=== PATIENT | male | born 1975 | race American Indian/Alaskan Native ===

== ENCOUNTER → 2019-08-30 06:05 | Outpatient (CLI) | payer MEDICARE, OTHER, SELFPAY ==
[2019-08-30 07:01] LABS: Absolute Lymphocyte Count 1.31 X10^3/uL (0.83-4.51); Absolute Neutrophil Count 6.2 X10^3/uL (2.0-7.7); Basophil# 0.03 X10^3/uL; Basophil% 0.3 % (0-1); Eosinophils% 1.1 % (0-5); Hematocrit 39.3 % (40-54); Hemoglobin 12.9 g/dL (13.0-16.5); Lymphocyte # 1.31 X10^3/ul (4.0); Lymphocyte % 14.7 % (19-41); Mean Corp Hgb Conc 32.8 g/dL (32-36); Mean Corpuscular Hgb 30.5 pg (27.0-32.0); Mean Corpuscular Volume 92.9 fL (80-94); Mean Platelet Vol. 10.5 fl (6.2-12.0); Monocyte% 13.4 % (0-10); NRBC Flagged by Analyzer 0 % (0-5); Neutrophil # 6.21 X10^3/uL (2.7-7.7); Neutrophil % 69.6 % (47-70); Platelet Count 191 K/mm3 (150-450); RBC Distribution Width SD 47.7 fl (35.1-43.9); Red Blood Count 4.23 M/mm3 (4.6-6.2); White Blood Count 8.9 K/mm3 (4.4-11.0)
[2019-08-30 07:27] LABS: ALB/GLOB Ratio 1.1 RATIO (0.9-2.4); AST(SGOT) 18 U/L (15-37); Alanine Aminotransfer ALT/SGPT 28 U/L (16-61); Albumin, Serum 3.6 g/dL (3.2-5.0); Alkaline Phosphatase 91 U/L (45-117); Anion Gap 6 (5-15); BUN 34 mg/dL (7-18); BUN/Creat Ratio 26.8 RATIO (10-20); CPK Total, Creatine Kinase 169 U/L (39-308); Calcium,Total 8.8 mg/dL (8.5-10.1); Chloride 111 mmol/L (98-107); Creatinine, Serum 1.27 mg/dL (0.70-1.30); EST Glomerular Filtration Rate 66 mL/min (>60); Est Glom Filt Rate - Afr Amer 80 mL/min (>60); Globulin 3.3 g/dL (2.2-4.2); Glucose 74 mg/dL (74-106); LDH 167 U/L (87-241); Magnesium 1.8 mg/dL (1.6-2.6); Phosphorus 3.8 mg/dL (2.5-4.9); Potassium 3.7 mmol/L (3.5-5.1); Protein, Total 6.9 g/dL (6.4-8.2); Sodium Level 141 mmol/L (136-145); Uric Acid 7.6 mg/dL (3.5-7.2)
[2019-08-31 18:36] LABS: Tacrolimus (FK506) 6.5 ng/mL (2.0-20.0)
== END ==
DX: N18.9 Chronic kidney disease, unspecified (principal); D63.1 Anemia in chronic kidney disease; T86.10 Unspecified complication of kidney transplant; E83.40 Disorders of magnesium metabolism, unspecified; Z79.899 Other long term (current) drug therapy; E83.39 Other disorders of phosphorus metabolism
CPT/HCPCS: 36415; 80053; 80197; 82550; 83615; 83735; 84100; 84550; 85025

== ENCOUNTER 2019-10-20 17:50 | Observation (INO) | payer MEDICARE, OTHER, SELFPAY ==
[2019-10-20] VITALS (7 sets, daily range): BP systolic 132–146; BP diastolic 87–97; PULSE 63–75; RESP 16–22; TEMP 36.4–36.7; O2SAT 98–99; BMI 31.2; BMI 28.7
--- NOTE | 2019-10-20 18:05 | EKG12_ITS ---
Test Reason : Blood Pressure : / mmHG Vent. Rate : 075 BPM Atrial Rate : 075 BPM P-R Int : 118 ms QRS Dur : 088 ms QT Int : 358 ms P-R-T Axes : 027 052 074 degrees QTc Int : 399 ms Normal sinus rhythm Normal ECG Confirmed by ROYCE ARANDA, BRAXTON ([id number]), school photograph editor LIA KERR ([id number]) on 10/25/2019 10:56:13 AM Referred By: STEPHANE Confirmed By:BRITTANY CRANE MD
[2019-10-20] MEDS: Aspirin 81 MG TAB.CHEW 263 MG PO (18:22)
[2019-10-20 18:30] LABS: Absolute Lymphocyte Count 0.87 X10^3/uL (0.83-4.51); Absolute Neutrophil Count 6.2 X10^3/uL (2.0-7.7); Basophil# 0.03 X10^3/uL; Basophil% 0.4 % (0-1); Eosinophil# 0.03 X10^3/uL; Eosinophils% 0.4 % (0-5); Hematocrit 41.2 % (40-54); Hemoglobin 13.4 g/dL (13.0-16.5); Lymphocyte # 0.87 X10^3/ul (4.0); Lymphocyte % 11.1 % (19-41); Mean Corp Hgb Conc 32.5 g/dL (32-36); Mean Corpuscular Hgb 30.1 pg (27.0-32.0); Mean Corpuscular Volume 92.6 fL (80-94); Mean Platelet Vol. 10.9 fl (6.2-12.0); Monocyte# 0.72 X10^3/uL; Monocyte% 9.1 % (0-10); NRBC Flagged by Analyzer 0 % (0-5); Neutrophil # 6.16 X10^3/uL (2.7-7.7); Neutrophil % 78.2 % (47-70); Platelet Count 181 K/mm3 (150-450); RBC Distribution Width CV 13.7 % (11.6-14.6); RBC Distribution Width SD 47.1 fl (35.1-43.9); Red Blood Count 4.45 M/mm3 (4.6-6.2); White Blood Count 7.9 K/mm3 (4.4-11.0)
[2019-10-20 18:42] LABS: Prothrombin Time (Protime)PT. 12.9 SECONDS (11.7-14.9)
[2019-10-20 18:43] LABS: Partial Thromboplast Time 30.5 Seconds (24.1-36.2)
--- NOTE | 2019-10-20 18:44 | RAD_ITS ---
STUDY: X-RAY CHEST REASON FOR EXAM: Male, 44 years old. chest pain. hx of previous heart attack TECHNIQUE: Single frontal view of the chest. COMPARISON: None. FINDINGS: Bibasilar calcified granulomas. Metallic wire projects over the superior mediastinum. The lungs are clear and expanded. There is no demonstrated pleural abnormality. Normal size heart. Normal mediastinum and estelita. Normal visualized pulmonary arteries. Normal visualized aortic arch and descending thoracic aorta. Normal visualized thoracic spine. Normal visualized ribs, clavicles, and shoulders. There is no demonstrated abnormality of the visualized soft tissue structures of the upper abdomen. RAD/Chest 1 View (Portable) IMPRESSION: No acute disease Electronically Signed: Rao Fang MD at 18:56 EDT , Service support ,
[2019-10-20 18:50] LABS: Anion Gap 5 (5-15); BUN 35 mg/dL (7-18); BUN/Creat Ratio 21.9 RATIO (10-20); Calcium,Total 10.1 mg/dL (8.5-10.1); Chloride 113 mmol/L (98-107); EST Glomerular Filtration Rate 51 mL/min (>60); Est Glom Filt Rate - Afr Amer 61 mL/min (>60); Estimated Creatinine Clearance 42.53 ml/min; Glucose 160 mg/dL (74-106); Potassium 4.7 mmol/L (3.5-5.1); Sodium Level 141 mmol/L (136-145)
--- NOTE | 2019-10-20 19:19 | ED.DCSUM_ITS ---
History of Present Illness Chief Complaint: Chest Pain Informant: Patient Onset: Yesterday Narrative: Presents for evaluation of chest pain midsternal sharp in nature. Reports initial symptoms yesterday afternoon at rest lasting 2 hours and resolved. Reports woke up in the middle night and sweats with mild pain. Since 9 AM, 9 hours prior to arrival symptoms have been persistent. No radicular symptoms. No nausea or dyspnea. 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 History of renal transplant 3 years ago followed by transplant in [place], he has been in the area now for 2 months with a PCP. He is on immunosuppressants of tacrolimus, CellCept, prednisone. Denies history of diabetes, hypercholesterolemia, or hypertension. Tobacco history 1 to 2 cigarettes/day. States no family history of MIs at a young age. He states stress test a year ago. Took a baby aspirin today. Prior similar symptoms: Yes Past Medical History - Allergies and Home Meds Allergies/Adverse Reactions: Allergies hydromorphone [From Dilaudid] Allergy (Mild, Verified 09/30/19 15:22) nausea Latex, Natural Rubber Allergy (Mild, Verified 09/30/19 15:22) rash Past Medical History: - - Silent [place], renal transplant, Smoking Status: Current some day smoker - Family History Maternal Family History: Reports: Renal Disease Paternal Family History: Reports: - - Patient does not know. Review of Systems General: Denies: Chills, Fever, Sweats Eyes: Denies: Visual changes - bilaterally, Diplopia ENT: Denies: Rhinorrhea, Sore throat Cardiovascular: Reports: Chest pain. Denies: Palpitations Respiratory: Denies: Dyspnea, Cough, Dyspnea on exertion Gastrointestinal: Denies: Abdominal pain, Nausea, Vomiting, Diarrhea, Melena, Hematochezia Genitourinary: Denies: Dysuria, Hematuria, Frequency Musculoskeletal: Denies: Back pain, Extremity Pain Skin: Denies: Rash, Wounds Neurological: Denies: Headache, Weakness, Numbness Physical Exam Vital Signs/Narrative: Vital Signs Temp Pulse Resp BP Pulse Ox 10/20/19 19:08 65 16 146/95 H 99 10/20/19 18:08 98 10/20/19 17:51 97.6 F L 75 16 132/87 H 99 Inital Vital Signs reviewed: Yes General: Well nourished, Well developed, No Acute Distress Head: Normocephalic, Atraumatic Eyes: Perrl, EOMI ENT: Moist mucous membranes, No rhinorrhea Neck: Supple, Nontender Cardiovascular: Regular rate, Regular rhythm, No murmurs Respiratory: No distress, CTA bilaterally, Chest nontender Abdomen: Soft, Nontender, Nondistended, Normal bowel sounds Back: Nontender, Normal Inspection Extremities: Nontender, No edema Skin: Normal color, No rash Neurological: Alert, Oriented x3, Cranial nerves II-XII grossly intact, Normal Strength, Normal Sensation Psychological: Normal affect, Normal Mood Diagnostic/Tx/Re-eval Clinical Impression(s) from Imaging Studies Chest X-Ray 10/20/19 18:44 IMPRESSION: No acute disease Electronically Signed: Rao Fang MD at 18:56 EDT , Service support , Abnormal Lab Results 10/20/19 10/20/19 10/20/19 18:18 18:18 18:18 WBC 7.9 RBC 4.45 L Hgb 13.4 Hct 41.2 MCV 92.6 MCH 30.1 MCHC 32.5 RDW Std Deviation 47.1 H RDW Coeff of Tari 13.7 Plt Count 181 MPV 10.9 Immature Gran % (Auto) 0.800 Neut % (Auto) 78.2 H Lymph % (Auto) 11.1 L [place] % (Auto) 9.1 Eos % (Auto) 0.4 Baso % (Auto) 0.4 Absolute Neuts (auto) 6.2 Absolute Lymphs (auto) 0.87 Nucleated RBC % 0 PT 12.9 INR 1.0 APTT 30.5 Sodium 141 Potassium 4.7 Chloride 113 H Carbon Dioxide 23.0 Anion Gap 5 BUN 35 H Creatinine 1.60 H Estim Creat Clear Calc 42.53 Est GFR (MDRD) Af Amer 61 Est GFR (MDRD) Non-Af 51 L BUN/Creatinine Ratio 21.9 H Glucose 160 H Calcium 10.1 Troponin I 0.018 - EKG Initial EKG Interpretation: Sinus Rhythm - Sinus rate of 75, no ST or T wave changes. - Medical Decision Making Patient presents with chest pain symptoms constant for last 9 hours. EKG with no acute changes. Chest x-ray negative. Labs include troponin negative with exception of creatinine 1.6. He was given additional aspirin, given morphine for additional pain control. Low clinical suspicion for any PE with no tachycardia or hypoxia or any exertional dyspnea. Discussed with patient's creatinine, reports his baseline is usually 1.1, there was labs from last month was 1.27. With his transplant history and slight GINNY with chest pains I do feel he benefit from observations to trend his troponin and evaluation of his acute kidney injury. I spoke with hospitalist, Dr. Cortes for admission. ED Disposition - Plan for ED Patient: Disposition: Acute Care Hospital [facility] Diagnosis: GINNY (acute kidney injury), Chest pain, Transplanted kidney
--- NOTE | 2019-10-20 19:32 | HP.PCM_ITS ---
Problem List (1) Chest pain Status: Acute (2) GINNY (acute kidney injury) Status: Acute History of Present Illness Date of Admission: 10/20/19 Chief Complaint: chest pain The patient is a 44 year old M with a significant history of congenital solitary kidney status post kidney transplant x2 and on immunosuppression who presents at the emergency department with episodic chest pain that started a day before presentation. On a day before presentation his chest pain lasted about 2 hours and then went away. On the day of presentation he chest pain started about 1:30 AM and persisted until evening when he came to the emergency department. His chest pain is sharp, pressure-like and aching. On the day of his presentation his chest pain was 8 out of 10. His chest pain worsens with lying back and standing. He denies any ameliorating factors. At emergency department he received morphine that brought his chest pain to 4 out of 10. A chest pain is nonradiating. On the evening before presentation may have some nausea that he attributes to his dinner. Also associated with symptoms is diaphoresis. At the emergency department EKG was unremarkable. Troponin was unremarkable. His creatinine was elevated. He reported his baseline creatinine around 1.1. He reported that in the past he had a silent [place] x2 times. He reported that pads were going to be applied to his chest because his blood pressure was elevated. Eventually the pads were not applied. He reported that he had a cardiac cath and electrolytes were taken from his heart/coronaries. Past Medical History Past Medical History (Chronic Problems): Chronic Problems (Last Reviewed 10/20/19 @ 21:[address] Perfecto Cortes MD) Transplanted kidney (Chronic) Medical History: Medical History (Last Reviewed 10/20/19 @ 23:[address] Perfecto Cortes MD) Myocardial infarction with cardiac rehabilitation I21.9, Z51.89 COPD (chronic obstructive pulmonary disease) J44.9 Allergies hydromorphone [From Dilaudid] Allergy (Mild, Verified 09/30/19 15:22) nausea Latex, Natural Rubber Allergy (Mild, Verified 09/30/19 15:22) rash Home Medications: Ambulatory Orders Medication Instructions Recorded ergocalciferol (vitamin D2) 1,250 50,000 unit PO FR 09/30/19 mcg (50,000 unit) capsule magnesium oxide 400 mg PO BID 09/30/19 mycophenolate mofetil 250 mg 500 mg PO BID 09/30/19 capsule prednisone 5 mg tablet 5 mg PO DAILY 09/30/19 tacrolimus 1 mg capsule 3 mg PO BID cap 09/30/19 Calcium Carbonate 500 mg PO BID 10/20/19 Omeprazole Magnesium [Prilosec Otc] 20 mg PO BID 10/20/19 Surgical History: Surgical History (Last Reviewed 10/20/19 @ 21:[address] Perfecto Cortes MD) kidney transplant Smoking Status: Current some day smoker - *Family History Maternal History Items: Renal Disease Paternal History Items: - - Patient does not know. Review of Systems Constitutional: Denies: Chills, Fever, Weight Change HEENT: Denies: Head Aches, Sinus Congestion, Sinus Drainage Cardiovascular: Reports: Chest Pain. Denies: Palpitations Respiratory: Denies: Cough, Shortness of breath at rest, Sputum production Gastrointestinal: Reports: Nausea. Denies: Abdominal Pain, Vomiting Genitourinary: Denies: Dysuria Musculoskeletal: Denies: Joint Pain, Joint Tenderness Skin: Denies: Rash, Wounds Neurological: Denies: Numbness, Tingling, Focal weakness Psychiatric: Denies: Anxiety, Depression, Homicidal Ideations, Suicidal Ideations Hematologic/ Lymphatic: Denies: Easy Bruising, Easy Bleeding VTE Information - Inpt Only VTE Present on Admission: No VTE Mechan Device Prophylaxis: None VTE Pharm Prophylaxis ordered?: Yes Patient Problems: Active and Suspected Problems (Last Reviewed 10/20/19 @ 23:[address] Perfecto Cortes MD) Chest pain (Acute) GINNY (acute kidney injury) (Acute) - Physical Exam Vitals/I&O's: Vital Signs Temp Pulse Resp BP Pulse Ox 97.6 F L 65 16 146/95 H 99 10/20/19 17:51 10/20/19 19:08 10/20/19 19:08 10/20/19 19:08 10/20/19 19:08 Oxygen Delivery Method Room Air Weight: 72.6 kg Body Mass Index (BMI) 31.2 General: Alert, Oriented x3, Cooperative HEENT: Atraumatic, PERRLA, EOMI, Normocephalic Neck: Supple, No JVD, Negative Carotid Bruits Lungs: Clear to auscultation, Normal air movement, No rhonchi, No wheeze Cardiovascular: Regular rate, No murmurs Abdomen: Bowel Sounds Present, Soft, Non Tender Extremities: No edema, Capillary Refill Less than 3 Seconds Skin: No rashes, No breakdown, - - Dialysis access device in left forearm. Musculoskeletal: No Tenderness to Palpation of Joints or Extremities Neurological: Cranial nerves II-XII grossly intact Psych/Mental Status: Normal Affect, Appropriate Laboratory Results 10/20/19 18:18: WBC 7.9, RBC 4.45 L, Hgb 13.4, Hct 41.2, MCV 92.6, MCH 30.1, MCHC 32.5, RDW Std Deviation 47.1 H, RDW Coeff of Tari 13.7, Plt Count 181, MPV 10.9, Immature Gran % (Auto) 0.800, Neut % (Auto) 78.2 H, Lymph % (Auto) 11.1 L, [facility] % (Auto) 9.1, Eos % (Auto) 0.4, Baso % (Auto) 0.4, Absolute Neuts (auto) 6.2, Absolute Lymphs (auto) 0.87, Nucleated RBC % 0 10/20/19 18:18: PT 12.9, INR 1.0, APTT 30.5 10/20/19 18:18: Sodium 141, Potassium 4.7, Chloride 113 H, Carbon Dioxide 23.0, Anion Gap 5, BUN 35 H, Creatinine 1.60 H, Estim Creat Clear Calc 42.53, Est GFR (MDRD) Af Amer 61, Est GFR (MDRD) Non-Af 51 L, BUN/Creatinine Ratio 21.9 H, Glucose 160 H, Calcium 10.1, Troponin I 0.018 Assessment/Plan All Active Problems (Last Reviewed 10/20/19 @ 23:[address] Perfecto Cortes MD) Chest pain (Acute) GINNY (acute kidney injury) (Acute) The patient is a 44 year old M with a significant history of congenital solitary kidney status post kidney transplant x2 and on immunosuppression who presents emergency department with episodic chest pain and also was found to be in probable GINNY . Chest pain Place on a monitored bed at PCU CXR independently reviewed confirms no acute cardiopulmonary process. EKG independently reviewed confirms sinus rhythm. ASA 81 mg p.o. daily SL NTG 0.4 mg prn as needed for chest pain We will check lipid panel. Serial cardiac enzymes Stat EKG as needed for chest pain GINNY On presentation his creatinine was 1.60. Review of records shows that on 08/30/2019 his creatinine was 1.27. However patient reports baseline creatinine of 1.1. His BUN is 35. IV hydration. Avoid nephrotoxins. Trend BMP. Kidney transplant Continue home immunosuppression medication. GERD Omeprazole continued. Tobacco Abuse Counselled DVT prophylaxis Subcutaneous heparin OBSV E&M: [id number] Initial observation care L3
[2019-10-20] MEDS: Morphine 4 MG/ML Syringe IV (19:44)
[2019-10-20] MEDS: Ondansetron 4 MG/2 ML Vial IV (19:50)
--- NOTE | 2019-10-20 21:12 | EKG12_ITS ---
Test Reason : CP ADMIT Blood Pressure : / mmHG Vent. Rate : 069 BPM Atrial Rate : 069 BPM P-R Int : 120 ms QRS Dur : 096 ms QT Int : 392 ms P-R-T Axes : 031 062 068 degrees QTc Int : 420 ms Normal sinus rhythm Normal ECG When compared with ECG of 20-OCT-2019 17:58, MANUAL COMPARISON REQUIRED, DATA IS UNCONFIRMED Confirmed by LOPEZ WALKER ([id number]), non linear editor LIA KERR ([id number]) on 10/29/2019 10:36:44 AM Referred By: DR OSMAN Confirmed By:LOPEZ WALKER
[2019-10-20] MEDS: 0.9% Normal Saline 1,000 ML 100 ML IV (21:51)
[2019-10-20] MEDS: Mycophenolate Mofetil 250 MG Capsule 500 MG PO (22:16)
[2019-10-20] MEDS: Calcium (Elemental) 500 MG Tablet PO (22:16)
[2019-10-20] MEDS: Acetaminophen 325 MG Tablet 650 MG PO (22:17)
[2019-10-20] MEDS: Magnesium Oxide 400 MG Tablet PO (22:17)
[2019-10-21 03:02] VITALS: PULSE 63
[2019-10-21 03:10] VITALS: BP 145/82; PULSE 55; RESP 16; TEMP 36.4; O2SAT 98
[2019-10-21 06:49] LABS: Basophil# 0.02 X10^3/uL; Basophil% 0.3 % (0-1); Eosinophil# 0.08 X10^3/uL; Eosinophils% 1.3 % (0-5); Hematocrit 39.2 % (40-54); Hemoglobin 12.9 g/dL (13.0-16.5); Lymphocyte % 20.3 % (19-41); Mean Corp Hgb Conc 32.9 g/dL (32-36); Mean Corpuscular Volume 91.2 fL (80-94); Monocyte# 0.99 X10^3/uL; Monocyte% 15.5 % (0-10); NRBC Flagged by Analyzer 0 % (0-5); Neutrophil # 3.95 X10^3/uL (2.7-7.7); Neutrophil % 61.8 % (47-70); Platelet Count 165 K/mm3 (150-450); RBC Distribution Width SD 47.1 fl (35.1-43.9); White Blood Count 6.4 K/mm3 (4.4-11.0)
[2019-10-21 06:53] VITALS: PULSE 54
[2019-10-21 07:19] LABS: Anion Gap 6 (5-15); BUN 35 mg/dL (7-18); BUN/Creat Ratio 28.5 RATIO (10-20); Calcium,Total 9.5 mg/dL (8.5-10.1); Chloride 112 mmol/L (98-107); Cholesterol 171 mg/dL (200); Creatinine, Serum 1.23 mg/dL (0.70-1.30); EST Glomerular Filtration Rate 69 mL/min (>60); Est Glom Filt Rate - Afr Amer 83 mL/min (>60); Estimated Creatinine Clearance 57.87 ml/min; Glucose 87 mg/dL (74-106); High Density Lipoprotein 55 mg/dL; Potassium 4.6 mmol/L (3.5-5.1); Sodium Level 140 mmol/L (136-145); Triglycerides 76 mg/dL; Very Low Density Lipoprotein 15 mg/dL (5-40)
[2019-10-21] MEDS: 0.9% Normal Saline 1,000 ML 100 ML IV (07:59)
[2019-10-21 08:07] VITALS: BP 149/91; PULSE 61; RESP 16; TEMP 36.4; O2SAT 96
[2019-10-21] MEDS: Acetaminophen 325 MG Tablet 650 MG PO (08:11)
[2019-10-21] MEDS: Aspirin 81 MG TAB.CHEW PO (08:12)
[2019-10-21] MEDS: Calcium (Elemental) 500 MG Tablet PO (08:12)
[2019-10-21] MEDS: Mycophenolate Mofetil 250 MG Capsule 500 MG PO (08:12)
[2019-10-21] MEDS: Magnesium Oxide 400 MG Tablet PO (08:12)
[2019-10-21] MEDS: predniSONE 5 MG Tablet PO (08:13)
[2019-10-21] MEDS: Tacrolimus Anhydrous 1 MG Capsule 3 MG PO (08:13)
[2019-10-21 10:27] VITALS: O2SAT 95
[2019-10-21 11:03] VITALS: PULSE 63
--- NOTE | 2019-10-21 11:07 | DCINST_ITS ---
- Discharge Diagnoses Current Active Problems: Current Active and Chronic Problems (Last Reviewed 10/20/19 @ 21:[address] Perfecto Cortes MD) Chest pain (Acute) GINNY (acute kidney injury) (Acute) Transplanted kidney (Chronic) You will use the following diet at home:: No restrictions Discharge Activity: Return to Normal Activity Call your doctor if you observe: Shortness of breath, Dizziness, Fainting spells, Chest pain Allergies/Adverse Reactions: Allergies hydromorphone [From Dilaudid] Allergy (Mild, Verified 09/30/19 15:22) nausea Latex, Natural Rubber Allergy (Mild, Verified 09/30/19 15:22) rash Medications to take at Discharge ergocalciferol (vitamin D2) 1,250 mcg (50,000 unit) capsule 50,000 unit PO FR 09/30/19 magnesium oxide 400 mg PO BID 09/30/19 mycophenolate mofetil 250 mg capsule 500 mg PO BID 09/30/19 prednisone 5 mg tablet 5 mg PO DAILY 09/30/19 tacrolimus 1 mg capsule 3 mg PO BID cap 09/30/19 Calcium Carbonate 500 mg PO BID 10/20/19 Omeprazole Magnesium [Prilosec Otc] 20 mg PO BID 10/20/19 Primary Care Physician: Wolfgang Reed MD [Primary Care Provider] - Please follow up with your Primary Care Physician in: 1 Week Test Results: Test results from this visit will be discussed in further detail at your follow- up appointment, if applicable. Proposed Discharge Date: 10/21/19
--- NOTE | 2019-10-21 11:08 | PCM.DC.SUM ---
<Randa Jama - Last Filed: 10/21/19 11:14> Discharge Date and Diagnosis Date of Admission: 10/20/19 Date of Discharge: 10/21/19 - Primary Discharge Diagnosis Active and Suspected Problems (Last Reviewed 10/20/19 @ 23:[address] Perfecto Cortes MD) 1. Musculoskeletal chest pain, ACS ruled out 2. Acute kidney injury 3. History of kidney transplant 4. GERD 5. Tobacco dependence - Secondary Discharge Diagnosis Chronic Problems (Last Reviewed 10/20/19 @ 21:[address] Perfecto Cortes MD) Transplanted kidney (Chronic) Hospital Course and Treatment Imaging Results: Diagnostic Data Chest X-Ray 10/20/19 18:44 IMPRESSION: No acute disease Electronically Signed: Rao Fang MD at 18:56 EDT , Service support , Operations: None Procedures: None Summary of Care Provided: The patient is a 44 year old M admitted 10/20/2019 due to chest pain. 1. Musculoskeletal chest pain, ACS ruled out-troponin negative. EKG without ST-T changes. Patient reports he has had a heart cath and stress test at a facility in [place] within the last few years which was reported to be normal. Chest pain is reproducible. Follow-up with primary care physician in 1 week. 2. Acute kidney injury-resolved with IV fluids. 3. History of kidney transplant-continue home immunosuppression regimen. 4. GERD- continue PPI. 5. Tobacco dependence- encouraged cessation. Patient seen and examined prior to discharge. Physical assessment as noted below. Patient is stable for discharge with follow up recommendations as noted above. This patient was seen by DEVORAH Mendoza under the supervision of Dr. Hernadez. - Physical Exam Vitals/I&O's: Vital Signs Temp Pulse Resp BP Pulse Ox 97.5 F L 61 16 149/91 H 95 10/21/19 08:07 10/21/19 08:07 10/21/19 08:07 10/21/19 08:07 10/21/19 10:27 Oxygen Delivery Method Room Air Weight: 151 lb 14.376 oz Body Mass Index (BMI) 28.7 Intake and Output for Last 24 Hours 04/10/20/19 10/21/19 23:59 23:59 23:59 Intake Total 1460 / 1460 Balance 1460 / 1460 General: Alert, Oriented x3, Cooperative HEENT: Atraumatic, PERRLA, EOMI, Normocephalic Neck: Supple, No JVD, Negative Carotid Bruits Lungs: Clear to auscultation, Normal air movement Cardiovascular: Regular rate, Regular Rhythm, Normal S1, Normal S2, No murmurs Abdomen: Bowel Sounds Present, Soft, Non Tender, Non-Distended Extremities: No clubbing, No cyanosis, No edema, Capillary Refill Less than 3 Seconds Skin: No rashes, No breakdown Musculoskeletal: No Tenderness to Palpation of Joints or Extremities Neurological: Cranial nerves II-XII grossly intact, Neuro grossly intact Psych/Mental Status: Normal Affect, Appropriate Laboratory Results 10/20/19 18:18: WBC 7.9, RBC 4.45 L, Hgb 13.4, Hct 41.2, MCV 92.6, MCH 30.1, MCHC 32.5, RDW Std Deviation 47.1 H, RDW Coeff of Tari 13.7, Plt Count 181, MPV 10.9, Immature Gran % (Auto) 0.800, Neut % (Auto) 78.2 H, Lymph % (Auto) 11.1 L, Posey % (Auto) 9.1, Eos % (Auto) 0.4, Baso % (Auto) 0.4, Absolute Neuts (auto) 6.2, Absolute Lymphs (auto) 0.87, Nucleated RBC % 0 10/20/19 18:18: PT 12.9, INR 1.0, APTT 30.5 10/20/19 18:18: Sodium 141, Potassium 4.7, Chloride 113 H, Carbon Dioxide 23.0, Anion Gap 5, BUN 35 H, Creatinine 1.60 H, Estim Creat Clear Calc 42.53, Est GFR (MDRD) Af Amer 61, Est GFR (MDRD) Non-Af 51 L, BUN/Creatinine Ratio 21.9 H, Glucose 160 H, Calcium 10.1, Troponin I 0.018 10/20/19 22:12: Troponin I < 0.015 10/21/19 00:22: Troponin I < 0.015 10/21/19 06:00: WBC 6.4, RBC 4.30 L, Hgb 12.9 L, Hct 39.2 L, MCV 91.2, MCH 30.0, MCHC 32.9, RDW Std Deviation 47.1 H, RDW Coeff of Tari 14.0, Plt Count 165, MPV 11.0, Immature Gran % (Auto) 0.800, Neut % (Auto) 61.8, Lymph % (Auto) 20.3, Posey % (Auto) 15.5 H, Eos % (Auto) 1.3, Baso % (Auto) 0.3, Absolute Neuts (auto) 4.0, Absolute Lymphs (auto) 1.30, Nucleated RBC % 0 10/21/19 06:00: Sodium 140, Potassium 4.6, Chloride 112 H, Carbon Dioxide 22.0, Anion Gap 6, BUN 35 H, Creatinine 1.23, Estim Creat Clear Calc 57.87, Est GFR (MDRD) Af Amer 83, Est GFR (MDRD) Non-Af 69, BUN/Creatinine Ratio 28.5 H, Glucose 87, Calcium 9.5, Triglycerides 76, Cholesterol 171, LDL Cholesterol 101, VLDL Cholesterol 15, HDL Cholesterol 55 Current Medications Acetaminophen (Tylenol) 650 mg PO Q6H PRN PRN PRN Reason: Pain Score 1-10/Temp > 100.7 F Last Admin: 10/21/19 08:11 Dose: 650 mg Documented by: Aspirin (Aspirin, Baby) 81 mg PO DAILY@0800 [facility] Last Admin: 10/21/19 08:12 Dose: 81 mg Documented by: Calcium Carbonate (Os-Rolf 500) 500 mg PO BID [facility] Last Admin: 10/21/19 08:12 Dose: 500 mg Documented by: Dextrose (D50w Syringe) 0 gm IV X1 PRN; Protocol PRN Reason: Hypoglycemia Ergocalciferol (Vitamin D) 50,000 unit PO FR [facility] Glucagon () 1 mg IM .X1 PRN PRN Reason: Hypoglycemia Heparin Sodium (Porcine) (Heparin Na) 5,000 unit SC Q8 [facility] Last Admin: 10/21/19 06:42 Dose: Not Given Documented by: Sodium Chloride () 1,000 mls @ 100 mls/hr IV .Q10H [facility] Last Admin: 10/21/19 07:59 Dose: 100 mls/hr Documented by: Sodium Chloride () 250 mls @ 15 mls/hr IV .[id number] PRN PRN Reason: Saline Flush Sodium Chloride () 250 mls @ 15 mls/hr IV .[id number] PRN PRN Reason: Additional IVPB Infusion Magnesium Oxide (Mag-Ox 400) 400 mg PO BID [facility] Last Admin: 10/21/19 08:12 Dose: 400 mg Documented by: Melatonin (Melatonin) 3 mg PO QHS PRN PRN PRN Reason: INSOMNIA Mycophenolate Mofetil (Cellcept) 500 mg PO BID [facility] Last Admin: 10/21/19 08:12 Dose: 500 mg Documented by: Nitroglycerin (Nitrostat) 0.4 mg SUBLINGUAL Q5M PRN PRN Reason: CARDIAC/CHEST PAIN Ondansetron HCl (Zofran) 4 mg IV Q8H PRN PRN PRN Reason: NAUSEA/VOMITING Pantoprazole Sodium (Protonix) 20 mg PO BID [facility] Last Admin: 10/21/19 08:14 Dose: Not Given Documented by: Prednisone () 5 mg PO DAILY [facility] Last Admin: 10/21/19 08:13 Dose: 5 mg Documented by: Sodium Chloride () 10 - 40 ml IV UD PRN PRN Reason: SALINE FLUSH Tacrolimus (Prograf) 3 mg PO BID [facility] Last Admin: 10/21/19 08:13 Dose: 3 mg Documented by: Discharge Diet: No Restrictions Discharge Activity: Return to Normal Activity Call your doctor if you observe: Shortness of breath, Dizziness, Fainting spells, Chest pain Home Medications: Medications to take at Discharge ergocalciferol (vitamin D2) 1,250 mcg (50,000 unit) capsule 50,000 unit PO FR 09/30/19 magnesium oxide 400 mg PO BID 09/30/19 mycophenolate mofetil 250 mg capsule 500 mg PO BID 09/30/19 prednisone 5 mg tablet 5 mg PO DAILY 09/30/19 tacrolimus 1 mg capsule 3 mg PO BID cap 09/30/19 Calcium Carbonate 500 mg PO BID 10/20/19 Omeprazole Magnesium [Prilosec Otc] 20 mg PO BID 10/20/19 Primary Care Physician: Wolfgang Reed MD [Primary Care Provider] - Please follow up with your Primary Care Physician in: 1 Week Disposition: Home Minutes spent on discharge:: 35 Patient Condition:: Stable Medical Necessity - Tobacco Use Smoking Status: Light Smoker (<10/day) Meaningful Use Info Meaningful Use Diagnoses (Choose all that apply): None applicable <Gage Hernadez - Last Filed: 10/21/19 14:02> Discharge Date and Diagnosis - Secondary Discharge Diagnosis Chronic Problems (Last Reviewed 10/20/19 @ 21:[address] Perfecto Cortes MD) Transplanted kidney (Chronic) Hospital Course and Treatment Operations: None Procedures: None Summary of Care Provided: Patient seen and examined independently. Data reviewed. I agree with the above note by the nurse practitioner. The patient is a 44 year old M presents with chest pain. Chest pain was midsternal not associated other symptoms. On exam, chest pain was reproducible. Troponin series were performed x3 and were all negative. Feeling of this chest pain was musculoskeletal and no additional work-up was necessary. Patient states that he has had a heart cath in the past that was abnormal but that was roughly 7 years ago. The likelihood of this being cardiac is very low no additional work-up is necessary during this hospitalization. [] - Physical Exam Vitals/I&O's: Vital Signs Temp Pulse Resp BP Pulse Ox 36.4 C L 63 16 149/91 H 95 10/21/19 08:07 10/21/19 11:03 10/21/19 08:07 10/21/19 08:07 10/21/19 10:27 Oxygen Delivery Method Room Air Weight: 68.9 kg Body Mass Index (BMI) 28.7 Intake and Output for Last 24 Hours 10/19/19 10/20/19 10/21/19 23:59 23:59 23:59 Intake Total 1820 / 1820 Balance 1820 / 1820 General: Alert, Cooperative HEENT: Atraumatic, Normocephalic Neck: No Nodes, Trachea Midline Lungs: Clear to auscultation, Normal air movement Cardiovascular: Regular rate, Regular Rhythm, Normal S1, Normal S2, No murmurs Musculoskeletal: - - Reproducible anterior chest wall tenderness midsternally as well as on the left side of his chest Laboratory Results 10/20/19 18:18: WBC 7.9, RBC 4.45 L, Hgb 13.4, Hct 41.2, MCV 92.6, MCH 30.1, MCHC 32.5, RDW Std Deviation 47.1 H, RDW Coeff of Tari 13.7, Plt Count 181, MPV 10.9, Immature Gran % (Auto) 0.800, Neut % (Auto) 78.2 H, Lymph % (Auto) 11.1 L, Posey % (Auto) 9.1, Eos % (Auto) 0.4, Baso % (Auto) 0.4, Absolute Neuts (auto) 6.2, Absolute Lymphs (auto) 0.87, Nucleated RBC % 0 10/20/19 18:18: PT 12.9, INR 1.0, APTT 30.5 10/20/19 18:18: Sodium 141, Potassium 4.7, Chloride 113 H, Carbon Dioxide 23.0, Anion Gap 5, BUN 35 H, Creatinine 1.60 H, Estim Creat Clear Calc 42.53, Est GFR (MDRD) Af Amer 61, Est GFR (MDRD) Non-Af 51 L, BUN/Creatinine Ratio 21.9 H, Glucose 160 H, Calcium 10.1, Troponin I 0.018 10/20/19 22:12: Troponin I < 0.015 10/21/19 00:22: Troponin I < 0.015 10/21/19 06:00: WBC 6.4, RBC 4.30 L, Hgb 12.9 L, Hct 39.2 L, MCV 91.2, MCH 30.0, MCHC 32.9, RDW Std Deviation 47.1 H, RDW Coeff of Tari 14.0, Plt Count 165, MPV 11.0, Immature Gran % (Auto) 0.800, Neut % (Auto) 61.8, Lymph % (Auto) 20.3, Posey % (Auto) 15.5 H, Eos % (Auto) 1.3, Baso % (Auto) 0.3, Absolute Neuts (auto) 4.0, Absolute Lymphs (auto) 1.30, Nucleated RBC % 0 10/21/19 06:00: Sodium 140, Potassium 4.6, Chloride 112 H, Carbon Dioxide 22.0, Anion Gap 6, BUN 35 H, Creatinine 1.23, Estim Creat Clear Calc 57.87, Est GFR (MDRD) Af Amer 83, Est GFR (MDRD) Non-Af 69, BUN/Creatinine Ratio 28.5 H, Glucose 87, Calcium 9.5, Triglycerides 76, Cholesterol 171, LDL Cholesterol 101, VLDL Cholesterol 15, HDL Cholesterol 55 Discharge Diet: No Restrictions Discharge Activity: Return to Normal Activity Call your doctor if you observe: Shortness of breath, Dizziness, Fainting spells, Chest pain Disposition: Home Minutes spent on discharge:: 35 Patient Condition:: Stable Medical Necessity - Tobacco Use Smoking Status: Light Smoker (<10/day) OBSV E&M: 90289 Observation care discharge
== END 2019-10-21 11:08 | disposition home or self-care (01) ==
LOC: ED 19:07 → PCU 21:22
PROVIDERS: Admitting Provider Hospitalist; Emergency Provider Emergency Medicine; PCP Internal Medicine
DX: R07.89 Other chest pain (principal); N17.9 Acute kidney failure, unspecified; K21.9 Gastro-esophageal reflux disease without esophagitis; I25.2 Old myocardial infarction; F17.210 Nicotine dependence, cigarettes, uncomplicated; J44.9 Chronic obstructive pulmonary disease, unspecified; Z94.0 Kidney transplant status; Z79.899 Other long term (current) drug therapy; Z79.52 Long term (current) use of systemic steroids
CPT/HCPCS: 36415; 71045; 80048; 80061; 84484; 85025; 85610; 85730; 93005; 96361; 96374; 96375; 99218; 99285; 99406; J7030; A4216; G0378; J2405

== ENCOUNTER 2019-12-24 06:22 | Outpatient (RCR) | payer MEDICARE, OTHER, SELFPAY ==
[2019-10-20 21:10] VITALS: BMI 28.7
[2019-12-24 07:40] LABS: Absolute Lymphocyte Count 1.29 X10^3/uL (0.83-4.51); Absolute Neutrophil Count 5.4 X10^3/uL (2.0-7.7); Basophil# 0.03 X10^3/uL; Basophil% 0.4 % (0-1); Eosinophil# 0.08 X10^3/uL; Hematocrit 40.2 % (40-54); Hemoglobin 12.9 g/dL (13.0-16.5); Lymphocyte # 1.29 X10^3/ul (4.0); Lymphocyte % 16.2 % (19-41); Mean Corp Hgb Conc 32.1 g/dL (32-36); Mean Corpuscular Hgb 30.6 pg (27.0-32.0); Mean Corpuscular Volume 95.5 fL (80-94); Monocyte# 1.03 X10^3/uL; NRBC Flagged by Analyzer 0 % (0-5); Neutrophil # 5.43 X10^3/uL (2.7-7.7); Neutrophil % 68.3 % (47-70); Platelet Count 194 K/mm3 (150-450); RBC Distribution Width CV 14.4 % (11.6-14.6); RBC Distribution Width SD 49.9 fl (35.1-43.9); Red Blood Count 4.21 M/mm3 (4.6-6.2)
[2019-12-24 08:08] LABS: AST(SGOT) 13 U/L (15-37); Alanine Aminotransfer ALT/SGPT 19 U/L (16-61); Albumin, Serum 3.3 g/dL (3.2-5.0); Alkaline Phosphatase 83 U/L (45-117); Anion Gap 5 (5-15); BUN 35 mg/dL (7-18); BUN/Creat Ratio 19.3 RATIO (10-20); CPK Total, Creatine Kinase 69 U/L (39-308); Calcium,Total 9.3 mg/dL (8.5-10.1); Chloride 115 mmol/L (98-107); Creatinine, Serum 1.81 mg/dL (0.70-1.30); EST Glomerular Filtration Rate 44 mL/min (>60); Est Glom Filt Rate - Afr Amer 53 mL/min (>60); Globulin 3.4 g/dL (2.2-4.2); Glucose 94 mg/dL (74-106); LDH 160 U/L (87-241); Magnesium 1.6 mg/dL (1.6-2.6); Phosphorus 3.4 mg/dL (2.5-4.9); Potassium 4.2 mmol/L (3.5-5.1); Protein, Total 6.7 g/dL (6.4-8.2); Sodium Level 144 mmol/L (136-145); Uric Acid 9.3 mg/dL (3.5-7.2)
[2019-12-26 21:17] LABS: Tacrolimus (FK506) 9.3 ng/mL (2.0-20.0)
== END 2019-12-24 18:00 | disposition home or self-care (01) ==
LOC: LAB 06:22
PROVIDERS: PCP Internal Medicine
DX: T86.10 Unspecified complication of kidney transplant (principal); N18.9 Chronic kidney disease, unspecified; D63.1 Anemia in chronic kidney disease; E83.39 Other disorders of phosphorus metabolism; E83.40 Disorders of magnesium metabolism, unspecified; Z79.899 Other long term (current) drug therapy
CPT/HCPCS: 36415; 80053; 80197; 82550; 83615; 83735; 84100; 84550; 85025

== ENCOUNTER 2020-01-03 14:48 | Emergency (ER) | payer MEDICARE, OTHER, SELFPAY ==
[2019-12-30 13:09] VITALS: BMI 28.7
[2020-01-03 14:50] VITALS: BP 153/92; PULSE 91; RESP 18; TEMP 36.6; O2SAT 98; BMI 31.5
[2020-01-03 15:33] VITALS: BP 138/88; PULSE 81; RESP 16; O2SAT 98
--- NOTE | 2020-01-03 15:46 | RAD_ITS ---
STUDY: X-RAY - LEFT RADIUS AND ULNA REASON FOR EXAM: Male, 44 years old. Pain to left arm fistula after hitting it a few days ago TECHNIQUE: AP and lateral view(s) of the forearm. COMPARISON: None. FINDINGS: Calcification of the AV fistula. No bony abnormality is seen. Normal visualized radius. Normal visualized ulna. RAD/Forearm 2 Views IMPRESSION: Calcification of the AV fistula. Electronically Signed: Pawan Ordaz, at 16:00 EDT , Service support ,
--- NOTE | 2020-01-03 16:06 | ED.DCSUM_ITS ---
- ER Visit Summary Date of Service: 01/03/20 Chief Complaint: Left forearm pain History of Present Illness: The patient is a [address] Reed. He reports that 2 days ago he bumped his left forearm on the railing the steps. He has a fistula here that he got 10 to 15 years ago, but has not been used for 15 years. States that since hitting it he has a sharp pain is 10 of 10 with movement or laying on it. 7 on 10 at rest. He denies any paresthesias or weakness distally. Patient reports that he is not on dialysis. He has had a kidney transplant and still follows with the [facility] team. Physical Examination: Vitals: Stable. Afebrile. General: Well-nourished and well-developed. Head: Normocephalic atraumatic. Neck: Supple, no lymphadenopathy. No JVD. Nontender. Cardiovascular: Regular rate and rhythm. No murmurs. Respiratory: No respiratory distress. Clear to auscultation bilaterally. Abdominal: Soft, nontender, nondistended, normal bowel sounds. No guarding, rebound, or peritoneal signs. Back: Nontender. Extremities: Left forearm shows a fistula that is mildly tender to palpation. The distal portion of this has a small amount of soft tissue swelling and contusion. There is a palpable thrill. He has less than 2-second capillary refill., no edema. Skin: Normal color, no rash. Neurologic: Alert and oriented ?3. Cranial nerves II through XII are intact. Normal strength and sensation. Psych: Normal affect. Test Results: Clinical Impression(s) from Imaging Studies Forearm X-Ray 01/03/20 15:46 IMPRESSION: Calcification of the AV fistula. Electronically Signed: Pawan Ordaz, at 16:00 EDT , Service support , Emergency Department Course and Treatment: An OAR[facility] report was obtained which was negative. He was given a dose of [place] and is resting comfortably. Treatment Plan: Patient was discharged prescription for [place]. Instructed to follow-up his primary care physician 1 week if not improving. Return to the emergency department for any worsening symptoms. Disposition: To home in improved and stable condition. Impression: 1. Left forearm contusion. 2. Nonfunctional fistula left forearm. This note was generated with [employer] dictation software. It may contain incorrect words, spelling, and punctuation that were not noted in review of the chart prior to signing ED Disposition - Plan for ED Patient: Disposition: Home or Assisted Living Instructions: ED EXTREMITY CONTUSION Upper Prescriptions: Hydrocodone Bitart/Apap 5-325 [[place] 5MG-325MG] 1 tab PO Q4H PRN PRN 2 Days #10 tab PRN Reason: Pain Prescription Printed Referrals: Wolfgang Reed MD [Primary Care Provider] - 1 Week if not improving
[2020-01-03 16:18] VITALS: BP 142/87; PULSE 78; RESP 14; O2SAT 98
[2020-01-03] MEDS: HYDROcodone Bitartrate/Apap 5/325 Tablet PO (16:19)
== END 2020-01-03 16:21 | disposition home or self-care (01) ==
LOC: ED 15:55
PROVIDERS: Emergency Provider Emergency Medicine; PCP Internal Medicine
DX: S50.12XA Contusion of left forearm, initial encounter (principal); Z95.828 Presence of other vascular implants and grafts; X58.XXXA Exposure to other specified factors, initial encounter; Y93.9 Activity, unspecified; Y92.9 Unspecified place or not applicable; I25.2 Old myocardial infarction; J44.9 Chronic obstructive pulmonary disease, unspecified; Z94.0 Kidney transplant status; Z79.899 Other long term (current) drug therapy
CPT/HCPCS: 73090; 99282

== ENCOUNTER 2020-01-12 20:00 | Emergency (ER) | payer MEDICARE, OTHER, SELFPAY ==
[2020-01-12 20:00] VITALS: BP 141/88; PULSE 76; RESP 16; TEMP 36.4; O2SAT 98; BMI 33.0
--- NOTE | 2020-01-12 20:31 | EKG12_ITS ---
Test Reason : COUGH Blood Pressure : / mmHG Vent. Rate : 069 BPM Atrial Rate : 069 BPM P-R Int : 120 ms QRS Dur : 092 ms QT Int : 374 ms P-R-T Axes : 020 055 089 degrees QTc Int : 400 ms Normal sinus rhythm Normal ECG Confirmed by ALONDRA ARANDA, HYACINTH ([id number]), publishing editor JANY LOPEZ ([id number]) on 01/17/2020 10:54:50 AM Referred By: SINGH Confirmed By:HYACINTH CANTU MD
--- NOTE | 2020-01-12 20:34 | ED.VIS.GEN ---
"History of Present Illness Chief Complaint: Cough Informant: Patient Onset: Yesterday Context: Gradual Onset Current Severity: Mild Maximum Severity: Moderate Narrative: Patient presents with cough and upper back pain. He points to the lower ribs and describing his area of pain. He does feel short of breath with wheezes. He is coughing but bringing up clear sputum. He denies fever or chills. He does have a history of COPD. He lives in [place] but was here visiting family when the Covid pandemic hit so he has been staying here. He was able to borrow a family members albuterol inhaler to use. He reports his last creatinine to be 1.8. He has had 2 prior kidney transplants. - Past Medical History (1) GERD (gastroesophageal reflux disease) Status: Chronic (2) COPD (chronic obstructive pulmonary disease) Status: Chronic (3) Myocardial infarction Status: Chronic (4) Transplanted kidney Status: Chronic Past Medical History - Allergies and Home Meds Allergies/Adverse Reactions: Allergies hydromorphone [From Dilaudid] Allergy (Mild, Verified 01/12/20 20:02) nausea Latex, Natural Rubber Allergy (Mild, Verified 01/12/20 20:02) rash Primary Care Physician: Wolfgang Reed MD [Primary Care Provider] - Prior records reviewed: Yes Lives: With Family Smoking Status: Former smoker - Family History Maternal Family History: Reports: Renal Disease Paternal Family History: Reports: - - Patient does not know. Review of Systems General: Denies: Chills, Fever Eyes: Denies: Visual changes - bilaterally ENT: Denies: Bilateral ear pain Cardiovascular: Denies: Chest pain Respiratory: Reports: Dyspnea, Cough, Sputum Gastrointestinal: Reports: - - Abdominal bloating. Denies: Abdominal pain, Vomiting, Diarrhea Musculoskeletal: Reports: Back pain. Denies: Swelling, Extremity Pain Skin: Denies: Rash Neurological: Denies: Headache Hematologic: Denies: Easy bruising, Easy bleeding Allergy: Denies: Uticaria Physical Exam Vital Signs/Narrative: Vital Signs Temp Pulse Resp BP Pulse Ox 01/12/20 20:00 97.6 F L 76 16 141/88 H 98 Inital Vital Signs reviewed: Yes General: Well nourished, Well developed Head: Normocephalic ENT: Moist mucous membranes Neck: Supple Cardiovascular: Regular rate, Regular rhythm Respiratory: No distress, Wheezing Abdomen: Soft, Nontender, Hypoactive bowel sounds Back: - - Reproducible tenderness of the lower ribs bilaterally. No overlying skin changes. Extremities: Nontender, No edema Skin: Normal color Neurological: Alert, Oriented x3 Psychological: Normal affect Diagnostic/Tx/Re-eval Impressions Chest X-Ray 01/12/20 21:30 IMPRESSION: No consolidation. Prominence of the pulmonary vasculature. Electronically Signed: Danielito Savage MD at 21:50 EDT , Service support , 01/12/20 21:30 Chest 1 View (Portable) [RAD] Stat Laboratory Results 01/12/20 01/12/20 01/12/20 20:52 20:52 20:52 WBC 8.2 RBC 4.05 L Hgb 12.2 L Hct 38.3 L MCV 94.6 H MCH 30.1 MCHC 31.9 L RDW Std Deviation 48.9 H RDW Coeff of Tari 14.0 Plt Count 174 MPV 11.0 Immature Gran % (Auto) 0.600 Neut % (Auto) 75.6 H Lymph % (Auto) 11.8 L [place] % (Auto) 11.2 H Eos % (Auto) 0.4 Baso % (Auto) 0.4 Absolute Neuts (auto) 6.2 Absolute Lymphs (auto) 0.96 Nucleated RBC % 0 D-Dimer Quant (PE/DVT) 0.39 Sodium 141 Potassium 4.8 Chloride 115 H Carbon Dioxide 21.0 Anion Gap 5 BUN 37 H Creatinine 1.99 H Estim Creat Clear Calc 34.20 Est GFR (MDRD) Af Amer 48 L Est GFR (MDRD) Non-Af 39 L BUN/Creatinine Ratio 18.6 Glucose 140 H Calcium 8.5 Troponin I < 0.015 B-Natriuretic Peptide Urine Color Urine Clarity Urine pH Ur Specific [place] Urine Protein Urine Glucose (UA) Urine Ketones Urine Occult Blood Urine Nitrite Urine Bilirubin Urine Urobilinogen Ur Leukocyte Esterase Urine RBC Urine WBC Ur Squamous Epith Cells Urine Bacteria Urine Mucus 01/12/20 01/12/20 20:52 21:15 WBC RBC Hgb Hct MCV MCH MCHC RDW Std Deviation RDW Coeff of Tari Plt Count MPV Immature Gran % (Auto) Neut % (Auto) Lymph % (Auto) [place] % (Auto) Eos % (Auto) Baso % (Auto) Absolute Neuts (auto) Absolute Lymphs (auto) Nucleated RBC % D-Dimer Quant (PE/DVT) Sodium Potassium Chloride Carbon Dioxide Anion Gap BUN Creatinine Estim Creat Clear Calc Est GFR (MDRD) Af Amer Est GFR (MDRD) Non-Af BUN/Creatinine Ratio Glucose Calcium Troponin I B-Natriuretic Peptide 145.7 H Urine Color Yellow Urine Clarity Clear Urine pH 7.0 Ur Specific [place] 1.010 Urine Protein 15 H Urine Glucose (UA) Normal Urine Ketones Negative Urine Occult Blood 10 H Urine Nitrite Negative Urine Bilirubin Negative Urine Urobilinogen Normal Ur Leukocyte Esterase 100 H Urine RBC 0 SEEN Urine WBC 10-25 SEEN Ur Squamous Epith Cells 0 SEEN Urine Bacteria 1+ Urine Mucus 0 SEEN - EKG Initial EKG Interpretation: Sinus Rhythm - Sinus at 69 with no acute ischemia. - Medical Decision Making Patient was given morphine and Zofran for pain along with a dose of Solu-Medrol and a DuoNeb treatment. On repeat evaluation he does have improved air movement. He states he still feels congested. Renal function has worsened with a creatinine tonight up to 1.99. He does have evidence of UTI which he states he is prone to. He is already on Bactrim. Urine culture has been sent. Patient wanted me to speak with the renal senior energy market coordinator at [facility] as he was concerned he may require admission for IV antibiotics. I spoke with Dr. Delaney. He agrees with oral antibiotics at home as long as the patient clinically looks well. Patient must contact his senior energy market coordinator tomorrow morning. ED Disposition - Plan for ED Patient: Disposition: Home or Assisted Living Diagnosis: Bronchitis, UTI (urinary tract infection), Renal insufficiency Instructions: ED COPD Flare, ED CYSTITIS Male Adult Prescriptions: Amox/Clavulanate Tablet [Augmentin Tablet] 875 mg PO Q12H #20 tab Transmission Status: Pending to [facility] Prednisone [Deltasone] 40 mg PO DAILY #10 tab Transmission Status: Pending to [facility] Hydrocodone Bitart/Apap 5-325 [[place] 5MG-325MG] 1 tablet PO Q6H PRN PRN 3 Days #10 tablet PRN Reason: Pain Transmission Status: Sent to [facility] Azithromycin [Zithromax] 250 mg PO DAILY #4 tab Transmission Status: Pending to [facility] #[facility] Referrals: Wolfgang Reed MD [Primary Care Provider] -"
[2020-01-12] MEDS: Ipratropium/Albuterol Sulfate 3 ML AMPUL.NEB INHALATION (20:54)
[2020-01-12 20:58] VITALS: PULSE 82; RESP 20
[2020-01-12 21:06] VITALS: PULSE 74; RESP 15; O2SAT 97; O2SAT 98
[2020-01-12 21:09] LABS: Absolute Lymphocyte Count 0.96 X10^3/uL (0.83-4.51); Absolute Neutrophil Count 6.2 X10^3/uL (2.0-7.7); Basophil# 0.03 X10^3/uL; Basophil% 0.4 % (0-1); Eosinophil# 0.03 X10^3/uL; Eosinophils% 0.4 % (0-5); Hematocrit 38.3 % (40-54); Hemoglobin 12.2 g/dL (13.0-16.5); Lymphocyte # 0.96 X10^3/ul (4.0); Lymphocyte % 11.8 % (19-41); Mean Corp Hgb Conc 31.9 g/dL (32-36); Mean Corpuscular Hgb 30.1 pg (27.0-32.0); Mean Corpuscular Volume 94.6 fL (80-94); Monocyte# 0.91 X10^3/uL; Monocyte% 11.2 % (0-10); NRBC Flagged by Analyzer 0 % (0-5); Neutrophil # 6.17 X10^3/uL (2.7-7.7); Neutrophil % 75.6 % (47-70); Platelet Count 174 K/mm3 (150-450); RBC Distribution Width SD 48.9 fl (35.1-43.9); Red Blood Count 4.05 M/mm3 (4.6-6.2); White Blood Count 8.2 K/mm3 (4.4-11.0)
[2020-01-12] MEDS: MethylPREDNISolone 125 MG/2 ML Vial 80 MG IV (21:10)
[2020-01-12] MEDS: Morphine 4 MG/ML Syringe IV (21:10)
[2020-01-12] MEDS: Ondansetron 4 MG/2 ML Vial IV (21:10)
[2020-01-12 21:27] LABS: Mucous, Urine 0 SEEN /hpf (<or=2+); Red Blood Cells-Urine 0 SEEN /hpf (0-5); Squamous Epithelial Cells - UA 0 SEEN /hpf (0-5)
--- NOTE | 2020-01-12 21:30 | RAD_ITS ---
STUDY: X-RAY CHEST REASON FOR EXAM: Male, 44 years old. COMPLAINS OF WORSENING COUGH, BACK PAIN. HX OF COPD. TECHNIQUE: Single AP portable view of the chest. COMPARISON: October 20, 2019 FINDINGS: The lungs are clear and expanded. There is no demonstrated pleural abnormality. Normal size heart. Normal mediastinum and estelita. The pulmonary vasculature is prominent. Normal visualized aortic arch and descending thoracic aorta. Unremarkable visualized osseous structures. There is no demonstrated abnormality of the visualized soft tissue structures of the upper abdomen. RAD/Chest 1 View (Portable) IMPRESSION: No consolidation. Prominence of the pulmonary vasculature. Electronically Signed: Danielito Savage MD at 21:50 EDT , Service support ,
[2020-01-12 21:31] LABS: D-Dimer Quantitative (DVT/PE) 0.39 FEU/ug/m (0.27-0.49)
[2020-01-12 21:39] LABS: Color, Urine Yellow (Yellow); Glucose, Dipstick Normal (Normal); Ketone-Dipstick Negative (Negative); Leukocyte Esterase-Dipstick 100 /ul (Negative); Nitrite-Dipstick Negative (Negative); Occult Blood-Urine 10 /ul (Negative); Protein-Dipstick 15 mg/dl (Negative); Urine Bilirubin Dipstick Negative (Negative); Urine Clarity Clear (Clear); Urine Urobilinogen Normal (Normal)
[2020-01-12 21:46] LABS: Anion Gap 5 (5-15); BUN 37 mg/dL (7-18); BUN/Creat Ratio 18.6 RATIO (10-20); Calcium,Total 8.5 mg/dL (8.5-10.1); Chloride 115 mmol/L (98-107); Creatinine, Serum 1.99 mg/dL (0.70-1.30); EST Glomerular Filtration Rate 39 mL/min (>60); Est Glom Filt Rate - Afr Amer 48 mL/min (>60); Glucose 140 mg/dL (74-106); Potassium 4.8 mmol/L (3.5-5.1); Sodium Level 141 mmol/L (136-145)
[2020-01-12 21:52] LABS: White Blood Cells 10-25 SEEN /hpf (0-5)
[2020-01-12 21:53] LABS: Bacteria 1+ /hpf (None Seen)
[2020-01-12 21:56] LABS: BNP,B-Type NATRIURETIC PEPTIDE 145.7 pg/mL (0-100)
[2020-01-12] MEDS: Amox/Clavulanate 875 MG Tablet PO (22:38)
[2020-01-12] MEDS: Azithromycin 250 MG Tablet 500 MG PO (22:38)
[2020-01-12] MEDS: HYDROcodone Bitartrate/Apap 5/325 Tablet PO (22:40)
[2020-01-12 22:53] VITALS: BP 143/93; PULSE 67; RESP 16; O2SAT 97
== END 2020-01-12 22:54 | disposition home or self-care (01) ==
PROVIDERS: Emergency Provider Emergency Medicine; PCP Internal Medicine
DX: J40 Bronchitis, not specified as acute or chronic (principal); N39.0 Urinary tract infection, site not specified; N28.9 Disorder of kidney and ureter, unspecified; K21.9 Gastro-esophageal reflux disease without esophagitis; J44.9 Chronic obstructive pulmonary disease, unspecified; I25.2 Old myocardial infarction; Z94.0 Kidney transplant status; Z79.899 Other long term (current) drug therapy; Z87.891 Personal history of nicotine dependence; R06.02 Shortness of breath
CPT/HCPCS: 71045; 80048; 81001; 83880; 84484; 85025; 85379; 87077; 87086; 87088; 87186; 93005; 94640; 96374; 96375; 99285; A4216; J2405

== ENCOUNTER 2020-01-21 07:03 | Outpatient (RCR) | payer MEDICARE, OTHER, SELFPAY ==
[2019-10-20 21:10] VITALS: BMI 28.7
[2020-01-21 07:15] LABS: Mucous, Urine 0 SEEN /hpf (<or=2+)
[2020-01-21 07:51] LABS: Absolute Lymphocyte Count 1.49 X10^3/uL (0.83-4.51); Absolute Neutrophil Count 6.3 X10^3/uL (2.0-7.7); Basophil# 0.04 X10^3/uL; Basophil% 0.4 % (0-1); Eosinophil# 0.11 X10^3/uL; Eosinophils% 1.2 % (0-5); Hematocrit 41.9 % (40-54); Hemoglobin 13.7 g/dL (13.0-16.5); Lymphocyte # 1.49 X10^3/ul (4.0); Lymphocyte % 16.1 % (19-41); Mean Corp Hgb Conc 32.7 g/dL (32-36); Mean Corpuscular Hgb 30.4 pg (27.0-32.0); Mean Corpuscular Volume 92.9 fL (80-94); Mean Platelet Vol. 10.7 fl (6.2-12.0); Monocyte# 0.96 X10^3/uL; Monocyte% 10.4 % (0-10); NRBC Flagged by Analyzer 0 % (0-5); Neutrophil % 68.2 % (47-70); Platelet Count 203 K/mm3 (150-450); RBC Distribution Width CV 14.5 % (11.6-14.6); RBC Distribution Width SD 48.8 fl (35.1-43.9); Red Blood Count 4.51 M/mm3 (4.6-6.2); White Blood Count 9.2 K/mm3 (4.4-11.0)
[2020-01-21 08:00] LABS: Color, Urine Straw (Yellow); Glucose, Dipstick Normal (Normal); Ketone-Dipstick Negative (Negative); Leukocyte Esterase-Dipstick 100 /ul (Negative); Nitrite-Dipstick Negative (Negative); Occult Blood-Urine 25 /ul (Negative); Protein-Dipstick 15 mg/dl (Negative); Urine Bilirubin Dipstick Negative (Negative); Urine Clarity Clear (Clear); Urine Urobilinogen Normal (Normal)
[2020-01-21 08:14] LABS: ALB/GLOB Ratio 1.1 RATIO (0.9-2.4); AST(SGOT) 10 U/L (15-37); Alanine Aminotransfer ALT/SGPT 23 U/L (16-61); Albumin, Serum 3.5 g/dL (3.2-5.0); Alkaline Phosphatase 86 U/L (45-117); Anion Gap 3 (5-15); BUN 52 mg/dL (7-18); BUN/Creat Ratio 33.3 RATIO (10-20); CPK Total, Creatine Kinase 43 U/L (39-308); Calcium,Total 9.5 mg/dL (8.5-10.1); Chloride 109 mmol/L (98-107); Creatinine, Serum 1.56 mg/dL (0.70-1.30); EST Glomerular Filtration Rate 52 mL/min (>60); Est Glom Filt Rate - Afr Amer 63 mL/min (>60); Globulin 3.3 g/dL (2.2-4.2); Glucose 95 mg/dL (74-106); LDH 163 U/L (87-241); Magnesium 1.7 mg/dL (1.6-2.6); Phosphorus 3.4 mg/dL (2.5-4.9); Potassium 4.1 mmol/L (3.5-5.1); Protein, Total 6.8 g/dL (6.4-8.2); Sodium Level 140 mmol/L (136-145); Uric Acid 9.1 mg/dL (3.5-7.2)
[2020-01-21 08:21] LABS: Protein, Urine (Random) 17.9 mg/dL (<11.9); Protein:Creat Ratio 154 mg/g CRE (0-200)
[2020-01-21 08:28] LABS: Red Blood Cells-Urine 0-5 SEEN /hpf (0-5); Squamous Epithelial Cells - UA 0-5 SEEN /hpf (0-5); White Blood Cells 25-50 SEEN /hpf (0-5)
[2020-01-21 08:29] LABS: Bacteria 1+ /hpf (None Seen); Yeast-Urine 1+ /hpf (None Seen)
[2020-01-25 12:57] LABS: Tacrolimus (FK506) 6.7 ng/mL (2.0-20.0)
== END 2020-01-21 18:00 | disposition home or self-care (01) ==
LOC: LAB 07:03
PROVIDERS: PCP Internal Medicine
DX: T86.10 Unspecified complication of kidney transplant (principal); N18.9 Chronic kidney disease, unspecified; D63.1 Anemia in chronic kidney disease; E83.39 Other disorders of phosphorus metabolism; E83.40 Disorders of magnesium metabolism, unspecified; Z79.899 Other long term (current) drug therapy
CPT/HCPCS: 36415; 80053; 80197; 81001; 82550; 82570; 83615; 83735; 84100; 84156; 84550; 85025

== ENCOUNTER 2020-02-08 16:09 | Emergency (ER) | payer MEDICARE, OTHER, SELFPAY ==
[2020-02-08 16:11] VITALS: BP 150/92; PULSE 78; RESP 16; TEMP 36.7; O2SAT 97; BMI 27.8
--- NOTE | 2020-02-08 16:39 | EKG12_ITS ---
Test Reason : CP, WHEEZE Blood Pressure : / mmHG Vent. Rate : 073 BPM Atrial Rate : 073 BPM P-R Int : 120 ms QRS Dur : 090 ms QT Int : 392 ms P-R-T Axes : 022 033 092 degrees QTc Int : 431 ms Normal sinus rhythm Normal ECG Confirmed by LOPEZ WALKER ([id number]), applications processor JANY LOPEZ ([id number]) on 02/11/2020 10:27:06 AM Referred By: GAIL Confirmed By:LOPEZ WALKER
--- NOTE | 2020-02-08 16:40 | ED.DCSUM_ITS ---
History of Present Illness Chief Complaint: Back Informant: Patient Narrative: Patient is a 44-year-old male with a past medical history of kidney transplant, CAD who presents to the emergency department for left-sided upper back pain, shortness of breath, cough and diarrhea. Initial symptoms started yesterday. States he has had 4 episodes of nonbloody diarrhea. He has been feeling slightly nauseous but no vomiting. Denies any chest pain or abdominal pain. He does have a history of COPD and is a former smoker. He has been using his albuterol inhaler without much relief. No significant sputum production. Lying on his back does make his symptoms worse. Coughing also makes the back pain worse well is pushing on the rib area. Currently rates as a 7 out of 10. He tried taking his family members muscle relaxers which did not give him any relief. He denies ever having this happen before in the past. No leg swelling or calf pain. No overlying rashes. No known sick contacts. He denies any urinary symptoms. Past Medical History - Allergies and Home Meds Allergies/Adverse Reactions: Allergies hydromorphone [From Dilaudid] Allergy (Mild, Verified 02/08/20 16:10) nausea Latex, Natural Rubber Allergy (Mild, Verified 02/08/20 16:10) rash Primary Care Physician: Wolfgang Reed MD [Primary Care Provider] - 1 Day Prior records reviewed: Yes Past Medical History: - - Kidney transplant on immunosuppressive, CAD, COPD Smoking Status: Former smoker - Family History Maternal Family History: Reports: Renal Disease Paternal Family History: Reports: - - Patient does not know. Review of Systems All systems negative except as indicated General: Denies: Chills, Fever, Sweats Eyes: Denies: Visual changes - bilaterally, Diplopia ENT: Denies: Rhinorrhea, Sore throat Cardiovascular: Denies: Chest pain, Palpitations Respiratory: Reports: Dyspnea, Cough. Denies: Sputum, Dyspnea on exertion Gastrointestinal: Reports: Nausea, Diarrhea. Denies: Abdominal pain, Vomiting, Melena, Hematochezia Genitourinary: Denies: Dysuria, Hematuria, Frequency Musculoskeletal: Reports: Back pain - Upper. Denies: Extremity Pain Skin: Denies: Rash, Wounds Neurological: Denies: Headache, Weakness, Numbness Physical Exam Vital Signs/Narrative: Vital Signs Temp Pulse Resp BP Pulse Ox 02/08/20 16:11 98.1 F 78 16 150/92 H 97 Inital Vital Signs reviewed: Yes General: Well nourished, Well developed, No Acute Distress Head: Normocephalic, Atraumatic Eyes: Perrl, EOMI ENT: Moist mucous membranes, No rhinorrhea Neck: Supple, Nontender Cardiovascular: Regular rate, Regular rhythm, No murmurs Respiratory: No distress, CTA bilaterally, Chest nontender Abdomen: Soft, Nontender, Nondistended, Normal bowel sounds Back: Normal Inspection, - - Patient does have point tenderness along the ribs on the left lower side. No crepitus appreciated. Symptoms are reproducible. Extremities: Nontender, No edema Skin: Normal color, No rash Neurological: Alert, Oriented x3, Cranial nerves II-XII grossly intact, Normal Strength, Normal Sensation Psychological: Normal affect, Normal Mood Diagnostic/Tx/Re-eval - EKG Initial EKG Interpretation: - - Rate of 73 bpm and normal sinus rhythm. Normal intervals. Normal axis. No ST elevations or depressions appreciated. Has some T wave inversions in lead V2. No prior EKG for comparison. - Medical Decision Making Patient presents to the emergency department for left-sided upper back pain. He has a cough and has had having diarrhea. Will check basic lab work with a history of kidney transplant on immunosuppressive's as well as chest x-ray, EKG. Will treat symptomatically. Patient still having some mild pain after treatment. It is reproducible on physical exam in the back. Lab work obtained. His creatinine is 1.75. He does seem to fluctuate right around this number. I did let the patient know his lab work findings. He states that this is not normal for him despite having fluctuating numbers even higher than this before in the past. He got very frustrated at this. He does want me to contact his splint team with [facility]. His chest x-ray did not reveal any acute intrathoracic abnormality. Initial troponin is negative. EKG did not show any signs of ischemia or arrhythmia. The rest the lab work is unremarkable for significant acute abnormality. Patient is otherwise nontoxic appearing. I have very low concern for PE as it is reproducible and has not been hypoxic or tachycardic. No lower leg swelling/edema. I do not feel that doing a CTA with contrast would be the best idea given his slightly elevated creatinine and history of kidney t ransplant. I did call and discussed the case with the resident at [facility] with the transplant team. He states that he would return the call after speaking to his attending. I never received a call back. We did page multiple times again. Getting frustrated stating that he has to take his medications. He wants to be discharged at this time. He states he will call his transplant team in the morning. I did request a urinalysis. Patient initially urinated into a urinal and this was dumped. Refusing to give a second sample. Will prescribe lidocaine patches for his back pain. This is reproducible over the ribs. This is not near his kidney. I did discuss strict return precautions including any worsening of the back pain, developing a fever/chills or pain near the flank. If he has any difficulty urinating he is also to return. Otherwise needs to follow-up with his transplant team. At this time will discharge home in stable condition. He understands and is agreeable this plan. ED Disposition - Plan for ED Patient: Disposition: Home or Assisted Living Diagnosis: Back pain Instructions: ED Back Pain Acute or Chronic Prescriptions: Lidocaine [Lidoderm Patch] 1 patch TOPICAL DAILY 3 Days #3 patch Transmission Status: Received by [facility] #[id number] Referrals: Wolfgang Reed MD [Primary Care Provider] - 1 Day
--- NOTE | 2020-02-08 16:50 | RAD_ITS ---
STUDY: X-RAY CHEST REASON FOR EXAM: Male, 44 years old. Left upper back pain, wheezing, pain while breathing TECHNIQUE: Single AP portable view of the chest. COMPARISON: 01/12/2020 FINDINGS: EKG leads overlie the chest There are interstitial changes of the lungs. There is no demonstrated pleural abnormality. Normal size heart. Normal mediastinum and estelita. Normal visualized pulmonary arteries. Normal visualized aortic arch and descending thoracic aorta. There are diffuse degenerative changes of the visualized thoracic spine. Normal visualized ribs, clavicles, and shoulders. There is no demonstrated abnormality of the visualized soft tissue structures of the upper abdomen. RAD/Chest 1 View (Portable) IMPRESSION: Chronic interstitial changes, no superimposed acute pulmonary process Electronically Signed: Oleksandr Benton MD at 17:04 EDT , Service support ,
[2020-02-08 16:52] VITALS: O2SAT 98
[2020-02-08] MEDS: Acetaminophen 325 MG Tablet 650 MG PO (16:59)
[2020-02-08 17:29] LABS: Absolute Lymphocyte Count 0.75 X10^3/uL (0.83-4.51); Absolute Neutrophil Count 5.7 X10^3/uL (2.0-7.7); Basophil# 0.02 X10^3/uL; Basophil% 0.3 % (0-1); Hematocrit 41.4 % (40-54); Hemoglobin 13.6 g/dL (13.0-16.5); Lymphocyte # 0.75 X10^3/ul (4.0); Lymphocyte % 10.5 % (19-41); Mean Corp Hgb Conc 32.9 g/dL (32-36); Mean Corpuscular Hgb 29.9 pg (27.0-32.0); Mean Platelet Vol. 10.8 fl (6.2-12.0); Monocyte# 0.61 X10^3/uL; Monocyte% 8.5 % (0-10); NRBC Flagged by Analyzer 0 % (0-5); Neutrophil # 5.72 X10^3/uL (2.7-7.7); Neutrophil % 79.9 % (47-70); Platelet Count 197 K/mm3 (150-450); RBC Distribution Width SD 46.7 fl (35.1-43.9); Red Blood Count 4.55 M/mm3 (4.6-6.2); White Blood Count 7.2 K/mm3 (4.4-11.0)
[2020-02-08 17:48] LABS: ALB/GLOB Ratio 1.2 RATIO (0.9-2.4); AST(SGOT) 10 U/L (15-37); Alanine Aminotransfer ALT/SGPT 20 U/L (16-61); Alkaline Phosphatase 88 U/L (45-117); Anion Gap 4 (5-15); BUN 29 mg/dL (7-18); BUN/Creat Ratio 16.6 RATIO (10-20); Calcium,Total 9.1 mg/dL (8.5-10.1); Chloride 110 mmol/L (98-107); Creatinine, Serum 1.75 mg/dL (0.70-1.30); EST Glomerular Filtration Rate 46 mL/min (>60); Est Glom Filt Rate - Afr Amer 55 mL/min (>60); Estimated Creatinine Clearance 46.04 ml/min; Globulin 3.4 g/dL (2.2-4.2); Glucose 149 mg/dL (74-106); Potassium 4.6 mmol/L (3.5-5.1); Protein, Total 7.4 g/dL (6.4-8.2); Sodium Level 138 mmol/L (136-145)
[2020-02-08] MEDS: HYDROcodone Bitartrate/Apap 5/325 Tablet PO (18:24)
[2020-02-08 19:00] VITALS: BP 146/94; PULSE 66; RESP 15; O2SAT 96
--- NOTE | 2020-02-09 | ED.RN ---
PT ANGRY, YELLING, DEMANDING TO LEAVE. PT REFUSES TO GIVE URINE SAMPLE. DISCHARGE PAPERWORK GIVEN, IV REMOVED, PT DENIES QUESTIONS, LEFT DEPARTMENT WITH MOTHER.
== END 2020-02-08 23:00 | disposition home or self-care (01) ==
PROVIDERS: Emergency Provider Emergency Medicine; PCP Internal Medicine
DX: M54.9 Dorsalgia, unspecified (principal); R06.00 Dyspnea, unspecified; R05 Cough; R19.7 Diarrhea, unspecified; R11.0 Nausea; Z94.0 Kidney transplant status; J44.9 Chronic obstructive pulmonary disease, unspecified; I25.10 Atherosclerotic heart disease of native coronary artery without angina pectoris; Z79.82 Long term (current) use of aspirin; Z79.899 Other long term (current) drug therapy; Z87.891 Personal history of nicotine dependence
CPT/HCPCS: 71045; 80053; 84484; 85025; 87040; 87635; 93005; 94799; 99285; A4216; U0003

== ENCOUNTER 2020-02-12 08:58 | Emergency (ER) | payer MEDICARE, OTHER, SELFPAY ==
[2020-02-12 08:59] VITALS: BP 155/94; PULSE 84; RESP 14; TEMP 36.7; O2SAT 96; BMI 28.3
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
[2020-02-12] MEDS: HYDROcodone Bitartrate/Apap 5/325 Tablet PO (09:41)
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
[2020-02-12 11:21] VITALS: BP 145/76; PULSE 77; RESP 12; O2SAT 99
== END 2020-02-12 11:22 | disposition home or self-care (01) ==
PROVIDERS: Emergency Provider Emergency Medicine; PCP Internal Medicine
DX: S43.102A Unspecified dislocation of left acromioclavicular joint, initial encounter (principal); S06.0X0A Concussion without loss of consciousness, initial encounter; W05.1XXA Fall from non-moving nonmotorized scooter, initial encounter; Y93.9 Activity, unspecified; Y92.9 Unspecified place or not applicable; I25.2 Old myocardial infarction; J44.9 Chronic obstructive pulmonary disease, unspecified; K21.9 Gastro-esophageal reflux disease without esophagitis; Z94.0 Kidney transplant status; Z95.828 Presence of other vascular implants and grafts; Z79.82 Long term (current) use of aspirin; Z79.899 Other long term (current) drug therapy; F17.200 Nicotine dependence, unspecified, uncomplicated
CPT/HCPCS: 73050; 99283

== ENCOUNTER → 2020-04-18 15:31 | Outpatient (CLI) | payer MEDICARE, OTHER, SELFPAY ==
[2020-04-18 15:00] VITALS: BMI 29.2
--- NOTE | 2020-04-18 15:31 | VDUE_ITS ---
Reason For Study: swelling Left Proximal Left jugular vein is spontaneous, widely patent, phasic, with no intraluminal echogenicity noted. Left subclavian vein is spontaneous, widely patent, phasic, with no intraluminal echogenicity noted. Left Arm Left axillary vein is spontaneous, patent, phasic, competent, compressible and demonstrates augmentation. Left brachial vein is compressible. Cephalic V is partially compressible. Pt has a history of failed fistula graft. Decreased flow in the radial artery noted with a velocity of 18.5 cm/s. Failed graft appears to be a radial-cephalic fisula graft. Left basilic vein is compressible. Left Lower Arm Left radial vein is compressible. Left ulnar vein is compressible. Prelim called to Bhanu FAIRCHILD. Interpretation Summary No evidence for acute deep venous thrombosis left upper extremity By history and findings consistent with failed left forearm radiocephalic arteriovenous fistula. Markedly diminished flow within the left radial artery Ordering Physician: Bhanu Bella Performed By: Calos Spears RVT ?
== END ==
LOC: CVS 15:31
PROVIDERS: PCP Internal Medicine; Referring Provider Nurse Practitioner Family; Visit Provider Nurse Practitioner Family
DX: M79.89 Other specified soft tissue disorders (principal)
CPT/HCPCS: 93971

== ENCOUNTER → 2020-05-09 17:40 | Outpatient (CLI) | payer MEDICARE, OTHER, SELFPAY ==
[2020-04-18 15:00] VITALS: BMI 29.2
== END ==
PROVIDERS: PCP Internal Medicine; Referring Provider Nurse Practitioner Family; Visit Provider Nurse Practitioner Family
DX: R05 Cough (principal); Z20.828 Contact with and (suspected) exposure to other viral communicable diseases
CPT/HCPCS: 87635; C9803; U0003

== ENCOUNTER 2020-05-17 11:00 | Emergency (ER) | payer MEDICARE, OTHER, SELFPAY ==
[2020-05-17 11:01] VITALS: BP 150/101; PULSE 93; RESP 16; TEMP 36.1; O2SAT 100; BMI 27.4
--- NOTE | 2020-05-17 11:21 | ED.DCSUM_ITS ---
History of Present Illness Chief Complaint: Upper Extremity Injury Informant: Patient Narrative: Patient is a 44-year-old male who presents to the emergency department for left arm pain. Started around 2 AM this morning. He has had this pain many times before in the past. He does have a fistula that is no longer being used. He said the fistula for 15 years but has not used over the past 2 to 3 years after a kidney transplant. He has seen his vascular surgeon for this who states that it was not the fistula causing his pain. He was referred to a nerve doctor which she does not have an appointment until 2020. He has been taking Tylenol at home which has not been giving him significant relief. He denies any trauma to the arm. No color change. He feels like his service coordinator elderly facility strength is starting to decrease slightly. No headache or neck pain. He has been having some intermittent chest pain over the past couple of days. He has not thought much of it. He currently rates the pain as mild over the left side of his chest. It is intermittent he does not know aggravating or relieving factors. He states he has had silent heart attacks but has never had any bypass or stents. No shortness of breath. No cough or fever/chills. No abdominal pain or nausea/vomiting. Past Medical History - Allergies and Home Meds Allergies/Adverse Reactions: Allergies hydromorphone [From Dilaudid] Allergy (Mild, Verified 05/17/20 11:00) nausea Latex, Natural Rubber Allergy (Mild, Verified 05/17/20 11:00) rash Primary Care Physician: Wolfgang Reed MD [Primary Care Provider] - Prior records reviewed: Yes Surgical History: - - Fistula left forearm and kidney recipient Smoking Status: Former smoker - Family History Maternal Family History: Reports: Renal Disease Paternal Family History: Reports: - - Patient does not know. Review of Systems All systems negative except as indicated General: Denies: Chills, Fever, Sweats Eyes: Denies: Visual changes - bilaterally, Diplopia ENT: Denies: Rhinorrhea, Sore throat Cardiovascular: Reports: Chest pain. Denies: Palpitations Respiratory: Denies: Dyspnea, Cough, Dyspnea on exertion Gastrointestinal: Denies: Abdominal pain, Nausea, Vomiting, Diarrhea Genitourinary: Denies: Dysuria, Hematuria, Frequency Musculoskeletal: Reports: Extremity Pain. Denies: Neck pain, Back pain, Swelling Skin: Denies: Rash, Wounds Neurological: Denies: Headache, Weakness, Numbness Physical Exam Vital Signs/Narrative: Vital Signs Temp Pulse Resp BP Pulse Ox 05/17/20 11:01 97 F L 93 16 150/101 H 100 Inital Vital Signs reviewed: Yes General: Well nourished, Well developed, No Acute Distress Head: Normocephalic, Atraumatic Eyes: Perrl, EOMI ENT: Moist mucous membranes, No rhinorrhea Neck: Supple, Nontender Cardiovascular: Regular rate, Regular rhythm, No murmurs Respiratory: No distress, CTA bilaterally, Chest nontender Abdomen: Soft, Nontender, Nondistended, Normal bowel sounds Back: Nontender, Normal Inspection Extremities: Nontender, No edema, - - Fistula present but no palpable thrill. Brisk capillary refill. Sensation intact. Mildly decreased service coordinator elderly facility strength on the left. Skin: Normal color, No rash Neurological: Alert, Oriented x3, Cranial nerves II-XII grossly intact, Normal Strength, Normal Sensation Psychological: Normal affect, Normal Mood Diagnostic/Tx/Re-eval - EKG Initial EKG Interpretation: - - Rate of 79 bpm and normal sinus rhythm. Normal intervals. Normal axis. No ST elevations or depressions. No T wave abnormalities. - Medical Decision Making Patient presents to the emergency department for left arm pain. This is nontraumatic. In review of systems he is positive for chest pain. We will do a cardiac work-up. Will give [place] for the pain management. His arm is neurovascular intact. Mildly decreased service coordinator elderly facility strength of that hand. He otherwise has already seen his vascular surgeon for this. It does appear well perfused. Patient's work-up showed his creatinine to be mildly elevated but has been at this level before in the past. His troponin is within normal limits. I do not feel this is cardiac allergy causing his intermittent chest pain. He has been stable throughout ED stay. Patient is getting very agitated states that we need to figure this out today. He has already seen his vascular surgeon as referred to the dispute resolution specialist. Did recommend he call to try to get an appointment sooner. We will write him a short prescription for [place] for symptomatic management in the meantime. Patient now stating that he feels like his fistula removed in his arm. Again he is well perfused. Is a is moving the hand very well except whenever he attempts to grasp my hand he does feel mildly decreased drink of the service coordinator elderly facility. He has no neck pain associated with this. The symptoms are all very distal. Do feel comfortable with the patient being discharged at this time. We will have him follow-up with his PCP otherwise. Warning signs and symptoms for which to return to the ED are reviewed. He understands and is agreeable this plan. All questions answered. ED Disposition - Plan for ED Patient: Disposition: Home or Assisted Living Diagnosis: Arm pain, Chest pain Instructions: ED Acute Pain [facility] Prescriptions: Hydrocodone/Acetaminophen [[place] 5-325 Tablet] 1 ea PO Q8H PRN PRN 3 Days #10 tab PRN Reason: Pain Score 6-10 Transmission Status: Received by [facility] #[id number] Referrals: Wolfgang Reed MD [Primary Care Provider] - 2 Days
--- NOTE | 2020-05-17 11:40 | RAD_ITS ---
STUDY: X-RAY CHEST REASON FOR EXAM: Male, 44 years old. Left arm pain, old fistula present, Hx COPD, [place] x2, smoker TECHNIQUE: Single AP portable view of the chest. COMPARISON: Comparison is made with prior study dated 02/08/2020. FINDINGS: Scattered calcified granulomas. Minimal stable increased markings at the lung bases suggestive mild scarring. Hyperinflation. Normal size heart. Normal mediastinum and estelita. Normal visualized pulmonary arteries. Normal visualized aortic arch and descending thoracic aorta. Normal visualized thoracic spine. Normal visualized ribs, clavicles, and shoulders. There is no demonstrated abnormality of the visualized soft tissue structures of the upper abdomen. RAD/Chest 1 View (Portable) IMPRESSION: Mild chronic linear scarring at the lung bases with scattered calcified granulomas. No acute abnormality is seen. Electronically Signed: Pawan Ordaz, at 11:54 EST , Service support ,
[2020-05-17 12:01] LABS: Absolute Lymphocyte Count 0.59 X10^3/uL (0.83-4.51); Basophil# 0.03 X10^3/uL; Basophil% 0.4 % (0-1); Eosinophil# 0.03 X10^3/uL; Eosinophils% 0.4 % (0-5); Hematocrit 43.5 % (40-54); Hemoglobin 13.6 g/dL (13.0-16.5); Lymphocyte # 0.59 X10^3/ul (4.0); Lymphocyte % 7.8 % (19-41); Mean Corp Hgb Conc 31.3 g/dL (32-36); Mean Corpuscular Hgb 29.2 pg (27.0-32.0); Mean Corpuscular Volume 93.5 fL (80-94); Mean Platelet Vol. 10.7 fl (6.2-12.0); Monocyte# 0.85 X10^3/uL; Monocyte% 11.2 % (0-10); NRBC Flagged by Analyzer 0 % (0-5); Neutrophil # 6.04 X10^3/uL (2.7-7.7); Neutrophil % 79.5 % (47-70); POSITIVE DIFFERENTIAL YES; Platelet Count 184 K/mm3 (150-450); RBC Distribution Width CV 13.2 % (11.6-14.6); RBC Distribution Width SD 45.6 fl (35.1-43.9); Red Blood Count 4.65 M/mm3 (4.6-6.2); White Blood Count 7.6 K/mm3 (4.4-11.0)
[2020-05-17 12:04] VITALS: O2SAT 96
[2020-05-17 12:05] LABS: Differential Indicated SCAN CRITERIA MET
--- NOTE | 2020-05-17 12:05 | ED.RN ---
pt resting in bed watching tv and on his phone. no s/sx of distress noted, but pt rates his pain as a ten.
[2020-05-17] MEDS: HYDROcodone Bitartrate/Apap 5/325 Tablet PO (12:06)
[2020-05-17 12:20] LABS: Anion Gap 5 (5-15); BUN 35 mg/dL (7-18); BUN/Creat Ratio 17.8 RATIO (10-20); Calcium,Total 9.3 mg/dL (8.5-10.1); Chloride 114 mmol/L (98-107); Creatinine, Serum 1.97 mg/dL (0.70-1.30); EST Glomerular Filtration Rate 40 mL/min (>60); Est Glom Filt Rate - Afr Amer 48 mL/min (>60); Estimated Creatinine Clearance 37.72 ml/min; Glucose 110 mg/dL (74-106); Potassium 4.7 mmol/L (3.5-5.1); Sodium Level 141 mmol/L (136-145)
[2020-05-17 12:38] LABS: Differential Comment SCANNED
[2020-05-17 14:00] VITALS: BP 135/87; PULSE 81; RESP 18; O2SAT 97
--- NOTE | 2020-05-17 14:58 | ED.RN ---
THIS NURSE REVIEWED D/C INSTRUCTIONS WITH PT. PT VERBALIZED UNDERSTANDING OF INSTRUCTIONS. IV D/C. IV CATHETER INTACT. PT TOLERATED WELL. PT DENIES FURTHER NEEDS OR QUESTIONS
== END 2020-05-17 14:05 | disposition home or self-care (01) ==
PROVIDERS: Emergency Provider Emergency Medicine; PCP Internal Medicine
DX: R07.89 Other chest pain (principal); M79.602 Pain in left arm; Z87.891 Personal history of nicotine dependence
CPT/HCPCS: 71045; 80048; 84484; 85025; 93005; 99285; A4216

== ENCOUNTER 2020-06-08 07:07 | Outpatient (RCR) | payer MEDICARE, OTHER, SELFPAY ==
[2020-06-08 07:28] LABS: Absolute Lymphocyte Count 1.18 X10^3/uL (0.83-4.51); Absolute Neutrophil Count 5.8 X10^3/uL (2.0-7.7); Basophil# 0.03 X10^3/uL; Basophil% 0.4 % (0-1); Eosinophil# 0.06 X10^3/uL; Eosinophils% 0.7 % (0-5); Hematocrit 41.6 % (40-54); Hemoglobin 13.8 g/dL (13.0-16.5); Lymphocyte # 1.18 X10^3/ul (4.0); Lymphocyte % 14.3 % (19-41); Mean Corp Hgb Conc 33.2 g/dL (32-36); Mean Corpuscular Hgb 30.3 pg (27.0-32.0); Mean Corpuscular Volume 91.4 fL (80-94); Mean Platelet Vol. 10.6 fl (6.2-12.0); Monocyte# 1.09 X10^3/uL; Monocyte% 13.2 % (0-10); NRBC Flagged by Analyzer 0 % (0-5); Neutrophil # 5.81 X10^3/uL (2.7-7.7); Neutrophil % 70.7 % (47-70); Platelet Count 199 K/mm3 (150-450); RBC Distribution Width CV 13.3 % (11.6-14.6); RBC Distribution Width SD 44.9 fl (35.1-43.9); Red Blood Count 4.55 M/mm3 (4.6-6.2); White Blood Count 8.2 K/mm3 (4.4-11.0)
[2020-06-08 07:58] LABS: ALB/GLOB Ratio 1.1 RATIO (0.9-2.4); AST(SGOT) 11 U/L (15-37); Alanine Aminotransfer ALT/SGPT 23 U/L (16-61); Albumin, Serum 3.7 g/dL (3.2-5.0); Alkaline Phosphatase 107 U/L (45-117); Anion Gap 4 (5-15); BUN 37 mg/dL (7-18); BUN/Creat Ratio 18.2 RATIO (10-20); CPK Total, Creatine Kinase 56 U/L (39-308); Calcium,Total 8.9 mg/dL (8.5-10.1); Chloride 108 mmol/L (98-107); Creatinine, Serum 2.03 mg/dL (0.70-1.30); EST Glomerular Filtration Rate 38 mL/min (>60); Est Glom Filt Rate - Afr Amer 46 mL/min (>60); Globulin 3.5 g/dL (2.2-4.2); Glucose 84 mg/dL (74-106); LDH 149 U/L (87-241); Magnesium 1.6 mg/dL (1.6-2.6); Phosphorus 4.8 mg/dL (2.5-4.9); Potassium 4.4 mmol/L (3.5-5.1); Protein, Total 7.2 g/dL (6.4-8.2); Sodium Level 140 mmol/L (136-145); Uric Acid 7.9 mg/dL (3.5-7.2)
== END 2020-06-08 18:00 | disposition home or self-care (01) ==
LOC: LAB 07:07
PROVIDERS: PCP Internal Medicine
DX: N18.9 Chronic kidney disease, unspecified (principal); D63.1 Anemia in chronic kidney disease; E83.39 Other disorders of phosphorus metabolism; T86.10 Unspecified complication of kidney transplant; E83.40 Disorders of magnesium metabolism, unspecified; Z79.899 Other long term (current) drug therapy
CPT/HCPCS: 36415; 80053; 80197; 82550; 83615; 83735; 84100; 84550; 85025

== ENCOUNTER 2020-07-10 07:17 | Outpatient (RCR) | payer MEDICARE, MEDICAID, SELFPAY ==
[2020-07-06 14:36] VITALS: BMI 28.7
[2020-07-10 07:42] LABS: Mucous, Urine 0 SEEN /hpf (<or=2+)
[2020-07-10 08:21] LABS: Color, Urine Yellow (Yellow); Glucose, Dipstick Normal (Normal); Ketone-Dipstick Negative (Negative); Leukocyte Esterase-Dipstick 500 /ul (Negative); Nitrite-Dipstick Negative (Negative); Occult Blood-Urine 25 /ul (Negative); Protein-Dipstick 30 mg/dl (Negative); Specific Gravity, Urine 1.015 (1.002-1.030); Urine Bilirubin Dipstick Negative (Negative); Urine Clarity Sl. Cloudy (Clear); Urine Urobilinogen Normal (Normal)
[2020-07-10 08:22] LABS: Absolute Neutrophil Count 6.6 X10^3/uL (2.0-7.7); Basophil# 0.04 X10^3/uL; Basophil% 0.4 % (0-1); Eosinophil# 0.09 X10^3/uL; Hematocrit 41.5 % (40-54); Hemoglobin 13.8 g/dL (13.0-16.5); Lymphocyte % 13.9 % (19-41); Mean Corp Hgb Conc 33.3 g/dL (32-36); Mean Corpuscular Hgb 29.8 pg (27.0-32.0); Mean Corpuscular Volume 89.6 fL (80-94); Mean Platelet Vol. 10.6 fl (6.2-12.0); Monocyte# 1.18 X10^3/uL; Monocyte% 12.6 % (0-10); NRBC Flagged by Analyzer 0 % (0-5); Neutrophil # 6.63 X10^3/uL (2.7-7.7); Platelet Count 236 K/mm3 (150-450); RBC Distribution Width CV 14.3 % (11.6-14.6); RBC Distribution Width SD 46.6 fl (35.1-43.9); Red Blood Count 4.63 M/mm3 (4.6-6.2); White Blood Count 9.3 K/mm3 (4.4-11.0)
[2020-07-10 08:38] LABS: Protein, Urine (Random) 29.3 mg/dL (<11.9); Protein:Creat Ratio 205 mg/g CRE (0-200)
[2020-07-10 08:40] LABS: Bacteria 2+ /hpf (None Seen); Red Blood Cells-Urine 0-5 SEEN /hpf (0-5); Squamous Epithelial Cells - UA 5-10 SEEN /hpf (0-5); White Blood Cells 50-100 SEEN /hpf (0-5)
[2020-07-10 08:57] LABS: AST(SGOT) 15 U/L (15-37); Alanine Aminotransfer ALT/SGPT 26 U/L (16-61); Albumin, Serum 3.6 g/dL (3.2-5.0); Alkaline Phosphatase 125 U/L (45-117); Anion Gap 7 (5-15); BUN 22 mg/dL (7-18); BUN/Creat Ratio 14.3 RATIO (10-20); CPK Total, Creatine Kinase 77 U/L (39-308); Calcium,Total 8.9 mg/dL (8.5-10.1); Chloride 104 mmol/L (98-107); Creatinine, Serum 1.54 mg/dL (0.70-1.30); EST Glomerular Filtration Rate 53 mL/min (>60); Est Glom Filt Rate - Afr Amer 64 mL/min (>60); Globulin 3.5 g/dL (2.2-4.2); Glucose 93 mg/dL (74-106); LDH 202 U/L (87-241); Magnesium 1.6 mg/dL (1.6-2.6); Phosphorus 2.8 mg/dL (2.5-4.9); Potassium 4.1 mmol/L (3.5-5.1); Protein, Total 7.1 g/dL (6.4-8.2); Sodium Level 138 mmol/L (136-145); Uric Acid 8.3 mg/dL (3.5-7.2)
[2020-07-10 08:58] LABS: Cholesterol 219 mg/dL (200); High Density Lipoprotein 69 mg/dL; Triglycerides 108 mg/dL; Very Low Density Lipoprotein 22 mg/dL (5-40)
[2020-07-12 13:37] LABS: Tacrolimus (FK506) 4.5 ng/mL (2.0-20.0)
== END 2020-07-10 18:00 | disposition home or self-care (01) ==
LOC: LAB 07:17
PROVIDERS: PCP Internal Medicine
DX: N18.9 Chronic kidney disease, unspecified (principal); D63.1 Anemia in chronic kidney disease; E83.39 Other disorders of phosphorus metabolism; T86.10 Unspecified complication of kidney transplant; E83.40 Disorders of magnesium metabolism, unspecified; Z79.899 Other long term (current) drug therapy
CPT/HCPCS: 36415; 80053; 80061; 80197; 81001; 82550; 82570; 83615; 83735; 84100; 84156; 84550; 85025; 87077; 87086; 87088; 87186

== ENCOUNTER → 2020-07-11 10:05 | Outpatient (CLI) | payer MEDICARE, MEDICAID, SELFPAY ==
[2020-07-06 14:36] VITALS: BMI 28.7
--- NOTE | 2020-07-11 10:06 | US_ITS ---
STUDY: RENAL ULTRASOUND - COMPLETE REASON FOR EXAM: Male, 44 years old. S/P RENAL TRANSPLANT X 3 YEARS AGO. PT BORN WITH ONLY LEFT KIDNEY, ORIGINALLY HAD A RT PELVIC RENAL TRANSPLANT THAT WAS REMOVED AT THE SAME TIME OF LEFT NEPHRECTOMY AND LEFT PELVIC RENAL TRANSPLANT. TECHNIQUE: Ultrasound evaluation of the kidneys was performed with real-time and static ford-scale imaging. COMPARISON: None. FINDINGS: RIGHT KIDNEY: No kidney was identified. LEFT KIDNEY: The patient is status post left nephrectomy. A left pelvic renal transplant is seen. The left kidney measures 11.3 cm x 6.5 cm x 5.4 cm. The renal cortex measures 1.3 cm. There is evidence of vascular flow to the kidney. DISTAL LEFT URETER: There is non-visualization of the distal left ureter. There is no demonstrated left ureterovesical junction calculus. There is no demonstrated left ureteral jet. US/Kidney and Bladder IMPRESSION: Status post left pelvic renal transplant. It is unremarkable. Blood flow is seen within the kidney. Electronically Signed: Pawan Ordaz, at 12:03 EST , Service support ,
== END ==
PROVIDERS: PCP Internal Medicine
DX: Z94.0 Kidney transplant status (principal)
CPT/HCPCS: 76770

== ENCOUNTER 2020-07-11 15:29 | Emergency (ER) | payer MEDICARE, MEDICAID, SELFPAY ==
[2020-07-11 12:44] VITALS: BMI 28.7
[2020-07-11 15:30] VITALS: BP 140/92; PULSE 85; RESP 17; TEMP 36.4; O2SAT 99; BMI 31.6
--- NOTE | 2020-07-11 16:24 | US_ITS ---
STUDY: SCROTUM ULTRASOUND REASON FOR EXAM: Male, 44 years old. RT PAIN AND SWELLING X 1 WEEK TECHNIQUE: Ultrasound evaluation of the scrotum was performed with color Doppler and static henriquez-scale imaging. COMPARISON: None. FINDINGS: RIGHT TESTICLE INTRATESTICULAR: There is a normal size of the right testicle. The right testicle measures 2.5 x 1.8 x 1.5 cm. There is a homogenous echotexture. There is normal arterial and normal venous vascularity. There is no demonstrated right testicular mass or cyst. EXTRATESTICULAR: The epididymis is normal in size. The epididymis head measures 1.0 cm. There is normal vascularity of the epididymis. There is a well-defined cystic structure within the epididymis, without internal echoes, consistent with an 8 mm epididymal cyst. There is no demonstrated hydrocele. There is no demonstrated varicocele. There is no demonstrated extratesticular mass or cyst. LEFT TESTICLE INTRATESTICULAR: There is a normal size of the left testicle. The left testicle measures 2.9 x 1.3 x 1.2 cm. There is a homogenous echotexture. There is normal arterial and normal venous vascularity. There is no demonstrated left testicular mass or cyst. EXTRATESTICULAR: The epididymis is normal in size. The epididymis head measures 0.9 cm. There is normal vascularity of the epididymis. There is no demonstrated epididymal cystic structure. There is no demonstrated hydrocele. There are prominent extratesticular veins consistent with small varicocele. There is no demonstrated extratesticular mass or cyst. US/Testicular with Arterial Flow IMPRESSION: Normal bilateral testicles. Small left varicocele. Electronically Signed: Kunal Espinosa MD at 17:38 EST , Service support ,
--- NOTE | 2020-07-11 16:25 | ED.DCSUM_ITS ---
History of Present Illness Chief Complaint: Male Pain/Injury Narrative: This patient is a 44-year-old male who presents with right testicular pain. He states his girlfriend thought there may be some mild swelling. This is been been going on for about 1 month. He reports a prior history of similar symptoms with a [place] catheterization but not since that time. No urethral discharge no dysuria frequency or urgency. He did have a bladder and renal ultrasound today but not of the scrotum or testicles and this was because of a high tacrolimus level he is a kidney transplant patient. He denies any recent illness such as fevers chest pain difficulty breathing. No abdominal pain. Past Medical History - Allergies and Home Meds Allergies/Adverse Reactions: Allergies hydromorphone [From Dilaudid] Allergy (Mild, Verified 07/11/20 15:30) nausea Latex, Natural Rubber Allergy (Mild, Verified 07/11/20 15:30) rash Primary Care Physician: Wolfgang Reed MD [Primary Care Provider] - Past Medical History: - - Kidney transplant Surgical History: - Smoking Status: Former smoker - Family History Maternal Family History: Reports: Renal Disease Paternal Family History: Reports: - - Patient does not know. Review of Systems All systems negative except as indicated General: Denies: Fever Eyes: Denies: Visual changes - bilaterally Cardiovascular: Denies: Chest pain Respiratory: Denies: Dyspnea Gastrointestinal: Denies: Abdominal pain Genitourinary: Reports: - - Right testicular pain and swelling. Denies: Dysuria, Hematuria, Frequency Skin: Denies: Rash Neurological: Denies: Headache Hematologic: Denies: Easy bruising Allergy: Denies: Uticaria Physical Exam Vital Signs/Narrative: Vital Signs Temp Pulse Resp BP Pulse Ox 07/11/20 15:30 97.6 F L 85 17 140/92 H 99 Inital Vital Signs reviewed: Yes General: Well nourished Head: Normocephalic Eyes: EOMI ENT: Moist mucous membranes Neck: Supple Cardiovascular: Regular rate, Regular rhythm Respiratory: No distress, CTA bilaterally Abdomen: Soft, Nontender : - - Patient does have right testicular tenderness I do not appreciate any scrotal erythema or swelling testicles have a normal lie Skin: Normal color Neurological: Alert Psychological: Normal affect Diagnostic/Tx/Re-eval Impressions Testicular Ultrasound 07/11/20 16:24 IMPRESSION: Normal bilateral testicles. Small left varicocele. Electronically Signed: Kunal Espinosa MD at 17:38 EST , Service support , 07/11/20 16:24 US Testicular [Testicular with Arterial Flow] [US] Stat Laboratory Results 07/11/20 16:20 Urine Color Yellow Urine Clarity Clear Urine pH 6.0 Ur Specific [place] 1.010 Urine Protein Negative Urine Glucose (UA) Normal Urine Ketones Negative Urine Occult Blood 10 H Urine Nitrite Negative Urine Bilirubin Negative Urine Urobilinogen Normal Ur Leukocyte Esterase 500 H Urine RBC 0-5 SEEN Urine WBC 25-50 SEEN Ur Squamous Epith Cells 0-5 SEEN Urine Bacteria 1+ Urine Mucus 0 SEEN - Medical Decision Making Scrotal ultrasound is normal except for a small left varicocele. Normal testicles. UA suggest cystitis. Patient was given a dose of Bactrim here, prescription for the same. He was advised to follow-up as an outpatient. He does understand return for new or worsening symptoms. ED Disposition - Plan for ED Patient: Disposition: Home or Assisted Living Diagnosis: Testicular pain, right, UTI (urinary tract infection) Instructions: ED Testicular Pain, Unclear Cause, ED Bladder Infection, Male (Adult) Prescriptions: Smz/Tmp Ds [Bactrim Ds] 1 tab PO BID #14 tab Prescription Printed Referrals: Wolfgang Reed MD [Primary Care Provider] -
[2020-07-11 16:35] LABS: Mucous, Urine 0 SEEN /hpf (<or=2+)
[2020-07-11 16:39] LABS: Color, Urine Yellow (Yellow); Glucose, Dipstick Normal (Normal); Ketone-Dipstick Negative (Negative); Leukocyte Esterase-Dipstick 500 /ul (Negative); Nitrite-Dipstick Negative (Negative); Occult Blood-Urine 10 /ul (Negative); Protein-Dipstick Negative (Negative); Urine Bilirubin Dipstick Negative (Negative); Urine Clarity Clear (Clear); Urine Urobilinogen Normal (Normal)
[2020-07-11] MEDS: HYDROcodone Bitartrate/Apap 5/325 Tablet PO (16:39)
[2020-07-11 16:49] LABS: Bacteria 1+ /hpf (None Seen); Red Blood Cells-Urine 0-5 SEEN /hpf (0-5); Squamous Epithelial Cells - UA 0-5 SEEN /hpf (0-5); White Blood Cells 25-50 SEEN /hpf (0-5)
[2020-07-11] MEDS: Smz/Tmp Ds Tablet 1 TABLET PO (18:06)
== END 2020-07-11 18:11 | disposition home or self-care (01) ==
PROVIDERS: Emergency Provider Emergency Medicine; PCP Internal Medicine
DX: N50.811 Right testicular pain (principal); I86.1 Scrotal varices; N39.0 Urinary tract infection, site not specified; Z94.0 Kidney transplant status; Z87.891 Personal history of nicotine dependence
CPT/HCPCS: 76770; 76870; 81001; 93976; 99283

== ENCOUNTER 2020-07-19 14:19 | Emergency (ER) | payer MEDICARE, MEDICAID, SELFPAY ==
[2020-07-12 10:37] VITALS: BMI 30.7
[2020-07-19 14:20] VITALS: BP 149/97; PULSE 99; RESP 18; TEMP 36.3; O2SAT 98; BMI 31.6
--- NOTE | 2020-07-19 14:39 | RAD_ITS ---
STUDY: X-RAY CHEST REASON FOR EXAM: Male, 44 years old. SEPSIS, patient with right lower abdominal pain and sweats for about 2-3 weeks. Patient with history of kidney transplant TECHNIQUE: Single AP portable view of the chest. COMPARISON: Comparison is made with prior examination dated 05/17/2020. FINDINGS: Surgical clips are seen in the inferior aspect of the left cervical region. Scattered calcified granulomas. Questionable 1.9 cm nodule in the left lung base as well as a 1.4 cm nodule at the right lung base. Correlation with CT scan is recommended. There is no demonstrated pleural abnormality. Normal size heart. Normal mediastinum and estelita. Normal visualized pulmonary arteries. There is atherosclerotic calcification of the aortic arch with tortuosity. There are diffuse degenerative changes of the visualized thoracic spine. Normal visualized ribs, clavicles, and shoulders. There is no demonstrated abnormality of the visualized soft tissue structures of the upper abdomen. RAD/Chest 1 View (Portable) IMPRESSION: No acute infiltrate is seen. Questionable nodules at the lung bases. Electronically Signed: Pawan Ordaz MD at 15:28 EST , Service support ,
--- NOTE | 2020-07-19 14:41 | CT_ITS ---
STUDY: CT ABDOMEN AND PELVIS WITHOUT CONTRAST REASON FOR EXAM: Male, 44 years old. RLQ PAIN, SWEATS X 2-3 WKS, GERD, COPD, CT, KIDNEY TRANSPLANT X 2 RADIATION DOSAGE (If Supplied By Facility): CTDIvol = ( 13.43 ) mGy, DLP = ( 521.21 ) mGycm TECHNIQUE: Transaxial images were obtained from the dome of the diaphragm to the symphysis pubis without oral contrast, and without intravenous contrast. Sagittal and coronal images were reconstructed. Individualized dose optimization techniques were used for this CT. COMPARISON: None. FINDINGS: There are scattered small pulmonary calcifications consistent with old granulomatous disease. The visualized portions of the heart are within normal limits. Normal liver. There are surgical clips in the gallbladder fossa consistent with a prior cholecystectomy. Normal spleen. Normal pancreas. Normal bilateral adrenal glands. The [place] kidneys are absent with surgical clips on the right. There is transplant kidney in the right lower quadrant with severe atrophy. There is transplant kidney in the left lower quadrant. There is no hydronephrosis. Normal visualized stomach. Normal small intestine. Normal colon. There is non-visualization of the appendix. There is diffuse atherosclerotic calcification of the abdominal aorta, without a demonstrated aneurysm. Normal inferior vena cava. Normal retroperitoneum. Normal urinary bladder. There are prostatic calcifications. There is no free fluid in the abdomen or pelvis. There is postoperative change of the abdominal wall. There are abnormal densities of the osseous structures consistent with renal osteodystrophy. There is arthritic change of the spine. CT/Abdomen/Pelvis without Cont IMPRESSION: No mass or obstruction. Renal transplant in the left lower quadrant. Prior renal transplant with severe atrophy in the right lower quadrant. Absent [place] kidneys. Electronically Signed: Jeancarlos Marsh MD at 16:28 EST , Service support ,
--- NOTE | 2020-07-19 14:43 | ED.VIS.GEN ---
History of Present Illness Chief Complaint: Abd Pain Informant: Patient Narrative: 44-year-old male with history of left renal pelvis transplant 3 years ago. Patient states that he has had pain in the right lower abdomen for weeks. He has had sweats. He has had recent renal ultrasound and blood work. Urinalysis recently showed UTI culture grew out Streptococcus agalactiae. He was originally on Bactrim and then switched by his transplant team to amoxicillin. He states he continues to have a symptoms. He notes some mild diarrhea. He also notes a mild headache. He does endorse some slight dysuria. He denies any fevers at home. - Past Medical History (1) COPD (chronic obstructive pulmonary disease) Status: Chronic (2) GERD (gastroesophageal reflux disease) Status: Chronic (3) Myocardial infarction Status: Chronic (4) Transplanted kidney Status: Chronic Past Medical History - Allergies and Home Meds Allergies/Adverse Reactions: Allergies hydromorphone [From Dilaudid] Allergy (Mild, Verified 07/19/20 14:23) nausea Latex, Natural Rubber Allergy (Mild, Verified 07/19/20 14:23) rash Primary Care Physician: Wolfgang Reed MD [Primary Care Provider] - Surgical History: - - Fistula left forearm and kidney recipient Smoking Status: Former smoker Drugs: None - Family History Maternal Family History: Reports: Renal Disease Paternal Family History: Reports: - - Patient does not know. Review of Systems General: Reports: Chills, Sweats. Denies: Fever Eyes: Denies: Visual changes - bilaterally, Diplopia ENT: Denies: Rhinorrhea, Sore throat Cardiovascular: Denies: Chest pain, Palpitations Respiratory: Reports: Dyspnea - No change from baseline, Cough - No change from baseline. Denies: Dyspnea on exertion Gastrointestinal: Reports: Abdominal pain. Denies: Nausea, Vomiting, Diarrhea, Melena, Hematochezia Genitourinary: Reports: Dysuria. Denies: Hematuria, Frequency Musculoskeletal: Denies: Back pain, Extremity Pain Skin: Denies: Rash, Wounds Neurological: Reports: Headache. Denies: Weakness, Numbness Physical Exam Vital Signs/Narrative: Vital Signs Temp Pulse Resp BP Pulse Ox 07/19/20 14:20 97.3 F L 99 18 149/97 H 98 Inital Vital Signs reviewed: Yes General: Well nourished, Well developed, No Acute Distress Head: Normocephalic, Atraumatic Eyes: Perrl, EOMI ENT: Moist mucous membranes, No rhinorrhea Neck: Supple, Nontender Cardiovascular: Regular rate, Regular rhythm, No murmurs Respiratory: No distress, CTA bilaterally, Chest nontender Abdomen: Soft, Nondistended, Normal bowel sounds, Tender. Negative for: Guarding, Rebound tenderness Back: Nontender, Normal Inspection Extremities: Nontender, No edema Skin: Normal color, No rash Neurological: Alert, Oriented x3, Cranial nerves II-XII grossly intact, Normal Strength, Normal Sensation Psychological: Normal affect, Normal Mood Diagnostic/Tx/Re-eval Clinical Impression(s) from Imaging Studies Chest X-Ray 07/19/20 14:39 IMPRESSION: No acute infiltrate is seen. Questionable nodules at the lung bases. Electronically Signed: Pawan rOdaz MD at 15:28 EST , Service support , Abdomen/Pelvis CT 07/19/20 14:41 IMPRESSION: No mass or obstruction. Renal transplant in the left lower quadrant. Prior renal transplant with severe atrophy in the right lower quadrant. Absent [place] kidneys. Electronically Signed: Jeancarlos Marsh MD at 16:28 EST , Service support , Laboratory Last Values WBC 9.1 K/mm3 (4.4-11.0) 07/19/20 15:25 RBC 5.06 M/mm3 (4.6-6.2) 07/19/20 15:25 Hgb 14.6 g/dL (13.0-16.5) 07/19/20 15:25 Hct 45.2 % (40-54) 07/19/20 15:25 MCV 89.3 fL (80-94) 07/19/20 15:25 MCH 28.9 pg (27.0-32.0) 07/19/20 15:25 MCHC 32.3 g/dL (32-36) 07/19/20 15:25 RDW Std Deviation 45.5 fl (35.1-43.9) H 07/19/20 15:25 RDW Coeff of Tari 13.9 % (11.6-14.6) 07/19/20 15:25 Plt Count 223 K/mm3 (150-450) 07/19/20 15:25 MPV 10.6 fl (6.2-12.0) 07/19/20 15:25 Immature Gran % (Auto) 0.800 % (0.0-0.9) 07/19/20 15:25 Neut % (Auto) 84.9 % (47-70) H 07/19/20 15:25 Lymph % (Auto) 6.2 % (19-41) L 07/19/20 15:25 [place] % (Auto) 7.7 % (0-10) 07/19/20 15:25 Eos % (Auto) 0.1 % (0-5) 07/19/20 15:25 Baso % (Auto) 0.3 % (0-1) 07/19/20 15:25 Absolute Neuts (auto) 7.7 X10^3/uL (2.0-7.7) 07/19/20 15:25 Absolute Lymphs (auto) 0.56 X10^3/uL (0.83-4.51) L 07/19/20 15:25 Nucleated RBC % 0 % (0-5) 07/19/20 15:25 Differential Comment SCANNED 07/19/20 15:25 PT 12.7 SECONDS (11.7-14.9) 07/19/20 15:25 INR 1.0 07/19/20 15:25 APTT 28.8 Seconds (24.1-36.2) 07/19/20 15:25 Sodium 136 mmol/L (136-145) 07/19/20 15:25 Potassium 4.3 mmol/L (3.5-5.1) 07/19/20 15:25 Chloride 106 mmol/L (98-107) 07/19/20 15:25 Carbon Dioxide 25.0 mmol/L (21.0-32.0) 07/19/20 15:25 Anion Gap 5 (5-15) 07/19/20 15:25 BUN 26 mg/dL (7-18) H 07/19/20 15:25 Creatinine 1.86 mg/dL (0.70-1.30) H 07/19/20 15:25 Estim Creat Clear Calc 38.27 ml/min 07/19/20 15:25 Est GFR (MDRD) Af Amer 51 mL/min (>60) L 07/19/20 15:25 Est GFR (MDRD) Non-Af 42 mL/min (>60) L 07/19/20 15:25 BUN/Creatinine Ratio 14.0 RATIO (10-20) 07/19/20 15:25 Glucose 116 mg/dL (74-106) H 07/19/20 15:25 Lactic Acid 1.5 mmol/L (0.4-1.9) 07/19/20 15:25 Calcium 9.5 mg/dL (8.5-10.1) 07/19/20 15:25 Total Bilirubin 0.40 mg/dL (0.20-1.00) 07/19/20 15:25 AST 12 U/L (15-37) L 07/19/20 15:25 ALT 28 U/L (16-61) 07/19/20 15:25 Alkaline Phosphatase 131 U/L (45-117) H 07/19/20 15:25 Total Protein 8.1 g/dL (6.4-8.2) 07/19/20 15:25 Albumin 4.1 g/dL (3.2-5.0) 07/19/20 15:25 Globulin 4.0 g/dL (2.2-4.2) 07/19/20 15:25 Albumin/Globulin Ratio 1.0 RATIO (0.9-2.4) 07/19/20 15:25 Urine Color Yellow (Yellow) 07/19/20 15:10 Urine Clarity Clear (Clear) 07/19/20 15:10 Urine pH 6.0 (5.0 - 8.0) 07/19/20 15:10 Ur Specific [place] 1.015 (1.002-1.030) 07/19/20 15:10 Urine Protein 15 mg/dl (Negative) H 07/19/20 15:10 Urine Glucose (UA) Normal mg/dl (Normal) 07/19/20 15:10 Urine Ketones Negative mg/dl (Negative) 07/19/20 15:10 Urine Occult Blood 25 /ul (Negative) H 07/19/20 15:10 Urine Nitrite Negative (Negative) 07/19/20 15:10 Urine Bilirubin Negative mg/dL (Negative) 07/19/20 15:10 Urine Urobilinogen Normal mg/dl (Normal) 07/19/20 15:10 Ur Leukocyte Esterase 25 /ul (Negative) H 07/19/20 15:10 Urine RBC 0 SEEN /hpf (0-5) 07/19/20 15:10 Urine WBC 0-5 SEEN /hpf (0-5) 07/19/20 15:10 Ur Squamous Epith Cells 0-5 SEEN /hpf (0-5) 07/19/20 15:10 Urine Bacteria 0 SEEN /hpf (None Seen) 07/19/20 15:10 Urine Mucus 0 SEEN /hpf (<or=2+) 07/19/20 15:10 - Medical Decision Making Patient's Covid negative. Patient's blood work and urine are rather unremarkable. CT is unremarkable for pathology to explain his pain. I spoke with Dr. Delaney at [facility]. He knows the patient. He is comfortable with the patient being discharged home. We did obtain blood cultures. They will follow up with him and have the clinical research coordinator call him tomorrow. ED Disposition - Plan for ED Patient: Disposition: Home or Assisted Living Diagnosis: Abdominal pain, Renal transplant recipient Instructions: ED Abdominal Pain Excl Appendx Male Referrals: Wolfgang Reed MD [Primary Care Provider] - As Needed Additional Instructions: Your clinical research coordinator will reach out to you tomorrow.
[2020-07-19 15:34] VITALS: BP 154/107; PULSE 83; RESP 14; O2SAT 96
[2020-07-19] MEDS: Morphine 2 MG/ML Syringe IV (15:44)
[2020-07-19] MEDS: Ondansetron 4 MG/2 ML Vial IV (15:45)
[2020-07-19 15:48] LABS: Bacteria 0 SEEN /hpf (None Seen); Mucous, Urine 0 SEEN /hpf (<or=2+); Red Blood Cells-Urine 0 SEEN /hpf (0-5)
[2020-07-19 15:54] LABS: Absolute Lymphocyte Count 0.56 X10^3/uL (0.83-4.51); Absolute Neutrophil Count 7.7 X10^3/uL (2.0-7.7); Basophil# 0.03 X10^3/uL; Basophil% 0.3 % (0-1); Eosinophil# 0.01 X10^3/uL; Eosinophils% 0.1 % (0-5); Hematocrit 45.2 % (40-54); Hemoglobin 14.6 g/dL (13.0-16.5); Lymphocyte # 0.56 X10^3/ul (4.0); Lymphocyte % 6.2 % (19-41); Mean Corp Hgb Conc 32.3 g/dL (32-36); Mean Corpuscular Hgb 28.9 pg (27.0-32.0); Mean Corpuscular Volume 89.3 fL (80-94); Mean Platelet Vol. 10.6 fl (6.2-12.0); Monocyte% 7.7 % (0-10); NRBC Flagged by Analyzer 0 % (0-5); Neutrophil # 7.68 X10^3/uL (2.7-7.7); Neutrophil % 84.9 % (47-70); POSITIVE DIFFERENTIAL YES; Platelet Count 223 K/mm3 (150-450); RBC Distribution Width CV 13.9 % (11.6-14.6); RBC Distribution Width SD 45.5 fl (35.1-43.9); Red Blood Count 5.06 M/mm3 (4.6-6.2); White Blood Count 9.1 K/mm3 (4.4-11.0)
[2020-07-19 16:06] LABS: AST(SGOT) 12 U/L (15-37); Alanine Aminotransfer ALT/SGPT 28 U/L (16-61); Albumin, Serum 4.1 g/dL (3.2-5.0); Alkaline Phosphatase 131 U/L (45-117); Anion Gap 5 (5-15); BUN 26 mg/dL (7-18); Calcium,Total 9.5 mg/dL (8.5-10.1); Chloride 106 mmol/L (98-107); Creatinine, Serum 1.86 mg/dL (0.70-1.30); EST Glomerular Filtration Rate 42 mL/min (>60); Est Glom Filt Rate - Afr Amer 51 mL/min (>60); Estimated Creatinine Clearance 38.27 ml/min; Glucose 116 mg/dL (74-106); Potassium 4.3 mmol/L (3.5-5.1); Protein, Total 8.1 g/dL (6.4-8.2); Sodium Level 136 mmol/L (136-145)
[2020-07-19 16:10] LABS: Prothrombin Time (Protime)PT. 12.7 SECONDS (11.7-14.9)
[2020-07-19 16:11] LABS: Partial Thromboplast Time 28.8 Seconds (24.1-36.2)
[2020-07-19 16:12] LABS: Differential Indicated SCAN CRITERIA MET
[2020-07-19 16:29] LABS: Differential Comment SCANNED
[2020-07-19 16:30] LABS: Color, Urine Yellow (Yellow); Glucose, Dipstick Normal (Normal); Ketone-Dipstick Negative (Negative); Leukocyte Esterase-Dipstick 25 /ul (Negative); Nitrite-Dipstick Negative (Negative); Occult Blood-Urine 25 /ul (Negative); Protein-Dipstick 15 mg/dl (Negative); Specific Gravity, Urine 1.015 (1.002-1.030); Urine Bilirubin Dipstick Negative (Negative); Urine Clarity Clear (Clear); Urine Urobilinogen Normal (Normal)
[2020-07-19 16:34] LABS: Lactic Acid 1.5 mmol/L (0.4-1.9)
[2020-07-19 16:38] LABS: Squamous Epithelial Cells - UA 0-5 SEEN /hpf (0-5); White Blood Cells 0-5 SEEN /hpf (0-5)
[2020-07-19 16:44] VITALS: TEMP 36.6
[2020-07-19 18:01] VITALS: BP 168/96; PULSE 73; RESP 17; O2SAT 96
[2020-07-19 18:39] VITALS: BP 149/82; PULSE 67; RESP 15; O2SAT 99
[2020-07-22 18:05] LABS: Tacrolimus (FK506) 7.6 ng/mL (2.0-20.0)
== END 2020-07-19 18:44 | disposition home or self-care (01) ==
PROVIDERS: Emergency Provider Emergency Medicine; PCP Internal Medicine
DX: R10.9 Unspecified abdominal pain (principal); Z94.0 Kidney transplant status; N39.0 Urinary tract infection, site not specified; J44.9 Chronic obstructive pulmonary disease, unspecified; K21.9 Gastro-esophageal reflux disease without esophagitis; I25.2 Old myocardial infarction; Z79.82 Long term (current) use of aspirin; Z79.899 Other long term (current) drug therapy; Z87.891 Personal history of nicotine dependence
CPT/HCPCS: 71045; 74176; 80053; 80197; 81001; 83605; 85025; 85610; 85730; 87040; 87086; 87426; 96374; 96375; 99284; A4216; J2405

== ENCOUNTER 2020-07-20 06:43 | Emergency (ER) | payer MEDICARE, MEDICAID, SELFPAY ==
[2020-07-19 14:20] VITALS: BMI 31.6
[2020-07-20 06:43] VITALS: BP 152/111; PULSE 104; RESP 17; TEMP 36.8; O2SAT 99; BMI 30.9
--- NOTE | 2020-07-20 07:32 | ED.VIS.GEN ---
History of Present Illness Chief Complaint: General Illness Informant: Patient Narrative: 44-year-old male presenting with left-sided neck pain. Patient was seen and evaluated last evening with blood work because he feels hot and sweaty. His lab work was unremarkable last evening. He had a Covid test last night which was also negative. Patient followed up for stress test this morning and was sent to the ER because he does not look good. Patient's only complaint today is left-sided neck pain. He denies any trauma. No paresthesias. - Past Medical History (1) COPD (chronic obstructive pulmonary disease) Status: Chronic (2) GERD (gastroesophageal reflux disease) Status: Chronic (3) Transplanted kidney Status: Chronic Past Medical History - Allergies and Home Meds Allergies/Adverse Reactions: Allergies hydromorphone [From Dilaudid] Allergy (Mild, Verified 07/20/20 06:47) nausea Latex, Natural Rubber Allergy (Mild, Verified 07/20/20 06:47) rash Primary Care Physician: Wolfgang Reed MD [Primary Care Provider] - Past Medical History: - - Reviewed in problem list Surgical History: - - Fistula left forearm and kidney recipient Smoking Status: Never smoker - Family History Maternal Family History: Reports: Renal Disease Paternal Family History: Reports: - - Patient does not know. Review of Systems General: Reports: Sweats. Denies: Chills, Fever Eyes: Denies: Visual changes - bilaterally, Diplopia ENT: Denies: Rhinorrhea, Sore throat Cardiovascular: Denies: Chest pain, Palpitations Respiratory: Denies: Dyspnea, Cough, Dyspnea on exertion Gastrointestinal: Denies: Abdominal pain, Nausea, Vomiting, Diarrhea, Melena, Hematochezia Genitourinary: Denies: Dysuria, Hematuria, Frequency Musculoskeletal: Reports: Neck pain. Denies: Myalgias, Arthralgias Skin: Denies: Rash, Wounds Neurological: Denies: Headache, Weakness, Numbness Psych: Denies: Depression, Anxiety Physical Exam Vital Signs/Narrative: Vital Signs Temp Pulse Resp BP Pulse Ox 07/20/20 06:43 98.2 F 104 H 17 152/111 H 99 General: Well nourished, No Acute Distress Head: Normocephalic, Atraumatic Eyes: Perrl, EOMI ENT: Moist mucous membranes, No rhinorrhea Neck: Supple, No lymphadenopathy Cardiovascular: Regular rate, Regular rhythm Extremities: Nontender, No edema Skin: Normal color, No rash. Negative for: Cyanosis, Diaphoresis Neurological: Alert, Oriented x3 Psychological: Normal affect, Normal Mood Diagnostic/Tx/Re-eval Clinical Impression(s) from Imaging Studies Soft Tissue Neck X-Ray 07/20/20 08:08 IMPRESSION: Degenerative changes of the cervical spine with loss of the normal cervical lordosis. No acute abnormality is seen. Electronically Signed: Pawan Ordaz MD at 8:28 EST , Service support , - Medical Decision Making Patient presenting for reevaluation after followed up for a stress test and was told he did not look good. Patient says other than a little soreness in his left side of his neck he does not have any symptoms. He does state that at times he does get hot and sweaty which is why he is supposed to get a stress test which was canceled because he came to the emergency room. Patient is denying any chest pain, shortness of breath. Patient was evaluated yesterday with blood work and imaging. Patient's Covid swab was negative. Today patient had x-ray of the soft tissues of the neck which is negative for acute process as interpreted by myself. Radiology does agree. Patient will follow up outpatient for his stress test as he has to reschedule this now. Patient given return precautions. Impression: 1. Cervical strain ED Disposition - Plan for ED Patient: Disposition: Home or Assisted Living Instructions: ED Neck Pain Referrals: Wolfgang Reed MD [Primary Care Provider] -
--- NOTE | 2020-07-20 08:08 | RAD_ITS ---
STUDY: X-RAY - SOFT TISSUE NECK REASON FOR EXAM: Male, 44 years old. LEFT SIDE PAIN AND SWELLING -- HX OF PARATHYROID SURGERY TECHNIQUE: 2 view(s) of the neck were obtained. COMPARISON: None. FINDINGS: Normal visualized nasopharynx, oropharynx, hypopharynx. Normal epiglottis. Normal visualized subglottic tracheal air column. Normal prevertebral soft tissue structures. There are degenerative changes of the cervical spine with cervical spondylosis. Surgical clips are seen in the lower cervical region. RAD/Neck for Soft Tissue IMPRESSION: Degenerative changes of the cervical spine with loss of the normal cervical lordosis. No acute abnormality is seen. Electronically Signed: Pawan Ordaz MD at 8:28 EST , Service support ,
[2020-07-20 09:09] VITALS: BP 129/74; PULSE 62; RESP 15; O2SAT 96
== END 2020-07-20 09:09 | disposition home or self-care (01) ==
PROVIDERS: Emergency Provider Student in an Organized Health Care Education/Training Program; PCP Internal Medicine
DX: S16.1XXA Strain of muscle, fascia and tendon at neck level, initial encounter (principal); X58.XXXA Exposure to other specified factors, initial encounter; Y93.9 Activity, unspecified; Y92.9 Unspecified place or not applicable; J44.9 Chronic obstructive pulmonary disease, unspecified; K21.9 Gastro-esophageal reflux disease without esophagitis; Z94.0 Kidney transplant status; Z79.82 Long term (current) use of aspirin; Z79.899 Other long term (current) drug therapy
CPT/HCPCS: 70360; 99283

== ENCOUNTER 2020-08-21 22:49 | Observation (INO) | payer MEDICARE, MEDICAID, SELFPAY ==
[2020-08-21 22:51] VITALS: BP 167/102; PULSE 86; RESP 16; TEMP 36.7; O2SAT 99; BMI 27.9
--- NOTE | 2020-08-21 23:02 | EKG12_ITS ---
Test Reason : CP ADMISSION Blood Pressure : / mmHG Vent. Rate : 078 BPM Atrial Rate : 078 BPM P-R Int : 114 ms QRS Dur : 102 ms QT Int : 380 ms P-R-T Axes : 024 026 131 degrees QTc Int : 433 ms Normal sinus rhythm Nonspecific ST and T wave abnormality Abnormal ECG Confirmed by URSZULA ARANDA, STEFF ([id number]), proposal editor JANY LOPEZ ([id number]) on 08/23/2020 9:30:45 AM Referred By: MICHAEL Confirmed By:STEFF SEAMAN MD
--- NOTE | 2020-08-21 23:02 | RAD_ITS ---
STUDY: X-RAY CHEST REASON FOR EXAM: Male, 44 years old. PT REPORTS FLUTTERING IN CHEST X A COUPLE DAYS. DIAPHORETIC. HX OF KIDNEY TRANSPLANT. TECHNIQUE: Single AP portable view of the chest. COMPARISON: 07/19/2020 FINDINGS: The lungs are clear and expanded. Stable appearance of widespread tiny calcified granulomas throughout the chest. No infiltrates. No effusions. There is no demonstrated pleural abnormality. Normal size heart. Normal mediastinum and estelita. Normal visualized pulmonary arteries. Normal visualized aortic arch and descending thoracic aorta. Normal visualized thoracic spine. Normal visualized ribs, clavicles, and shoulders. There is no demonstrated abnormality of the visualized soft tissue structures of the upper abdomen. RAD/Chest 1 View (Portable) IMPRESSION: No change or acute chest disease. Electronically Signed: Kunal Espinosa MD at 23:27 EST , Service support ,
[2020-08-21] MEDS: Aspirin 81 MG TAB.CHEW 324 MG PO (23:10)
[2020-08-21 23:23] LABS: Absolute Lymphocyte Count 1.65 X10^3/uL (0.83-4.51); Basophil# 0.04 X10^3/uL; Basophil% 0.4 % (0-1); Eosinophil# 0.08 X10^3/uL; Eosinophils% 0.8 % (0-5); Hematocrit 44.4 % (40-54); Hemoglobin 14.6 g/dL (13.0-16.5); Lymphocyte # 1.65 X10^3/ul (4.0); Lymphocyte % 16.5 % (19-41); Mean Corp Hgb Conc 32.9 g/dL (32-36); Mean Corpuscular Hgb 29.6 pg (27.0-32.0); Mean Corpuscular Volume 90.1 fL (80-94); Mean Platelet Vol. 10.8 fl (6.2-12.0); Monocyte# 1.21 X10^3/uL; Monocyte% 12.1 % (0-10); NRBC Flagged by Analyzer 0 % (0-5); Neutrophil # 6.97 X10^3/uL (2.7-7.7); Neutrophil % 69.5 % (47-70); Platelet Count 219 K/mm3 (150-450); RBC Distribution Width CV 13.9 % (11.6-14.6); RBC Distribution Width SD 46.4 fl (35.1-43.9); Red Blood Count 4.93 M/mm3 (4.6-6.2)
[2020-08-21 23:26] LABS: Anion Gap 6 (5-15); BUN 29 mg/dL (7-18); BUN/Creat Ratio 18.2 RATIO (10-20); Calcium,Total 9.3 mg/dL (8.5-10.1); Chloride 108 mmol/L (98-107); Creatinine, Serum 1.59 mg/dL (0.70-1.30); EST Glomerular Filtration Rate 51 mL/min (>60); Est Glom Filt Rate - Afr Amer 61 mL/min (>60); Estimated Creatinine Clearance 50.68 ml/min; Glucose 111 mg/dL (74-106); Potassium 3.9 mmol/L (3.5-5.1); Sodium Level 139 mmol/L (136-145)
--- NOTE | 2020-08-21 23:52 | ED.VISSUMM ---
- ER Visit Summary Date of Service: 08/21/20 Chief Complaint: Sweats History of Present Illness: The patient is a 44 M who presents for sweats. This is intermittent over the last several days. He was having some chest pain today. He says he has a history of silent MIs. No history of stents or bypass. He is not on blood thinners. He was scheduled for stress test in June. He went for outpatient testing, but they told him he looked bad and sent him to the ED. He was seen in the ED and referred again for outpatient testing. He never had an outpatient stress test. He has a history of kidney transplant. His second transplant was about 2 to 3 years ago in [place]. Physical Examination: Hypertensive 167/102. Otherwise vitals normal. 99% on room air. No acute distress. No diaphoresis. Heart regular. Lungs clear. Abdomen soft. Skin normal. Extremities nontender with no edema. Test Results: EKG shows sinus rhythm at a rate of [address] segment depression. He had this in April of last year. CBC normal. Chloride 108, glucose 111, BUN 29, creatinine 1.59. Troponin normal. Chest x-ray unremarkable, reviewed by the radiologist and myself. Emergency Department Course and Treatment: Patient treated with aspirin and placed on the monitor. His history of MIs in his unexplained sweats are concerning. He also has EKG changes. He has not been able to follow-up with his outpatient stress testing. I contacted the hospitalist for in hospital evaluation. Treatment Plan: As above Disposition: Observation PCU Impression: Chest pain This note was generated with [employer] dictation software. It may contain incorrect words, spelling, and punctuation that were not noted in review of the chart prior to signing ED Disposition - Plan for ED Patient: Referrals: Wolfgang Reed MD [Primary Care Provider] -
[2020-08-22] VITALS (9 sets, daily range): BP systolic 131–168; BP diastolic 86–107; PULSE 61–94; RESP 16–20; TEMP 36.4–36.7; O2SAT 95–100; BMI 27.0; BMI 27.1
--- NOTE | 2020-08-22 00:36 | HP.PCM_ITS ---
Problem List (1) GERD (gastroesophageal reflux disease) Status: Chronic (2) COPD (chronic obstructive pulmonary disease) Status: Chronic (3) Chest pain Status: Acute (4) Transplanted kidney Status: Chronic History of Present Illness Date of Admission: 08/22/20 Chief Complaint: chest pain The patient is a 44 year old male patient with a significant past medical history of kidney disease status post renal transplant x2, the last being 3 years ago presents to the emergency room with chest pain. This evening the patient had chest pain substernal that radiated to his neck which has subsequently resolved after treatment in the emergency room. The patient has had recurrent chest pain episodes over the past month for which she was to get an outpatient stress test. Upon arrival at his last scheduled stress test he looked ill and was sent to the emergency room prior to testing and therefore a stress test was not done. The patient reports a history of having silent myocardial infarctions but has had no cardiac stenting or coronary artery bypass grafting. He will be admitted for further cardiac work-up and stress test. Past Medical History Past Medical History (Chronic Problems): Chronic Problems (Last Reviewed 07/12/20 @ 10:33 by Lluvia Hines) GERD (gastroesophageal reflux disease) (Chronic) COPD (chronic obstructive pulmonary disease) (Chronic) Myocardial infarction (Chronic) Transplanted kidney (Chronic) Medical History: Medical History (Last Reviewed 07/12/20 @ 10:33 by Lluvia Hines) Sprain of acromioclavicular joint (Acute) S43.50XA Myocardial infarction with cardiac rehabilitation I21.9, Z51.89 COPD (chronic obstructive pulmonary disease) J44.9 Allergies hydromorphone [From Dilaudid] Allergy (Mild, Verified 08/21/20 22:50) nausea Latex, Natural Rubber Allergy (Mild, Verified 08/21/20 22:50) rash Home Medications: Ambulatory Orders Medication Instructions Recorded ergocalciferol (vitamin D2) 1,250 50,000 unit PO FR 09/30/19 mcg (50,000 unit) capsule magnesium oxide 400 mg PO BID 09/30/19 mycophenolate mofetil 250 mg 500 mg PO BID 09/30/19 capsule prednisone 5 mg tablet 5 mg PO DAILY 09/30/19 tacrolimus 1 mg capsule 3 mg PO BID cap 09/30/19 Omeprazole Magnesium [Prilosec Otc] 20 mg PO DAILY 10/20/19 Aspirin [Aspirin EC] 81 mg PO DAILY 02/08/20 benzonatate 100 mg capsule 100 mg PO TID PRN #30 cap 05/09/20 cyclobenzaprine 10 mg tablet 5 mg PO TID PRN #30 tab 07/06/20 Cinacalcet HCl [Sensipar] 30 mg PO BREAKFAST 07/19/20 Surgical History: Surgical History (Last Reviewed 07/12/20 @ 10:33 by Lluiva Hines) kidney transplant x2 Surgical History: - - Fistula left forearm and kidney recipient Smoking Status: Former smoker Tobacco Use: Cigarettes - *Family History Maternal History Items: Renal Disease Paternal History Items: - - Patient does not know. Review of Systems Constitutional: Denies: Chills, Fever, Weight Change HEENT: Denies: Head Aches, Sinus Congestion, Sinus Drainage Cardiovascular: Reports: Chest Pain. Denies: Palpitations Respiratory: Denies: Cough, Shortness of breath at rest, Sputum production Gastrointestinal: Denies: Abdominal Pain, Nausea, Vomiting Genitourinary: Denies: Dysuria Musculoskeletal: Denies: Joint Pain, Joint Tenderness Skin: Denies: Rash, Wounds Neurological: Denies: Numbness, Tingling, Focal weakness Psychiatric: Denies: Anxiety, Depression, Homicidal Ideations, Suicidal Ideations Hematologic/ Lymphatic: Denies: Easy Bruising, Easy Bleeding VTE Information - Inpt Only VTE Present on Admission: No VTE Mechan Device Prophylaxis: SCD's VTE Pharm Prophylaxis ordered?: No Reason prophylaxis not ordered:: Medical Contraindication - Physical Exam Vitals/I&O's: Vital Signs Temp Pulse Resp BP Pulse Ox 98.1 F 86 16 167/102 H 99 08/21/20 22:51 08/21/20 22:51 08/21/20 22:51 08/21/20 22:51 08/21/20 22:51 Oxygen Delivery Method Room Air Weight: 162 lb 11.218 oz Body Mass Index (BMI) 27.9 General: Alert, Oriented x3, Cooperative HEENT: Atraumatic, Normocephalic Neck: Supple Lungs: Clear to auscultation, Normal air movement, No rhonchi, No wheeze, No rales Cardiovascular: Regular rate, Regular Rhythm, Normal S1, Normal S2, No murmurs Abdomen: Bowel Sounds Present, Soft, Non Tender Extremities: No edema Skin: No rashes Musculoskeletal: No Tenderness to Palpation of Joints or Extremities Neurological: Neuro grossly intact Psych/Mental Status: Normal Affect, Appropriate Laboratory Results 08/21/20 22:58: WBC 10.0, RBC 4.93, Hgb 14.6, Hct 44.4, MCV 90.1, MCH 29.6, MCHC 32.9, RDW Std Deviation 46.4 H, RDW Coeff of Tari 13.9, Plt Count 219, MPV 10.8, Immature Gran % (Auto) 0.700, Neut % (Auto) 69.5, Lymph % (Auto) 16.5 L, [place] % (Auto) 12.1 H, Eos % (Auto) 0.8, Baso % (Auto) 0.4, Absolute Neuts (auto) 7.0, Absolute Lymphs (auto) 1.65, Nucleated RBC % 0 08/21/20 22:58: Sodium 139, Potassium 3.9, Chloride 108 H, Carbon Dioxide 25.0, Anion Gap 6, BUN 29 H, Creatinine 1.59 H, Estim Creat Clear Calc 50.68, Est GFR (MDRD) Af Amer 61, Est GFR (MDRD) Non-Af 51 L, BUN/Creatinine Ratio 18.2, Glucose 111 H, Calcium 9.3, Troponin I < 0.015 Assessment/Plan All Active Problems (Last Reviewed 07/12/20 @ 10:33 by Lluvia Hines) Sprain of acromioclavicular joint (Acute) Chest pain (Acute) GINNY (acute kidney injury) (Acute) Chronic Problems (Last Reviewed 07/12/20 @ 10:33 by Lluvia Hines) GERD (gastroesophageal reflux disease) (Chronic) COPD (chronic obstructive pulmonary disease) (Chronic) Myocardial infarction (Chronic) Transplanted kidney (Chronic) Plan 1. Chest pain rule out myocardial infarction?admit patient to progressive care unit for observation, stress test in the morning after cardiac enzymes are negative. Oxygen per routine protocol, aspirin will be held due to kidney transplant, nitroglycerin will be ordered as needed for his chest pain as well as morphine as needed. 2. GERD?continue proton pump inhibitor 3. DVT prophylaxis?SCDs OBSV E&M: 68416 Initial observation care L2
--- NOTE | 2020-08-22 01:23 | EKG12_ITS ---
Test Reason : CP Blood Pressure : / mmHG Vent. Rate : 089 BPM Atrial Rate : 089 BPM P-R Int : 118 ms QRS Dur : 094 ms QT Int : 346 ms P-R-T Axes : 038 039 114 degrees QTc Int : 420 ms Normal sinus rhythm ST & T wave abnormality, consider lateral ischemia Abnormal ECG Confirmed by ALONDRA ARANDA, HYACINTH ([id number]), health editor JANY LOPEZ ([id number]) on 08/23/2020 12:46:56 PM Referred By: DC Confirmed By:HYACINTH CANTU MD
[2020-08-22] MEDS: 0.9% Normal Saline 1,000 ML 75 ML IV (01:46)
[2020-08-22] MEDS: 0.9% Saline Lock 10 ML Syringe IV ×4 (01:46→08:48)
[2020-08-22] MEDS: Ondansetron 4 MG/2 ML Vial IV (03:00)
[2020-08-22] MEDS: Morphine 2 MG/ML Syringe IV (03:01)
[2020-08-22 05:45] LABS: Absolute Lymphocyte Count 1.16 X10^3/uL (0.83-4.51); Absolute Neutrophil Count 4.7 X10^3/uL (2.0-7.7); Basophil# 0.03 X10^3/uL; Basophil% 0.4 % (0-1); Eosinophil# 0.08 X10^3/uL; Eosinophils% 1.2 % (0-5); Hematocrit 40.4 % (40-54); Lymphocyte # 1.16 X10^3/ul (4.0); Mean Corp Hgb Conc 32.2 g/dL (32-36); Mean Corpuscular Hgb 29.1 pg (27.0-32.0); Mean Corpuscular Volume 90.6 fL (80-94); Mean Platelet Vol. 10.7 fl (6.2-12.0); Monocyte# 0.84 X10^3/uL; Monocyte% 12.3 % (0-10); NRBC Flagged by Analyzer 0 % (0-5); Neutrophil # 4.65 X10^3/uL (2.7-7.7); Neutrophil % 68.4 % (47-70); Platelet Count 173 K/mm3 (150-450); RBC Distribution Width CV 13.7 % (11.6-14.6); RBC Distribution Width SD 46.5 fl (35.1-43.9); Red Blood Count 4.46 M/mm3 (4.6-6.2); White Blood Count 6.8 K/mm3 (4.4-11.0)
--- NOTE | 2020-08-22 05:55 | STEWCON_ITS ---
Reason For Study: CHEST PAIN Stress Results Protocol: Abdias Protocol WITH DEFINITY Maximum Predicted HR: 178 bpm Target HR: 151 bpm % Maximum Predicted HR: 86 % DurationHeart Rate Stage (mm:ss) (bpm) BP Comment BASELINE 78 132/982 CC DEFINITY STAGE 1 3:00 115 152/88 STAGE 2 3:00 126 154/88LEFT NECK DISCOMFORT, SOB STAGE 3 3:00 153 174/822 CC DEFINITY RECOVERY 90 130/88STATES FEELS BETTER Stress Duration: 9:00 mm:ss Maximum Stress HR: 153 bpm METS: 10 Baseline Echocardiogram Findings Stress Echo Wall motion Data Resting WM Intermediate WM Stress WM Resting Wall Motion Wall Motion Stress All segments Normal. All segments Hyperkinetic. Ejection Fraction 55 %. Ejection Fraction 70 %. Stress Results Heart rate response: Appropriate Blood pressure response: Resting hypertension: Appropriate response Arrhythmias: None Functional capacity: Good Stopped secondary to: Dyspnea and left neck discomfort. EKG Data Baseline ECG: Sinus rhythm; nonspecific ST/T wave abnormality. Peak exercise ECG: Significant somatic/motion artifact with no obvious ECG changes. Symptoms with Stress The patient noted dyspnea and left neck discomfort during exercise with spontaneous resolution in recovery. Interpretation Summary Contrast injection performed Negative (adequate) stress echocardiogram Comment: The aortic valve leaflets are not well visualized, however, based upon the 2D echocardiographic images obtained there appears to be an area of focal thickening, calcification, and partial restriction. Based upon the spectral Doppler information obtained with respect to the aortic valve there appears to be a V-max of 1.82 m/s, a mean peak gradient of 7.19 mmHg, and an aortic valve area (V-max) of 1.8 cm??-compatible with mild aortic valve stenosis. Ordering Physician: Robin^Justus^^^ Performed By: Jennifer Contreras, CAMILLE
[2020-08-22 06:06] LABS: Anion Gap 7 (5-15); BUN 27 mg/dL (7-18); BUN/Creat Ratio 20.6 RATIO (10-20); Calcium,Total 8.7 mg/dL (8.5-10.1); Chloride 109 mmol/L (98-107); Cholesterol 176 mg/dL (200); Creatinine, Serum 1.31 mg/dL (0.70-1.30); EST Glomerular Filtration Rate 64 mL/min (>60); Est Glom Filt Rate - Afr Amer 77 mL/min (>60); Estimated Creatinine Clearance 61.51 ml/min; Glucose 96 mg/dL (74-106); High Density Lipoprotein 54 mg/dL; Sodium Level 141 mmol/L (136-145); Triglycerides 76 mg/dL; Very Low Density Lipoprotein 15 mg/dL (5-40)
[2020-08-22] MEDS: Cinacalcet HCl 30 MG Tablet PO (08:55)
[2020-08-22] MEDS: Pantoprazole Sodium 20 MG Tablet PO (08:55)
[2020-08-22] MEDS: Tacrolimus Anhydrous 1 MG Capsule 3 MG PO (08:57)
[2020-08-22] MEDS: predniSONE 5 MG Tablet PO (08:58)
[2020-08-22] MEDS: Mycophenolate Mofetil 250 MG Capsule 500 MG PO (08:58)
--- NOTE | 2020-08-22 09:24 | DCINST_ITS ---
- Discharge Diagnoses Current Active Problems: Current Active and Chronic Problems (Last Reviewed 07/12/20 @ 10:33 by Lluvia Hines) GERD (gastroesophageal reflux disease) (Chronic) COPD (chronic obstructive pulmonary disease) (Chronic) Chest pain (Acute) Transplanted kidney (Chronic) You will use the following diet at home:: No restrictions Your food should be the consistency of: Regular Your liquids should be the consistency of: Regular/Thin Discharge Activity: Return to Normal Activity Allergies/Adverse Reactions: Allergies hydromorphone [From Dilaudid] Allergy (Mild, Verified 08/21/20 22:50) nausea Latex, Natural Rubber Allergy (Mild, Verified 08/21/20 22:50) rash Medications to take at Discharge ergocalciferol (vitamin D2) 1,250 mcg (50,000 unit) capsule 50,000 unit PO FR 09/30/19 magnesium oxide 400 mg PO BID 09/30/19 mycophenolate mofetil 250 mg capsule 500 mg PO BID 09/30/19 prednisone 5 mg tablet 5 mg PO DAILY 09/30/19 tacrolimus 1 mg capsule 3 mg PO BID cap 09/30/19 Omeprazole Magnesium [Prilosec Otc] 20 mg PO DAILY 10/20/19 Aspirin [Aspirin EC] 81 mg PO DAILY 02/08/20 benzonatate 100 mg capsule 100 mg PO TID PRN #30 cap 05/09/20 cyclobenzaprine 10 mg tablet 5 mg PO TID PRN #30 tab 07/06/20 Cinacalcet HCl [Sensipar] 30 mg PO BREAKFAST 07/19/20 Primary Care Physician: Wolfgang Reed MD [Primary Care Provider] - Please follow up with your Primary Care Physician in: this week Test Results: Test results from this visit will be discussed in further detail at your follow- up appointment, if applicable.
--- NOTE | 2020-08-22 10:40 | PHA.DC.MR ---
Pharmacy Service has performed discharge medication reconciliation for this patient. The patient's discharge medication list was reviewed for discrepancies and discrepancies were resolved. Home Medications ergocalciferol (vitamin D2) 1,250 mcg (50,000 unit) capsule 50,000 unit PO FR 09/30/19 magnesium oxide 400 mg PO BID 09/30/19 mycophenolate mofetil 250 mg capsule 500 mg PO BID 09/30/19 prednisone 5 mg tablet 5 mg PO DAILY 09/30/19 tacrolimus 1 mg capsule 3 mg PO BID cap 09/30/19 Omeprazole Magnesium [Prilosec Otc] 20 mg PO DAILY 10/20/19 Aspirin [Aspirin EC] 81 mg PO DAILY 02/08/20 benzonatate 100 mg capsule 100 mg PO TID PRN #30 cap 05/09/20 cyclobenzaprine 10 mg tablet 5 mg PO TID PRN #30 tab 07/06/20 Cinacalcet HCl [Sensipar] 30 mg PO BREAKFAST 07/19/20
[2020-08-22 10:55] LABS: Mucous, Urine 0 SEEN /hpf (<or=2+); Squamous Epithelial Cells - UA 0 SEEN /hpf (0-5)
[2020-08-22 10:57] LABS: Glucose, Dipstick Normal (Normal); Ketone-Dipstick Negative (Negative); Leukocyte Esterase-Dipstick 500 /ul (Negative); Nitrite-Dipstick Negative (Negative); Occult Blood-Urine 25 /ul (Negative); Protein-Dipstick Negative (Negative); Specific Gravity, Urine 1.015 (1.002-1.030); Urine Bilirubin Dipstick Negative (Negative); Urine Urobilinogen Normal (Normal)
[2020-08-22 11:08] LABS: Color, Urine Yellow (Yellow); Urine Clarity Clear (Clear)
[2020-08-22 11:12] LABS: White Blood Cells 10-25 SEEN /hpf (0-5)
[2020-08-22 11:13] LABS: Red Blood Cells-Urine 0-5 SEEN /hpf (0-5)
[2020-08-22 11:15] LABS: Yeast-Urine 1+ /hpf (None Seen)
[2020-08-22 11:16] LABS: Bacteria 1+ /hpf (None Seen)
--- NOTE | 2020-08-22 13:12 | NURSING ---
reviewed and agree with documentation by ANIBAL Dunlap
--- NOTE | 2020-08-24 07:55 | PCM.DC.SUM ---
Discharge Date and Diagnosis - Problem List Patient Problems: Active and Suspected Problems (Last Reviewed 07/12/20 @ 10:33 by Lluvia Hines) Chest pain (Acute) Date of Admission: 08/22/20 Date of Discharge: 08/22/20 - Primary Discharge Diagnosis Acute Problems: Active Problems (Last Reviewed 07/12/20 @ 10:33 by Lluvia Hines) #1 musculoskeletal chest pain #2 acute cystitis - Secondary Discharge Diagnosis Chronic Problems: Chronic Problems (Last Reviewed 07/12/20 @ 10:33 by Lluvia Hines) GERD (gastroesophageal reflux disease) (Chronic) COPD (chronic obstructive pulmonary disease) (Chronic) Myocardial infarction (Chronic) Transplanted kidney (Chronic) Hospital Course and Treatment Operations: None Procedures: - - Stress echocardiogram Summary of Care Provided: The patient is a 44 year old M who was seen in the emergency room at [facility] with a chief complaint of chest pain. Work-up in the emergency room including a chest x-ray, cardiac enzymes, EKG, and pertinent lab was unremarkable. Patient had an elevated creatinine but this was believed to be his baseline creatinine. Patient was placed in observation status on PCU, cardiac enzymes were cycled and these remain normal, patient underwent a stress echocardiogram which was negative for reversible ischemia, patient requested urinalysis to be collected although he was not having any urinary symptoms-urinalysis indicated that he had cystitis. On 08/22/2020, patient was seen and examined: On examination he appeared in good health and spirits. Vital signs as documented. Skin warm and dry and without overt rashes. Neck without JVD, neck was supple, trachea midline, thyroid was normal. Lungs clear bilaterally, normal air movement was noted. Heart exam notable for regular rhythm, normal sounds and absence of murmurs, rubs or gallops. Abdomen unremarkable and without evidence of organomegaly, masses, or abdominal aortic enlargement. Bowel sounds are present, abdomen is not distended. Extremities nonedematous, no cyanosis was noted, no clubbing was noted. Neuro: Cranial nerves II through XII are grossly intact, no focal motor deficits were noted, sensation to light touch and pinprick intact, motor exam 5/5 throughout. Psych: Patient is alert and oriented x3, he does not appear anxious or depressed, he does not appear agitated. On 08/22/2020, patient was discharged home in stable condition Patient Problems: Active and Suspected Problems (Last Reviewed 07/12/20 @ 10:33 by Lluvia Hines) Chest pain (Acute) - Physical Exam Vitals/I&O's: Vital Signs Temp Pulse Resp BP Pulse Ox 97.6 F L 87 16 144/93 H 97 08/22/20 08:45 08/22/20 12:15 08/22/20 12:15 08/22/20 12:15 08/22/20 12:15 Oxygen Delivery Method Room Air Weight: 71.9 kg Body Mass Index (BMI) 27.0 Intake and Output for Last 24 Hours 08/22/20 08/23/20 08/24/20 23:59 23:59 23:59 Intake Total 1486.25 / 1486.25 Output Total 150 / 150 Balance 1336.25 / 1336.25 Discharge Activity: Return to Normal Activity Home Medications: Medications to take at Discharge ergocalciferol (vitamin D2) 1,250 mcg (50,000 unit) capsule 50,000 unit PO FR 09/30/19 magnesium oxide 400 mg PO BID 09/30/19 mycophenolate mofetil 250 mg capsule 500 mg PO BID 09/30/19 prednisone 5 mg tablet 5 mg PO DAILY 09/30/19 tacrolimus 1 mg capsule 3 mg PO BID cap 09/30/19 Omeprazole Magnesium [Prilosec Otc] 20 mg PO DAILY 10/20/19 Aspirin [Aspirin EC] 81 mg PO DAILY 02/08/20 benzonatate 100 mg capsule 100 mg PO TID PRN #30 cap 05/09/20 cyclobenzaprine 10 mg tablet 5 mg PO TID PRN #30 tab 07/06/20 Cinacalcet HCl [Sensipar] 30 mg PO BREAKFAST 07/19/20 Cephalexin [Keflex] 500 mg PO Q12 #20 cap 08/22/20 Following Prescriptions Were Given to Patient: Cephalexin [Keflex] 500 mg PO Q12 #20 cap Transmission Status: Received by [employer] [facility] #30 Primary Care Physician: Wolfgang Reed MD [Primary Care Provider] - Please follow up with your Primary Care Physician in: this week Disposition: Home Minutes spent on discharge:: 30 Patient Condition:: Stable Medical Necessity - Tobacco Use Smoking Status: Former smoker Tobacco Use: Cigarettes Meaningful Use Info Meaningful Use Diagnoses (Choose all that apply): None applicable OBSV E&M: 52395 Observ/hosp same date L3
== END 2020-08-22 09:23 | disposition home or self-care (01) ==
LOC: ED 23:24 → PCU 08-22 01:28
PROVIDERS: Admitting Provider Family Medicine; Emergency Provider Emergency Medicine; PCP Internal Medicine; Visit Provider Internal Medicine
DX: R07.89 Other chest pain (principal); N30.00 Acute cystitis without hematuria; I25.2 Old myocardial infarction; K21.9 Gastro-esophageal reflux disease without esophagitis; J44.9 Chronic obstructive pulmonary disease, unspecified; Z94.0 Kidney transplant status; Z79.899 Other long term (current) drug therapy; Z79.82 Long term (current) use of aspirin; Z79.52 Long term (current) use of systemic steroids; Z87.891 Personal history of nicotine dependence
CPT/HCPCS: 71045; 80048; 80061; 81001; 84484; 85025; 93005; 93017; 93350; 96361; 96374; 96375; 99218; 99285; J7030; Q9957; A4216; C8928; G0378; J2405

== ENCOUNTER 2020-10-19 17:04 | Emergency (ER) | payer MEDICARE, MEDICAID, SELFPAY ==
[2020-08-22 01:07] VITALS: BMI 27.0
[2020-10-19 17:05] VITALS: BP 155/97; PULSE 90; RESP 16; TEMP 37; O2SAT 98; BMI 31.6
--- NOTE | 2020-10-19 17:19 | RAD_ITS ---
INDICATION: chest pain EXAMINATION/TECHNIQUE: X-RAY - XR Chest 1 View COMPARISON: 08/21/2020. FINDINGS: The lungs are clear. The cardiomediastinal silhouette is unremarkable. No pleural effusion or pneumothorax. No acute osseous abnormalities. RAD/Chest 1 View (Portable) IMPRESSION: No acute radiographic abnormalities. Electronically Signed: Dhruv Hamlin MD at 17:36 EDT Tel , Service support ,
--- NOTE | 2020-10-19 17:19 | EKG12_ITS ---
Test Reason : CP Blood Pressure : / mmHG Vent. Rate : 090 BPM Atrial Rate : 090 BPM P-R Int : 110 ms QRS Dur : 088 ms QT Int : 352 ms P-R-T Axes : 021 042 093 degrees QTc Int : 430 ms Sinus rhythm with short [place] Otherwise normal ECG Confirmed by ROYCE ARANDA, BRAXTON ([id number]), video tape editor JANY LOPEZ ([id number]) on 10/23/2020 9:34:08 AM Referred By: NAKUL Confirmed By:BRITTANY CRANE MD
[2020-10-19 17:37] LABS: Absolute Lymphocyte Count 0.67 X10^3/uL (0.83-4.51); Absolute Neutrophil Count 7.4 X10^3/uL (2.0-7.7); Basophil# 0.03 X10^3/uL; Basophil% 0.3 % (0-1); Eosinophil# 0.01 X10^3/uL; Eosinophils% 0.1 % (0-5); Hematocrit 47.2 % (40-54); Hemoglobin 15.4 g/dL (13.0-16.5); Lymphocyte # 0.67 X10^3/ul (0.83-4.51); Lymphocyte % 7.6 % (19-41); Mean Corp Hgb Conc 32.6 g/dL (32-36); Mean Corpuscular Hgb 29.8 pg (27.0-32.0); Mean Corpuscular Volume 91.5 fL (80-94); Mean Platelet Vol. 10.7 fl (6.2-12.0); Monocyte# 0.64 X10^3/uL; Monocyte% 7.2 % (0-10); NRBC Flagged by Analyzer 0 % (0-5); Neutrophil % 83.9 % (47-70); Platelet Count 217 K/mm3 (150-450); RBC Distribution Width CV 13.8 % (11.6-14.6); RBC Distribution Width SD 46.8 fl (35.1-43.9); Red Blood Count 5.16 M/mm3 (4.6-6.2); White Blood Count 8.8 K/mm3 (4.4-11.0)
--- NOTE | 2020-10-19 17:39 | ED.VIS.CHEST ---
History of Present Illness Chief Complaint: Chest Pain Informant: Patient Onset: Today Timing: Continuous Quality: Sharp Narrative: Patient is a 45-year-old male with history of renal transplant, silent heart attack and COPD presenting with chest pain. Patient states around 3 or 4 AM he developed pain in the center of his chest. It does not radiate. He states is been constant but waxes and wanes in intensity. He describes it as sharp. He denies any associated shortness of breath or difficulty breathing. He notes earlier yesterday he was having some left arm discomfort which he described as a soreness. He did not think much of it until he developed the chest pain and middle of the night. Patient has any swelling of his legs but notes he did have some mild swelling of his legs and his abdomen a couple days ago which is resolved. He denies any history of DVT or PE. Patient has similar episode of chest pain in July of this year where he was admitted and had a cardiac evaluation including stress test. Cardiac work-up was negative and patient was discharged home. Patient denies any other complaints at this time. Past Medical History - Allergies and Home Meds Allergies/Adverse Reactions: Allergies hydromorphone [From Dilaudid] Allergy (Mild, Verified 10/19/20 17:09) nausea Latex, Natural Rubber Allergy (Mild, Verified 10/19/20 17:09) rash Primary Care Physician: Wolfgang Reed MD [Primary Care Provider] - Ralph Bellamy MD [STAFF PHYSICIAN] - Past Medical History: - - Coronary artery disease, COPD, renal transplant Surgical History: - - Fistula left forearm and kidney recipient Lives: With Family Smoking Status: Never smoker - Family History Maternal Family History: Reports: Renal Disease Paternal Family History: Reports: - - Patient does not know. Review of Systems General: Denies: Chills, Fever, Sweats Eyes: Denies: Visual changes - bilaterally, Diplopia ENT: Denies: Rhinorrhea, Sore throat Cardiovascular: Reports: Chest pain. Denies: Palpitations Respiratory: Reports: Cough - Chronic?unchanged. Denies: Dyspnea, Dyspnea on exertion Gastrointestinal: Denies: Abdominal pain, Nausea, Vomiting, Diarrhea, Melena, Hematochezia Genitourinary: Denies: Dysuria, Hematuria, Frequency Musculoskeletal: Denies: Back pain, Extremity Pain Skin: Denies: Rash, Wounds Neurological: Denies: Headache, Weakness, Numbness Physical Exam Vital Signs/Narrative: Vital Signs Temp Pulse Resp BP Pulse Ox 10/19/20 17:05 98.6 F 90 16 155/97 H 98 Inital Vital Signs reviewed: Yes General: Well nourished, Well developed, No Acute Distress Head: Normocephalic, Atraumatic Eyes: Perrl, EOMI ENT: Moist mucous membranes, No rhinorrhea Neck: Supple, Nontender Cardiovascular: Regular rate, Regular rhythm, No murmurs Respiratory: No distress, Chest nontender, Rhonchi, - - Coarse breath sounds throughout Abdomen: Soft, Nontender, Nondistended, Normal bowel sounds. Negative for: Guarding, Rebound tenderness Back: Nontender, Normal Inspection Extremities: Nontender, No edema Skin: Normal color, No rash Neurological: Alert, Oriented x3, Cranial nerves II-XII grossly intact, Normal Strength, Normal Sensation Psychological: Normal affect, Normal Mood Diagnostic/Tx/Re-eval Chest X-Ray - ED: 1 View, Read by ED Physician, Read by Radiologist, No Acute Disease Clinical Impression(s) from Imaging Studies Chest X-Ray 10/19/20 17:19 IMPRESSION: No acute radiographic abnormalities. Electronically Signed: Dhruv Hamlin MD at 17:36 EDT Tel , Service support , Laboratory Data 10/19/20 10/19/20 10/19/20 17:15 17:15 21:30 WBC 8.8 RBC 5.16 Hgb 15.4 Hct 47.2 MCV 91.5 MCH 29.8 MCHC 32.6 RDW Std Deviation 46.8 H RDW Coeff of Tari 13.8 Plt Count 217 MPV 10.7 Immature Gran % (Auto) 0.900 Neut % (Auto) 83.9 H Lymph % (Auto) 7.6 L [place] % (Auto) 7.2 Eos % (Auto) 0.1 Baso % (Auto) 0.3 Absolute Neuts (auto) 7.4 Absolute Lymphs (auto) 0.67 L Nucleated RBC % 0 Sodium 138 Potassium 4.2 Chloride 106 Carbon Dioxide 27.0 Anion Gap 5 BUN 22 H Creatinine 1.49 H Estim Creat Clear Calc 49.37 Est GFR (MDRD) Af Amer 66 Est GFR (MDRD) Non-Af 55 L BUN/Creatinine Ratio 14.8 Glucose 137 H Calcium 9.1 Troponin I < 0.015 < 0.015 Urine Color Urine Clarity Urine pH Ur Specific [place] Urine Protein Urine Glucose (UA) Urine Ketones Urine Occult Blood Urine Nitrite Urine Bilirubin Urine Urobilinogen Ur Leukocyte Esterase Urine RBC Urine WBC Ur Squamous Epith Cells Urine Bacteria Urine Mucus 10/19/20 21:30 WBC RBC Hgb Hct MCV MCH MCHC RDW Std Deviation RDW Coeff of Tari Plt Count MPV Immature Gran % (Auto) Neut % (Auto) Lymph % (Auto) [place] % (Auto) Eos % (Auto) Baso % (Auto) Absolute Neuts (auto) Absolute Lymphs (auto) Nucleated RBC % Sodium Potassium Chloride Carbon Dioxide Anion Gap BUN Creatinine Estim Creat Clear Calc Est GFR (MDRD) Af Amer Est GFR (MDRD) Non-Af BUN/Creatinine Ratio Glucose Calcium Troponin I Urine Color Yellow Urine Clarity Clear Urine pH 6.0 Ur Specific [place] 1.015 Urine Protein Negative Urine Glucose (UA) Normal Urine Ketones Negative Urine Occult Blood 25 H Urine Nitrite Negative Urine Bilirubin Negative Urine Urobilinogen Normal Ur Leukocyte Esterase 100 H Urine RBC 0 SEEN Urine WBC 10-25 SEEN Ur Squamous Epith Cells 0-5 SEEN Urine Bacteria 0 SEEN Urine Mucus 0 SEEN - Rhythm Strip Rhythm Strip: Sinus Rhythm Rate: 90 Ectopy: None - EKG Initial EKG Interpretation: Sinus Rhythm, - - This rhythm at a rate of 90 Short MD interval at a rate of [address] segments Treatment: Aspirin - Medical Decision Making Patient is evaluated for chest pain. Patient has similar episode of chest pain 2 months ago where he was admitted to the hospital and had negative stress test. EKG does not show any acute ischemic process. Heart score is 3. Delta troponin performed which is negative. Patient is low risk for PE per PE RC and I do not think dimer/CT is indicated. Patient is on immunosuppressants but does not have any IV source of infection. Chest x-rays not show any acute process. Urinalysis is checked as patient is asymptomatic but states he gets frequent UTIs. Patient has no bacteria but does have some white blood cells. Will send out for culture but we will not treat at this time. Patient directed to follow-up with his primary care doctor as well as inside sales advisor. Patient is counseled on signs and symptoms requiring return to the emergency room. Patient verbalizes agreement and understand this plan. Patient is improvement of his chest pain with Tylenol. Patient discharged home in stable and improved condition. ED Disposition - Plan for ED Patient: Disposition: Home or Assisted Living Diagnosis: Chest pain Instructions: ED Chest Pain, Uncertain Cause Referrals: Wolfgang Reed MD [Primary Care Provider] - Ralph Bellamy MD [STAFF PHYSICIAN] -
[2020-10-19] MEDS: Acetaminophen 500 MG Tablet 1000 MG PO (17:51)
[2020-10-19 18:04] VITALS: BP 132/87; PULSE 80; RESP 22; O2SAT 97
[2020-10-19 18:20] LABS: Anion Gap 5 (5-15); BUN 22 mg/dL (7-18); BUN/Creat Ratio 14.8 RATIO (10-20); Calcium,Total 9.1 mg/dL (8.5-10.1); Chloride 106 mmol/L (98-107); Creatinine, Serum 1.49 mg/dL (0.70-1.30); EST Glomerular Filtration Rate 55 mL/min (>60); Est Glom Filt Rate - Afr Amer 66 mL/min (>60); Estimated Creatinine Clearance 49.37 ml/min; Glucose 137 mg/dL (74-106); Potassium 4.2 mmol/L (3.5-5.1); Sodium Level 138 mmol/L (136-145)
[2020-10-19 19:00] VITALS: BP 140/89; PULSE 80; RESP 19; O2SAT 97
[2020-10-19 20:00] VITALS: BP 147/96; PULSE 68; RESP 15; O2SAT 98
[2020-10-19 21:00] VITALS: BP 139/91; PULSE 69; RESP 14; O2SAT 98
[2020-10-19 21:40] LABS: Bacteria 0 SEEN /hpf (None Seen); Mucous, Urine 0 SEEN /hpf (<or=2+); Red Blood Cells-Urine 0 SEEN /hpf (0-5)
[2020-10-19 21:45] LABS: Color, Urine Yellow (Yellow); Glucose, Dipstick Normal (Normal); Ketone-Dipstick Negative (Negative); Leukocyte Esterase-Dipstick 100 /ul (Negative); Nitrite-Dipstick Negative (Negative); Occult Blood-Urine 25 /ul (Negative); Protein-Dipstick Negative (Negative); Specific Gravity, Urine 1.015 (1.002-1.030); Urine Bilirubin Dipstick Negative (Negative); Urine Clarity Clear (Clear); Urine Urobilinogen Normal (Normal)
[2020-10-19 21:50] LABS: White Blood Cells 10-25 SEEN /hpf (0-5)
[2020-10-19 21:51] LABS: Squamous Epithelial Cells - UA 0-5 SEEN /hpf (0-5)
[2020-10-19 23:10] VITALS: BP 129/84; PULSE 79; RESP 18; O2SAT 99
== END 2020-10-19 23:11 | disposition home or self-care (01) ==
PROVIDERS: Emergency Provider Emergency Medicine; PCP Internal Medicine
DX: R07.89 Other chest pain (principal); I25.10 Atherosclerotic heart disease of native coronary artery without angina pectoris; J44.9 Chronic obstructive pulmonary disease, unspecified; I25.2 Old myocardial infarction; Z94.0 Kidney transplant status; Z87.440 Personal history of urinary (tract) infections; Z79.82 Long term (current) use of aspirin; Z79.899 Other long term (current) drug therapy
CPT/HCPCS: 71045; 80048; 81001; 84484; 85025; 87077; 87086; 87088; 87186; 93005; 99285; A4216

== ENCOUNTER 2020-11-02 12:08 | Emergency (ER) | payer MEDICARE, MEDICAID, SELFPAY ==
[2020-11-02 10:28] VITALS: BMI 31.6
[2020-11-02 12:09] VITALS: BP 147/95; PULSE 82; RESP 16; TEMP 36.4; O2SAT 98; BMI 27.6
--- NOTE | 2020-11-02 12:34 | EDS_ITS ---
HPI HPI - GI History of Present Illness Chief Complaint: Abd Pain Narrative Narrative: 45-year-old male with history of right inguinal hernia presenting with right lower quadrant/right suprapubic pain. He states that he had been seen previously for this and that he was told there was nothing to do for it. He states that over the last 2 days has been worse. Patient is status post renal transplant distantly and has 1 kidney that is functional. He states that he just had blood work done and his kidney function was normal. Patient also states that he has had appendectomy, cholecystectomy, other surgeries for his renal transplant. He has a history of bowel obstruction. He states he is making normal urine and stool. He is not had a fever or chills. [facility] Medical History COPD (chronic obstructive pulmonary disease) Myocardial infarction with cardiac rehabilitation Palpitations Home Medications ergocalciferol (vitamin D2) 1,250 mcg (50,000 unit) capsule 50,000 unit PO FR 09/30/19 [History Last Taken 01/03/20] magnesium oxide 400 mg PO BID 09/30/19 [History Last Taken 01/03/20] mycophenolate mofetil 250 mg capsule 500 mg PO BID 09/30/19 [History Last Taken 01/03/20] prednisone 5 mg tablet 5 mg PO DAILY 09/30/19 [History Last Taken 01/03/20] tacrolimus 1 mg capsule, immediate-release 3 mg PO DAILY cap 09/30/19 [History Last Taken 01/03/20] omeprazole magnesium 20 mg PO DAILY 10/20/19 [History Last Taken 01/03/20] aspirin 81 mg PO DAILY 02/08/20 [History Last Taken Unknown] cinacalcet 30 mg PO BREAKFAST 07/19/20 [History Last Taken Unknown] tacrolimus 2 mg PO QHS 10/19/20 [History Last Taken Unknown] metoprolol succinate 25 mg tablet,extended release 24 hr 25 mg PO DAILY #30 tab 10/24/20 [Rx Last Taken Unknown] albuterol mcg INHALATION 11/02/20 [History Last Taken Unknown] nortriptyline 25 mg PO DAILY 11/02/20 [History Last Taken Unknown] Allergy/AdvReac Type Severity Reaction Status Date / Time hydromorphone [From Dilaudid] Allergy Mild nausea Verified 11/02/20 12:10 Latex, Natural Rubber Allergy Mild rash Verified 11/02/20 12:10 Surgical History (Updated 11/02/20 @ 12:[address] Larry Mayes DO) History of appendectomy History of cholecystectomy kidney transplant Social History household members: other details: girlfriend and mother Smoking Status: Never smoker Tobacco: How many years used: 20 alcohol intake: never substance use type: does not use do you feel safe at home: Yes ROS ROS ED Constitutional Constitutional ED: Denies chills, fever(s) or sweats Eyes Eyes: Denies blurry vision or change in vision ENT ENT ED: Denies ear pain, rhinorrhea or sore throat Cardiovascular Cardiovascular: Denies chest pain, palpitations or racing heartbeat Respiratory/Chest Respiratory/Chest: Denies cough, dyspnea or sputum Gastrointestinal Gastrointestinal: Reports abdominal pain and nausea; Denies constipation, diarrhea or vomiting Genitourinary Genitourinary ED: Denies dysuria, hematuria or urinary frequency Musculoskeletal Musculoskeletal: Denies arthralgias, myalgias or neck pain Integumentary Denies abscess, Abrasions or rash Neurologic Neurologic: Denies headache(s), paresthesias or weakness Psychiatric Psychiatric: Denies anxiety, depression, suicidal ideation or suicidal thoughts Endocrine Endocrinology: Denies polydipsia or polyuria EXAM Physical Exam Const Vital Signs: 11/02/20 12:09 11/02/20 13:10 11/02/20 14:53 Temperature 97.6 F L 97.6 F L Temperature Source Temporal Temporal Pulse Rate 82 82 Respiratory Rate 16 16 18 Blood Pressure 147/95 H 147/95 H Blood Pressure Mean 112 112 Pulse Ox 98 98 Oxygen Delivery Method Room Air Room Air Positive obese General Appearance ED: NAD; Negative for pallor Nutritional Appearance: obese HEENT Reports normocephalic, head/scalp atraumatic and moist mucous membranes Eyes PERRL and EOMs intact bilaterally Neck no lymphadenopathy and supple Chest Wall inspection of chest normal and palpation of chest normal Resp normal respiratory effort and clear to auscultation bilaterally Auscultation: Negative for rales, rhonchi or wheezes Cardio regular rate and regular rhythm GI normal to inspection, nondistended, normoactive bowel sounds GI Narrative: Tenderness to palpation in the right lower quadrant and right suprapubic area. No obvious mass palpated. Exam limited to patient's obesity. There are multiple surgical scars that are well-healed overlying the abdomen. Inspection: abdominal distention Palpation: soft Narrative: Deferred Back/Spine no CVA tenderness General Back: Negative for CVA tenderness Cervical Spine: Negative for cervical spine tenderness Extremity normal to inspection General Extremety ED: Yes edema and tenderness General Extremity: edema Neuro oriented x3 and CN's II-XII intact bilaterally Sensorium / Orientation: alert Motor Exam: strength 5/5 throughout Psych mental status grossly normal Attitude: No agitated Skin no rashes or lesions noted and no wounds General Skin Exam: Negative for jaundice or pallor MDM MDM MDM Narrative Medical decision making narrative: Patient presenting with right lower abdominal pain. He states he has had this chronically and has been worse for about a day. Patient states that his primary care physician told him he had a hernia and sent him to the ED. On examination I do not appreciate a hernia. Exam is somewhat limited due to patient's body habitus. Patient was given IV fluids, morphine, Zofran and I obtained blood. Lab work-up was unremarkable. Renal functions at baseline. Repeat abdominal exam patient still having some pain at this point he was given fentanyl because he is allergic to Dilaudid. CT of the abdomen pelvis just shows inflammation of the bladder. His urinalysis is negative for infection. After telling the patient that his bladder was inflamed he has me to call his transplant team which I did. They recommended that he follow-up with urology and I gave him Dr. Tan. At this point patient has no pain and feels comfortable. Patient is given return precautions. Impression: 1. Abdominal pain 2. Inflammation of the bladder wall Lab Data Labs: Laboratory Results - last 24 hr 11/02/20 11/02/20 11/02/20 13:00 13:00 14:06 WBC 7.2 RBC 4.79 Hgb 14.3 Hct 43.7 MCV 91.2 MCH 29.9 MCHC 32.7 RDW Std Deviation 48.0 H RDW Coeff of Tari 14.3 Plt Count 212 MPV 10.5 Immature Gran % (Auto) 1.200 H Neut % (Auto) 81.5 H Lymph % (Auto) 7.2 L [place] % (Auto) 8.8 Eos % (Auto) 0.6 Baso % (Auto) 0.7 Absolute Neuts (auto) 5.9 Absolute Lymphs (auto) 0.52 L Nucleated RBC % 0 Differential Comment SCANNED Sodium 139 Potassium 4.6 Chloride 106 Carbon Dioxide 28.0 Anion Gap 5 BUN 26 H Creatinine 1.41 H Estim Creat Clear Calc 49.97 Est GFR (MDRD) Af Amer 71 Est GFR (MDRD) Non-Af 58 L BUN/Creatinine Ratio 18.4 Glucose 120 H Calcium 9.6 Total Bilirubin 0.40 AST 15 ALT 26 Alkaline Phosphatase 125 H Total Protein 7.5 Albumin 3.9 Globulin 3.6 Albumin/Globulin Ratio 1.1 Urine Color Straw Urine Clarity Clear Urine pH 6.5 Ur Specific [place] 1.010 Urine Protein Negative Urine Glucose (UA) Normal Urine Ketones Negative Urine Occult Blood Negative Urine Nitrite Negative Urine Bilirubin Negative Urine Urobilinogen Normal Ur Leukocyte Esterase 25 H Urine RBC 0 SEEN Urine WBC 0-5 SEEN Ur Squamous Epith Cells 0-5 SEEN Urine Bacteria 0 SEEN Urine Mucus 0 SEEN Radiography Diagnostic Testing: Radiology Impression Abdomen/Pelvis CT 11/02/20 14:35 IMPRESSION: Status post left renal transplant. The kidneys in the pelvis. Status post cholecystectomy. Bladder wall thickening. Electronically Signed: Pawan Ordaz MD at 15:02 EDT , Service support , Discharge Plan Triage Chief Complaint: Abd Pain ED Provider: Larry Mayes Dx/Rx/DC Orders Instructions: ED Unknown Causes of Abdominal ... Prescriptions: No Action mycophenolate mofetil 250 mg capsule 500 mg PO BID RF: 0 tacrolimus 1 mg capsule 3 mg PO DAILY RF: 0 magnesium oxide 400 mg magnesium tablet 400 mg PO BID RF: 0 prednisone 5 mg tablet 5 mg PO DAILY RF: 0 ergocalciferol (vitamin D2) [Vitamin D2] 1,250 mcg (50,000 unit) capsule 50,000 unit PO FR RF: 0 metoprolol succinate 25 mg tablet extended release 24 hr 25 mg PO DAILY Qty: 30 RF: 1 omeprazole magnesium 20 MG tablet,delayed release (DR/EC) 20 mg PO DAILY RF: 0 aspirin 81 MG tablet,delayed release (DR/EC) 81 mg PO DAILY RF: 0 cinacalcet 30 MG tablet 30 mg PO BREAKFAST RF: 0 tacrolimus 1 MG capsule 2 mg PO QHS RF: 0 nortriptyline 25 mg Capsule 25 mg PO DAILY RF: 0 albuterol 90 mcg/actuation Aerosol INHALATION RF: 0 Primary Care Provider: Wolfgang Reed Referrals: Larry Mayes DO [Emergency Provider] - Wolfgang Reed MD [Primary Care Provider] - Diego Tan MD [STAFF PHYSICIAN] - As soon as possible Disposition Disposition: Home, self care
[2020-11-02] MEDS: Ondansetron 4 MG/2 ML Vial IV (13:03)
[2020-11-02] MEDS: 0.9% Normal Saline 1,000 ML 1000 ML IV (13:03)
[2020-11-02] MEDS: Morphine 4 MG/ML Syringe IV (13:03)
[2020-11-02 13:08] LABS: Absolute Lymphocyte Count 0.52 X10^3/uL (0.83-4.51); Absolute Neutrophil Count 5.9 X10^3/uL (2.0-7.7); Basophil# 0.05 X10^3/uL; Basophil% 0.7 % (0-1); Eosinophil# 0.04 X10^3/uL; Eosinophils% 0.6 % (0-5); Hematocrit 43.7 % (40-54); Hemoglobin 14.3 g/dL (13.0-16.5); Lymphocyte # 0.52 X10^3/ul (0.83-4.51); Lymphocyte % 7.2 % (19-41); Mean Corp Hgb Conc 32.7 g/dL (32-36); Mean Corpuscular Hgb 29.9 pg (27.0-32.0); Mean Corpuscular Volume 91.2 fL (80-94); Mean Platelet Vol. 10.5 fl (6.2-12.0); Monocyte# 0.64 X10^3/uL; Monocyte% 8.8 % (0-10); NRBC Flagged by Analyzer 0 % (0-5); Neutrophil % 81.5 % (47-70); POSITIVE DIFFERENTIAL YES; Platelet Count 212 K/mm3 (150-450); RBC Distribution Width CV 14.3 % (11.6-14.6); Red Blood Count 4.79 M/mm3 (4.6-6.2); White Blood Count 7.2 K/mm3 (4.4-11.0)
[2020-11-02 13:10] VITALS: BP 147/95; PULSE 82; RESP 16; TEMP 36.4; O2SAT 98
[2020-11-02 13:11] LABS: Differential Indicated SCAN CRITERIA MET
[2020-11-02 13:23] LABS: ALB/GLOB Ratio 1.1 RATIO (0.9-2.4); AST(SGOT) 15 U/L (15-37); Alanine Aminotransfer ALT/SGPT 26 U/L (16-61); Albumin, Serum 3.9 g/dL (3.2-5.0); Alkaline Phosphatase 125 U/L (45-117); Anion Gap 5 (5-15); BUN 26 mg/dL (7-18); BUN/Creat Ratio 18.4 RATIO (10-20); Calcium,Total 9.6 mg/dL (8.5-10.1); Chloride 106 mmol/L (98-107); Creatinine, Serum 1.41 mg/dL (0.70-1.30); EST Glomerular Filtration Rate 58 mL/min (>60); Est Glom Filt Rate - Afr Amer 71 mL/min (>60); Estimated Creatinine Clearance 49.97 ml/min; Globulin 3.6 g/dL (2.2-4.2); Glucose 120 mg/dL (74-106); Potassium 4.6 mmol/L (3.5-5.1); Protein, Total 7.5 g/dL (6.4-8.2); Sodium Level 139 mmol/L (136-145)
[2020-11-02 13:26] LABS: Differential Comment SCANNED
[2020-11-02 14:12] LABS: Bacteria 0 SEEN /hpf (None Seen); Mucous, Urine 0 SEEN /hpf (<or=2+); Red Blood Cells-Urine 0 SEEN /hpf (0-5)
[2020-11-02 14:17] LABS: Color, Urine Straw (Yellow); Glucose, Dipstick Normal (Normal); Ketone-Dipstick Negative (Negative); Leukocyte Esterase-Dipstick 25 /ul (Negative); Nitrite-Dipstick Negative (Negative); Occult Blood-Urine Negative /ul (Negative); Protein-Dipstick Negative (Negative); Urine Bilirubin Dipstick Negative (Negative); Urine Clarity Clear (Clear); Urine Urobilinogen Normal (Normal); Urine pH 6.5 (5.0 - 8.0)
[2020-11-02 14:24] LABS: Squamous Epithelial Cells - UA 0-5 SEEN /hpf (0-5); White Blood Cells 0-5 SEEN /hpf (0-5)
--- NOTE | 2020-11-02 14:35 | CT_ITS ---
STUDY: CT ABDOMEN AND PELVIS WITH CONTRAST REASON FOR EXAM: Male, 45 years old. Abdominal pain since last night -- IV PO Contrast RADIATION DOSAGE (If Supplied By Facility): CTDIvol = ( 14.14 ) mGy, DLP = ( 853.34 ) mGycm TECHNIQUE: Transaxial images were obtained from the dome of the diaphragm to the symphysis pubis with oral contrast. Oral and amp; IV Gastrografin and amp; 100mL Isovue-370 was administered. Sagittal and coronal images were reconstructed. Individualized dose optimization techniques were used for this CT. COMPARISON: Comparison is made with prior study dated 07/19/2020. FINDINGS: Small calcified granulomas in both lower lobes. The visualized portions of the heart are within normal limits. Normal liver. There are surgical clips in the gallbladder fossa consistent with a prior cholecystectomy. Normal spleen. Normal pancreas. Normal bilateral adrenal glands. Marked atrophy of the [place] right kidney. The [place] left kidney is not visualized. A transplanted left kidney is seen in the left pelvis. Normal visualized stomach. Normal small intestine. Normal colon. The patient is status post appendectomy. There is diffuse atherosclerotic calcification of the abdominal aorta and its major visceral branches. 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 Normal inferior vena cava. Normal retroperitoneum. Diffuse thickening of the urinary bladder wall. The urinary bladder is distorted. Increased markings are seen in the surrounding peritoneal fat. This is unchanged. There are prostatic calcifications. Stable postoperative changes of the anterior abdominal wall. There is evidence of a 2 cm rounded fatty density in the left lower anterior abdominal wall. This is unchanged. Disc space narrowing and disc degeneration at the L2-L3 level with retrolisthesis of L2 on L3. CT/Abdomen/Pelvis WITH Contrast IMPRESSION: Status post left renal transplant. The kidneys in the pelvis. Status post cholecystectomy. Bladder wall thickening. Electronically Signed: Pawan Ordaz MD at 15:02 EDT , Service support ,
[2020-11-02] MEDS: fentaNYL 100 MCG/2 ML Ampul 25 MCG IV (14:46)
[2020-11-02 14:53] VITALS: RESP 18
[2020-11-02 16:38] VITALS: RESP 16
== END 2020-11-02 16:42 | disposition home or self-care (01) ==
PROVIDERS: Emergency Provider Student in an Organized Health Care Education/Training Program; PCP Internal Medicine
DX: N30.90 Cystitis, unspecified without hematuria (principal); R10.31 Right lower quadrant pain; E66.9 Obesity, unspecified; Z68.27 Body mass index [BMI] 27.0-27.9, adult; I25.2 Old myocardial infarction; J44.9 Chronic obstructive pulmonary disease, unspecified; Z87.19 Personal history of other diseases of the digestive system; Z94.0 Kidney transplant status; Z90.49 Acquired absence of other specified parts of digestive tract; Z79.82 Long term (current) use of aspirin; Z79.899 Other long term (current) drug therapy
CPT/HCPCS: 74177; 80053; 81001; 85025; 96361; 96374; 96375; 99284; J7030; Q9967; A4216; J2405

== ENCOUNTER 2020-11-03 15:55 | Emergency (ER) | payer MEDICARE, MEDICAID, SELFPAY ==
[2020-11-02 12:09] VITALS: BMI 27.6
[2020-11-03 15:56] VITALS: BP 143/99; PULSE 83; RESP 18; TEMP 36.1; O2SAT 98; BMI 31.1
--- NOTE | 2020-11-03 16:30 | ED.VIS.GI ---
HPI HPI - GI History of Present Illness Chief Complaint: Abd Pain Narrative Narrative: 45-year-old male presenting with right lower abdominal pain. He was seen and evaluated yesterday by myself and had normal lab work and a CAT scan of the abdomen and pelvis with p.o. and IV contrast which showed bladder wall thickening. I did speak with his renal transplant team who recommended he follows up with urology. He was given urology follow-up. Today he was seen by his PCP and there was concern for incarcerated hernia once again. Patient states he did tell his PCP that he had lab work and imaging performed yesterday which did not show this. Patient reports several episodes of nausea and vomiting today. He is not having constipation. He denies urinary complaints. Patient has not had fever or chills. He is status post renal transplant. Prior similar symptoms: Yes PFSH PFSH Medical History COPD (chronic obstructive pulmonary disease) Myocardial infarction with cardiac rehabilitation Palpitations Home Medications ergocalciferol (vitamin D2) 1,250 mcg (50,000 unit) capsule 50,000 unit PO FR 09/30/19 [History Last Taken 01/03/20] magnesium oxide 400 mg PO BID 09/30/19 [History Last Taken 01/03/20] mycophenolate mofetil 250 mg capsule 500 mg PO BID 09/30/19 [History Last Taken 01/03/20] prednisone 5 mg tablet 5 mg PO DAILY 09/30/19 [History Last Taken 01/03/20] tacrolimus 1 mg capsule, immediate-release 3 mg PO DAILY cap 09/30/19 [History Last Taken 01/03/20] aspirin 81 mg PO DAILY 02/08/20 [History Last Taken Unknown] cinacalcet 30 mg PO BREAKFAST 07/19/20 [History Last Taken Unknown] tacrolimus 2 mg PO QHS 10/19/20 [History Last Taken Unknown] albuterol 90 - 180 mcg INHALATION Q6H PRN PRN 11/02/20 [History Last Taken Unknown] omeprazole [Prilosec] 20 mg PO BID 11/03/20 [History Last Taken Unknown] ondansetron 4 mg disintegrating tablet 4 mg PO Q8H PRN #30 tab 11/03/20 [Rx Last Taken Unknown] Allergy/AdvReac Type Severity Reaction Status Date / Time hydromorphone [From Dilaudid] Allergy Mild nausea Verified 11/03/20 16:00 Latex, Natural Rubber Allergy Mild rash Verified 11/03/20 16:00 Surgical History History of appendectomy History of cholecystectomy kidney transplant Social History household members: other details: girlfriend and mother Smoking Status: Never smoker Tobacco: How many years used: 20 alcohol intake: never substance use type: does not use do you feel safe at home: Yes ROS ROS ED Constitutional Constitutional ED: Denies chills, fever(s) or sweats Eyes Eyes: Denies blurry vision or change in vision ENT ENT ED: Denies ear pain, rhinorrhea or sore throat Cardiovascular Cardiovascular: Denies chest pain, palpitations or racing heartbeat Respiratory/Chest Respiratory/Chest: Denies cough, dyspnea or sputum Gastrointestinal Gastrointestinal: Reports abdominal pain, nausea and vomiting; Denies constipation Genitourinary Genitourinary ED: Denies dysuria, hematuria or urinary frequency Musculoskeletal Musculoskeletal: Denies arthralgias, myalgias or neck pain Integumentary Denies abscess, Abrasions or rash Neurologic Neurologic: Denies headache(s), paresthesias or weakness Psychiatric Psychiatric: Denies anxiety, depression, suicidal ideation or suicidal thoughts Endocrine Endocrinology: Denies polydipsia or polyuria EXAM Physical Exam Const Vital Signs: 11/03/20 15:56 11/03/20 18:00 Temperature 96.9 F L Temperature Source Temporal Pulse Rate 83 81 Respiratory Rate 18 14 Blood Pressure 143/99 H 140/89 H Blood Pressure Mean 113 106 Pulse Ox 98 99 Oxygen Delivery Method Room Air Room Air General Appearance ED: Negative for pallor HEENT Reports normocephalic, head/scalp atraumatic and moist mucous membranes normocephalic and atraumatic Eyes PERRL and EOMs intact bilaterally Neck no lymphadenopathy and supple Chest Wall inspection of chest normal and palpation of chest normal Resp normal respiratory effort and clear to auscultation bilaterally Auscultation: Negative for rales, rhonchi or wheezes Cardio regular rate and regular rhythm GI normal to inspection, nondistended, normoactive bowel sounds GI Narrative: No palpable hernia or defect. Inspection: abdominal distention Auscultation: hypoactive bowel sounds Palpation: tender RLQ; Negative for guarding, hernia or rebound tenderness present Narrative: Deferred Back/Spine no CVA tenderness General Back: Negative for CVA tenderness Cervical Spine: Negative for cervical spine tenderness Extremity normal to inspection General Extremety ED: Yes edema and tenderness General Extremity: edema Neuro oriented x3 and CN's II-XII intact bilaterally Sensorium / Orientation: alert Motor Exam: strength 5/5 throughout Psych mental status grossly normal Attitude: No agitated Skin no rashes or lesions noted and no wounds General Skin Exam: Negative for jaundice or pallor MDM MDM MDM Narrative Medical decision making narrative: Patient seen and evaluated for abdominal pain. He was sent in the second time by his primary care provider and States He is supposed to be admitted to the hospital per his PCP. Patient given 2 doses of fentanyl due to his allergy to Dilaudid And since morphine did not yesterday.Patient had repeat lab work done which is all within normal limits. Lactic acid is negative as well.Vital signs are stable and he is afebrile. On reevaluation patient is pain-free and requesting a sandwich and something to drink which he did eat he was able to finish. Patient counseled of findings on CT. I told him essentially his work-up was normal. And I do not have a reason necessarily to admit him to the hospital. Patient became very upset and could audibly be heard cussing on the phone. Be heard yelling on the phone with his mother. Again I informed him that I feel no palpable hernia and has had 2 - CTs. Based on his history it is possible he could have a reducible hernia from what he is saying however I do not appreciate this on exam. Given negative findings I spoke with his PCP who at this point agrees and will see the patient in follow-up. I will give patient a surgical follow-up and he received a urology follow-up yesterday for his bladder inflammation. Impression: 1. Abdominal pain unknown cause Lab Data Attestation: I reviewed the patient's lab results. Labs: Laboratory Results - last 24 hr 11/03/20 11/03/20 11/03/20 16:48 16:56 16:56 WBC 9.3 RBC 5.01 Hgb 14.8 Hct 45.5 MCV 90.8 MCH 29.5 MCHC 32.5 RDW Std Deviation 47.5 H RDW Coeff of Tari 14.2 Plt Count 214 MPV 10.4 Immature Gran % (Auto) 1.200 H Neut % (Auto) 78.9 H Lymph % (Auto) 11.2 L [place] % (Auto) 8.3 Eos % (Auto) 0.1 Baso % (Auto) 0.3 Absolute Neuts (auto) 7.3 Absolute Lymphs (auto) 1.04 Nucleated RBC % 0 Sodium 137 Potassium 4.2 Chloride 103 Carbon Dioxide 28.0 Anion Gap 6 BUN 23 H Creatinine 1.39 H Estim Creat Clear Calc 52.92 Est GFR (MDRD) Af Amer 72 Est GFR (MDRD) Non-Af 59 L BUN/Creatinine Ratio 16.5 Glucose 116 H Lactic Acid Calcium 9.8 Total Bilirubin 0.40 AST 15 ALT 25 Alkaline Phosphatase 134 H Total Protein 8.0 Albumin 4.1 Globulin 3.9 Albumin/Globulin Ratio 1.1 Lipase 123 Urine Color Yellow Urine Clarity Clear Urine pH 6.0 Ur Specific [place] 1.010 Urine Protein Negative Urine Glucose (UA) Normal Urine Ketones Negative Urine Occult Blood 25 H Urine Nitrite Negative Urine Bilirubin Negative Urine Urobilinogen Normal Ur Leukocyte Esterase 100 H Urine RBC 0-5 SEEN Urine WBC 5-10 SEEN Ur Squamous Epith Cells 0 SEEN Urine Bacteria RARE Urine Mucus 0 SEEN 11/03/20 16:56 WBC RBC Hgb Hct MCV MCH MCHC RDW Std Deviation RDW Coeff of Tari Plt Count MPV Immature Gran % (Auto) Neut % (Auto) Lymph % (Auto) [place] % (Auto) Eos % (Auto) Baso % (Auto) Absolute Neuts (auto) Absolute Lymphs (auto) Nucleated RBC % Sodium Potassium Chloride Carbon Dioxide Anion Gap BUN Creatinine Estim Creat Clear Calc Est GFR (MDRD) Af Amer Est GFR (MDRD) Non-Af BUN/Creatinine Ratio Glucose Lactic Acid 1.5 Calcium Total Bilirubin AST ALT Alkaline Phosphatase Total Protein Albumin Globulin Albumin/Globulin Ratio Lipase Urine Color Urine Clarity Urine pH Ur Specific [place] Urine Protein Urine Glucose (UA) Urine Ketones Urine Occult Blood Urine Nitrite Urine Bilirubin Urine Urobilinogen Ur Leukocyte Esterase Urine RBC Urine WBC Ur Squamous Epith Cells Urine Bacteria Urine Mucus Radiography Diagnostic Testing: Radiology Impression Abdomen/Pelvis CT 11/03/20 16:39 IMPRESSION: No acute abdominal or pelvic pathology. Electronically Signed: José Antonio Appiah MD at 18:53 EDT Tel , Service support , Discharge Plan Triage Chief Complaint: Abd Pain ED Provider: Larry Mayes Dx/Rx/DC Orders Instructions: ED Unknown Causes of Abdominal ... Prescriptions: No Action mycophenolate mofetil 250 mg capsule 500 mg PO BID RF: 0 tacrolimus 1 mg capsule 3 mg PO DAILY RF: 0 magnesium oxide 400 mg magnesium tablet 400 mg PO BID RF: 0 prednisone 5 mg tablet 5 mg PO DAILY RF: 0 ergocalciferol (vitamin D2) [Vitamin D2] 1,250 mcg (50,000 unit) capsule 50,000 unit PO FR RF: 0 ondansetron 4 mg tablet,disintegrating 4 mg PO Q8H PRN (Reason: nausea and vomiting) Qty: 30 RF: 0 aspirin 81 MG tablet,delayed release (DR/EC) 81 mg PO DAILY RF: 0 cinacalcet 30 MG tablet 30 mg PO BREAKFAST RF: 0 tacrolimus 1 MG capsule 2 mg PO QHS RF: 0 albuterol 90 mcg/actuation Aerosol 90 - 180 mcg INHALATION Q6H PRN PRN (Reason: Shortness Of Breath Or Wheezing) RF: 0 omeprazole [Prilosec] 20 mg Capsule,Delayed Release(Dr/Ec) 20 mg PO BID RF: 0 Primary Care Provider: Wolfgang Reed Referrals: Wolfgang Reed MD [Primary Care Provider] - Shelbi Irizarry MD [STAFF PHYSICIAN] - Disposition Disposition: Home, self care
--- NOTE | 2020-11-03 16:39 | CT_ITS ---
STUDY: CT ABDOMEN AND PELVIS WITH CONTRAST REASON FOR EXAM: Male, 45 years old. Pain RADIATION DOSAGE (If Supplied By Facility): DLP = ( 825.44 ) mGycm TECHNIQUE: Transaxial images were obtained from the dome of the diaphragm to the symphysis pubis without oral contrast. Sagittal and coronal images were reconstructed. Individualized dose optimization techniques were used for this CT. COMPARISON: CT abdomen pelvis 11/02/2020 FINDINGS: The visualized lung bases are clear. The visualized portions of the heart and pericardium are within normal limits. The gallbladder has been removed. The liver is within normal limits. There are no suspicious hepatic lesions. The spleen is normal in size. The pancreas is within normal limits. The adrenal glands are within normal limits. There is a severely atrophic kidney in the right pelvis. The left kidney is not visualized. A left pelvic transplant kidney is present. There is no evidence of acute pathology in the transplant kidney. Normal visualized stomach. There is no bowel obstruction or inflammation. There is no evidence of appendicitis. The aorta is normal in caliber. There is no abdominal or pelvic free air, free fluid, fluid collection or lymphadenopathy. There are no destructive osseous lesions. CT/Abdomen/Pelvis WITH Contrast IMPRESSION: No acute abdominal or pelvic pathology. Electronically Signed: José Antonio Appiah MD at 18:53 EDT Tel , Service support ,
[2020-11-03] MEDS: Ondansetron 4 MG/2 ML Vial IV (17:03)
[2020-11-03] MEDS: fentaNYL 100 MCG/2 ML Ampul 50 MCG IV ×2 (17:03→17:49)
[2020-11-03 17:04] LABS: Mucous, Urine 0 SEEN /hpf (<or=2+); Squamous Epithelial Cells - UA 0 SEEN /hpf (0-5)
[2020-11-03 17:11] LABS: Color, Urine Yellow (Yellow); Glucose, Dipstick Normal (Normal); Ketone-Dipstick Negative (Negative); Leukocyte Esterase-Dipstick 100 /ul (Negative); Nitrite-Dipstick Negative (Negative); Occult Blood-Urine 25 /ul (Negative); Protein-Dipstick Negative (Negative); Urine Bilirubin Dipstick Negative (Negative); Urine Clarity Clear (Clear); Urine Urobilinogen Normal (Normal)
[2020-11-03 17:12] LABS: Absolute Lymphocyte Count 1.04 X10^3/uL (0.83-4.51); Absolute Neutrophil Count 7.3 X10^3/uL (2.0-7.7); Basophil# 0.03 X10^3/uL; Basophil% 0.3 % (0-1); Eosinophil# 0.01 X10^3/uL; Eosinophils% 0.1 % (0-5); Hematocrit 45.5 % (40-54); Hemoglobin 14.8 g/dL (13.0-16.5); Lymphocyte # 1.04 X10^3/ul (0.83-4.51); Lymphocyte % 11.2 % (19-41); Mean Corp Hgb Conc 32.5 g/dL (32-36); Mean Corpuscular Hgb 29.5 pg (27.0-32.0); Mean Corpuscular Volume 90.8 fL (80-94); Mean Platelet Vol. 10.4 fl (6.2-12.0); Monocyte# 0.77 X10^3/uL; Monocyte% 8.3 % (0-10); NRBC Flagged by Analyzer 0 % (0-5); Neutrophil % 78.9 % (47-70); Platelet Count 214 K/mm3 (150-450); RBC Distribution Width CV 14.2 % (11.6-14.6); RBC Distribution Width SD 47.5 fl (35.1-43.9); Red Blood Count 5.01 M/mm3 (4.6-6.2); White Blood Count 9.3 K/mm3 (4.4-11.0)
[2020-11-03 17:21] LABS: Bacteria RARE /hpf (None Seen); Red Blood Cells-Urine 0-5 SEEN /hpf (0-5); White Blood Cells 5-10 SEEN /hpf (0-5)
[2020-11-03 17:26] LABS: ALB/GLOB Ratio 1.1 RATIO (0.9-2.4); AST(SGOT) 15 U/L (15-37); Alanine Aminotransfer ALT/SGPT 25 U/L (16-61); Albumin, Serum 4.1 g/dL (3.2-5.0); Alkaline Phosphatase 134 U/L (45-117); Anion Gap 6 (5-15); BUN 23 mg/dL (7-18); BUN/Creat Ratio 16.5 RATIO (10-20); Calcium,Total 9.8 mg/dL (8.5-10.1); Chloride 103 mmol/L (98-107); Creatinine, Serum 1.39 mg/dL (0.70-1.30); EST Glomerular Filtration Rate 59 mL/min (>60); Est Glom Filt Rate - Afr Amer 72 mL/min (>60); Estimated Creatinine Clearance 52.92 ml/min; Globulin 3.9 g/dL (2.2-4.2); Glucose 116 mg/dL (74-106); Lipase 123 U/L (73-393); Potassium 4.2 mmol/L (3.5-5.1); Sodium Level 137 mmol/L (136-145)
[2020-11-03 17:35] LABS: Lactic Acid 1.5 mmol/L (0.4-1.9)
[2020-11-03 18:00] VITALS: BP 140/89; PULSE 81; RESP 14; O2SAT 99
[2020-11-03] MEDS: Tacrolimus 0.5 MG Capsule 2 MG PO (20:55)
[2020-11-03 21:01] VITALS: PULSE 94; RESP 15; O2SAT 98
== END 2020-11-03 21:02 | disposition home or self-care (01) ==
PROVIDERS: Emergency Provider Student in an Organized Health Care Education/Training Program; PCP Internal Medicine
DX: R10.31 Right lower quadrant pain (principal); R11.2 Nausea with vomiting, unspecified; I25.2 Old myocardial infarction; J44.9 Chronic obstructive pulmonary disease, unspecified; Z94.0 Kidney transplant status; Z79.82 Long term (current) use of aspirin; Z79.899 Other long term (current) drug therapy
CPT/HCPCS: 74177; 80053; 81001; 83605; 83690; 85025; 96361; 96374; 96375; 99284; J7040; Q9967; A4216; J2405

== ENCOUNTER 2020-11-23 16:31 | Emergency (ER) | payer MEDICARE, MEDICAID, SELFPAY ==
[2020-11-21 10:20] VITALS: BMI 31.1
[2020-11-23 16:32] VITALS: BP 125/94; PULSE 88; RESP 15; TEMP 36.4; O2SAT 97; BMI 29.8
--- NOTE | 2020-11-23 16:40 | RAD_ITS ---
STUDY: X-RAY - RIGHT SHOULDER REASON FOR EXAM: Male, 45 years old. INJURY TECHNIQUE: 4 view(s) of the shoulder. COMPARISON: None. FINDINGS: Normal glenohumeral articulation. Normal acromioclavicular joint. Normal acromion. Normal humeral head and visualized proximal humerus. The soft tissue structures are unremarkable. There is no demonstrated fracture. Normal visualized pulmonary apex. RAD/Shoulder min 2 Views IMPRESSION: Normal x-ray examination of the shoulder. Electronically Signed: Kunal Espinosa MD at 16:54 EDT , Service support ,
--- NOTE | 2020-11-23 17:29 | EDS_ITS ---
HPI History of Present Illness Chief Complaint: Upper Extremity Injury Informant: patient Onset/Context/Timing Onset: Days Context: Gradual Onset Timing: Waxes and wanes Current Severity: Moderate Maximum Severity: Moderate Narrative Narrative: Patient presents with right shoulder pain. He states he was in the yard a couple days ago when he had a near syncopal episode and fell to the ground. He landed on his right shoulder. He believes he may have tore his rotator cuff as he has increased pain in time he tries to raise his arm. [facility] Medical History COPD (chronic obstructive pulmonary disease) Myocardial infarction with cardiac rehabilitation Palpitations Right shoulder pain Syncope Home Medications ergocalciferol (vitamin D2) 1,250 mcg (50,000 unit) capsule 50,000 unit PO FR 09/30/19 [History Last Taken 01/03/20] magnesium oxide 400 mg PO BID 09/30/19 [History Last Taken 01/03/20] mycophenolate mofetil 250 mg capsule 500 mg PO BID 09/30/19 [History Last Taken 01/03/20] prednisone 5 mg tablet 5 mg PO DAILY 09/30/19 [History Last Taken 01/03/20] tacrolimus 1 mg capsule, immediate-release 3 mg PO DAILY cap 09/30/19 [History Last Taken 01/03/20] aspirin 81 mg PO DAILY 02/08/20 [History Last Taken Unknown] cinacalcet 30 mg PO BREAKFAST 07/19/20 [History Last Taken Unknown] tacrolimus 2 mg PO QHS 10/19/20 [History Last Taken Unknown] omeprazole [Prilosec] 20 mg PO BID 11/03/20 [History Last Taken Unknown] ondansetron 4 mg disintegrating tablet 4 mg PO Q8H PRN #30 tab 11/03/20 [Rx Last Taken Unknown] dicyclomine 20 mg tablet 20 mg PO TID PRN #30 tab 11/06/20 [Rx Last Taken Unknown] albuterol sulfate 90 mcg/actuation aerosol inhaler 1 - 2 inh INHALATION Q6H PRN #8.5 g 11/16/20 [Rx Last Taken Unknown] azithromycin 250 mg tablet See Rx Instructions PO .COMPLEX #6 tab 11/16/20 [Rx Last Taken Unknown] benzonatate 100 mg capsule 100 mg PO BID PRN #14 cap 11/16/20 [Rx Last Taken Unknown] prednisone 20 mg tablet 40 mg PO DAILY #5 tab 11/16/20 [Rx Last Taken Unknown] budesonide-formoterol HFA 160 mcg-4.5 mcg/actuation aerosol inhaler 2 puff INHALATION BID #10.2 g 11/21/20 [Rx Last Taken Unknown] hydrocodone-acetaminophen 1 tab PO Q6H PRN 3 Days #10 tab 11/23/20 [Rx Last Taken Unknown] naproxen [Naprosyn] 500 mg PO BID PRN #20 tab 11/23/20 [Rx Last Taken Unknown] Allergy/AdvReac Type Severity Reaction Status Date / Time hydromorphone [From Dilaudid] Allergy Mild nausea Verified 11/21/20 10:18 Latex, Natural Rubber Allergy Mild rash Verified 11/21/20 10:18 Surgical History History of appendectomy History of cholecystectomy kidney transplant Social History household members: other details: girlfriend and mother Smoking Status: Never smoker Tobacco: How many years used: 20 alcohol intake: never substance use type: does not use do you feel safe at home: Yes ROS ROS ED Constitutional Constitutional ED: Denies chills or fever(s) Eyes Eyes: Denies change in vision ENT ENT ED: Denies sore throat Cardiovascular Cardiovascular: Denies chest pain Respiratory/Chest Respiratory/Chest: Denies cough or dyspnea Gastrointestinal Gastrointestinal: Denies abdominal pain, diarrhea, nausea or vomiting Genitourinary Genitourinary ED: Denies dysuria Musculoskeletal Musculoskeletal: Reports other Details: Right shoulder pain ; Denies back pain Integumentary Denies rash Neurologic Neurologic: Denies headache(s) or weakness Psychiatric Psychiatric: Denies anxiety or depression Endocrine Endocrinology: Denies polydipsia or polyuria Allergic/Immunologic Allergic/Immunologic ED: Denies urticaria EXAM Physical Exam Const Vital Signs: 11/23/20 16:32 Temperature 97.6 F L Temperature Source Temporal Pulse Rate 88 Respiratory Rate 15 Blood Pressure 125/94 H Blood Pressure Mean 104 Pulse Ox 97 Oxygen Delivery Method Room Air Positive well nourished and well developed General Appearance ED: well developed HEENT Reports normocephalic and head/scalp atraumatic Eyes PERRL and EOMs intact bilaterally Neck supple Chest Wall inspection of chest normal and palpation of chest normal Resp normal respiratory effort and clear to auscultation bilaterally Cardio regular rate and regular rhythm GI normal to inspection, nondistended, normoactive bowel sounds Palpation: soft Extremity normal to inspection Right Upper Extremity: shoulder joint Shoulder Joint Exam - Right: palpation (Diffuse tenderness around the shoulder joint. No evidence of dislocation.), ROM (Decreased range of motion secondary to pain. Patient stops his abduction motion at approximately 70 degrees.) and neurovascular exam (Normal) Neuro oriented x3 and no sensory deficits noted Sensorium / Orientation: alert Psych mental status grossly normal Skin no rashes or lesions noted MDM MDM MDM Narrative Medical decision making narrative: Right shoulder x-rays were obtained per nursing protocol. Per my interpretation no acute abnormalities noted. Radiologist interpretation is reviewed. Radiography Diagnostic Testing: Radiology Impression Shoulder X-Ray 11/23/20 16:40 IMPRESSION: Normal x-ray examination of the shoulder. Electronically Signed: Kunal Espinosa MD at 16:54 EDT , Service support , Treatment and Re-Evaluation Comments:: Patient be treated with naproxen and [place]. He is referred to Dr. Steve barbour, on-call for orthopedics as he may require MRI and further studies. Discharge Plan Triage Chief Complaint: Upper Extremity Injury ED Provider: Marsha Booth Dx/Rx/DC Orders Clinical Impression: Sprain of right shoulder Instructions: ED Shoulder Sprain Prescriptions: New naproxen [Naprosyn] 500 mg tablet 500 mg PO BID PRN (Reason: pain) Qty: 20 RF: 0 hydrocodone-acetaminophen 5-325 mg tablet 1 tab PO Q6H PRN (Reason: pain) 3 Days Qty: 10 RF: 0 No Action mycophenolate mofetil 250 mg capsule 500 mg PO BID RF: 0 tacrolimus 1 mg capsule 3 mg PO DAILY RF: 0 magnesium oxide 400 mg magnesium tablet 400 mg PO BID RF: 0 prednisone 5 mg tablet 5 mg PO DAILY RF: 0 ergocalciferol (vitamin D2) [Vitamin D2] 1,250 mcg (50,000 unit) capsule 50,000 unit PO FR RF: 0 budesonide-formoterol [Symbicort] 160-4.5 mcg/actuation HFA aerosol inhaler 2 puff inhalation BID Qty: 10.2 RF: 1 ondansetron 4 mg tablet,disintegrating 4 mg PO Q8H PRN (Reason: nausea and vomiting) Qty: 30 RF: 0 albuterol sulfate 90 mcg/actuation HFA aerosol inhaler 1 - 2 inh inhalation Q6H PRN (Reason: shortness of breath or wheezing) Qty: 8.5 RF: 2 benzonatate [Tessalon Perles] 100 mg capsule 100 mg PO BID PRN (Reason: cough) Qty: 14 RF: 1 azithromycin [Zithromax Z-Kti] 250 mg tablet See Rx Instructions PO .COMPLEX Qty: 6 RF: 0 prednisone 20 mg tablet 40 mg PO DAILY Qty: 5 RF: 0 aspirin 81 MG tablet,delayed release (DR/EC) 81 mg PO DAILY RF: 0 cinacalcet 30 MG tablet 30 mg PO BREAKFAST RF: 0 tacrolimus 1 MG capsule 2 mg PO QHS RF: 0 omeprazole [Prilosec] 20 mg Capsule,Delayed Release(Dr/Ec) 20 mg PO BID RF: 0 dicyclomine 20 mg tablet 20 mg PO TID PRN (Reason: abdominal discomfort) Qty: 30 RF: 1 Primary Care Provider: Wolfgang Reed Referrals: Wolfgang Reed MD [Primary Care Provider] - Sachin Cazares MD [STAFF PHYSICIAN] - 1 Week if not improving Disposition Disposition: Home, self care
[2020-11-23] MEDS: HYDROcodone Bitartrate/Apap 5/325 Tablet PO (17:53)
[2020-11-23] MEDS: Naproxen 500 MG Tablet PO (17:53)
== END 2020-11-23 17:57 | disposition home or self-care (01) ==
LOC: ED 17:43
PROVIDERS: Emergency Provider Emergency Medicine; PCP Internal Medicine
DX: S43.401A Unspecified sprain of right shoulder joint, initial encounter (principal); R55 Syncope and collapse; W19.XXXA Unspecified fall, initial encounter; Y93.9 Activity, unspecified; Y92.9 Unspecified place or not applicable; J44.9 Chronic obstructive pulmonary disease, unspecified; I25.2 Old myocardial infarction; Z79.82 Long term (current) use of aspirin; Z79.899 Other long term (current) drug therapy
CPT/HCPCS: 73030; 99284

== ENCOUNTER → 2020-12-21 13:13 | Outpatient (CLI) | payer MEDICARE, MEDICAID, SELFPAY ==
[2020-11-23 16:32] VITALS: BMI 29.8
--- NOTE | 2020-12-21 13:45 | MRI_ITS ---
STUDY: MRI RIGHT SHOULDER REASON FOR EXAM: Male, 45 years old. RIGHT shoulder pain -- contusion; injured 3 times TECHNIQUE: Standardized fat and water weighted pulse sequences were obtained in all 3 orthogonal planes. COMPARISON: Right shoulder x-ray dated OCTOBER 20162020 FINDINGS: There is supraspinatus tendinosis with tendon attrition, but without a demonstrated supraspinatus tendon tear. A small undersurface tear is present in the far anterior aspect of supraspinatus tendon just proximal to the greater tuberosity insertion site. Normal infraspinatus tendon. Normal subscapularis tendon. Normal teres minor tendon. Normal supraspinatus muscle. Normal infraspinatus muscle. Normal subscapularis muscle. Normal teres minor muscle. Normal glenohumeral articulation. Normal humeral head and visualized proximal humerus. Normal biceps labral complex. Normal intracapsular long biceps tendon. There is labral degeneration with blunting of the ly, but there is no demonstrated discrete labral tear. Normal capsulo- ligamentous complex. Normal rotator interval. Normal acromioclavicular articulation. There is a Type II morphology (curved), with a neutral orientation. There is no subacromial-subdeltoid bursal fluid. Normal visualized coracohumeral and coracoacromial ligaments. Normal quadrilateral space. Normal axillary space. Normal deltoid muscle. Normal trapezius muscle. MRI/Upper Ext Joint Only(Routine) IMPRESSION: 1. Supraspinatus tendinosis 2. A small undersurface tear is present in the far anterior aspect of supraspinatus tendon just proximal to the greater tuberosity insertion site. 3. Blunting of the glenoid labrum Electronically Signed: Danielito Savage MD at 21:01 EDT , Service support ,
== END ==
PROVIDERS: PCP Internal Medicine; Referring Provider Physician Assistant; Visit Provider Physician Assistant
DX: S40.011A Contusion of right shoulder, initial encounter (principal); M25.511 Pain in right shoulder
CPT/HCPCS: 73221

== ENCOUNTER 2021-02-01 10:23 | Emergency (ER) | payer MEDICARE, MEDICAID, SELFPAY ==
[2021-01-04 13:56] VITALS: BMI 29.8
[2021-02-01 10:24] VITALS: BP 156/96; PULSE 84; RESP 16; TEMP 36.4; O2SAT 99; BMI 32.3
--- NOTE | 2021-02-01 10:43 | EDS_ITS ---
HPI History of Present Illness Chief Complaint: Lower Extremity Injury Informant: patient Onset/Context/Timing Onset: Days Context: Gradual Onset Timing: Continuous Quality of Pain: Aching Current Severity: Mild Associated Symptoms Associated Symptoms: Negative for Parasthesia, Weakness and Loss of Funtion Narrative Narrative: 45-year-old male history of renal transplant on long-term prednisone. States he has had atraumatic left hip pain the last several days. Primarily anterior and radiating down his thigh. He denies any fever or chills. No swelling. No trauma, injuries or falls. He has never had hip surgery. Prior similar symptoms: Yes Recent Illness/Hospitalization: No [facility] Medical History COPD (chronic obstructive pulmonary disease) Elevated blood pressure reading Myocardial infarction with cardiac rehabilitation Palpitations Right shoulder pain Syncope Home Medications ergocalciferol (vitamin D2) 1,250 mcg (50,000 unit) capsule 50,000 unit PO FR 09/30/19 [History Last Taken 01/03/20] magnesium oxide 400 mg PO BID 09/30/19 [History Last Taken 01/03/20] mycophenolate mofetil 250 mg capsule 500 mg PO BID 09/30/19 [History Last Taken 01/03/20] prednisone 5 mg tablet 5 mg PO DAILY 09/30/19 [History Last Taken 01/03/20] tacrolimus 1 mg capsule, immediate-release 3 mg PO DAILY cap 09/30/19 [History Last Taken 01/03/20] aspirin 81 mg PO DAILY 02/08/20 [History Last Taken Unknown] cinacalcet 30 mg PO BREAKFAST 07/19/20 [History Last Taken Unknown] tacrolimus 2 mg PO QHS 10/19/20 [History Last Taken Unknown] omeprazole [Prilosec] 20 mg PO BID 11/03/20 [History Last Taken Unknown] ondansetron 4 mg disintegrating tablet 4 mg PO Q8H PRN #30 tab 11/03/20 [Rx Last Taken Unknown] dicyclomine 20 mg tablet 20 mg PO TID PRN #30 tab 11/06/20 [Rx Last Taken Unknown] albuterol sulfate 90 mcg/actuation aerosol inhaler 1 - 2 inh INHALATION Q6H PRN #8.5 g 11/16/20 [Rx Last Taken Unknown] prednisone 20 mg tablet 40 mg PO DAILY #5 tab 11/16/20 [Rx Last Taken Unknown] budesonide-formoterol HFA 160 mcg-4.5 mcg/actuation aerosol inhaler 2 puff INHALATION BID #10.2 g 11/21/20 [Rx Last Taken Unknown] naproxen [Naprosyn] 500 mg PO BID PRN #20 tab 11/23/20 [Rx Last Taken Unknown] tramadol 50 mg tablet 50 mg PO Q8H PRN #20 tab 01/04/21 [Rx Last Taken Unknown] Allergy/AdvReac Type Severity Reaction Status Date / Time hydromorphone [From Dilaudid] Allergy Mild nausea Verified 02/01/21 10:28 Latex, Natural Rubber Allergy Mild rash Verified 02/01/21 10:28 Surgical History History of appendectomy History of cholecystectomy kidney transplant Social History household members: other details: girlfriend and mother Smoking Status: Never smoker Tobacco: How many years used: 20 alcohol intake: never substance use type: does not use do you feel safe at home: Yes ROS ROS ED ROS Narrative Patient denies recent injury, illness or fever. Review of Systems ROS Unobtainable: Denies due to encephalopathy Constitutional Constitutional ED: Denies chills or fever(s) Eyes Eyes: Denies change in vision ENT ENT ED: Denies ear pain or sore throat Cardiovascular Cardiovascular: Denies chest pain Respiratory/Chest Respiratory/Chest: Denies cough or dyspnea Gastrointestinal Gastrointestinal: Denies abdominal pain, diarrhea, nausea or vomiting Genitourinary Genitourinary ED: Denies dysuria Musculoskeletal Musculoskeletal: Denies myalgias Integumentary Denies rash Neurologic Neurologic: Denies headache(s) Psychiatric Psychiatric: Denies depression Endocrine Endocrinology: Denies polyuria Hematologic/Lymphatic Hematologic/Lymphatic: Denies easy bruising Allergic/Immunologic Allergic/Immunologic ED: Denies urticaria EXAM Physical Exam Narrative Exam Narrative: Middle-aged male no acute distress. Vital signs stable afebrile. HEENT exam unremarkable. Lungs clear to auscultation. Heart regular rhythm. Abdomen soft. Nondistended normal bowel sounds no peritoneal signs. Well-healed prior surgical incisions. Left lower quadrant kidney transplant. No obvious hernia or mass. Left hip he complains of discomfort anteriorly. It is not reproducible. There is no redness or swelling. He is able to flex and extend the left hip. There is no shortening, rotation or deformity. Left knee and ankle have normal range of motion. Normal dorsi plantar flexion of the left ankle and foot. No edema. Back nontender. No SI tenderness. Neurologic exam is awake alert with no focal motor deficits. Const Vital Signs: 02/01/21 10:24 Temperature 97.6 F L Temperature Source Oral Pulse Rate 84 Respiratory Rate 16 Blood Pressure 156/96 H Blood Pressure Mean 116 Pulse Ox 99 Oxygen Delivery Method Room Air Positive well nourished and well developed; Negative for unkempt General Appearance ED: well developed and NAD; Negative for unkempt HEENT Reports moist mucous membranes normocephalic and atraumatic; Negative for trauma or tenderness Eyes PERRL Neck full ROM and supple Thyroid: Negative for tender Chest Wall inspection of chest normal and palpation of chest normal Resp normal respiratory effort, no retractions and clear to auscultation bilaterally Auscultation: Negative for rales, rhonchi or wheezes Cardio regular rate, regular rhythm, S1 normal heart sound, S2 normal heart sound and no murmurs GI non-tender, non-distended and no masses Auscultation: normoactive bowel sounds Palpation: soft; Negative for tender, guarding or rebound tenderness present Back/Spine no CVA tenderness Extremity normal to inspection and full ROM General Extremety ED: Negative for cyanosis or edema General Extremity: Negative for cyanosis or edema Neuro oriented x3 Sensorium / Orientation: alert, oriented to person, oriented to place and oriented to time; Negative for orientation impaired Motor Exam: strength 5/5 throughout Psych mental status grossly normal Appearance: Negative for unkempt Skin Lesions: no lesions Rashes: no rashes MDM MDM MDM Narrative Medical decision making narrative: Middle-age male with atraumatic left hip pain. X-ray being obtained. Repeat exam at 1133 the patient is doing well be discharged home. He and I discussed his x-ray results. Radiography Diagnostic Testing: Radiology Impression Hip/Pelvis X-Ray 02/01/21 10:50 IMPRESSION: Normal pelvis and left hip. Electronically Signed: aCndido Granger DO at 11:10 EDT Tel , Service support , Left hip x-ray 3 views interpreted by myself and radiologist as no acute abnormality. No fracture. No dislocation. No obvious signs of avascular necrosis. Discharge Plan Triage Chief Complaint: Lower Extremity Injury ED Provider: Johny Marquez Dx/Rx/DC Orders Clinical Impression: Acute pain of left hip Instructions: ED Hip Strain Prescriptions: No Action mycophenolate mofetil 250 mg capsule 500 mg PO BID RF: 0 tacrolimus 1 mg capsule 3 mg PO DAILY RF: 0 magnesium oxide 400 mg magnesium tablet 400 mg PO BID RF: 0 prednisone 5 mg tablet 5 mg PO DAILY RF: 0 ergocalciferol (vitamin D2) [Vitamin D2] 1,250 mcg (50,000 unit) capsule 50,000 unit PO FR RF: 0 tramadol 50 mg tablet 50 mg PO Q8H PRN (Reason: pain) Qty: 20 RF: 0 budesonide-formoterol [Symbicort] 160-4.5 mcg/actuation HFA aerosol inhaler 2 puff inhalation BID Qty: 10.2 RF: 1 ondansetron 4 mg tablet,disintegrating 4 mg PO Q8H PRN (Reason: nausea and vomiting) Qty: 30 RF: 0 albuterol sulfate 90 mcg/actuation HFA aerosol inhaler 1 - 2 inh inhalation Q6H PRN (Reason: shortness of breath or wheezing) Qty: 8.5 RF: 2 prednisone 20 mg tablet 40 mg PO DAILY Qty: 5 RF: 0 aspirin 81 MG tablet,delayed release (DR/EC) 81 mg PO DAILY RF: 0 cinacalcet 30 MG tablet 30 mg PO BREAKFAST RF: 0 tacrolimus 1 MG capsule 2 mg PO QHS RF: 0 omeprazole [Prilosec] 20 mg Capsule,Delayed Release(Dr/Ec) 20 mg PO BID RF: 0 naproxen [Naprosyn] 500 mg tablet 500 mg PO BID PRN (Reason: pain) Qty: 20 RF: 0 dicyclomine 20 mg tablet 20 mg PO TID PRN (Reason: abdominal discomfort) Qty: 30 RF: 1 Primary Care Provider: Wolfgang Reed Referrals: Wolfgang Reed MD [Primary Care Provider] - 1 Week if not improving Activity Restrictions/Additional Instructions: Tylenol Motrin for pain in your left hip. Ice to your hip. If this is not improving you need follow-up and further evaluation. If in a week the hip pain is not improving follow-up with your doctor. They can have further evaluation by more advanced imaging such as an MRI which would help evaluate for possible avascular process or have you see an orthopedic physician. Your x-ray today is normal. Disposition Disposition: Home, Self Care
--- NOTE | 2021-02-01 10:50 | RAD_ITS ---
INDICATION: atraumatic pain EXAMINATION/TECHNIQUE: X-RAY - LEFT XR Hip Unilateral with Pelvis when performed; 2-3 Views 3 VIEWS COMPARISON: None. FINDINGS: AP pelvis x-ray is normal. Studies of the left hip in 2 projections shows no evidence of fracture, dislocation, or bony destruction. RAD/HIP, UNI W/ Pelvis 2-3 Views IMPRESSION: Normal pelvis and left hip. Electronically Signed: Candido Granger DO at 11:10 EDT Tel , Service support ,
[2021-02-01] MEDS: HYDROcodone Bitartrate/Apap 5/325 Tablet PO (11:43)
[2021-02-01 11:44] VITALS: BP 136/74; PULSE 59; RESP 16; O2SAT 97
[2021-02-01 12:00] LABS: Bacteria 0 SEEN /hpf (None Seen); Mucous, Urine 0 SEEN /hpf (<or=2+); Red Blood Cells-Urine 0 SEEN /hpf (0-5)
[2021-02-01 12:01] LABS: Color, Urine Yellow (Yellow); Glucose, Dipstick Normal (Normal); Ketone-Dipstick Negative (Negative); Leukocyte Esterase-Dipstick 25 /ul (Negative); Nitrite-Dipstick Negative (Negative); Occult Blood-Urine Negative /ul (Negative); Protein-Dipstick 15 mg/dl (Negative); Urine Bilirubin Dipstick Negative (Negative); Urine Clarity Clear (Clear); Urine Urobilinogen Normal (Normal); Urine pH 6.5 (5.0 - 8.0)
[2021-02-01 12:11] LABS: Squamous Epithelial Cells - UA 0-5 SEEN /hpf (0-5); White Blood Cells 0-5 SEEN /hpf (0-5)
--- NOTE | 2021-02-01 12:38 | ED.RN ---
pt is stating he is unable to stand d/t pain. dr camargo states he is good with pt going home by ambulance
== END 2021-02-01 13:29 | disposition home or self-care (01) ==
PROVIDERS: Emergency Provider Emergency Medicine; PCP Internal Medicine
DX: M25.552 Pain in left hip (principal); I25.2 Old myocardial infarction; J44.9 Chronic obstructive pulmonary disease, unspecified; Z94.0 Kidney transplant status; Z79.52 Long term (current) use of systemic steroids; Z79.82 Long term (current) use of aspirin; Z79.899 Other long term (current) drug therapy
CPT/HCPCS: 73502; 81001; 99284

== ENCOUNTER → 2021-02-06 | Outpatient (CLI) | payer MEDICARE, MEDICAID, SELFPAY ==
[2021-02-06 11:17] VITALS: BMI 32.3
[2021-02-06 11:38] LABS: Mucous, Urine 0 SEEN /hpf (<or=2+)
[2021-02-06 15:16] LABS: Color, Urine Yellow (Yellow); Glucose, Dipstick Normal (Normal); Ketone-Dipstick 5 mg/dl (Negative); Leukocyte Esterase-Dipstick 500 /ul (Negative); Nitrite-Dipstick Negative (Negative); Occult Blood-Urine 10 /ul (Negative); Protein-Dipstick 30 mg/dl (Negative); Specific Gravity, Urine 1.025 (1.002-1.030); Urine Bilirubin Dipstick Negative (Negative); Urine Clarity Sl. Cloudy (Clear); Urine Urobilinogen Normal (Normal)
[2021-02-06 15:25] LABS: Bacteria 1+ /hpf (None Seen); Red Blood Cells-Urine 0-5 SEEN /hpf (0-5); Squamous Epithelial Cells - UA 0-5 SEEN /hpf (0-5); White Blood Cells 25-50 SEEN /hpf (0-5)
== END | disposition home or self-care (01) ==
LOC: LABSPEC 11:38
PROVIDERS: PCP Internal Medicine; Referring Provider Nurse Practitioner Family; Visit Provider Nurse Practitioner Family
DX: R30.0 Dysuria (principal)
CPT/HCPCS: 81001; 87086; 87088

== ENCOUNTER 2021-02-13 13:41 | Emergency (ER) | payer MEDICARE, MEDICAID, SELFPAY ==
[2021-02-13 11:25] VITALS: BMI 32.3
[2021-02-13 13:42] VITALS: BP 135/94; PULSE 121; RESP 16; TEMP 36.3; O2SAT 97; BMI 30.2
[2021-02-13 13:44] VITALS: BP 135/94; PULSE 116; RESP 21; TEMP 36.3; O2SAT 97
--- NOTE | 2021-02-13 14:22 | US_ITS ---
STUDY: RENAL ULTRASOUND - LIMITED REASON FOR EXAM: Male, 45 years old. LLQ pain at transplanted kidney TECHNIQUE: Ultrasound evaluation of the bilateral kidneys was performed with real-time ultrasonography and static grayscale imaging. COMPARISON: None. FINDINGS: RIGHT KIDNEY: Not visualized. LEFT KIDNEY: Transplanted kidney is seen in the left pelvis. The kidney measures 11.3 cm x 3.6 cm x 6.7 cm. The renal cortex measures 1.7 cm. No evidence of hydronephrosis. US/Transplanted Kidney IMPRESSION: Unremarkable appearance of the transplant planted left kidney. Electronically Signed: Pawan Ordaz MD at 15:14 EDT , Service support ,
--- NOTE | 2021-02-13 14:23 | ED.VIS.GI ---
HPI HPI - GI History of Present Illness Chief Complaint: Complaint Abdominal Pain/Flank Pain Onset: Weeks (2) Context: Gradual Onset Timing: Continuous and Waxes and wanes Quality: Aching Location: LLQ (and hip, into left ant prox thigh) Current Severity: Severe Maximum Severity: Severe Worsened by: Movement (and trying to walk) Relieved by: Nothing Nausea/Vomiting/Emesis GI Symptom: Positive for Nausea; Negative for Vomiting Diarrhea/Melena/Hematochezia GI Symptom: Positive for Diarrhea; Negative for Melena and Hematochezia Stool Quality: Negative for Black, Maroon and BRB per rectum Associated Symptoms Associated Symptoms: Positive for Hematuria and - (decreased UOP); Negative for Dysuria, Frequency and Urgency Narrative Narrative: Patient with a history of a kidney transplant, he was only born with 1 kidney, 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 He states for the past 2 weeks he has been having pain in this area in the left hip when he walks. Before it see mostly in the hip but now it is affecting his abdomen he is not sure how long exactly. Had some nausea. He mainly is concerned about decreased urine output, he is used to urinating about 5 times a day now it is only around 2. Occasional hematuria. No dysuria. No fevers or chills. Pain wraps around into his left flank/low back. Blood pressure recently measured in 160's, which is unusually high for him. The transplant was performed about 3 years ago at [facility] in [place], that is where his coordinator is, who advised that he try to go to a [place] transplant center but the patient states EMS refused to take him there, he had discussed with [facility] earlier and they are expecting me. He is on antirejection medications which he has been compliant with. No NSAID use. [facility] Medical History Abdominal pain COPD (chronic obstructive pulmonary disease) Dysuria Elevated blood pressure reading Myocardial infarction with cardiac rehabilitation Palpitations Right shoulder pain Syncope Home Medications ergocalciferol (vitamin D2) 1,250 mcg (50,000 unit) capsule 50,000 unit PO FR 09/30/19 [History Last Taken 01/03/20] magnesium oxide 400 mg PO BID 09/30/19 [History Last Taken 01/03/20] mycophenolate mofetil 250 mg capsule 500 mg PO BID 09/30/19 [History Last Taken 01/03/20] prednisone 5 mg tablet 5 mg PO DAILY 09/30/19 [History Last Taken 01/03/20] tacrolimus 1 mg capsule, immediate-release 3 mg PO DAILY cap 09/30/19 [History Last Taken 01/03/20] aspirin 81 mg PO DAILY 02/08/20 [History Last Taken Unknown] cinacalcet 30 mg PO BREAKFAST 07/19/20 [History Last Taken Unknown] tacrolimus 2 mg PO QHS 10/19/20 [History Last Taken Unknown] omeprazole [Prilosec] 20 mg PO BID 11/03/20 [History Last Taken Unknown] ondansetron 4 mg disintegrating tablet 4 mg PO Q8H PRN #30 tab 11/03/20 [Rx Last Taken Unknown] dicyclomine 20 mg tablet 20 mg PO TID PRN #30 tab 11/06/20 [Rx Last Taken Unknown] albuterol sulfate 90 mcg/actuation aerosol inhaler 1 - 2 inh INHALATION Q6H PRN #8.5 g 11/16/20 [Rx Last Taken Unknown] budesonide-formoterol HFA 160 mcg-4.5 mcg/actuation aerosol inhaler 2 puff INHALATION BID #10.2 g 11/21/20 [Rx Last Taken Unknown] naproxen [Naprosyn] 500 mg PO BID PRN #20 tab 11/23/20 [Rx Last Taken Unknown] tramadol 50 mg tablet 50 mg PO Q8H PRN #20 tab 02/06/21 [Rx Last Taken Unknown] amoxicillin 875 mg-potassium clavulanate 125 mg tablet 1 tab PO BID #14 tab 02/08/21 [Rx Last Taken Unknown] ciprofloxacin HCl 500 mg PO BID #14 tablet 02/13/21 [Rx Last Taken Unknown] Allergy/AdvReac Type Severity Reaction Status Date / Time hydromorphone [From Dilaudid] Allergy Mild nausea Verified 02/13/21 11:24 Latex, Natural Rubber Allergy Mild rash Verified 02/13/21 11:24 Surgical History History of appendectomy History of cholecystectomy kidney transplant Social History household members: other details: girlfriend and mother Smoking Status: Never smoker Tobacco: How many years used: 20 alcohol intake: never substance use type: does not use do you feel safe at home: Yes ROS ROS ED Constitutional Constitutional ED: Denies chills or fever(s) Eyes Eyes: Denies change in vision or diplopia ENT ENT ED: Denies rhinorrhea or sore throat Cardiovascular Cardiovascular: Denies chest pain or palpitations Respiratory/Chest Respiratory/Chest: Denies cough or dyspnea Gastrointestinal Gastrointestinal: Reports abdominal pain, diarrhea and nausea; Denies vomiting Genitourinary Genitourinary ED: Reports as per HPI, decreased urination and hematuria; Denies dysuria Musculoskeletal Musculoskeletal: Reports as per HPI, back pain and other Details: Left hip/groin. Difficulty walking due to pain. ; Denies neck pain Integumentary Denies abscess or rash Neurologic Neurologic: Denies headache(s), paresthesias or weakness Psychiatric Psychiatric: Denies anxiety or suicidal thoughts EXAM Physical Exam Const Vital Signs: 02/13/21 13:42 02/13/21 13:44 Temperature 97.4 F L 97.4 F L Temperature Source Temporal Temporal Pulse Rate 121 H 116 H Respiratory Rate 16 21 H Blood Pressure 135/94 H 135/94 H Blood Pressure Mean 107 107 Pulse Ox 97 97 Oxygen Delivery Method Room Air Room Air Positive well nourished and well developed General Appearance ED: well developed and NAD HEENT Reports moist mucous membranes normocephalic and atraumatic Eyes PERRL and EOMs intact bilaterally Neck full ROM and supple Resp normal respiratory effort and clear to auscultation bilaterally Cardio regular rate, regular rhythm and no murmurs GI non-distended GI Narrative: Mildly tender left pelvic kidney area, more tenderness lateral to this in the lower left flank but above the bony pelvis which is nontender. Well-healed surgical incision over the transplanted kidney without any skin changes or erythema. Auscultation: normoactive bowel sounds Palpation: soft Back/Spine no CVA tenderness General Back: other FROM Extremity normal to inspection and full ROM Extremity Narrative: Able to range left hip fully, but reproduces pain with thigh flexion and internal/external rotation. No palpable inguinal lymphadenopathy. Patient has me inspect his left buttock, he states that there was some ecchymosis there but there is none there presently. General Extremety ED: Negative for edema, pulses abnormal or tenderness General Extremity: Negative for edema or pulses abnormal Neuro oriented x3, CN's II-XII intact bilaterally and no sensory deficits noted Sensorium / Orientation: awake and alert Motor Exam: strength 5/5 throughout Skin no rashes or lesions noted and no wounds MDM MDM MDM Narrative Medical decision making narrative: Patient is examining like he has left hip joint pain, and he is having pain in the groin when he walks which she has done without apparent difficulty here in the emergency department, going to and from the restroom, but he also describes increased blood pressure, urinary symptoms, and pain over his transplanted kidney that I think warrant studying it further. Results are as below, his creatinine is 1.61, his last reading was 1.39, but back in May he was as high as 2.03. Also obtained ultrasound of the transplanted kidney, and as below it is unremarkable showing no signs of inflammation/acute rejection. His urine does show signs of infection along with pyuria and bacteriuria, this was sent for culture. He does not have symptoms of bladder infection. I discussed with the change control coordinator on-call at [facility] in [facility]; we faxed our lab results to her and she discussed with the admissions counselor on-call. The recommendations were to culture the urine and give him Cipro 500 mg twice daily for 1 week. With regards to the patient's left hip pain, he wanted me to take another look. He is tender in the groin but really is at his ASIS and AIIS. His pain goes into the anterior thigh and he does admit to some paresthesias there. He states this happened acutely when he sat down prior to coming to the ER before. It is plausible that he has impingement there at the bursa, causing entrapment of the lateral cutaneous nerve of the thigh. I do not think he has sciatica, nor do I think he has a septic hip. Regardless I think it is safe for him to follow-up with this and that is how I described to him and he understood. Lab Data Attestation: I reviewed the patient's lab results. Labs: Laboratory Results - last 24 hr 02/13/21 02/13/21 02/13/21 13:55 13:55 14:45 WBC 10.8 RBC 5.45 Hgb 16.2 Hct 49.2 MCV 90.3 MCH 29.7 MCHC 32.9 RDW Std Deviation 45.3 H RDW Coeff of Tari 13.8 Plt Count 236 MPV 10.3 Immature Gran % (Auto) 1.200 H Neut % (Auto) 85.9 H Lymph % (Auto) 5.9 L Hanson % (Auto) 6.5 Eos % (Auto) 0.1 Baso % (Auto) 0.4 Absolute Neuts (auto) 9.2 H Absolute Lymphs (auto) 0.63 L Nucleated RBC % 0 Sodium 140 Potassium 4.0 Chloride 107 Carbon Dioxide 26.0 Anion Gap 7 BUN 25 H Creatinine 1.61 H Estim Creat Clear Calc 43.76 Est GFR (MDRD) Af Amer 60 Est GFR (MDRD) Non-Af 50 L BUN/Creatinine Ratio 15.5 Glucose 199 H Calcium 10.0 Urine Color Yellow Urine Clarity Sl. Cloudy Urine pH 5.0 Ur Specific [place] 1.025 Urine Protein 30 H Urine Glucose (UA) Normal Urine Ketones 5 H Urine Occult Blood 25 H Urine Nitrite Negative Urine Bilirubin Negative Urine Urobilinogen 1 H Ur Leukocyte Esterase 500 H Urine RBC 0-5 SEEN Urine WBC 10-25 SEEN Ur Squamous Epith Cells 0-5 SEEN Urine Bacteria 1+ Urine Mucus RARE Urine Yeast RARE Radiography Diagnostic Testing: Radiology Impression Renal Ultrasound 02/13/21 14:22 IMPRESSION: Unremarkable appearance of the transplant planted left kidney. Electronically Signed: Pawan Ordaz MD at 15:14 EDT , Service support , Discharge Plan Triage Chief Complaint: Complaint ED Provider: Jeancarlos Green Dx/Rx/DC Orders Clinical Impression: Acute pain of left hip, Pain in transplanted kidney, Urinary tract infection Instructions: ED Bladder Infection, Male (Adult) Prescriptions: New ciprofloxacin HCl [ciprofloxacin HCl] 500 MG tablet 500 mg PO BID Qty: 14 RF: 0 No Action mycophenolate mofetil 250 mg capsule 500 mg PO BID RF: 0 tacrolimus 1 mg capsule 3 mg PO DAILY RF: 0 magnesium oxide 400 mg magnesium tablet 400 mg PO BID RF: 0 prednisone 5 mg tablet 5 mg PO DAILY RF: 0 ergocalciferol (vitamin D2) [Vitamin D2] 1,250 mcg (50,000 unit) capsule 50,000 unit PO FR RF: 0 budesonide-formoterol [Symbicort] 160-4.5 mcg/actuation HFA aerosol inhaler 2 puff inhalation BID Qty: 10.2 RF: 1 ondansetron 4 mg tablet,disintegrating 4 mg PO Q8H PRN (Reason: nausea and vomiting) Qty: 30 RF: 0 albuterol sulfate 90 mcg/actuation HFA aerosol inhaler 1 - 2 inh inhalation Q6H PRN (Reason: shortness of breath or wheezing) Qty: 8.5 RF: 2 tramadol 50 mg tablet 50 mg PO Q8H PRN (Reason: pain) Qty: 20 RF: 0 aspirin 81 MG tablet,delayed release (DR/EC) 81 mg PO DAILY RF: 0 cinacalcet 30 MG tablet 30 mg PO BREAKFAST RF: 0 tacrolimus 1 MG capsule 2 mg PO QHS RF: 0 omeprazole [Prilosec] 20 mg Capsule,Delayed Release(Dr/Ec) 20 mg PO BID RF: 0 naproxen [Naprosyn] 500 mg tablet 500 mg PO BID PRN (Reason: pain) Qty: 20 RF: 0 dicyclomine 20 mg tablet 20 mg PO TID PRN (Reason: abdominal discomfort) Qty: 30 RF: 1 amoxicillin-pot clavulanate [Augmentin] 875-125 mg tablet 1 tab PO BID Qty: 14 RF: 0 Primary Care Provider: Wolfgang Reed Referrals: Wolfgang Reed MD [Primary Care Provider] - 3-5 Days Disposition Disposition: Home, Self Care
[2021-02-13 14:27] LABS: Absolute Lymphocyte Count 0.63 X10^3/uL (0.83-4.51); Absolute Neutrophil Count 9.2 X10^3/uL (2.0-7.7); Basophil# 0.04 X10^3/uL; Basophil% 0.4 % (0-1); Eosinophil# 0.01 X10^3/uL; Eosinophils% 0.1 % (0-5); Hematocrit 49.2 % (40-54); Hemoglobin 16.2 g/dL (13.0-16.5); Lymphocyte # 0.63 X10^3/ul (0.83-4.51); Lymphocyte % 5.9 % (19-41); Mean Corp Hgb Conc 32.9 g/dL (32-36); Mean Corpuscular Hgb 29.7 pg (27.0-32.0); Mean Corpuscular Volume 90.3 fL (80-94); Mean Platelet Vol. 10.3 fl (6.2-12.0); Monocyte% 6.5 % (0-10); NRBC Flagged by Analyzer 0 % (0-5); Neutrophil # 9.24 X10^3/uL (2.7-7.7); Neutrophil % 85.9 % (47-70); Platelet Count 236 K/mm3 (150-450); RBC Distribution Width CV 13.8 % (11.6-14.6); RBC Distribution Width SD 45.3 fl (35.1-43.9); Red Blood Count 5.45 M/mm3 (4.6-6.2); White Blood Count 10.8 K/mm3 (4.4-11.0)
[2021-02-13] MEDS: Ondansetron 4 MG/2 ML Vial IV (14:29)
[2021-02-13] MEDS: Morphine 4 MG/ML Syringe IV ×2 (14:29→17:05)
[2021-02-13 14:36] LABS: Anion Gap 7 (5-15); BUN 25 mg/dL (7-18); BUN/Creat Ratio 15.5 RATIO (10-20); Chloride 107 mmol/L (98-107); Creatinine, Serum 1.61 mg/dL (0.70-1.30); EST Glomerular Filtration Rate 50 mL/min (>60); Est Glom Filt Rate - Afr Amer 60 mL/min (>60); Estimated Creatinine Clearance 43.76 ml/min; Glucose 199 mg/dL (74-106); Sodium Level 140 mmol/L (136-145)
[2021-02-13 14:57] LABS: Color, Urine Yellow (Yellow); Glucose, Dipstick Normal (Normal); Ketone-Dipstick 5 mg/dl (Negative); Leukocyte Esterase-Dipstick 500 /ul (Negative); Nitrite-Dipstick Negative (Negative); Occult Blood-Urine 25 /ul (Negative); Protein-Dipstick 30 mg/dl (Negative); Specific Gravity, Urine 1.025 (1.002-1.030); Urine Bilirubin Dipstick Negative (Negative); Urine Clarity Sl. Cloudy (Clear); Urine Urobilinogen 1 mg/dl (Normal)
[2021-02-13 15:04] LABS: Red Blood Cells-Urine 0-5 SEEN /hpf (0-5); Squamous Epithelial Cells - UA 0-5 SEEN /hpf (0-5); White Blood Cells 10-25 SEEN /hpf (0-5)
[2021-02-13 15:05] LABS: Bacteria 1+ /hpf (None Seen); Mucous, Urine RARE /hpf (<or=2+); Yeast-Urine RARE /hpf (None Seen)
--- NOTE | 2021-02-13 16:21 | NURSING ---
CALLED [facility], TRANSPLANT COODINATOR [phone] PELAEZ
--- NOTE | 2021-02-13 16:46 | NURSING ---
CALLED AND LEFT A MESSAGE FOR HOANG, TRANSPLANT COODINATOR AT [facility]. FAX NUMBER MAY BE WRONG
[2021-02-13] MEDS: Ciprofloxacin 500 MG Tablet PO (18:16)
[2021-02-13 18:18] VITALS: BP 161/95; PULSE 70; RESP 16; O2SAT 96
== END 2021-02-13 18:19 | disposition home or self-care (01) ==
PROVIDERS: Emergency Provider Emergency Medicine; PCP Internal Medicine
DX: N39.0 Urinary tract infection, site not specified (principal); M25.552 Pain in left hip; Z94.0 Kidney transplant status; Q60.0 Renal agenesis, unilateral; I25.2 Old myocardial infarction; J44.9 Chronic obstructive pulmonary disease, unspecified; Z79.82 Long term (current) use of aspirin; Z79.899 Other long term (current) drug therapy
CPT/HCPCS: 76776; 80048; 81001; 85025; 87086; 87088; 96374; 96375; 96376; 99285; A4216; J2405

== ENCOUNTER → 2021-02-26 07:36 | Outpatient (CLI) | payer MEDICARE, MEDICAID, SELFPAY ==
--- NOTE | 2021-02-26 07:37 | CT_ITS ---
STUDY: CT ABDOMEN AND PELVIS WITHOUT CONTRAST REASON FOR EXAM: Male, 45 years old. Abdominal pain RADIATION DOSAGE (If Supplied By Facility): CTDIvol = ( 11.37 ) mGy, DLP = ( 480.07 ) mGycm TECHNIQUE: Transaxial images were obtained from the dome of the diaphragm to the symphysis pubis without oral contrast, and without intravenous contrast. Sagittal and coronal images were reconstructed. Individualized dose optimization techniques were used for this CT. COMPARISON: 11/03/20 FINDINGS: Evaluation of the abdominal viscera is limited in the absence of intravenous contrast. There are stable calcified granulomata in the lung bases. The visualized portions of the heart and pericardium are within normal limits. There are no calcified gallstones present. The liver demonstrates an unremarkable unenhanced appearance. The spleen is normal in size. The pancreas demonstrates an unremarkable unenhanced appearance. The adrenal glands are within normal limits. The wrangell kidneys are absent. There is a stable atrophic renal transplant in the right lower quadrant. There is a stable normal size renal transplant in the left lower quadrant. There is no hydronephrosis of the transplant kidney. Normal visualized stomach. There is no bowel obstruction or inflammation. The appendix is not visualized, but there are no findings to suggest acute appendicitis. The aorta is normal in caliber. Again noted are atherosclerotic calcifications in the aorta and its branches. There is no abdominal or pelvic free air, free fluid, fluid collection or lymphadenopathy. There are no destructive osseous lesions. CT/Abdomen/Pelvis without Cont IMPRESSION: No acute abdominal or pelvic pathology demonstrated on this noncontrast CT. Stable absence of the wrangell kidneys with a stable atrophic renal transplant in the right lower quadrant and a stable normal-sized renal transplant in the left lower quadrant. Electronically Signed: Sachin Ramirez MD at 9:08 EDT Tel , Service support ,
== END ==
PROVIDERS: PCP Internal Medicine; Referring Provider Internal Medicine; Visit Provider Internal Medicine
DX: R10.32 Left lower quadrant pain (principal)
CPT/HCPCS: 74176

== ENCOUNTER → 2021-03-13 16:53 | Outpatient (CLI) | payer MEDICARE, MEDICAID, SELFPAY ==
--- NOTE | 2021-03-13 16:56 | MRI_ITS ---
STUDY: MRI LEFT HIP REASON FOR EXAM: Left hip pain for 3 months. TECHNIQUE: Standardized fat and water weighted pulse sequences were obtained in all 3 orthogonal planes. COMPARISON: Radiographs 02/01/2021. FINDINGS: Normal hip joint without articular joint space narrowing. Normal acetabulum. There is a tear of the left anterosuperior labrum (proton-density sagittal images 10, 11). There is avascular necrosis of the left femoral head (inversion recovery coronal images 14-18) without demonstrated subchondral collapse. Normal left femoral neck and intratrochanteric region. There is avascular necrosis of the contralateral right femoral head (inversion recovery coronal images 16-18). Normal gluteus minimus, medius and iliopsoas tendons and distal insertions. There is no trochanteric, iliopsoas or iliopectineal bursitis. Normal superior and inferior pubic rami. Normal pubic symphysis. Normal ischial tuberosity. Normal origin of the hamstring tendons. Normal visualized iliac wing, sacroiliac joint, and sacral ala. There is a transplant kidney in the left lower quadrant and an atrophic transplant kidney in the right lower quadrant. 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 Tear of the left anterosuperior labrum. Electronically Signed: Marquise Pugh MD at 7:18 EDT Tel , Service support ,
--- NOTE | 2021-03-13 16:59 | MRI_ITS ---
STUDY: MRI LUMBAR SPINE WITHOUT CONTRAST REASON FOR EXAM: Male, 45 years old. LOW BACK PAIN,lt hip/groin pain TECHNIQUE: Standardized fat and water weighted pulse sequences were obtained in the sagittal and axial planes. COMPARISON: None FINDINGS: T12-L1: Normal endplates. Normal disc height, hydration and morphology. Normal bilateral facet joints. Normal central canal and bilateral lateral recesses. Normal bilateral intervertebral neural foramina. Normal lumbar lordosis. There is no substantial scoliosis. Normal conus medullaris that terminates at the L2. L1-2: Normal endplates. Normal disc height, hydration and morphology. Normal bilateral facet joints. Normal central canal and bilateral lateral recesses. Normal bilateral intervertebral neural foramina. L2-3: Mild bilateral facet hypertrophy with fluid in the facet joints consistent with instability and mild ligament flavum hypertrophy. 2 mm retrolisthesis of L2 on L3 with a mild bilobed disc protrusion but with a large inferiorly extending left paracentral disc extrusion produces moderate spinal stenosis with mild right lateral recess stenosis and severe left lateral recess stenosis with effacement of the left L3 nerve root but no neural foraminal stenosis. L3-4: Normal endplates. Normal disc height, hydration and morphology. Normal bilateral facet joints. Normal central canal and bilateral lateral recesses. Normal bilateral intervertebral neural foramina. L4-5: Normal endplates. Normal disc height, hydration and morphology. Normal bilateral facet joints. Normal central canal and bilateral lateral recesses. Normal bilateral intervertebral neural foramina. L5-S1: Normal endplates. Normal disc height, hydration and morphology. Normal bilateral facet joints. Normal central canal and bilateral lateral recesses. Normal bilateral intervertebral neural foramina. Normal visualized sacral ala. Normal visualized paraspinous soft tissue structures. MRI/Spine Lumbar (Routine) IMPRESSION: Multilevel degenerative changes, as described above. Electronically Signed: Gutierrez Lawrence MD at 10:15 EDT Tel , Service support ,
== END ==
PROVIDERS: PCP Internal Medicine; Referring Provider Orthopaedic Surgery; Visit Provider Orthopaedic Surgery
DX: M25.552 Pain in left hip (principal); M54.5 Low back pain
CPT/HCPCS: 72148; 73721

== ENCOUNTER 2021-03-26 20:19 | Emergency (ER) | payer MEDICARE, MEDICAID, SELFPAY ==
[2021-03-26 20:21] VITALS: BP 138/127; PULSE 92; RESP 18; TEMP 36.3; O2SAT 98; BMI 27.6
--- NOTE | 2021-03-26 20:25 | RAD_ITS ---
EXAM: XR CHEST, 1 VIEW CLINICAL INDICATION: chest pain TECHNIQUE: Frontal view of the chest. This report was created using [employer] report generation technology. COMPARISON: 10/17/2020 FINDINGS: LUNGS AND PLEURAL SPACES: Stable calcified granulomas in both lung mccray. No pneumothorax. No effusion. HEART: Unremarkable. Cardiac silhouette not enlarged. MEDIASTINUM: Central airways and mediastinal contour are unremarkable. BONES/JOINTS: Unremarkable. SOFT TISSUES: Unremarkable. RAD/Chest 1 View (Portable) IMPRESSION: No acute findings in the chest. Electronically Signed: Tom George MD at 21:10 EDT , Service support ,
--- NOTE | 2021-03-26 20:25 | EKG12_ITS ---
Test Reason : CP Blood Pressure : / mmHG Vent. Rate : 094 BPM Atrial Rate : 094 BPM P-R Int : 108 ms QRS Dur : 090 ms QT Int : 356 ms P-R-T Axes : 014 026 116 degrees QTc Int : 445 ms Sinus rhythm with short OH T wave abnormality, consider anterolateral ischemia Abnormal ECG Confirmed by URSZULA ARANDA, STEFF ([id number]), society editor JANY LOPEZ ([id number]) on 03/28/2021 11:29:30 AM Referred By: GYPSY Confirmed By:STEFF SEAMAN MD
[2021-03-26 20:28] VITALS: O2SAT 97
--- NOTE | 2021-03-26 20:30 | NURSING ---
patient was given 4 baby asa and 1nitro by squad, per patient. reports no change with the CP but did have some dizziness after and reports he had that before too, which is what made him call 9-11.
[2021-03-26 20:31] VITALS: BP 114/83; PULSE 93; RESP 16; O2SAT 97
--- NOTE | 2021-03-26 20:37 | EDS_ITS ---
HPI History of Present Illness Chief Complaint: Chest Pain Informant: patient Onset/Context/Timing Onset: Today and Hours Activity at onset: rest Timing: Continuous Quality: Positive for Dull and Pain Location: Substernal Current Severity: Mild Worsened By: Nothing Relieved By: Nothing Associated Symptoms: Positive for Dyspnea Narrative Narrative: 45-year-old male history of renal transplant x2. States he had a silent UT about 6 years ago where he was cared for in [place]. He cannot remember for sure if he had a cardiac catheterization at that time. He has no stents he has had no bypass surgery. States he awoke around 1 AM this morning with midsternal chest pain. Says been constant now for about 20 hours. He denies any vomiting or diarrhea had mild nausea this morning. He denies shortness of breath. Prior Similar Symptoms: No Recent Illness/Hospitalization: No CVD Risk Factors: Positive for Smoking; Negative for Hypertension, Diabetes and Hypercholesterolemia PE Risk Factors: Negative for Recent Travel/Surgery, Recent Immobilization, Prior DVT or PE, Cancer and OCP + Smoking + >/=35 TAD Risk Factors: Positive for Hypertension [facility] Medical History Abdominal pain COPD (chronic obstructive pulmonary disease) Dysuria Elevated blood pressure reading Myocardial infarction with cardiac rehabilitation Palpitations Right shoulder pain Syncope Home Medications magnesium oxide 400 mg PO BID 09/30/19 [History Last Taken 01/03/20] mycophenolate mofetil 250 mg capsule 500 mg PO BID 09/30/19 [History Last Taken 01/03/20] tacrolimus 1 mg capsule, immediate-release 3 mg PO DAILY cap 09/30/19 [History Last Taken 01/03/20] aspirin 81 mg PO DAILY 02/08/20 [History Last Taken Unknown] tacrolimus 2 mg PO QHS 10/19/20 [History Last Taken Unknown] albuterol sulfate 90 mcg/actuation aerosol inhaler 1 - 2 inh INHALATION Q6H PRN #8.5 g 11/16/20 [Rx Last Taken Unknown] budesonide-formoterol HFA 160 mcg-4.5 mcg/actuation aerosol inhaler 2 puff INHALATION BID #10.2 g 11/21/20 [Rx Last Taken Unknown] cinacalcet 30 mg tablet 30 mg PO BREAKFAST 02/26/21 [History Last Taken Unknown] omeprazole 20 mg capsule,delayed release 20 mg PO BID 02/26/21 [History Last Taken Unknown] prednisone 5 mg tablet 5 mg PO DAILY #30 tab 03/02/21 [Rx Last Taken Unknown] Allergy/AdvReac Type Severity Reaction Status Date / Time hydromorphone [From Dilaudid] Allergy Mild nausea Verified 03/26/21 20:26 Latex, Natural Rubber Allergy Mild rash Verified 03/26/21 20:26 Surgical History History of appendectomy History of cholecystectomy kidney transplant Social History household members: other details: girlfriend and mother Smoking Status: Never smoker Tobacco: How many years used: 20 alcohol intake: never substance use type: does not use do you feel safe at home: Yes ROS ROS ED ROS Narrative Denies. Review of Systems ROS Unobtainable: Denies due to encephalopathy Constitutional Constitutional ED: Denies chills or fever(s) Eyes Eyes: Denies none ENT ENT ED: Denies ear pain or rhinorrhea Cardiovascular Cardiovascular: Reports chest pain; Denies palpitations or racing heartbeat Respiratory/Chest Respiratory/Chest: Reports dyspnea; Denies cough or sputum Gastrointestinal Gastrointestinal: Reports nausea; Denies abdominal pain, diarrhea or vomiting Genitourinary Genitourinary ED: Denies dysuria Musculoskeletal Musculoskeletal: Denies myalgias Integumentary Denies rash Neurologic Neurologic: Denies headache(s) Psychiatric Psychiatric: Denies depression Endocrine Endocrinology: Denies polyuria Hematologic/Lymphatic Hematologic/Lymphatic: Denies easy bruising Allergic/Immunologic Allergic/Immunologic ED: Denies urticaria EXAM Physical Exam Narrative Exam Narrative: Middle-age male no acute distress blood pressure is elevated 130/127 rechecked 114/83. Pulse ox 90% room air no signs hypoxia. HEENT exam unremarkable. Neck nontender no JVD. Lungs coarse breath sounds bilaterally. A few expiratory wheezes. History of COPD. Heart regular rate and rhythm rate about 90. Chest wall nontender. Abdomen soft nontender. Moving all 4 extremities. Calves nontender without edema or cords. He has a fistula in his left forearm. Neurologically is awake and alert. Const Vital Signs: 03/26/21 20:21 03/26/21 20:28 03/26/21 20:31 Temperature 97.3 F L Temperature Source Temporal Pulse Rate 92 93 Respiratory Rate 18 16 Blood Pressure 138/127 H 114/83 H Blood Pressure Mean 130 93 Pulse Ox 98 97 97 Oxygen Delivery Method Room Air Room Air 03/26/21 22:18 Temperature Temperature Source Pulse Rate 77 Respiratory Rate 19 H Blood Pressure 141/88 H Blood Pressure Mean 105 Pulse Ox 96 Oxygen Delivery Method Room Air Positive well nourished; Negative for obese, cachectic, contractures or unkempt General Appearance ED: NAD; Negative for unkempt, cachectic or contractures Nutritional Appearance: Negative for cachectic or obese HEENT Reports moist mucous membranes normocephalic and atraumatic; Negative for trauma or tenderness Eyes PERRL and EOMs intact bilaterally General Eye ED: Negative for pale conjunctiva or scleral icterus Neck no lymphadenopathy, supple and no JVD General: Negative for tenderness Chest Wall inspection of chest normal and palpation of chest normal Chest: Negative for tenderness Resp normal respiratory effort and No clear to auscultation bilaterally Effort and Inspection: respiratory distress Auscultation: wheezes; Negative for rales or rhonchi Cardio regular rate, regular rhythm, S1 normal heart sound, S2 normal heart sound and no murmurs Rate: Negative for tachycardic GI normal to inspection, nondistended, normoactive bowel sounds, soft to palpation, non-tender, non-distended and no masses Auscultation: Negative for hyperactive bowel sounds Back/Spine no CVA tenderness Extremity normal to inspection Extremity Narrative: Left forearm fistula. General Extremety ED: Negative for edema or tenderness General Extremity: Negative for edema Neuro oriented x3 Sensorium / Orientation: awake, alert, oriented to person, oriented to place and oriented to time Motor Exam: strength 5/5 throughout Psych Appearance: Negative for unkempt Skin no rashes or lesions noted and no wounds Heart Score History: Slightly/Non-Suspicious ECG: Significant ST-Depression Age: </= 45 years Risk Factors: 1 or 2 Risk Factors Troponin: </= Normal Limit Score: 3 MDM MDM MDM Narrative Medical decision making narrative: 45-year-old male reported history of prior silent UT. Denies stents or prior bypass. Unsure if he ever had a heart catheterization. Patient with non-reproducible midsternal chest pain and that now has been going on for 21 hours. He also has a history of renal transplant. Undergoing cardiac work-up. Repeat exam at 10:05 PM patient is doing well. States he still has some discomfort. Squad did give him nitro prior to arrival which she said did nothing for his pain. Will be given a GI cocktail and Protonix p.o. I am obtaining a second EKG. The chest pain does not sound cardiac. I plan on discharging him home. Repeat exam patient is doing well at 10:28 PM. Symptoms are improved. Lab Data Attestation: I reviewed the patient's lab results. Lab results narrative: CBC shows a white count 9. Hemoglobin 14. Electrolytes show a gap of 6. Creatinine 1.43. Glucose 175. Troponin is 18. Patient has known renal insufficiency. Labs: Laboratory Results - last 24 hr 03/26/21 03/26/21 20:10 20:10 WBC 9.4 RBC 4.74 Hgb 14.3 Hct 43.6 MCV 92.0 MCH 30.2 MCHC 32.8 RDW Std Deviation 48.2 H RDW Coeff of Tari 14.4 Plt Count 239 MPV 10.7 Immature Gran % (Auto) 1.300 H Neut % (Auto) 78.4 H Lymph % (Auto) 11.0 L Giles % (Auto) 8.8 Eos % (Auto) 0.2 Baso % (Auto) 0.3 Absolute Neuts (auto) 7.3 Absolute Lymphs (auto) 1.03 Nucleated RBC % 0 Sodium 140 Potassium 3.8 Chloride 109 H Carbon Dioxide 25.0 Anion Gap 6 BUN 25 H Creatinine 1.43 H Estim Creat Clear Calc 55.77 Est GFR (MDRD) Af Amer 69 Est GFR (MDRD) Non-Af 57 L BUN/Creatinine Ratio 17.5 Glucose 175 H Calcium 9.3 Troponin I High Sens 18 Radiography Chest X-Ray - ED: 1 View, Read by ED Physician, Heart, Mediastinum, Bony Structures, No Acute Disease and Chronic Changes Diagnostic Testing: Radiology Impression Chest X-Ray 03/26/21 20:25 IMPRESSION: No acute findings in the chest. Electronically Signed: Tom George MD at 21:10 EDT , Service support , Single view portable chest x-ray interpreted by myself shows chronic changes consistent with COPD. Normal cardiac silhouette mediastinum. No acute process. Rhythm Strip Rhythm Strip: Sinus Rhythm Rate: 94 Ectopy: None EKG Initial EKG: Attestation: I personally reviewed and interpreted this EKG as follows: Interpretation: Sinus Rhythm Comments: Normal sinus rhythm rate of 84. He does have ST flattening in leads V2 through V6 which is seen on prior EKG from September of this year. There i s no ST elevation. Prior: Unchanged Follow-up EKG: Attestation: I personally reviewed and interpreted this EKG as follows: Interpretation: Sinus Rhythm and No Acute Injury Pattern Comments: Normal sinus rhythm rate of 89 and unchanged from prior EKG. Patient has chronic ST flattening in V2 through V6. That is not new or changed. Prior EKG tracings: available for review Prior: Unchanged Discharge Plan Triage Chief Complaint: Chest Pain ED Provider: Johny Marquez Dx/Rx/DC Orders Clinical Impression: Chest pain, Acid reflux Instructions: ED Chest Pain, Uncertain Cause, ED GERD (Adult) Prescriptions: No Action mycophenolate mofetil [CellCept] 250 mg capsule 500 mg PO BID RF: 0 tacrolimus [Prograf] 1 mg capsule 3 mg PO DAILY RF: 0 magnesium oxide 400 mg magnesium tablet 400 mg PO BID RF: 0 budesonide-formoterol [Symbicort] 160-4.5 mcg/actuation HFA aerosol inhaler 2 puff inhalation BID Qty: 10.2 RF: 1 albuterol sulfate 90 mcg/actuation HFA aerosol inhaler 1 - 2 inh inhalation Q6H PRN (Reason: shortness of breath or wheezing) Qty: 8.5 RF: 2 prednisone 5 mg tablet 5 mg PO DAILY Qty: 30 RF: 1 aspirin 81 MG tablet,delayed release (DR/EC) 81 mg PO DAILY RF: 0 cinacalcet [Sensipar] 30 mg tablet 30 mg PO BREAKFAST RF: 0 tacrolimus 1 MG capsule 2 mg PO QHS RF: 0 omeprazole 20 mg capsule,delayed release(DR/EC) 20 mg PO BID RF: 0 Primary Care Provider: Wolfgang Reed Referrals: Wolfgang Reed MD [Primary Care Provider] - 3-5 Days Activity Restrictions/Additional Instructions: Continue current medications. Follow-up with your doctor. Return if feeling nauseous. Disposition Disposition: Home, Self Care
[2021-03-26 20:39] LABS: Absolute Lymphocyte Count 1.03 X10^3/uL (0.83-4.51); Absolute Neutrophil Count 7.3 X10^3/uL (2.0-7.7); Basophil# 0.03 X10^3/uL; Basophil% 0.3 % (0-1); Eosinophil# 0.02 X10^3/uL; Eosinophils% 0.2 % (0-5); Hematocrit 43.6 % (40-54); Hemoglobin 14.3 g/dL (13.0-16.5); Lymphocyte # 1.03 X10^3/ul (0.83-4.51); Mean Corp Hgb Conc 32.8 g/dL (32-36); Mean Corpuscular Hgb 30.2 pg (27.0-32.0); Mean Platelet Vol. 10.7 fl (6.2-12.0); Monocyte# 0.82 X10^3/uL; Monocyte% 8.8 % (0-10); NRBC Flagged by Analyzer 0 % (0-5); Neutrophil # 7.33 X10^3/uL (2.7-7.7); Neutrophil % 78.4 % (47-70); Platelet Count 239 K/mm3 (150-450); RBC Distribution Width CV 14.4 % (11.6-14.6); RBC Distribution Width SD 48.2 fl (35.1-43.9); Red Blood Count 4.74 M/mm3 (4.6-6.2); White Blood Count 9.4 K/mm3 (4.4-11.0)
[2021-03-26 20:55] LABS: Anion Gap 6 (5-15); BUN 25 mg/dL (7-18); BUN/Creat Ratio 17.5 RATIO (10-20); Calcium,Total 9.3 mg/dL (8.5-10.1); Chloride 109 mmol/L (98-107); Creatinine, Serum 1.43 mg/dL (0.70-1.30); EST Glomerular Filtration Rate 57 mL/min (>60); Est Glom Filt Rate - Afr Amer 69 mL/min (>60); Estimated Creatinine Clearance 55.77 ml/min; Glucose 175 mg/dL (74-106); Potassium 3.8 mmol/L (3.5-5.1); Sodium Level 140 mmol/L (136-145); Troponin-I HS 18 pg/mL (3.0-78.0)
--- NOTE | 2021-03-26 22:08 | EKG12_ITS ---
Test Reason : CP Blood Pressure : / mmHG Vent. Rate : 089 BPM Atrial Rate : 089 BPM P-R Int : 116 ms QRS Dur : 092 ms QT Int : 364 ms P-R-T Axes : 031 033 101 degrees QTc Int : 442 ms Normal sinus rhythm Nonspecific T wave abnormality Abnormal ECG Confirmed by URSZULA ARANDA, STEFF ([id number]), order editor JANY LOPEZ ([id number]) on 03/28/2021 11:29:42 AM Referred By: GYPSY Confirmed By:STEFF SEAMAN MD
[2021-03-26 22:18] VITALS: BP 141/88; PULSE 77; RESP 19; O2SAT 96
[2021-03-26] MEDS: Pantoprazole Sodium 40 MG Tablet PO (22:31)
[2021-03-26] MEDS: Mag Hydrox/Al Hydrox/Simeth 30 ML UDC PO (22:32)
[2021-03-26 22:47] VITALS: BP 119/90; PULSE 77; RESP 16; O2SAT 94
== END 2021-03-26 23:00 | disposition home or self-care (01) ==
PROVIDERS: Emergency Provider Emergency Medicine; PCP Internal Medicine
DX: R07.89 Other chest pain (principal); K21.9 Gastro-esophageal reflux disease without esophagitis; I10 Essential (primary) hypertension; F32.9 Major depressive disorder, single episode, unspecified; J44.9 Chronic obstructive pulmonary disease, unspecified; I25.2 Old myocardial infarction; Z94.0 Kidney transplant status; Z79.82 Long term (current) use of aspirin; Z79.899 Other long term (current) drug therapy
CPT/HCPCS: 71045; 80048; 84484; 85025; 93005; 99285; A4216

== ENCOUNTER 2021-04-03 10:31 | Emergency (ER) | payer MEDICARE, MEDICAID, SELFPAY ==
[2021-04-03 10:32] VITALS: BP 170/111; PULSE 73; RESP 14; TEMP 36.3; O2SAT 97; BMI 30.2
--- NOTE | 2021-04-03 11:40 | EDS_ITS ---
HPI History of Present Illness Chief Complaint: Dizziness Informant: patient Narrative Narrative: Patient is a 45-year-old male presenting with bleeding from his left ear as well as dizziness. Patient states he woke up this morning and noticed that there was something wet coming from his left ear. He looked and saw that it was blood. He notes 2 days ago there is dark drainage coming from his ear but did not think too much of it. He is not have any associated pain. He did also develop a headache and dizziness this morning. He does use Q-tips regularly but denies any trauma to his ear. Denies any hearing changes. Denies any vision changes. Denies any recent illnesses but notes he does have COPD so has a chronic cough. Is not on any blood thinners. No other complaints at this time. [facility] Medical History Abdominal pain COPD (chronic obstructive pulmonary disease) Dysuria Elevated blood pressure reading Myocardial infarction with cardiac rehabilitation Palpitations Right shoulder pain Syncope Home Medications magnesium oxide 400 mg PO BID 09/30/19 [History Last Taken 01/03/20] mycophenolate mofetil 250 mg capsule 500 mg PO BID 09/30/19 [History Last Taken 01/03/20] tacrolimus 1 mg capsule, immediate-release 3 mg PO DAILY cap 09/30/19 [History Last Taken 01/03/20] aspirin 81 mg PO DAILY 02/08/20 [History Last Taken Unknown] tacrolimus 2 mg PO QHS 10/19/20 [History Last Taken Unknown] albuterol sulfate 90 mcg/actuation aerosol inhaler 1 - 2 inh INHALATION Q6H PRN #8.5 g 11/16/20 [Rx Last Taken Unknown] budesonide-formoterol HFA 160 mcg-4.5 mcg/actuation aerosol inhaler 2 puff INHALATION BID #10.2 g 11/21/20 [Rx Last Taken Unknown] cinacalcet 30 mg tablet 30 mg PO BREAKFAST 02/26/21 [History Last Taken Unknown] omeprazole 20 mg capsule,delayed release 20 mg PO BID 02/26/21 [History Last Taken Unknown] prednisone 5 mg tablet 5 mg PO DAILY #30 tab 03/02/21 [Rx Last Taken Unknown] ciprofloxacin-dexamethasone [Ciprodex] 4 drp LEFT EAR Q12H 7 Days #7.5 ml 04/03/21 [Rx Last Taken Unknown] meclizine 25 mg PO TID PRN #20 tab 04/03/21 [Rx Last Taken Unknown] Allergy/AdvReac Type Severity Reaction Status Date / Time Latex, Natural Rubber Allergy Mild rash Verified 04/03/21 10:32 hydromorphone [From Dilaudid] AdvReac Mild nausea Verified 04/03/21 10:32 Surgical History History of appendectomy History of cholecystectomy kidney transplant Social History household members: other details: girlfriend and mother Smoking Status: Never smoker Tobacco: How many years used: 20 alcohol intake: never substance use type: does not use do you feel safe at home: Yes ROS ROS ED Constitutional Constitutional ED: Denies chills, fever(s) or malaise Eyes Eyes: Denies blurry vision or loss of vision ENT ENT ED: Reports other Details: bleeding from left ear ; Denies ear pain, rhinorrhea or sore throat Cardiovascular Cardiovascular: Denies chest pain or dizziness Respiratory/Chest Respiratory/Chest: Denies cough or dyspnea Gastrointestinal Gastrointestinal: Denies nausea or vomiting Genitourinary Genitourinary ED: Denies dysuria or hematuria Musculoskeletal Musculoskeletal: Denies arthralgias or myalgias Integumentary Denies rash or wounds Neurologic Neurologic: Denies focal weakness or headache(s) Psychiatric Psychiatric: Denies anxiety or behavioral changes EXAM Physical Exam Const Vital Signs: 04/03/21 10:32 04/03/21 11:23 04/03/21 13:09 Temperature 97.3 F L Temperature Source Temporal Pulse Rate 73 72 Respiratory Rate 14 15 Respiratory Effort Normal Non-Labored Respiratory Pattern Normal Blood Pressure 170/111 H 131/69 H Blood Pressure Mean 130 Pulse Ox 97 96 Oxygen Delivery Method Room Air Positive well nourished and well developed General Appearance ED: well developed HEENT HEENT Narrative: Normal right ear. Clot of blood noted in the left ear canal. No active bleeding appreciated however there is blood in the ear canal diffusely. Tympanic membrane is visualized and is cloudy. No active bleeding or perforation noted in the TM. Negative for trauma or tenderness Eyes PERRL and EOMs intact bilaterally Eyes Narrative: Very mild nystagmus with lateral gaze, fatiguing Neck supple Cardio regular rate, regular rhythm and no murmurs GI normal to inspection, nondistended, normoactive bowel sounds Extremity normal to inspection General Extremety ED: Negative for edema General Extremity: Negative for edema Neuro oriented x3 and no sensory deficits noted Neuro Narrative: Normal strength throughout Sensorium / Orientation: alert Motor Exam: Negative for general weakness Psych mental status grossly normal Skin no rashes or lesions noted MDM MDM MDM Narrative Medical decision making narrative: Patient is evaluated for dizziness as well as bleeding from his left ear. On exam patient does have bright red blood in his ear and initially the canal is occluded with a clot. Tubbs suction used to remove the clots and patient appears to have an intact tympanic membrane. He does have a very cloudy TM. Patient has no focal neurologic deficits and his dizziness is mild. I suspect this is peripheral vertigo. He is given dose of meclizine in the ER for this. I suspect he likely has an abrasion to the ear canal. Case is discussed with ENT on-call, Dr. Ray, who recommends Cipro otic drops, cottonball packing to the ear as needed for bleeding and follow-up in 1 week. Patient is agreeable this plan of care. He is counseled on return precautions. Discharge Plan Triage Chief Complaint: Dizziness ED Provider: Radha Benjamin Dx/Rx/DC Orders Clinical Impression: Vertigo, Laceration of left ear canal Instructions: ED BPV Vertigo Prescriptions: New meclizine 25 mg tablet 25 mg PO TID PRN (Reason: dizziness) Qty: 20 RF: 0 ciprofloxacin-dexamethasone [Ciprodex] 0.3-0.1 % drops,suspension 4 drp LEFT EAR Q12H 7 Days Qty: 7.5 RF: 0 No Action mycophenolate mofetil [CellCept] 250 mg capsule 500 mg PO BID RF: 0 tacrolimus [Prograf] 1 mg capsule 3 mg PO DAILY RF: 0 magnesium oxide 400 mg magnesium tablet 400 mg PO BID RF: 0 budesonide-formoterol [Symbicort] 160-4.5 mcg/actuation HFA aerosol inhaler 2 puff inhalation BID Qty: 10.2 RF: 1 albuterol sulfate 90 mcg/actuation HFA aerosol inhaler 1 - 2 inh inhalation Q6H PRN (Reason: shortness of breath or wheezing) Qty: 8.5 RF: 2 prednisone 5 mg tablet 5 mg PO DAILY Qty: 30 RF: 1 aspirin 81 MG tablet,delayed release (DR/EC) 81 mg PO DAILY RF: 0 cinacalcet [Sensipar] 30 mg tablet 30 mg PO BREAKFAST RF: 0 tacrolimus 1 MG capsule 2 mg PO QHS RF: 0 omeprazole 20 mg capsule,delayed release(DR/EC) 20 mg PO BID RF: 0 Primary Care Provider: Wolfgang eRed Referrals: Marcus Cain MD [STAFF PHYSICIAN] - 1 Week Wolfgang Reed MD [Primary Care Provider] - Activity Restrictions/Additional Instructions: Place a clean cotton ball in your ear to help with the bleeding. Apply eardrops twice a day as prescribed. Follow-up with ear nose and throat doctor in 1 week. Return if you have any worsening symptoms. Disposition Disposition: Home, Self Care Discharge Date/Time: 04/03/21 13:10
[2021-04-03] MEDS: Meclizine HCl 25 MG Tablet PO (11:42)
[2021-04-03 13:09] VITALS: BP 131/69; PULSE 72; RESP 15; O2SAT 96
== END 2021-04-03 13:10 | disposition home or self-care (01) ==
PROVIDERS: Emergency Provider Emergency Medicine; PCP Internal Medicine
DX: R42 Dizziness and giddiness (principal); S01.312A Laceration without foreign body of left ear, initial encounter; X58.XXXA Exposure to other specified factors, initial encounter; Y93.9 Activity, unspecified; Y92.9 Unspecified place or not applicable; J44.9 Chronic obstructive pulmonary disease, unspecified; I25.2 Old myocardial infarction; Z79.82 Long term (current) use of aspirin; Z79.899 Other long term (current) drug therapy
CPT/HCPCS: 99283

== ENCOUNTER 2021-04-24 08:18 | Outpatient (RCR) | payer MEDICARE, MEDICAID, SELFPAY | END 2021-04-29 05:18 | disposition home or self-care (01) | LOC: LAB 08:18 | PROVIDERS: PCP Internal Medicine | DX: T86.10 Unspecified complication of kidney transplant (principal); N18.9 Chronic kidney disease, unspecified; D63.1 Anemia in chronic kidney disease; E83.39 Other disorders of phosphorus metabolism; E83.40 Disorders of magnesium metabolism, unspecified; Z79.899 Other long term (current) drug therapy ==

== ENCOUNTER 2021-05-03 07:54 | Outpatient (RCR) | payer MEDICARE, MEDICAID, SELFPAY ==
[2021-04-29 05:18] VITALS: BMI 30.9
[2021-05-03 08:28] LABS: Mucous, Urine 0 SEEN /hpf (<or=2+); Red Blood Cells-Urine 0 SEEN /hpf (0-5); Squamous Epithelial Cells - UA 0 SEEN /hpf (0-5)
[2021-05-03 08:56] LABS: Color, Urine Yellow (Yellow); Glucose, Dipstick Normal (Normal); Ketone-Dipstick Negative (Negative); Leukocyte Esterase-Dipstick 100 /ul (Negative); Nitrite-Dipstick Negative (Negative); Occult Blood-Urine 10 /ul (Negative); Protein-Dipstick 15 mg/dl (Negative); Urine Bilirubin Dipstick Negative (Negative); Urine Clarity Clear (Clear); Urine Urobilinogen Normal (Normal)
[2021-05-03 08:58] LABS: Absolute Lymphocyte Count 1.57 X10^3/uL (0.83-4.51); Absolute Neutrophil Count 6.3 X10^3/uL (2.0-7.7); Basophil# 0.06 X10^3/uL; Basophil% 0.6 % (0-1); Eosinophil# 0.08 X10^3/uL; Eosinophils% 0.8 % (0-5); Hematocrit 46.6 % (40-54); Hemoglobin 15.1 g/dL (13.0-16.5); Lymphocyte # 1.57 X10^3/ul (0.83-4.51); Lymphocyte % 16.7 % (19-41); Mean Corp Hgb Conc 32.4 g/dL (32-36); Mean Corpuscular Hgb 30.3 pg (27.0-32.0); Mean Corpuscular Volume 93.6 fL (80-94); Mean Platelet Vol. 10.3 fl (6.2-12.0); Monocyte# 1.23 X10^3/uL; Monocyte% 13.1 % (0-10); NRBC Flagged by Analyzer 0 % (0-5); Neutrophil # 6.29 X10^3/uL (2.7-7.7); Neutrophil % 66.8 % (47-70); Platelet Count 221 K/mm3 (150-450); RBC Distribution Width SD 51.6 fl (35.1-43.9); Red Blood Count 4.98 M/mm3 (4.6-6.2); White Blood Count 9.4 K/mm3 (4.4-11.0)
[2021-05-03 09:09] LABS: Protein, Urine (Random) 26.6 mg/dL (<11.9); Protein:Creat Ratio 209 mg/g CRE (0-200)
[2021-05-03 09:15] LABS: Bacteria 2+ /hpf (None Seen); White Blood Cells 10-25 SEEN /hpf (0-5)
[2021-05-03 09:24] LABS: AST(SGOT) 19 U/L (15-37); Alanine Aminotransfer ALT/SGPT 30 U/L (16-61); Albumin, Serum 3.8 g/dL (3.2-5.0); Alkaline Phosphatase 104 U/L (45-117); Anion Gap 7 (5-15); BUN 23 mg/dL (7-18); BUN/Creat Ratio 17.8 RATIO (10-20); CPK Total, Creatine Kinase 98 U/L (39-308); Calcium,Total 10.8 mg/dL (8.5-10.1); Chloride 105 mmol/L (98-107); Cholesterol 219 mg/dL (200); Creatinine, Serum 1.29 mg/dL (0.70-1.30); EST Glomerular Filtration Rate 64 mL/min (>60); Est Glom Filt Rate - Afr Amer 78 mL/min (>60); Globulin 3.9 g/dL (2.2-4.2); Glucose 124 mg/dL (74-106); High Density Lipoprotein 89 mg/dL; LDH 234 U/L (87-241); Magnesium 1.9 mg/dL (1.6-2.6); Phosphorus 1.9 mg/dL (2.5-4.9); Potassium 4.3 mmol/L (3.5-5.1); Protein, Total 7.7 g/dL (6.4-8.2); Sodium Level 140 mmol/L (136-145); Triglycerides 114 mg/dL; Uric Acid 7.8 mg/dL (3.5-7.2); Very Low Density Lipoprotein 23 mg/dL (5-40)
[2021-05-08 16:30] LABS: Tacrolimus (FK506) 3.6 ng/mL (2.0-20.0)
== END 2021-05-29 18:00 | disposition home or self-care (01) ==
LOC: LAB 07:54
PROVIDERS: PCP Internal Medicine
DX: Z94.0 Kidney transplant status (principal); T86.10 Unspecified complication of kidney transplant; N18.9 Chronic kidney disease, unspecified; D63.1 Anemia in chronic kidney disease; E83.39 Other disorders of phosphorus metabolism; E83.40 Disorders of magnesium metabolism, unspecified; Z79.899 Other long term (current) drug therapy
CPT/HCPCS: 80053; 80061; 80197; 81001; 82550; 82570; 83615; 83735; 84100; 84156; 84550; 85025

== ENCOUNTER 2021-07-05 08:11 | Outpatient (RCR) | payer MEDICARE, MEDICAID, SELFPAY ==
[2021-05-30 03:52] VITALS: BMI 30.9
[2021-07-05 08:18] LABS: Mucous, Urine 0 SEEN /hpf (<or=2+); Red Blood Cells-Urine 0 SEEN /hpf (0-5)
[2021-07-05 12:29] LABS: Color, Urine Yellow (Yellow); Glucose, Dipstick Normal (Normal); Ketone-Dipstick Negative (Negative); Leukocyte Esterase-Dipstick 100 /ul (Negative); Nitrite-Dipstick Negative (Negative); Occult Blood-Urine 25 /ul (Negative); Protein-Dipstick Negative (Negative); Specific Gravity, Urine 1.015 (1.002-1.030); Urine Bilirubin Dipstick Negative (Negative); Urine Clarity Clear (Clear); Urine Urobilinogen Normal (Normal)
[2021-07-05 12:37] LABS: Bacteria RARE /hpf (None Seen); Squamous Epithelial Cells - UA 0-5 SEEN /hpf (0-5); White Blood Cells 0-5 SEEN /hpf (0-5)
[2021-07-05 12:38] LABS: Absolute Neutrophil Count 3.7 X10^3/uL (2.0-7.7); Basophil# 0.03 X10^3/uL; Basophil% 0.5 % (0-1); Eosinophil# 0.03 X10^3/uL; Eosinophils% 0.5 % (0-5); Hematocrit 49.1 % (40-54); Hemoglobin 16.1 g/dL (13.0-16.5); Mean Corp Hgb Conc 32.8 g/dL (32-36); Mean Corpuscular Hgb 30.1 pg (27.0-32.0); Mean Corpuscular Volume 91.8 fL (80-94); Mean Platelet Vol. 11.1 fl (6.2-12.0); Monocyte% 24.7 % (0-10); NRBC Flagged by Analyzer 0 % (0-5); Neutrophil # 3.65 X10^3/uL (2.7-7.7); Neutrophil % 56.2 % (47-70); POSITIVE DIFFERENTIAL YES; Platelet Count 190 K/mm3 (150-450); RBC Distribution Width CV 14.5 % (11.6-14.6); RBC Distribution Width SD 48.5 fl (35.1-43.9); Red Blood Count 5.35 M/mm3 (4.6-6.2); White Blood Count 6.5 K/mm3 (4.4-11.0)
[2021-07-05 12:47] LABS: Protein:Creat Ratio 241 mg/g CRE (0-200)
[2021-07-05 12:54] LABS: AST(SGOT) 25 U/L (15-37); Alanine Aminotransfer ALT/SGPT 36 U/L (16-61); Albumin, Serum 3.9 g/dL (3.2-5.0); Alkaline Phosphatase 105 U/L (45-117); Anion Gap 8 (5-15); BUN 17 mg/dL (7-18); BUN/Creat Ratio 13.5 RATIO (10-20); CPK Total, Creatine Kinase 70 U/L (39-308); Calcium,Total 10.3 mg/dL (8.5-10.1); Chloride 105 mmol/L (98-107); Creatinine, Serum 1.26 mg/dL (0.70-1.30); EST Glomerular Filtration Rate 66 mL/min (>60); Est Glom Filt Rate - Afr Amer 80 mL/min (>60); Globulin 3.9 g/dL (2.2-4.2); Glucose 91 mg/dL (74-106); LDH 173 U/L (87-241); Phosphorus 2.3 mg/dL (2.5-4.9); Potassium 3.5 mmol/L (3.5-5.1); Protein, Total 7.8 g/dL (6.4-8.2); Sodium Level 138 mmol/L (136-145); Uric Acid 8.1 mg/dL (3.5-7.2)
[2021-07-05 13:04] LABS: Differential Comment SCANNED; Differential Indicated SCAN CRITERIA MET
[2021-07-09 10:40] LABS: Tacrolimus (FK506) 3.8 ng/mL (2.0-20.0)
== END 2021-07-30 18:00 | disposition home or self-care (01) ==
LOC: LAB 08:11
PROVIDERS: PCP Internal Medicine
DX: N18.9 Chronic kidney disease, unspecified (principal); E83.40 Disorders of magnesium metabolism, unspecified; D63.1 Anemia in chronic kidney disease; E83.39 Other disorders of phosphorus metabolism; Z79.899 Other long term (current) drug therapy; T86.10 Unspecified complication of kidney transplant
CPT/HCPCS: 36415; 80053; 80197; 81001; 82550; 82570; 83615; 83735; 84100; 84156; 84550; 85025

== ENCOUNTER 2021-07-10 15:24 | Emergency (ER) | payer MEDICARE, OTHER, MEDICAID, SELFPAY ==
[2021-07-10 15:25] VITALS: BP 139/103; PULSE 91; RESP 24; TEMP 36; O2SAT 94; BMI 26.6
[2021-07-10 15:39] VITALS: BP 157/109; PULSE 78; RESP 18; O2SAT 93; O2SAT 94
--- NOTE | 2021-07-10 15:40 | EDS_ITS ---
HPI History of Present Illness Chief Complaint: Shortness of Breath Detail of Chief Complaint: COVID-19, cough, dyspnea, and diarrhea Informant: patient Narrative Narrative: Patient presents to the emergency department with COVID symptoms x5 days and diagnosed 5 days ago at urgent care. Patient is a renal transplant patient 4 years ago in [place]. Patient was advised to because he has had diarrhea for the last 4 days to come to the ER and get some fluids and have his renal function checked. Patient's had nausea but no vomiting and has been able to keep his antirejection meds down. Patient describes a mild dyspnea. He denies significant chest pain. He has had no fever. Patient does have history of COPD. Prior similar symptoms: No PFSH [facility] Medical History Abdominal pain COPD (chronic obstructive pulmonary disease) Dysuria Elevated blood pressure reading Left hip pain Myocardial infarction with cardiac rehabilitation Palpitations Preoperative evaluation to rule out surgical contraindication Right shoulder pain Syncope Home Medications magnesium oxide 400 mg PO BID 09/30/19 [History Last Taken 01/03/20] mycophenolate mofetil 250 mg capsule 500 mg PO BID 09/30/19 [History Last Taken 01/03/20] tacrolimus 1 mg capsule, immediate-release 3 mg PO DAILY cap 09/30/19 [History Last Taken 01/03/20] aspirin 81 mg PO DAILY 02/08/20 [History Last Taken Unknown] albuterol sulfate 90 mcg/actuation aerosol inhaler 1 - 2 inh INHALATION Q6H PRN #8.5 g 11/16/20 [Rx Last Taken Unknown] budesonide-formoterol HFA 160 mcg-4.5 mcg/actuation aerosol inhaler 2 puff INHALATION BID #10.2 g 11/21/20 [Rx Last Taken Unknown] cinacalcet 30 mg tablet 30 mg PO BREAKFAST 02/26/21 [History Last Taken Unknown] omeprazole 20 mg capsule,delayed release 20 mg PO BID 02/26/21 [History Last Taken Unknown] prednisone 5 mg tablet 5 mg PO DAILY #30 tab 03/02/21 [Rx Last Taken Unknown] ciprofloxacin-dexamethasone [Ciprodex] 4 drp LEFT EAR Q12H 7 Days #7.5 ml 04/03/21 [Rx Last Taken Unknown] meclizine 25 mg PO TID PRN #20 tab 04/03/21 [Rx Last Taken Unknown] tacrolimus 1 mg capsule, immediate-release 3 mg PO QHS cap 07/04/21 [History Last Taken Unknown] ondansetron 4 mg PO Q8H PRN PRN #10 tab 07/10/21 [Rx Last Taken Unknown] Allergy/AdvReac Type Severity Reaction Status Date / Time Latex, Natural Rubber Allergy Mild rash Verified 07/10/21 15:28 hydromorphone [From Dilaudid] AdvReac Mild nausea Verified 07/10/21 15:28 Surgical History History of appendectomy History of cholecystectomy kidney transplant Social History household members: other details: girlfriend and mother Smoking Status: Never smoker Tobacco: How many years used: 20 alcohol intake: never substance use type: does not use do you feel safe at home: Yes ROS ROS ED Constitutional Constitutional ED: Reports systems reviewed and no addt'l complaints, except as documented; Denies body ache(s), change in weight or chills Eyes Eyes: Denies acute decrease in peripheral vision, change in vision, double vision or loss of vision ENT ENT ED: Reports none; Denies ear pain, lip swelling, loss taste/smell, neck pain, otalgia or sore throat Cardiovascular Cardiovascular: Reports none; Denies abdominal pain, chest pain with activity, leg edema, lightheadedness, palpitations, rapid heart rate or syncope Respiratory/Chest Respiratory/Chest: Reports none, cough and dyspnea; Denies change in mental status, dry cough, hemoptysis, shortness of breath at rest or shortness of breath with exertion Gastrointestinal Gastrointestinal: Reports none, diarrhea and nausea; Denies abdominal pain, ch floyd in stool character, hematemesis, hematochezia, melena, rectal bleeding or vomiting Genitourinary Genitourinary ED: Reports none; Denies abdominal discomfort, anuria, dysuria, genital pain or polyuria Musculoskeletal Musculoskeletal: Reports none; Denies arthralgias, back pain, difficulty walking, extremity pain, muscle weakness or myalgias Integumentary Reports none; Denies abscess or rash Neurologic Neurologic: Reports none; Denies abnormal gait, confusion, focal weakness, frequent falls, headache(s), loss of vision, numbness, paresthesias, radicular pain, vertigo or weakness Psychiatric Psychiatric: Reports systems reviewed and no addt'l complaints, except as documented and none; Denies behavioral changes, confusion, difficulty concentrating, hallucinations, suicidal ideation, tactile hallucinations or visual hallucinations Endocrine Endocrinology: Denies none, cold intolerance, excessive sweating, fatigue or heat intolerance Hematologic/Lymphatic Hematologic/Lymphatic: Reports none; Denies anemia, easy bleeding or easy bruising Allergic/Immunologic Allergic/Immunologic ED: Denies as per HPI, none, lip swelling, mouth swelling, throat swelling, tongue swelling or hives EXAM Physical Exam Const Vital Signs: 07/10/21 15:25 07/10/21 15:39 Temperature 96.8 F L Temperature Source Temporal Pulse Rate 91 78 Respiratory Rate 24 H 18 Respiratory Effort Non-Labored Short of Breath Blood Pressure 139/103 H 157/109 H Blood Pressure Mean 115 125 Pulse Ox 94 93 Oxygen Delivery Method Room Air Room Air Positive well nourished and well developed General Appearance ED: well developed and NAD HEENT Reports TM's clear and moist mucous membranes normocephalic and atraumatic; Negative for trauma or tenderness Tympanic Membrane ED: Yes TM's clear Eyes PERRL and EOMs intact bilaterally General Eye ED: Negative for pale conjunctiva or scleral icterus Neck no lymphadenopathy, supple and no JVD General: Negative for tenderness Chest Wall inspection of chest normal and palpation of chest normal Chest: Negative for tenderness Resp normal respiratory effort Resp Narrative: No accessory muscle use or retractions. No conversational dyspnea. Effort and Inspection: Negative for respiratory distress or pain with movement Auscultation: rhonchi; Negative for wheezes or diminished lung sounds Cardio regular rate, regular rhythm, S1 normal heart sound, S2 normal heart sound and no murmurs Peripheral Pulses: pulses 2+ throughout GI normal to inspection, nondistended, normoactive bowel sounds, soft to palpation, non-tender, non-distended and no masses Back/Spine no CVA tenderness and no thoracic nor lumbar tenderness Extremity normal to inspection General Extremety ED: Negative for edema General Extremity: Negative for edema Neuro oriented x3, CN's II-XII intact bilaterally, no sensory deficits noted and gait normal Sensorium / Orientation: awake, alert, oriented to person, oriented to place and oriented to time Motor Exam: strength 5/5 throughout and strength abnormal Psych mental status grossly normal Skin no rashes or lesions noted and no wounds MDM MDM MDM Narrative Medical decision making narrative: IV line established on arrival. Patient was given normal saline. Basic labs unremarkable. He is kidney function not significantly different. Patient received a liter fluid bolus. Patient is scheduled to have outpatient monoclonal antibody infusion. Lab Data Attestation: I reviewed the patient's lab results. Labs: Laboratory Results - last 24 hr 07/10/21 07/10/21 07/10/21 15:30 15:30 15:30 WBC 5.2 RBC 5.77 Hgb 17.5 H Hct 51.2 MCV 88.7 MCH 30.3 MCHC 34.2 RDW Std Deviation 43.9 RDW Coeff of Tari 13.5 Plt Count 151 MPV 11.8 Immature Gran % (Auto) 0.800 Neut % (Auto) 70.5 H Lymph % (Auto) 12.5 L [place] % (Auto) 15.4 H Eos % (Auto) 0.2 Baso % (Auto) 0.6 Absolute Neuts (auto) 3.7 Absolute Lymphs (auto) 0.65 L Nucleated RBC % 0 D-Dimer Quant (PE/DVT) Sodium 134 L Potassium 4.8 Chloride 100 Carbon Dioxide 25.0 Anion Gap 9 BUN 19 H Creatinine 1.47 H Estim Creat Clear Calc 54.26 Est GFR (MDRD) Af Amer 67 Est GFR (MDRD) Non-Af 55 L BUN/Creatinine Ratio 12.9 Glucose 150 H Lactic Acid 1.2 Calcium 10.3 H 07/10/21 15:50 WBC RBC Hgb Hct MCV MCH MCHC RDW Std Deviation RDW Coeff of Tari Plt Count MPV Immature Gran % (Auto) Neut % (Auto) Lymph % (Auto) [place] % (Auto) Eos % (Auto) Baso % (Auto) Absolute Neuts (auto) Absolute Lymphs (auto) Nucleated RBC % D-Dimer Quant (PE/DVT) 0.39 Sodium Potassium Chloride Carbon Dioxide Anion Gap BUN Creatinine Estim Creat Clear Calc Est GFR (MDRD) Af Amer Est GFR (MDRD) Non-Af BUN/Creatinine Ratio Glucose Lactic Acid Calcium Radiography Diagnostic Testing: Clinical Impression(s) from Imaging Studies Chest X-Ray 07/10/21 16:28 IMPRESSION: Normal x-ray examination of the chest. Electronically Signed: Gutierrez Lawrence MD at 16:51 EST Tel , Service support , 1 view chest x-ray obtained interpreted by myself as no acute disease process. Radiology in agreement. Discharge Plan Triage Chief Complaint: Shortness of Breath ED Provider: Kenyatta Du Dx/Rx/DC Orders Clinical Impression: COVID-19, Diarrhea Prescriptions: New ondansetron [ondansetron] 4 MG tablet 4 mg PO Q8H PRN PRN (Reason: Nausea) Qty: 10 RF: 0 No Action mycophenolate mofetil [CellCept] 250 mg capsule 500 mg PO BID RF: 0 tacrolimus [Prograf] 1 mg capsule 3 mg PO DAILY RF: 0 magnesium oxide 400 mg magnesium tablet 400 mg PO BID RF: 0 budesonide-formoterol [Symbicort] 160-4.5 mcg/actuation HFA aerosol inhaler 2 puff inhalation BID Qty: 10.2 RF: 1 albuterol sulfate 90 mcg/actuation HFA aerosol inhaler 1 - 2 inh inhalation Q6H PRN (Reason: shortness of breath or wheezing) Qty: 8.5 RF: 2 prednisone 5 mg tablet 5 mg PO DAILY Qty: 30 RF: 1 aspirin 81 MG tablet,delayed release (DR/EC) 81 mg PO DAILY RF: 0 cinacalcet [Sensipar] 30 mg tablet 30 mg PO BREAKFAST RF: 0 tacrolimus 1 mg capsule 3 mg PO QHS RF: 0 omeprazole 20 mg capsule,delayed release(DR/EC) 20 mg PO BID RF: 0 meclizine 25 mg tablet 25 mg PO TID PRN (Reason: dizziness) Qty: 20 RF: 0 ciprofloxacin-dexamethasone [Ciprodex] 0.3-0.1 % drops,suspension 4 drp LEFT EAR Q12H 7 Days Qty: 7.5 RF: 0 Primary Care Provider: Wolfgang Reed Referrals: Wolfgang Reed MD [Primary Care Provider] - 5-7 Days Disposition Disposition: Home, Self Care
[2021-07-10] MEDS: 0.9% Normal Saline 1,000 ML 1000 ML IV (15:57)
[2021-07-10 16:03] LABS: Absolute Lymphocyte Count 0.65 X10^3/uL (0.83-4.51); Absolute Neutrophil Count 3.7 X10^3/uL (2.0-7.7); Basophil# 0.03 X10^3/uL; Basophil% 0.6 % (0-1); Eosinophil# 0.01 X10^3/uL; Eosinophils% 0.2 % (0-5); Hematocrit 51.2 % (40-54); Hemoglobin 17.5 g/dL (13.0-16.5); Lymphocyte # 0.65 X10^3/ul (0.83-4.51); Lymphocyte % 12.5 % (19-41); Mean Corp Hgb Conc 34.2 g/dL (32-36); Mean Corpuscular Hgb 30.3 pg (27.0-32.0); Mean Corpuscular Volume 88.7 fL (80-94); Mean Platelet Vol. 11.8 fl (6.2-12.0); Monocyte% 15.4 % (0-10); NRBC Flagged by Analyzer 0 % (0-5); Neutrophil # 3.65 X10^3/uL (2.7-7.7); Neutrophil % 70.5 % (47-70); Platelet Count 151 K/mm3 (150-450); RBC Distribution Width CV 13.5 % (11.6-14.6); RBC Distribution Width SD 43.9 fl (35.1-43.9); Red Blood Count 5.77 M/mm3 (4.6-6.2); White Blood Count 5.2 K/mm3 (4.4-11.0)
[2021-07-10 16:18] LABS: Anion Gap 9 (5-15); BUN 19 mg/dL (7-18); BUN/Creat Ratio 12.9 RATIO (10-20); Calcium,Total 10.3 mg/dL (8.5-10.1); Chloride 100 mmol/L (98-107); Creatinine, Serum 1.47 mg/dL (0.70-1.30); EST Glomerular Filtration Rate 55 mL/min (>60); Est Glom Filt Rate - Afr Amer 67 mL/min (>60); Estimated Creatinine Clearance 54.26 ml/min; Glucose 150 mg/dL (74-106); Potassium 4.8 mmol/L (3.5-5.1); Sodium Level 134 mmol/L (136-145)
--- NOTE | 2021-07-10 16:28 | RAD_ITS ---
STUDY: X-RAY CHEST REASON FOR EXAM: Male, 45 years old. dyspnea TECHNIQUE: Single AP portable view of the chest. COMPARISON: 03/26/2021 FINDINGS: The lungs are clear and expanded. There is no demonstrated pleural abnormality. Normal size heart. Normal mediastinum and estelita. Normal visualized pulmonary arteries. Normal visualized aortic arch and descending thoracic aorta. Normal visualized thoracic spine. Normal visualized ribs, clavicles, and shoulders. There is no demonstrated abnormality of the visualized soft tissue structures of the upper abdomen. RAD/Chest 1 View (Portable) IMPRESSION: Normal x-ray examination of the chest. Electronically Signed: Gutierrez Lawrence MD at 16:51 EST Tel , Service support ,
[2021-07-10 16:30] LABS: Lactic Acid 1.2 mmol/L (0.4-1.9)
[2021-07-10 16:47] LABS: D-Dimer Quantitative (DVT/PE) 0.39 FEU/ug/m (0.27-0.49)
[2021-07-10 17:20] VITALS: RESP 16; O2SAT 95
== END 2021-07-10 17:21 | disposition home or self-care (01) ==
PROVIDERS: Emergency Provider Emergency Medicine; PCP Internal Medicine; Visit Provider Emergency Medicine
DX: U07.1 COVID-19 (principal); J44.9 Chronic obstructive pulmonary disease, unspecified; I25.2 Old myocardial infarction; Z94.0 Kidney transplant status; R19.7 Diarrhea, unspecified; Z79.82 Long term (current) use of aspirin; Z79.899 Other long term (current) drug therapy
CPT/HCPCS: 71045; 80048; 83605; 85025; 85379; 96360; 99283; J7030

== ENCOUNTER 2021-07-13 16:48 | Outpatient (CLI) | payer MEDICARE, OTHER, MEDICAID, SELFPAY ==
[2021-07-13 17:00] VITALS: BP 121/86; PULSE 82; RESP 18; TEMP 36.9; O2SAT 99; BMI 26.5
[2021-07-13] MEDS: 0.9% Saline Lock 10 ML Syringe IV (17:07)
[2021-07-13 17:39] VITALS: BP 140/71; PULSE 71; RESP 16; TEMP 36.9; O2SAT 97
[2021-07-13 18:38] VITALS: BP 147/82; PULSE 67; RESP 16; TEMP 36.9; O2SAT 98
== END 2021-07-13 23:59 | disposition home or self-care (01) ==
LOC: MS3OUT 16:49 → MS3 16:50
PROVIDERS: PCP Internal Medicine; Visit Provider Nurse Practitioner Adult Health
DX: Z23 Encounter for immunization (principal); U07.1 COVID-19
CPT/HCPCS: J7050; M0245; Q0245; A4216

== ENCOUNTER 2021-10-24 06:49 | Observation (INO) | payer MEDICARE, OTHER, MEDICAID, SELFPAY ==
--- NOTE | 2021-10-08 13:20 | HP.PCM_ITS ---
History and Physical History and Physical [facility] Patient Name: Jeannine Hilliard : 1975 From: GABRIEL VARNER PA-C DATE OF SURGERY: 10/24/2021 SCHEDULED PROCEDURE: left total hip arthroplasty HISTORY: Preoperative history and physical exam was performed on October 08, 2021. This is a 46-year-old male who is been having ongoing pain in his left hip for the past 8 months. He was initially seen by Dr. Tapan Marroquin. Patient's pain has been constant, aching, sharp, sore. Pain is increased with going up and down stairs and sitting. He has fallen and tripped/stumbled secondary to the pain. Pain is located over the lateral hip radiating into the thigh and groin. He does have start up pain. Pain occasionally wakes him at night. Patient is tried previous treatments including oral prednisone due to previous kidney transplant, Tylenol with no relief. Patient has tried home exercises without relief. Tried rest, ice, heat without relief. He denies previous surgery on the left hip. Patient does have medical history pertinent for rheumatoid arthritis, kidney disease with previous transplant, gastroesophageal reflux disease, sleep apnea, asthma. 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 Patient currently denies chest pain, shortness of breath, fevers chills, or recent infections. After failing conservative measures and discussing treatment options with Dr. Sachin Cazares, the patient does wish to proceed with a left total hip arthroplasty. We are obtaining surgical clearance from the primary care physician Dr. Reed. Tabby ent denies history of DVT or pulmonary embolism. REVIEW OF SYSTEMS: Review Of Systems: Constitutional: Reports weight change, but denies change in appetite and fever. Cardiovasular: Denies chest pain, heart murmur and irregular heartbeat. Respiratory: Reports cough, shortness of breath and wheezing, but denies pneumonia and tuberculosis. Gastrointestinal: Denies constipation, diarrhea, heartburn, nausea, rectal itching, bloody stools and vomiting. Genitourinary: Denies incontinence. Musculoskeletal: Denies leg swelling, pain, trouble walking and weakness. Skin: Reports skin breakdown, history of shingles and tattoo, but denies Raynaud's. Neurological: Denies ambulatory dysfunction, dizziness, numbness/tingling and tremor. Psychiatric: Reports insomnia, but denies anxiety and stress. Hematologic/Lymphatic: Reports past transfusion, but denies anemia and bleeding/bruising tendency. Reviewed and updated. PAST MEDICAL HISTORY: Advance Care Plan: No Advance Directives Effective Date: 12/12/2020 Past Medical History: Medical Problems: Arthritis, Asthma, Rheumatoid Arthritis, Kidney Disease/Renal Failure, Sleep Apnea, Born With RT Kidney Only, Gastroesophageal Reflux Disease Accidents: Other - (2020) SAT ON TOILET AND HEARD POP Surgical Hx: Gallbladder, Testosterone Tube Implant RT Kidney Transplant - (07/1992) LT Kidney Transplant - (2017) Anesthesia Complications: None Assistive Devices: None Reviewed and updated. SOCIAL HISTORY: Social History: Marital: .Occupation: [employer] .Work Status: Currently Working.Hand Dominance: Right-handed. Personal Habits: Cigarette Use: Former.Smokeless Tobacco: Never Used Smokeless Tobacco.E-Cigarette Use: Never used.Alcohol: Occasionally.Drug Use: Denies Use.Enjoy Exercising: Exercises 1-3 x/month. Reviewed and updated. VITALS: Ht: 61 Wt: 160lb Wt k.576 BMI: 30.2 BP: 128/80 Pulse: 82 Resp: 18 T: 98.1 T: 36.7C Pain Level: 8 O2SatR: 100 ALLERGIES: Latex Dilaudid MEDICATIONS: Tramadol HCL 50 mg 1 by mouth every 8 hours as needed pain, Magnesium Oxide 400 mg 1 by mouth every day, Mycophenolate Mofetil 250 mg 2po bid, Prednisone 5 mg 1po qday, Cinacalcet HCL 30 mg 1po qday, Omeprazole 20 mg 1 by mouth every day, Tacrolimus 1 mg 3 by mouth IN MORNING 3 by mouth AT NIGHT PRE-OP EXAM: General appearance:NORMAL Other: Eyes: Conjunctivae and lids: NORMAL Pupils: ERR Ears, Nose, Mouth, and Throat: NORMAL Other: Inspection of lips, teeth and gums: NORMAL Other: Neck: Examination of neck: no masses noted. Respiratory: Assessment of respiratory effort: NORMAL Other: Auscultation of lungs: clear to auscultation no wheezes, rhonchi or rales. Cardiovascular: Auscultation of heart: regular rate and rhythm, no murmurs, gallops or rubs. PHYSICAL EXAMINATION: On exam patient does walk with an antalgic gait. Left hip has tenderness to palpation in the lateral aspect. He gets 90 flexion, internal rotation to neutral, external rotation 60 with increased pain. Sensation intact to light touch. Neurovascularly intact. IMAGING STUDIES: Previous x-rays reveal mild hip joint space narrowing with small cam lesion consistent with marginal osteophyte on the femoral head. No evidence of subchondral collapse. MRI from outside institution is consistent with bilateral avascular necrosis. IMPRESSION: 1. Left hip osteoarthritis with avascular necrosis 2. Rheumatoid arthritis 3. Kidney disease: Patient only has one kidney and 2 previous transplants 4. Gastroesophageal reflux disease 5. Sleep apnea 6. Asthma PLAN: Dr. Sachin Cazares did discuss and review with the patient all treatment options including surgical versus nonsurgical options. Patient does wish to proceed with the above-stated procedure. Potential risks, benefits, and complications of the procedure were discussed in detail including but not limited to , infection, nerve and blood vessel damage, persistent pain, numbness, tingling, paresthesias, blood clot, pulmonary embolism, and requirement for possible further surgery. The patient expressed full understanding and has no further questions for the doctor. Patient does agree to proceed with the above-stated procedure and has signed the surgery consent form. We discussed the current risks associated with COVID 19. This does include the risk of exposure while in the hospital. Patient was reassured local hospitals have low infection rates and are taking all necessary precautions to avoid exposure to patients. In addition, we discussed strategies that can be used to help limit exposure including those that limit the patient's time in the hospital. Also using strategies to limit the patient's need for continued inpatient services after being discharged from the hospital. Patient was notified that we will need to comply with any screening or testing the hospital wishes to perform or that surgery may be delayed for any positive results. This dictation was created using voice recognition software. Phonetic and/or grammatical errors may exist. ___ I have re-examined the patient. There are no clinical changes since date of exam. ___ See progress notes for changes. ___ Dictated on admission Date: Time: Signature:
--- NOTE | 2021-10-15 08:13 | EKG12_ITS ---
Test Reason : PREOP Blood Pressure : / mmHG Vent. Rate : 087 BPM Atrial Rate : 087 BPM P-R Int : 122 ms QRS Dur : 086 ms QT Int : 356 ms P-R-T Axes : 020 034 100 degrees QTc Int : 428 ms Normal sinus rhythm Nonspecific T wave abnormality Abnormal ECG Confirmed by URSZULA ARANDA, STEFF ([id number]), editorial cartoonist JANY LOPEZ ([id number]) on 10/16/2021 8:45:38 AM Referred By: Sachin Cazares Confirmed By:STEFF SEAMAN MD
[2021-10-15 09:35] LABS: Absolute Lymphocyte Count 1.64 X10^3/uL (0.83-4.51); Basophil# 0.05 X10^3/uL; Basophil% 0.4 % (0-1); Eosinophil# 0.12 X10^3/uL; Eosinophils% 0.9 % (0-5); Hematocrit 51.6 % (40-54); Hemoglobin 17.1 g/dL (13.0-16.5); Lymphocyte # 1.64 X10^3/ul (0.83-4.51); Mean Corp Hgb Conc 33.1 g/dL (32-36); Mean Corpuscular Hgb 30.8 pg (27.0-32.0); Mean Corpuscular Volume 92.8 fL (80-94); Mean Platelet Vol. 10.8 fl (6.2-12.0); Monocyte# 1.71 X10^3/uL; Monocyte% 13.5 % (0-10); NRBC Flagged by Analyzer 0 % (0-5); Neutrophil # 9.01 X10^3/uL (2.7-7.7); Neutrophil % 71.3 % (47-70); POSITIVE DIFFERENTIAL YES; Platelet Count 239 K/mm3 (150-450); RBC Distribution Width CV 14.1 % (11.6-14.6); RBC Distribution Width SD 48.6 fl (35.1-43.9); Red Blood Count 5.56 M/mm3 (4.6-6.2); White Blood Count 12.6 K/mm3 (4.4-11.0)
[2021-10-15 09:43] LABS: Differential Indicated SCAN CRITERIA MET
[2021-10-15 10:05] LABS: Magnesium 2.3 mg/dL (1.6-2.6)
[2021-10-15 10:17] LABS: Anion Gap 8 (5-15); BUN 31 mg/dL (7-18); BUN/Creat Ratio 16.6 RATIO (10-20); Calcium,Total 11.3 mg/dL (8.5-10.1); Chloride 105 mmol/L (98-107); Creatinine, Serum 1.87 mg/dL (0.70-1.30); EST Glomerular Filtration Rate 42 mL/min (>60); Est Glom Filt Rate - Afr Amer 51 mL/min (>60); Glucose 102 mg/dL (74-106); Sodium Level 140 mmol/L (136-145)
[2021-10-16 13:17] LABS: Pathologist Review Reviewed
[2021-10-24] VITALS (15 sets, daily range): BP systolic 117–167; BP diastolic 61–98; PULSE 75–104; RESP 16–18; TEMP 36.3–37.3; O2SAT 94–100; BMI 29.5
--- NOTE | 2021-10-24 | HIP_PTH ---
PATIENT: NURIA CORCORAN Jr. LOC: MS3 U#:[id number] AGE/SX: 46/M ROOM: [facility] [place] RE10/24/[address]: Dr. Sachin Cazares MD : 1975 BED: 1 DIS: 10/25/2021 SPEC #: [id number] RECD: 10/24/21 12:26 STATUS: BRENNA COWAN #: [id number] EARL: 10/24/21 00:[address]: Sachin Cazares DEPT: SURGICAL PATHOLOGY RECD BY: Cameron Shetty ENTERED: 10/24/21 12:26 SP TYPE: TOTAL HIP OTHR DR: Dr. Wolfgang Reed MD Tissues: Hip, NOS Procedures: Decalcification bone/plaque Surgery Specimen Level IV HEADER OPERATION: ERAS, total hip anterior approach PRE-OP DIAGNOSIS: Left hip femoral osteonecrosis TISSUE SUBMITTED: Left hip bone and tissue MICROSCOPIC DIAGNOSIS Left hip tissue, total hip resection: Osteonecrosis. AM/am 10/29/21 COMMENT Case has been reviewed in consultation with Dr. Bo who concurs with the above diagnosis. IDC:ERIS MICROSCOPIC DESCRIPTION Slides are reviewed. GROSS DESCRIPTION Received is one container labeled with the patient's name and designated left hip bone and tissue. The specimen consists of a femoral head measuring 4 x 4 x 3 cm. The articular surface is smooth. Areas of erosion, eburnation and osteophyte formation are not seen. Sections reveal a wedge shape yellowish area measuring 1.5 x 1.0 cm. Also present in the specimen container is a piece of bone consistent with femoral neck measuring 3.8 x 2.5 x 1.5 cm. Also present in the container are multiple pieces of bone reamings measuring in aggregate 7 x 7 x 2 cm. Registered Nurse Post Partum sections are submitted after decalcification in three cassettes as follows: 1 ? bone reamings and soft tissue, 2 & 3 ? femoral head. / ERIS:riri 10/24/2021 :5 CPT: 72726, 88653
--- NOTE | 2021-10-24 06:51 | OP.PCM_ITS ---
Report of Operation Date of Procedure: 10/24/21 Pre-Operative Diagnosis: Left hip femoral osteonecrosis Post-Operative Diagnosis: Left hip femoral osteonecrosis Surgery/Procedure Performed:: Left minimally invasive direct anterior hip replacement Description of Surgical Findings:: Stable hip with equal leg lengths Surgeon: Sachin Cazares educational interpreter: Zoran Asencio Type of Anesthesia: Spinal Special Medications: 2 g Ancef, 1 g TXA at incision, 1 g TXA closure, 10 mg Decadron, joint cocktail (5 mg Duramorph, 30 mL of 0.5% Ropivicaine, 1000 units of epinephrine, 30 mg of Toradol) Specimen's removed: Bony cuts Estimated Blood Loss (mL): 350 Fluids Replaced: 1600 mL crystalloid Description of Procedure: Components used: 1. Accolade 2 Yann femoral stem size 1 127? 2. [place] trident 2 acetabular shell size 46 mm 3. [place] X3 polyethylene c 4. Yann Biolox delta 32mm, 0mm femoral head Brief history operative indications: 46 yo m who failed conservative measures for their hip avascular necrosis. X- rays were consistent with osteoarthritis including joint space narrowing, osteophyte formation and subchondral cysts. Total hip replacement was discussed with the patient with risks and benefits including but not limited to blood loss, DVTs, PEs, neurovascular damage, dislocation, general risks of anesthesia including loss of life. Patient demonstrated an understanding medical clearance is obtained the patient was consented for surgery. Procedure: On the date of procedure the patient's L hip was marked in the preoperative area. Patient was then taken back to the operating room where anesthesia assumed control of the C-spine and airway and administered anesthetic. Patient was transferred to the operating table and placed in the supine position. The hips were placed at the break of the bed and a sacral bump was placed. L The lower extremity was then prepped out in a sterile fashion using chlorhexidine while the surgeon scrubbed. The PA was vital in the positioning of the patient. Upon reentering the room the left lower extremity was draped in the standard orthopedic fashion and the incision was marked. A timeout was called and everyone agreed upon the side, the site, the procedure be performed, antibody given, and patient's identity. At this time incision was made through skin, subcutaneous tissue, and fat down to fascia. The fascia was then incised and the TFL was retracted laterally. A retractor was placed on the lateral border of the femoral neck. Attention was directed to the inferior portion of the approach and all crossing vessels were identified and appropriately coagulated. A retractor was then placed on the medial portion of the femoral neck. The anterior capsule was then cleared of all soft tissue and then H shaped capsulotomy was made. The retractors were then placed inside the capsule. The femoral neck was identified and a cleanup cut was made. At this time a power corkscrew was used to remove the femoral head. Attention was then turned toward the acetabulum where the soft tissues were appropriately retracted and the acetabulum was sequentially reamed to 46 mm. During our initial reaming we did ream more central than we had planned. Based on this sequential reamings were placed more lateral. Due to the deep central reaming we then obtained reamings from our original acetabular reamings as well as from the femoral head and were able to pack graft in the central portion where the defect was. A 46 mm cup was then selected and impacted into place. A 35 mm screw was placed in the safe zone. Acetabular liner was impacted into place and locking mechanism was verified. The position of the acetabular cup was then verified under live fluoroscopy. Attention was then turned to the femur. Soft tissue releases on the medial and lateral femoral neck were appropriately done, the leg was externally rotated and lateralized. A Thomas retractor was placed medially and proximally to the greater trochanter this allowed appropriate visualization and exposure of the femoral canal. Rongeour was then used to remove excess lateral bone. A canal finder and entry broach were used to open the proximal canal. Once we verified we were down the femoral canal we subsequently broached up to a size 1 femur. The appropriate neck was placed in the previously selected head was trialed with a 0 mm neck. Traction was pulled and the hip was reduced with internal rotation. Once it was appropriately reduced and stability was checked. There was minimal shuck, equal leg lengths and appropriate stability with hyperextension and external rotation as well as with 90? flexion and internal rotation. Fluoroscopy was then also used to verify the position of the components and leg lengths using the contralateral side for comparison. The trial components were then dislocated the proximal femur was again exposed and the components were removed from the wound. The final components were verified and opened. The wound was copiously irrigated out with normal saline. The acetabulum was checked for any residual debris. The final components were placed and impacted. Traction and internal rotation were again used to reduce the hip. After adequate reduction the hip remained stable with appropriate leg lengths. The final components were once again checked with live fluoroscopy and were found to be satisfactory. The wound was then copiously irrigated with normal saline once more, and hemostasis was obtained. Closure was then done using #1 Vicryl runner to close the fascia. A 2-0 vicryl interuppted sutures were used to close the subcutaneous skin. A 3-0 Monocryl and Steri-Strips were used for final skin closure. A Silverlon dressing was placed. Patient was awakened by anesthesia and transferred to the rthree bridges. Javier beal was then transferred to the PACU for recovery. During the course of the procedure the physician elevated work platform operator (PE) played a vital role. Their intimate knowledge of my steps in the procedure aided in safe and expedient completion of the procedure. The PE played a vital rolls in positioning particularly in obtaining the appropriate positioning of the sacral bump. The PE was also vital in the retraction of soft tissues during the exposure and especially the femoral work as this is a vital part of the procedure to prevent complications and fractures. The PE was also vital and protecting soft tissues during times of bony cuts and reaming. He also played a vital role in closure with my direct supervision. The PE was also important during reduction and dislocation of the joint and trials intraoperatively. Postoperative plan: Patient will get 24 hours postop antibiotics. Patient will get in-house physical therapy and will be weight-bear as tolerated. Patient will follow up in office in 2 weeks for a wound check and x-rays. Aspirin 81 mg twice daily. Patient be placed on extended course of antibiotics (Doxycycline 100 mg bid)postoperatively secondary to his antirejection medications and chronic steroid use as well as history of renal failure placing him at increased risk for postoperative infection complications. Complications No intraoperative complications Admit VTE Documentation VTE Present on Admission: No VTE Mechan Device Prophylaxis: SCD's and Thigh High EDWIN Hose VTE Pharm Prophylaxis ordered?: Yes
[2021-10-24] MEDS: Lactated Ringers 1,000 ML 999 ML IV ×2 (07:00→10:30)
[2021-10-24] MEDS: Gabapentin 600 MG Tablet PO (07:02)
[2021-10-24] MEDS: Acetaminophen 500 MG Tablet 1000 MG PO ×3 (07:02→21:27)
[2021-10-24] MEDS: Cefazolin 2 GM in 0.9% Normal Saline 100 ML IV (08:53)
[2021-10-24] MEDS: TXA 1000mg in NS100 100ml (IVPB at Incision) 660 MG IV (09:06)
--- NOTE | 2021-10-24 09:42 | RAD_ITS ---
STUDY: X-RAY - PELVIS AND LEFT HIP REASON FOR EXAM: Male, 46 years old. Intraoperative digital documentation views of left total hip arthroplasty. TECHNIQUE: 4 intraoperative digital documentation views of the pelvis and hip. COMPARISON: None. FINDINGS: 4 intraoperative digital documentation views show total hip arthroplasty on the left. Anatomic alignment. RAD/Hip 1 view with Pelvis IMPRESSION: Intraoperative digital documentation fused. Electronically Signed: Arsalan Oreilly MD at 10:29 EDT ,
[2021-10-24] MEDS: TXA 1000mg in NS100 100ml (IVPB at Closure) 660 MG IV (10:05)
--- NOTE | 2021-10-24 11:15 | RAD_ITS ---
STUDY: X-RAY - PELVIS AND LEFT HIP REASON FOR EXAM: Male, 46 years old. Postoperative evaluation after total hip arthroplasty. TECHNIQUE: 2 views of the pelvis and hip. COMPARISON: 02/01/2021. FINDINGS: There is a total hip arthroplasty in anatomic alignment with expected post-operative findings. There are no complications noted. RAD/Hip Min 2 Views (Portable) IMPRESSION: Placement of total hip arthroplasty in anatomic alignment without complications. Electronically Signed: Arsalan Oreilly MD at 11:41 EDT ,
--- NOTE | 2021-10-24 13:30 | CPS ---
Pt declined aerosol, says he uses prn @home and that's how he wants it while he is here. He says he doesn't use his CPAP at home nor does he want it here. This R.T. will talk to Dr Rowan.
--- NOTE | 2021-10-24 13:36 | PCM.PN.HOSP ---
Subjective Subjective Patient denies any marked complaints and notes his pain currently is 5/10 but only with attempted increased mobility. He is in the bed attempting exercises. He comments that he usually does not do clears following OR and is requesting diet be transitioned. Patient denies fevers, chills, nausea, emesis, abdominal pain, chest pain or dyspnea. Objective Data Objective Data Vital Signs: Vital Signs Temp Pulse Resp BP Pulse Ox 97.3 F L 97 16 149/98 H 100 10/24/21 12:45 10/24/21 12:45 10/24/21 12:45 10/24/21 12:45 10/24/21 12:45 Oxygen Flow Rate (L/min) 4 Oxygen Delivery Method Nasal Cannula Weight: 156 lb 8.451 oz Body Mass Index (BMI) 29.5 Intake & Output: Intake and Output for Last 24 Hours 10/22/21 10/23/21 10/24/21 23:59 23:59 23:59 Intake Total 1322 / 1322 Output Total 450 / 450 Balance 872 / 872 Lab / Micro Data Result Diagrams: 10/15/21 08:26 10/15/21 08:26 Micro: Microbiology 10/23/21 08:15 Interface Orders SARS-CoV-2 Antigen (Rapid) - Final 10/15/21 08:26 Swab (Method) Nasal Screen MRSA/MSSA - Final Radiography Diagnostic Testing: Radiology Impression Hip/Pelvis X-Ray 10/24/21 09:42 IMPRESSION: Intraoperative digital documentation fused. Electronically Signed: Arsalan Oreilly MD at 10:29 EDT , Hip X-Ray 10/24/21 11:15 IMPRESSION: Placement of total hip arthroplasty in anatomic alignment without complications. Electronically Signed: Arsalan Oreilly MD at 11:41 EDT , Physical Exam Narrative Physical Examination: General: Awake, alert, oriented x 3 and cooperative, seated upright in the MS bed in no apparent distress. Skin: Normal color, normal turgor, no icterus, no cyanosis except s/p OR w/ L hip repair w/ dressing in place, no drainage. HEENT: AT/NC, EOMI, PERRLA, mildly dry MM, no carotid bruits or JVD noted. Lungs: Diminished, > BL bases, no rales, ronchi or wheezing. Heart: Currently regular rate and rhythm; no gallop, rub audible. Abdomen: Soft, overweight, NTTP, ND, distant hyperactive BS, no HSM. Extremities: No cyanosis, no clubbing, s/p L hip replacement, dressing in place, no drainage, mild BL ankle edema. Neurological: Patient awake, alert, oriented x 3, cognitive function intact; pupils equally reactive to light and accommodation, cranial nerves II-XII grossly normal, moving all 4 extremities although limited LLE given recent OR, strength moderately to severely globally decreased secondary to recent OR. Psychiatric: Affect appears normal, talkative, no acute evidence of depressive or anxiety feelings. Assessment & Plan Assessment/Plan (1) Osteoarthritis: QUALIFIERS: Osteoarthritis location: hip Osteoarthritis type: primary Laterality: left Qualified Code(s): M16.12 - Unilateral primary osteoarthritis, left hip PLAN: The patient is a 46 y/o M w/ PMHx: Hx ESRD on HD s/p renal Txp with now CKD stage III unclear subtype, COPD, Former tobacco use, Hx AOCD, GERD, Hx CHF, ? Hx [place] without PCI who presents to the [facility] on 10/24/21 for planned Left minimally invasive direct anterior hip replacement per Dr. Cazares. #1. Severe Osteoarthritis L Hip: Failed conservative therapies and treatments, admitted per Dr. Cazares for planned L minimally invasive direct anterior hip replacement, post-operative pain management, bowel regimen, DVT Prophylaxis, PT/OT/CM per Orthopedic surgery discretion. #2. Chronic COPD: Patient reports only using his medications as needed, will transition budesonide scheduled to as needed and have albuterol as needed as well, encourage head of bed and I-S. #3. History of renal transplant s/p Hx ESRD on HD previously w/ CKD stage : We will continue patient home tacrolimus, prednisone therapy if surgery amenable and given low no need for stress dosing and mycophenolate, patient left upper extremity aVF with no significant thrill of note. #4. Chronic Kidney Disease Stage III, unclear subtype: Most recent creatinine 10/15/2021 1.87, baseline appears primarily 1.5-1.8, trending per primary service. #5. SURINDER: Encourage continued CPAP usage but he notes he does not. #6. GERD: Continue patient home PPI regimen. #7. History CHF, presumed diastolic: Patient with history of end-stage renal disease previously on HD, status post now renal transplant, judiciously hydrate. #8. ? History [place]: Reported history and system of prior [place], not on daily aspirin, statin, beta-jyoti, ANTONIO inhibitor/ARB likely secondary to renal disease history status post transplant, will need to review further history and make adjustments if appropriate. #9. DVT prophylaxis: SCDs, chemoprophylaxis per surgery discretion. Charges/Coding Visit Charges Inpatient E&M: 80633 Subs Hosp L3
[2021-10-24] MEDS: Morphine 2 MG/ML Syringe IV (14:08)
[2021-10-24] MEDS: 0.9% Saline Lock 10 ML Syringe IV (14:18)
[2021-10-24 16:06] LABS: Bedside Glucose 153 mg/dL (74-106)
[2021-10-24] MEDS: Cefazolin 1 GM/50 ML BAG IV (16:34)
[2021-10-24] MEDS: Aspirin 81 MG TAB.CHEW PO (16:35)
[2021-10-24] MEDS: Ensure Surgery 237 ML LIQUID PO (16:35)
[2021-10-24] MEDS: Magnesium Chloride 64 MG Delay Rel.Tablet 128 MG PO (16:35)
[2021-10-24] MEDS: oxyCODONE 5 MG Tablet PO (21:27)
[2021-10-24] MEDS: Tacrolimus Anhydrous 1 MG Capsule 3 MG PO (21:28)
[2021-10-24] MEDS: Senna/Docusate Sodium 1 Tablet 2 TABLET PO (21:28)
[2021-10-25] MEDS: 0.9% Saline Lock 10 ML Syringe IV (00:44)
[2021-10-25] MEDS: Cefazolin 1 GM/50 ML BAG IV (00:44)
[2021-10-25 03:30] VITALS: BP 154/84; PULSE 83; RESP 18; TEMP 36.5; O2SAT 100
[2021-10-25] MEDS: Acetaminophen 500 MG Tablet 1000 MG PO ×2 (05:39→14:00)
[2021-10-25] MEDS: oxyCODONE 5 MG Tablet PO ×3 (05:42→11:42)
[2021-10-25 06:11] LABS: Hematocrit 39.5 % (40-54); Hemoglobin 12.8 g/dL (13.0-16.5); Mean Corp Hgb Conc 32.4 g/dL (32-36); Mean Corpuscular Hgb 30.2 pg (27.0-32.0); Mean Corpuscular Volume 93.2 fL (80-94); Mean Platelet Vol. 10.6 fl (6.2-12.0); Platelet Count 210 K/mm3 (150-450); RBC Distribution Width CV 14.5 % (11.6-14.6); RBC Distribution Width SD 49.4 fl (35.1-43.9); Red Blood Count 4.24 M/mm3 (4.6-6.2); White Blood Count 20.6 K/mm3 (4.4-11.0)
[2021-10-25 06:49] LABS: Anion Gap 4 (5-15); BUN 31 mg/dL (7-18); BUN/Creat Ratio 23.3 RATIO (10-20); Calcium,Total 9.6 mg/dL (8.5-10.1); Chloride 106 mmol/L (98-107); Creatinine, Serum 1.33 mg/dL (0.70-1.30); EST Glomerular Filtration Rate 62 mL/min (>60); Est Glom Filt Rate - Afr Amer 75 mL/min (>60); Estimated Creatinine Clearance 52.43 ml/min; Glucose 145 mg/dL (74-106); Potassium 4.1 mmol/L (3.5-5.1); Sodium Level 136 mmol/L (136-145)
[2021-10-25 08:00] VITALS: BP 134/88; PULSE 80; RESP 16; TEMP 37.1; O2SAT 98
[2021-10-25] MEDS: predniSONE 5 MG Tablet PO (08:20)
[2021-10-25] MEDS: Magnesium Chloride 64 MG Delay Rel.Tablet 128 MG PO (08:20)
[2021-10-25] MEDS: Ensure Surgery 237 ML LIQUID PO (08:20)
[2021-10-25] MEDS: Aspirin 81 MG TAB.CHEW PO (08:20)
--- NOTE | 2021-10-25 08:56 | PN.ORTHO_ITS ---
Subjective Subjective The patient was sitting in bed upon examination. Patient denies any chest pain, shortness of breath, dizziness, lightheadedness, nausea or vomiting, or calf pain. Pain is controlled on medications. No adverse overnight events. Patient complains of some left thigh soreness. Difficulty with lifting his leg. Oth erwise pain is being controlled. Patient does live on second floor and will require home health physical therapy. Patient has also been on chronic prednisone due to underlying medical problems. Objective Data Objective Data Vital Signs: Vital Signs Temp Pulse Resp BP Pulse Ox 98.7 F 80 16 134/88 H 98 10/25/21 08:00 10/25/21 08:00 10/25/21 08:00 10/25/21 08:00 10/25/21 08:00 Oxygen Flow Rate (L/min) 4 Oxygen Delivery Method Room Air Weight: 71 kg Body Mass Index (BMI) 29.5 Intake & Output: Intake and Output for Last 24 Hours 10/23/21 10/24/21 10/25/21 23:59 23:59 23:59 Intake Total 2482 / 2482 450 / 450 Output Total 450 / 450 Balance 2031 / 2031 450 / 450 Lab / Micro Data Result Diagrams: 10/25/21 05:45 10/25/21 05:45 Labs: Laboratory Results - last 24 hr 10/24/21 06:41: POC Glucose 153 H 10/25/21 05:45: WBC 20.6 H, RBC 4.24 L, Hgb 12.8 L, Hct 39.5 L, MCV 93.2, MCH 30.2, MCHC 32.4, RDW Std Deviation 49.4 H, RDW Coeff of Tari 14.5, Plt Count 210, MPV 10.6 10/25/21 05:45: Sodium 136, Potassium 4.1, Chloride 106, Carbon Dioxide 26.0, Anion Gap 4 L, BUN 31 H, Creatinine 1.33 H, Estim Creat Clear Calc 52.43, Est GFR (MDRD) Af Amer 75, Est GFR (MDRD) Non-Af 62, BUN/Creatinine Ratio 23.3 H, Glucose 145 H, Calcium 9.6 Micro: Microbiology 10/23/21 08:15 Interface Orders SARS-CoV-2 Antigen (Rapid) - Final 10/15/21 08:26 Swab (Method) Nasal Screen MRSA/MSSA - Final Radiography Diagnostic Testing: Radiology Impression Hip/Pelvis X-Ray 10/24/21 09:42 IMPRESSION: Intraoperative digital documentation fused. Electronically Signed: Arsalan Oreilly MD at 10:29 EDT , Hip X-Ray 10/24/21 11:15 IMPRESSION: Placement of total hip arthroplasty in anatomic alignment without complications. Electronically Signed: Arsalan Oreilly MD at 11:41 EDT , Physical Exam Narrative Vital signs stable and afebrile. Left thigh is soft and supple Patient currently with EDWIN hose bilaterally, SCDs have been removed as he is about to start with physical therapy Patient is able to plantarflex and dorsiflex actively. Sensation is intact to light touch to saphenous, sural, superficial and deep peroneal, and tibial distribution. Dressing is clean dry and intact. Negative Homans bilaterally, negative signs and symptoms of DVT. Const alert, oriented x3 and no apparent distress Assessment & Plan Assessment/Plan (1) S/P total left hip arthroplasty: PLAN: 1. S/P left direct anterior total hip arthroplasty POD #1 2. Continue Pain Medications: Tylenol and oxycodone. 3. DVT Prophylaxis: Take 81 mg aspirin twice daily for 4 weeks postoperatively for DVT prophylaxis 4. PT/OT: Weightbearing as tolerated with walker. 5. H & H: 12.8/39.5, asymptomatic. Postoperative anemia secondary to acute blood loss from surgery without any intra operative complications. 6. Reactive leukocytosis: Currently 20.6, afebrile. Patient is also treated with chronic prednisone. No signs of acute infection appreciated. 7. Continue antibiotics for 2 weeks postoperatively secondary to his antirejection medications and chronic steroid use as history of renal failure placing him at increased risk for postoperative infections 8. Continue postoperative medical management per medicine 9. Encouraged Incentive Spirometry 10. Disposition: Plan will be for probable discharge home today as long as patient is medically stable, tolerates therapy, and pain is well controlled. Case management is involved for assistance with home health physical therapy. Prescriptions will be E scribed to drug [place] in [facility]. He will also follow-up per postop instructions. Upon discharge she will contact her office with any concerns or complications. I have reviewed the [place] [employer] Rx Reporting System (OARRS) report for this patient for refill pattern and other prescriber involvement as part of the appropriate surveillance for the provision of acute and chronic controlled medications. The report was requested and reviewed on the date of this entry and was considered in the prescribing process.
--- NOTE | 2021-10-25 09:01 | PCM.DC ---
Discharge Instructions Diet Discharge Diet: No restrictions Activity Discharge Activity: May Not Drive (while taking narcotic pain medications and until patient can walk 100 feet without the use of cane or walker) and May Shower (Do not submerge incision underwater for 6 weeks postoperatively) May shower in (days): 1 (only if incision is dry and without drainage. Do NOT soak/submerge in tub/pool/boateng/stream/hot tub.)) Ice area for (Minutes): 20 (Every 1-2 hours while [address] barrier between ice and skin.) Weight Bearing Status: Weight bearing as tolerated (With walker) Keep extremity elevated above heart level: Operative Extremity Dressing / Incision Call your doctor if your incision/area has: Continuous Slow Oozing, Sudden Increased Bleeding, Increased Pain/ Swelling, Increased Redness and Foul Smelling Discharge Call your doctor if you observe: Fever of 101 or Higher, Shortness of breath, Chest pain, Calf discomfort and Uncontrolled pain Remove Dressing in: 4 days (Okay to remove dressing on October 29, 2021) Additional Dressing/Incision Instructions:: Follow [facility] Post-op Instructions. Once postoperative dressing has been removed, only use gentle soap and water over the incision. Do not use any ointments, Neosporin, salves, alcohol pads over the incision for 6 weeks postoperatively. Do not submerge underwater for 6 weeks postoperatively. Continue with EDWIN hose/elastic stockings for 2 weeks postoperatively. May remove at nighttime but needs to be placed back on the leg during the day. Do NOT use alcohol with narcotic pain medication. Do NOT make important decisions while taking narcotic medication. If you have problems with taking your medication (rash, itching, nausea, etc.) call the office at once. Follow Up Care Test Results: Test results from this visit will be discussed in further detail at your follow-up appointment, if applicable. Discharge Plan Admission Admit Date/Time: 10/24/21 06:49 Attending Provider: Sachin Cazares Primary Care Provider: Wolfgang Reed Consulting Providers: Rosalba Rowan Discharge Orders/Prescriptions Prescriptions: New acetaminophen 500 mg Tablet 1,000 mg PO Q8 Qty: 100 RF: 0 aspirin 81 mg Tablet,Chewable 81 mg PO BIDCM 30 Days Qty: 60 RF: 0 doxycycline monohydrate 100 mg Capsule 100 mg PO BID 14 Days Qty: 28 RF: 0 oxycodone 5 mg Tablet 5 - 10 mg PO Q4H PRN PRN (Reason: Pain Score 4-10) 5 Days Qty: 60 RF: 0 sennosides-docusate sodium [Stool Softener-Stimulant Laxat] 8.6-50 mg Tablet 2 tab PO BID Qty: 20 RF: 0 Continued tacrolimus [Prograf] 1 mg capsule 3 mg PO BID RF: 0 magnesium oxide 400 mg magnesium tablet 400 mg PO BID RF: 0 prednisone 5 mg tablet 5 mg PO DAILY Qty: 30 RF: 1 budesonide-formoterol [Symbicort] 160-4.5 mcg/actuation HFA aerosol inhaler 2 puff INHALATION BID Qty: 10.2 RF: 2 albuterol sulfate 90 mcg/actuation HFA aerosol inhaler 2 inh inhalation Q6H PRN (Reason: shortness of breath or wheezing) Qty: 8.5 RF: 2 (DME) nebulizers Misc See Rx Instructions .ROUTE .MEDSUPPLY Qty: 1 RF: 0 albuterol sulfate 2.5 mg /3 mL (0.083 %) solution for nebulization 2.5 mg inhalation Q6H PRN (Reason: shortness of breath or wheezing) Qty: 90 RF: 2 amoxicillin-pot clavulanate 875-125 mg tablet 1 tab PO BID Qty: 10 RF: 0 omeprazole 20 mg capsule,delayed release(DR/EC) 20 mg PO DAILY RF: 0 mycophenolate mofetil 250 mg Capsule 100 mg PO BID RF: 0 Discontinued aspirin 81 MG tablet,delayed release (DR/EC) 81 mg PO DAILY RF: 0 Referrals / Follow Up: Physical,Therapy [Other] Wolfgang Reed MD [Primary Care Provider] - Zoran Asencio PA-C [PHYSICIAN ORTHOTIC/PROSTHETIC CLINICIAN] - 11/08/21 2:45 pm Disposition Disposition (needs filled in before D/C Order can be placed): Home Health Service
[2021-10-25] MEDS: Famotidine 20 MG Tablet PO (09:39)
[2021-10-25] MEDS: Tacrolimus Anhydrous 1 MG Capsule 3 MG PO (09:39)
[2021-10-25] MEDS: Pantoprazole Sodium 20 MG Tablet PO (09:39)
[2021-10-25] MEDS: Senna/Docusate Sodium 1 Tablet 2 TABLET PO (09:40)
--- NOTE | 2021-10-25 11:04 | PCM.PN.HOSP ---
Subjective Subjective No issues overnight. Patient states he is feeling well. States has been ambulating to the bathroom by himself because nursing is not fast enough. I did ask him to please not do this as it would be very traumatic for him to fall and fracture his prosthesis but he indicated he was going to do what he wants to do. Plan is for discharge later today. Objective Data Objective Data Vital Signs: Vital Signs Temp Pulse Resp BP Pulse Ox 98.7 F 80 16 134/88 H 98 10/25/21 08:00 10/25/21 08:00 10/25/21 08:00 10/25/21 08:00 10/25/21 08:00 Oxygen Flow Rate (L/min) 4 Oxygen Delivery Method Room Air Weight: 71 kg Body Mass Index (BMI) 29.5 Intake & Output: Intake and Output for Last 24 Hours 10/23/21 10/24/21 10/25/21 23:59 23:59 23:59 Intake Total 2482 / 2482 450 / 450 Output Total 450 / 450 Balance 2031 / 2031 450 / 450 Lab / Micro Data Result Diagrams: 10/25/21 05:45 10/25/21 05:45 Labs: Laboratory Results - last 24 hr 10/24/21 06:41: POC Glucose 153 H 10/25/21 05:45: WBC 20.6 H, RBC 4.24 L, Hgb 12.8 L, Hct 39.5 L, MCV 93.2, MCH 30.2, MCHC 32.4, RDW Std Deviation 49.4 H, RDW Coeff of Tari 14.5, Plt Count 210, MPV 10.6 10/25/21 05:45: Sodium 136, Potassium 4.1, Chloride 106, Carbon Dioxide 26.0, Anion Gap 4 L, BUN 31 H, Creatinine 1.33 H, Estim Creat Clear Calc 52.43, Est GFR (MDRD) Af Amer 75, Est GFR (MDRD) Non-Af 62, BUN/Creatinine Ratio 23.3 H, Glucose 145 H, Calcium 9.6 Micro: Microbiology 10/23/21 08:15 Interface Orders SARS-CoV-2 Antigen (Rapid) - Final 10/15/21 08:26 Swab (Method) Nasal Screen MRSA/MSSA - Final Radiography Diagnostic Testing: Radiology Impression Hip X-Ray 10/24/21 11:15 IMPRESSION: Placement of total hip arthroplasty in anatomic alignment without complications. Electronically Signed: Arsalan Oreilly MD at 11:41 EDT , Physical Exam Const alert, oriented x3 and no apparent distress Constitutional Narrative: Overweight middle-aged white male very impulsive, appears comfortable nontoxic Exam Limitations: no limitations Nutritional Appearance: overweight HEENT head/scalp atraumatic and moist oral mucous membranes Head and Scalp: normocephalic Resp normal respiratory effort, no retractions, no use of accessory muscles and clear to auscultation bilaterally Auscultation: Negative for crackles, rales, rhonchi or wheezes Cardio regular rate, regular rhythm, S1 normal heart sound, S2 normal heart sound, no murmurs, no rub, no gallops, no clicks and no JVD GI normal to inspection, nondistended, normoactive bowel sounds, soft to palpation, non-tender and non-distended Extremity no clubbing, cyanosis or edema Extremity Narrative: Left hip with postoperative bandage in place, no drainage on bandage, area is soft without ecchymosis and minimally tender Peripheral Pulses: Yes pulses 2+ throughout Neuro oriented x3 Sensorium / Orientation: awake and alert Assessment & Plan Assessment/Plan (1) S/P total left hip arthroplasty: (2) Osteoarthritis: QUALIFIERS: Osteoarthritis location: hip Osteoarthritis type: primary Laterality: left Qualified Code(s): M16.12 - Unilateral primary osteoarthritis, left hip PLAN: Assessment: Severe arthritis left hip secondary to osteonecrosis Postop day 1 total left hip arthroplasty COPD CKD stage IIIb with history of renal transplant History of end-stage renal disease requiring HD SURINDER GERD History of congestive heart failure-type unclear but presumed diastolic dysfunction Plan: -Medically stable and okay for discharge home from medical standpoint -Pain management per primary service -Recommend bowel regimen while on pain medicine -Weightbearing as tolerated -PT/OT -Extended course of doxycycline 100 mg p.o. twice daily secondary to immunosuppression Aspirin 81 mg p.o. twice daily for DVT prophylaxis Charges/Coding Visit Charges Inpatient E&M: 80656 Subs Hosp L2
--- NOTE | 2021-10-25 11:55 | CASEMGMT ---
RN SINDY [employer]OUNT EXECUTIVE CM to room to meet with patient for initial transition planning/care coordination assessment. BELKYS CALLAHAN introduced self and role at [facility]. Pt voices understanding and consents to assessment at this time. Pt sitting up in chair in no distress at this time. Pt is A/O at this time and answers all questions. Care providers, pharmacy, and demographics verified/updated at this time. PCP: Dr Reed Specialists: Dr Lopez Preferred Pharmacy: [facility], [place] Insurance: [employer], Other Commercial, [employer] Prescription Benefit: Yes Living Will/HPOA: Pt does not currently have LW/HCPOA and declines info at this time. Pt made aware that he can contact [facility] as an out-pt and make appt in the future if he decides he would like to talk with someone about this or would like to utilize [facility] social work for advanced directive completion. LNOK: Mother, Concetta. States he has no biological children and no biological siblings. Living Arrangements: Lives in split-level home. Mother lives in apt on 1st floor. Pt lives w/his GF on 2nd floor w/1 +8 + 3 steps to enter. Pt independent prior to surgery. He states he will have assistance w/getting up the stairs once he returns home. Transportation: Pt does not drive. Per therapy eval, pt walks all around town, to work, and to get groceries. Pt states his mother will take him home @ d/c DME:States has he has a walker. Pt states he is interested in getting a shower chair and plans to borrow one from his neighbor, if able. Pt also made aware of several locations that sell them, if he needs to purchase one. HHC/SNF: No hx of SNF. Had HHC in the past when getting dialysis, prior to transplant. He voices concerns about getting up/down stairs for OP therapy and would like to have HHC for a couple of weeks prior to doing OP therapy. Pt provided w/list of local HHC agencies. He states he thinks this has already been set up w/SOC Friday. Call to Anamaria @ [facility]. She confirms HHC has been set up, for PT only, and SOC slated for tomorrow/Fri. Pt aware. Pt wishes to return home and states has no concerns with going home at time of discharge. Pt voices no further concerns/needs at this time. PLAN: Home w/[facility] HHC: PT. Nona DAVEYN RN CM
[2021-10-25] MEDS: Doxycycline 100 MG CAPSULE PO (13:59)
--- NOTE | 2021-10-25 13:59 | CASEMGMT ---
BELKYS CM in to complete [employer] form with patient. BELKYS CALLAHAN explained [employer] form to patient, patient voiced understanding. Patient signed [employer] form and filed in chart. Patient provided with copy of signed [employer] form Patient had no further questions or concerns at this time.
[2021-10-25 14:00] VITALS: BP 148/91; PULSE 99; RESP 16; TEMP 36.7; O2SAT 97
== END 2021-10-25 14:35 | disposition home health service (06) ==
LOC: SDC 10:12 → MS3 10:12
PROVIDERS: Anesthesiology; Admitting Provider Specialist; PCP Internal Medicine; Referring Provider Specialist; Visit Provider Specialist
PROC: (CPT 27284; principal; 2021-10-24 08:20)
DX: M87.052 Idiopathic aseptic necrosis of left femur (principal); M06.9 Rheumatoid arthritis, unspecified; M16.12 Unilateral primary osteoarthritis, left hip; G47.30 Sleep apnea, unspecified; Z87.891 Personal history of nicotine dependence; K21.9 Gastro-esophageal reflux disease without esophagitis; J45.909 Unspecified asthma, uncomplicated; N28.9 Disorder of kidney and ureter, unspecified; Z94.0 Kidney transplant status; Z79.899 Other long term (current) drug therapy; Z79.52 Long term (current) use of systemic steroids; Z79.51 Long term (current) use of inhaled steroids; Z86.16 Personal history of COVID-19; I10 Essential (primary) hypertension; Z86.69 Personal history of other diseases of the nervous system and sense organs; I25.2 Old myocardial infarction
CPT/HCPCS: 27130; 01214; 36415; 73501; 73502; 76000; 80048; 82962; 83735; 85025; 85027; 87081; 87426; 88305; 88311; 93005; 96365; 96366; 96375; 97110; 97116; 97162; 97166; 97530; 97535; 99218; 99251; C1776; C9803; J7120; A4216; G0378; G0463; J3475

== ENCOUNTER 2021-12-03 06:27 | Outpatient (RCR) | payer MEDICARE, OTHER, MEDICAID, SELFPAY ==
[2021-07-31 02:27] VITALS: BMI 30.9
[2021-12-03 06:41] LABS: Mucous, Urine 0 SEEN /hpf (<or=2+); Red Blood Cells-Urine 0 SEEN /hpf (0-5)
[2021-12-03 07:55] LABS: Absolute Lymphocyte Count 1.66 X10^3/uL (0.83-4.51); Absolute Neutrophil Count 6.2 X10^3/uL (2.0-7.7); Basophil# 0.05 X10^3/uL; Basophil% 0.5 % (0-1); Eosinophils% 1.1 % (0-5); Hematocrit 40.6 % (40-54); Hemoglobin 13.2 g/dL (13.0-16.5); Lymphocyte # 1.66 X10^3/ul (0.83-4.51); Lymphocyte % 17.5 % (19-41); Mean Corp Hgb Conc 32.5 g/dL (32-36); Mean Corpuscular Hgb 30.1 pg (27.0-32.0); Mean Corpuscular Volume 92.5 fL (80-94); Mean Platelet Vol. 10.5 fl (6.2-12.0); Monocyte% 13.7 % (0-10); NRBC Flagged by Analyzer 0 % (0-5); Neutrophil # 6.22 X10^3/uL (2.7-7.7); Neutrophil % 65.4 % (47-70); Platelet Count 261 K/mm3 (150-450); RBC Distribution Width CV 13.5 % (11.6-14.6); RBC Distribution Width SD 46.4 fl (35.1-43.9); Red Blood Count 4.39 M/mm3 (4.6-6.2); White Blood Count 9.5 K/mm3 (4.4-11.0)
[2021-12-03 08:00] LABS: Protein, Urine (Random) 19.6 mg/dL (<11.9); Protein:Creat Ratio 230 mg/g CRE (0-200)
[2021-12-03 08:16] LABS: Color, Urine Yellow (Yellow); Glucose, Dipstick Normal (Normal); Ketone-Dipstick Negative (Negative); Leukocyte Esterase-Dipstick 500 /ul (Negative); Nitrite-Dipstick Positive (Negative); Occult Blood-Urine 25 /ul (Negative); Protein-Dipstick 15 mg/dl (Negative); Urine Bilirubin Dipstick Negative (Negative); Urine Clarity Sl. Cloudy (Clear); Urine Urobilinogen Normal (Normal)
[2021-12-03 08:20] LABS: ALB/GLOB Ratio 0.9 RATIO (0.9-2.4); AST(SGOT) 11 U/L (15-37); Alanine Aminotransfer ALT/SGPT 18 U/L (16-61); Albumin, Serum 3.4 g/dL (3.2-5.0); Alkaline Phosphatase 102 U/L (45-117); Anion Gap 6 (5-15); BUN 35 mg/dL (7-18); BUN/Creat Ratio 25.7 RATIO (10-20); Calcium,Total 10.5 mg/dL (8.5-10.1); Chloride 108 mmol/L (98-107); Creatinine, Serum 1.36 mg/dL (0.70-1.30); EST Glomerular Filtration Rate 61 mL/min (>60); Est Glom Filt Rate - Afr Amer 73 mL/min (>60); Globulin 3.7 g/dL (2.2-4.2); Glucose 100 mg/dL (74-106); Magnesium 1.9 mg/dL (1.6-2.6); Potassium 3.7 mmol/L (3.5-5.1); Protein, Total 7.1 g/dL (6.4-8.2); Sodium Level 140 mmol/L (136-145)
[2021-12-03 08:36] LABS: White Blood Cells 50-100 SEEN /hpf (0-5)
[2021-12-03 08:37] LABS: Bacteria 3+ /hpf (None Seen); Squamous Epithelial Cells - UA 0-5 SEEN /hpf (0-5)
[2021-12-10 18:06] LABS: Tacrolimus (FK506) 2.7 ng/mL (2.0-20.0)
== END 2021-12-03 23:59 | disposition home or self-care (01) ==
LOC: LAB 06:27
PROVIDERS: PCP Internal Medicine
DX: Z94.0 Kidney transplant status (principal); T86.10 Unspecified complication of kidney transplant; N18.9 Chronic kidney disease, unspecified; D63.1 Anemia in chronic kidney disease; E83.39 Other disorders of phosphorus metabolism; E83.40 Disorders of magnesium metabolism, unspecified; Z79.899 Other long term (current) drug therapy
CPT/HCPCS: 36415; 80053; 80197; 81001; 82570; 83735; 84156; 85025

== ENCOUNTER 2021-12-03 10:11 | Emergency (ER) | payer MEDICARE, MEDICAID, SELFPAY ==
[2021-12-03] VITALS (13 sets, daily range): BP systolic 152–209; BP diastolic 77–105; PULSE 70–96; RESP 15–17; TEMP 36.6–36.7; O2SAT 96–100; BMI 27.4
--- NOTE | 2021-12-03 10:41 | EDS_ITS ---
HPI History of Present Illness Chief Complaint: Lower Extremity Injury Informant: patient Narrative Narrative: Patient presents with left hip pain after slip in the shower. Patient had total left hip for avascular necrosis October 24 of [address] Dr. Cazares. He has been doing very well. He was in a chair in the shower. He stood up to wash himself in areas. When he did this the left hip seemed to not work and he slipped and fell and he has had pain in the left hip and proximal femur area ever since. He denies hitting his head or hurting himself in any other area. He is not on any long-term anticoagulation other than aspirin. He just had some blood work done for routine following as he does have kidney transplant. The only area of pain is around his left hip. He got fentanyl which helped a little bit. Motion makes it worse. [facility] Medical History Abdominal pain Anemia Arthritis Cardiology follow-up encounter COPD (chronic obstructive pulmonary disease) CPAP (continuous positive airway pressure) dependence Dysuria Elevated blood pressure reading Former smoker Gastric reflux History of CHF (congestive heart failure) History of COVID-19 History of hiatal hernia History of pain when walking History of renal dialysis History of renal disease History of steroid therapy History of stress test Hx of Perez's palsy Hx of cardiomyopathy Hypertension Left hip pain Leg cramps Myocardial infarction with cardiac rehabilitation Palpitations Preoperative evaluation to rule out surgical contraindication Right shoulder pain Syncope Home Medications magnesium oxide 400 mg PO BID 09/30/19 [History Last Taken 10/24/21] tacrolimus 1 mg capsule, immediate-release 3 mg PO BID cap 09/30/19 [History Last Taken 10/24/21] omeprazole 20 mg capsule,delayed release 20 mg PO DAILY 02/26/21 [History Last Taken 10/24/21] prednisone 5 mg tablet 5 mg PO DAILY #30 tab 03/02/21 [Rx Last Taken 10/24/21] mycophenolate mofetil 100 mg PO BID 10/10/21 [History Last Taken 10/24/21] albuterol sulfate 2.5 mg INHALATION Q6H PRN #90 ml 10/16/21 [Rx Last Taken Unknown] albuterol sulfate 90 mcg/actuation aerosol inhaler 2 inh INHALATION Q6H PRN #8.5 g 10/16/21 [Rx Last Taken Unknown] budesonide-formoterol HFA 160 mcg-4.5 mcg/actuation aerosol inhaler 2 puff INHALATION BID #10.2 g 10/16/21 [Rx Last Taken Unknown] nebulizers #1 ea 10/16/21 [Rx Last Taken Unknown] acetaminophen 1,000 mg PO Q8 #100 tab 10/25/21 [Rx Last Taken Unknown] aspirin 81 mg PO BIDCM 30 Days #60 tab 10/25/21 [Rx Last Taken Unknown] oxycodone 5 - 10 mg PO Q4H PRN PRN 5 Days #60 tab 10/25/21 [Rx Last Taken Unknown] sodium bicarbonate 650 mg PO DAILY 12/03/21 [History Last Taken Unknown] sulfamethoxazole-trimethoprim [Bactrim DS] 1 tab PO BID #20 tab 12/03/21 [Rx Last Taken Unknown] Allergy/AdvReac Type Severity Reaction Status Date / Time Latex, Natural Rubber Allergy Mild rash Verified 12/03/21 10:12 hydromorphone [From Dilaudid] AdvReac Mild nausea Verified 12/03/21 10:12 Surgical History History of appendectomy History of cardiac catheterization History of cholecystectomy Hx of colonoscopy Hx of esophagogastroduodenoscopy Hx of exploratory laparotomy Hx of hand surgery Hx of myringotomy Hx of oral surgery Hx of parathyroidectomy kidney transplant Social History household members: other details: girlfriend and mother Smoking Status: Never smoker Tobacco: How many years used: 20 alcohol intake: never substance use type: does not use do you feel safe at home: Yes ROS ROS ED Constitutional Constitutional ED: Denies chills or fever(s) Eyes Eyes: Denies blurry vision ENT ENT ED: Denies rhinorrhea Cardiovascular Cardiovascular: Denies chest pain or palpitations Respiratory/Chest Respiratory/Chest: Denies cough or dyspnea Gastrointestinal Gastrointestinal: Denies abdominal pain, nausea or vomiting Musculoskeletal Musculoskeletal: Reports other Details: See history of present illness. Integumentary Denies rash Neurologic Neurologic: Denies headache(s) Psychiatric Psychiatric: Denies depression Endocrine Endocrinology: Denies polydipsia or polyuria Hematologic/Lymphatic Hematologic/Lymphatic: Denies easy bruising Allergic/Immunologic Allergic/Immunologic ED: Denies urticaria EXAM Physical Exam Const Vital Signs: 12/03/21 10:12 12/03/21 12:57 12/03/21 12:58 Temperature 97.9 F Temperature Source Oral Pulse Rate 77 89 93 Pulse Rate [1] Pulse Rate [2] Respiratory Rate 17 17 16 Respiratory Rate [1] Blood Pressure 155/81 H 169/105 H 169/105 H Blood Pressure [1] Blood Pressure Mean 105 126 Pulse Ox 100 100 100 Oxygen Delivery Method Room Air Room Air Room Air Oxygen Delivery Method [1] Oxygen Delivery Method [2] Oxygen Flow Rate (L/min) Oxygen Flow Rate (L/min) [1] 12/03/21 13:00 12/03/21 13:12 12/03/21 13:17 Temperature Temperature Source Pulse Rate Pulse Rate [1] 96 Pulse Rate [2] 70 Respiratory Rate Respiratory Rate [1] 17 Blood Pressure Blood Pressure [1] 175/105 H Blood Pressure Mean Pulse Ox Oxygen Delivery Method Room Air Room Air Oxygen Delivery Method [1] Room Air Oxygen Delivery Method [2] Oxygen Flow Rate (L/min) Oxygen Flow Rate (L/min) [1] 12/03/21 16:38 12/03/21 16:45 12/03/21 16:58 Temperature 98.0 F Temperature Source Pulse Rate 77 83 Pulse Rate [1] 89 Pulse Rate [2] 75 Respiratory Rate 16 17 Respiratory Rate [1] 15 Blood Pressure 159/82 H 159/82 H Blood Pressure [1] 209/102 H Blood Pressure Mean 107 Pulse Ox 98 98 Oxygen Delivery Method Room Air Room Air Oxygen Delivery Method [1] Non-Rebreather Oxygen Delivery Method [2] Non-Rebreather Oxygen Flow Rate (L/min) Oxygen Flow Rate (L/min) [1] 15 12/03/21 17:09 12/03/21 17:15 Temperature Temperature Source Pulse Rate Pulse Rate [1] Pulse Rate [2] Respiratory Rate Respiratory Rate [1] Blood Pressure Blood Pressure [1] Blood Pressure Mean Pulse Ox Oxygen Delivery Method Non-Rebreather Room Air Oxygen Delivery Method [1] Oxygen Delivery Method [2] Oxygen Flow Rate (L/min) 15 Oxygen Flow Rate (L/min) [1] Patient does look a bit uncomfortable. With motion he has more pain. Positive well nourished and well developed General Appearance ED: well developed HEENT normocephalic and atraumatic Chest Wall inspection of chest normal and palpation of chest normal Resp normal respiratory effort, no retractions and clear to auscultation bilaterally Auscultation: Negative for rales, rhonchi or wheezes Cardio regular rate and regular rhythm GI non-tender and non-distended Palpation: soft Back/Spine no CVA tenderness Extremity Extremity Narrative: Left leg does look slightly shortened by about 1 and half to 2 cm compared to the right. There is some slight external rotation. Distal pulses sensation intact. Neuro oriented x3 Sensorium / Orientation: alert Psych mental status grossly normal Skin Rashes: no rashes MDM MDM MDM Narrative Medical decision making narrative: Procedure: Procedural sedation and hip reduction: I did discuss the case with Dr. Cazares. Patient states he has never had problems with anesthesia. He is relatively tolerant of the meds and they oftentimes take more. His last meal was yesterday. He has Mallampati of 2. He does have some complex medical history but it is well managed and controlled. We did proceed with sedation. I gave him 40 4020 and then 30 of propofol. We did finally get sedation. We attempted longitudinal traction for reduction but were not successful. At this point his saturations started to drop. We stopped that procedure and did jaw lift. At which point he took very good deep breaths. It looks like he was pinching his airway off due to positioning. We did do ambu to make sure he was taking deep breaths. His saturations hit as low as 76%. But he came up rapidly to 100%. We attempted to get the hip in but were unsuccessful. I discussed case again with Dr. Cazares. He is going to come in and look at him to see if they can do this. We had repeat sedation with Dr. Cazares. Patient had a total of [address] Cazares was able to reduce the hip. We are waiting on postreduction films. He is feeling better. He is back awake and alert. We had no problems with desaturation as we held his jaw open. He does have a history of sleep apnea. Because of the type of dislocation, he does not need knee i mmobilizer. Plan will be going home. Because of his positive urinalysis this morning we will treat him for this. Lab Data Attestation: I reviewed the patient's lab results. Radiography Diagnostic Testing: Clinical Impression(s) from Imaging Studies Femur X-Ray 12/03/21 11:15 IMPRESSION: Dislocation of a left hip prosthesis. Electronically Signed: Jovon Holland MD at 11:55 EDT , Pelvis X-Ray 12/03/21 11:15 IMPRESSION: Dislocation of a left hip prosthesis. Electronically Signed: Jovon Holland MD at 11:51 EDT , Procedures Other Procedures Procedure(s): See MDM Discharge Plan Triage Chief Complaint: Lower Extremity Injury ED Provider: Yuan Scott Dx/Rx/DC Orders Clinical Impression: Urinary tract infection, Anterior dislocation of left hip Instructions: ED Bladder Infection, Male (Adult), ED Hip Replace Dislocation Reduc Prescriptions: New sulfamethoxazole-trimethoprim [Bactrim DS] 800-160 mg tablet 1 tab PO BID Qty: 20 RF: 0 No Action tacrolimus [Prograf] 1 mg capsule 3 mg PO BID RF: 0 magnesium oxide 400 mg magnesium tablet 400 mg PO BID RF: 0 prednisone 5 mg tablet 5 mg PO DAILY Qty: 30 RF: 1 budesonide-formoterol [Symbicort] 160-4.5 mcg/actuation HFA aerosol inhaler 2 puff INHALATION BID Qty: 10.2 RF: 2 albuterol sulfate 90 mcg/actuation HFA aerosol inhaler 2 inh inhalation Q6H PRN (Reason: shortness of breath or wheezing) Qty: 8.5 RF: 2 (DME) nebulizers Misc See Rx Instructions .ROUTE .MEDSUPPLY Qty: 1 RF: 0 albuterol sulfate 2.5 mg /3 mL (0.083 %) solution for nebulization 2.5 mg inhalation Q6H PRN (Reason: shortness of breath or wheezing) Qty: 90 RF: 2 omeprazole 20 mg capsule,delayed release(DR/EC) 20 mg PO DAILY RF: 0 mycophenolate mofetil 250 mg Capsule 100 mg PO BID RF: 0 acetaminophen 500 mg Tablet 1,000 mg PO Q8 Qty: 100 RF: 0 aspirin 81 mg Tablet,Chewable 81 mg PO BIDCM 30 Days Qty: 60 RF: 0 oxycodone 5 mg Tablet 5 - 10 mg PO Q4H PRN PRN (Reason: Pain Score 4-10) 5 Days Qty: 60 RF: 0 sodium bicarbonate 650 mg Tablet 650 mg PO DAILY RF: 0 Primary Care Provider: Wolfgang Reed Referrals: Wolfgang Reed MD [Primary Care Provider] - 3-5 Days Sachin Cazares MD [STAFF PHYSICIAN] - [facility] appointment Disposition Disposition: Home, Self Care
[2021-12-03] MEDS: Ondansetron 4 MG/2 ML Vial IV ×2 (10:54→16:04)
[2021-12-03] MEDS: Morphine 4 MG/ML Syringe IV ×3 (10:55→16:03)
--- NOTE | 2021-12-03 11:15 | RAD_ITS ---
EXAM: XR PELVIS, 1 OR 2 VIEWS CLINICAL INDICATION: trauma TECHNIQUE: Frontal view of the pelvis. This report was created using [email or web address] report generation technology. COMPARISON: None. FINDINGS: BONES/JOINTS: There is a total left hip prosthesis. There is a dislocation of the femoral component of the acetabular component. There are no osseous abnormalities. No displaced fracture. No destructive or sclerotic lesions. Note that overlapping bowel shadows may however obscure fine detail. Sacroiliac joints are unremarkable. No widening of the pubic symphysis. SOFT TISSUES: Unremarkable. No soft tissue swelling or gas. RAD/Pelvis 1 or 2 Views IMPRESSION: Dislocation of a left hip prosthesis. Electronically Signed: Jovon Holland MD at 11:51 EDT ,
--- NOTE | 2021-12-03 11:15 | RAD_ITS ---
EXAM: XR LEFT FEMUR, 2 VIEWS CLINICAL INDICATION: trauma TECHNIQUE: Frontal and lateral views of the left femur. This report was created using [employer] report generation technology. COMPARISON: None. FINDINGS: BONES/JOINTS: There is dislocation of the femoral component of a left hip prosthesis from the acetabular component. There are no osseous abnormalities. No acute fracture. No sclerotic or destructive changes observed. SOFT TISSUES: Unremarkable. No soft tissue swelling or gas. No radiopaque foreign body. RAD/Femur Min 2 Views IMPRESSION: Dislocation of a left hip prosthesis. Electronically Signed: Jovon Holland MD at 11:55 EDT ,
[2021-12-03] MEDS: Propofol 200 MG/20 ML Vial IV BOLUS (13:03)
[2021-12-03] MEDS: fentaNYL 100 MCG/2 ML Ampul 25 MCG IV (13:21)
--- NOTE | 2021-12-03 17:08 | RAD_ITS ---
STUDY: XR Pelvis 1 or 2 Views 12/03/2021 5:08 PM REASON FOR EXAM: Male, 46 years old. post reduction TECHNIQUE: XR Pelvis 1 or 2 Views COMPARISON: Study done earlier today. FINDINGS: There is a non-specific bowel gas pattern. There are multiple calcified phleboliths. Normal bilateral iliac wings, sacroiliac joints and visualized sacrum. Normal visualized bilateral superior and inferior pubic rami. Normal pubic symphysis. Normal ischial tuberosities. Normal visualized right femoral head. Normal right acetabulum. Normal right hip joint. Total left hip arthroplasty. Prosthetic left acetabulum. Normal left hip joint. RAD/Pelvis 1 or 2 Views IMPRESSION: Successful reduction Electronically Signed: Tom George MD at 18:04 EDT ,
--- NOTE | 2021-12-03 17:08 | PCM.CONS.GEN ---
Assessment & Plan Assessment/Plan (1) Anterior dislocation of left hip: PLAN: pt has acute anterior dislocation of L SWEETIE. natural history and treatments were discussed. plan at this time is closed reduction under conscious sedation in ED. procedure below. pt understands risks and agrees to proceed. After closed reduction pt remained nvt. plan to d/c home with continued anterior precautions, no hip extension and limit external rotation. f/u as planned in office. procedure. a proper time out was call. everyone agreed on pt name/ procedure and sedation and side. after conscious sedation a nurse pulled traction while i applied pressure to the anterior hip. then the nurse was instructed to internally rotate and the hip clunked into place. post reduction films showed adequately reduced hip. HPI Consult Data Date of Consult: 12/03/21 PCP / Referring MD: Marko Scott Attending Care Provider: Marko Scott HPI Narrative Reason for Consultation: leg hip dislocation HPI Narrative: NURIA CORCORAN, is a 46 M who had a left total hip replacement with an anterior approach on October 24, 2021 presents today with left hip pain. Patient notes he was standing in the shower when he pivoted on his left foot, at which point his leg gave out on him and her ended up on the bathroom floor. He was brought to the ED. patient's leg is in an externally rotated posistion. He denie n/t distally. He reports 10/10 pain in the left hip. He was otherwise doing well postoperatiely. [facility] Medical History Abdominal pain Anemia Arthritis Cardiology follow-up encounter COPD (chronic obstructive pulmonary disease) CPAP (continuous positive airway pressure) dependence Dysuria Elevated blood pressure reading Former smoker Gastric reflux History of CHF (congestive heart failure) History of COVID-19 History of hiatal hernia History of pain when walking History of renal dialysis History of renal disease History of steroid therapy History of stress test Hx of Perez's palsy Hx of cardiomyopathy Hypertension Left hip pain Leg cramps Myocardial infarction with cardiac rehabilitation Palpitations Preoperative evaluation to rule out surgical contraindication Right shoulder pain Syncope Home Medications magnesium oxide 400 mg PO BID 09/30/19 [History Last Taken 10/24/21] tacrolimus 1 mg capsule, immediate-release 3 mg PO BID cap 09/30/19 [History Last Taken 10/24/21] omeprazole 20 mg capsule,delayed release 20 mg PO DAILY 02/26/21 [History Last Taken 10/24/21] prednisone 5 mg tablet 5 mg PO DAILY #30 tab 03/02/21 [Rx Last Taken 10/24/21] mycophenolate mofetil 100 mg PO BID 10/10/21 [History Last Taken 10/24/21] albuterol sulfate 2.5 mg INHALATION Q6H PRN #90 ml 10/16/21 [Rx Last Taken Unknown] albuterol sulfate 90 mcg/actuation aerosol inhaler 2 inh INHALATION Q6H PRN #8.5 g 10/16/21 [Rx Last Taken Unknown] budesonide-formoterol HFA 160 mcg-4.5 mcg/actuation aerosol inhaler 2 puff INHALATION BID #10.2 g 10/16/21 [Rx Last Taken Unknown] nebulizers #1 ea 10/16/21 [Rx Last Taken Unknown] acetaminophen 1,000 mg PO Q8 #100 tab 10/25/21 [Rx Last Taken Unknown] aspirin 81 mg PO BIDCM 30 Days #60 tab 10/25/21 [Rx Last Taken Unknown] oxycodone 5 - 10 mg PO Q4H PRN PRN 5 Days #60 tab 10/25/21 [Rx Last Taken Unknown] sodium bicarbonate 650 mg PO DAILY 12/03/21 [History Last Taken Unknown] sulfamethoxazole-trimethoprim [Bactrim DS] 1 tab PO BID #20 tab 12/03/21 [Rx Last Taken Unknown] Allergy/AdvReac Type Severity Reaction Status Date / Time Latex, Natural Rubber Allergy Mild rash Verified 12/03/21 10:12 hydromorphone [From Dilaudid] AdvReac Mild nausea Verified 12/03/21 10:12 Surgical History History of appendectomy History of cardiac catheterization History of cholecystectomy Hx of colonoscopy Hx of esophagogastroduodenoscopy Hx of exploratory laparotomy Hx of hand surgery Hx of myringotomy Hx of oral surgery Hx of parathyroidectomy kidney transplant Social History household members: other details: girlfriend and mother Smoking Status: Never smoker Tobacco: How many years used: 20 alcohol intake: never substance use type: does not use do you feel safe at home: Yes ROS Constitutional Constitutional: Reports systems reviewed and no addt'l complaints, except as documented Eyes Eyes: Reports systems reviewed and no addt'l complaints, except as documented ENT HEENT: Reports systems reviewed and no addt'l complaints, except as documented Cardiovascular Cardiovascular: Reports systems reviewed and no addt'l complaints, except as documented Respiratory/Chest Respiratory/Chest: Reports systems reviewed and no addt'l complaints, except as documented Gastrointestinal Gastrointestinal: Reports systems reviewed and no addt'l complaints, except as documented Genitourinary Genitourinary: Reports systems reviewed and no addt'l complaints, except as documented Musculoskeletal Musculoskeletal: Reports systems reviewed and no addt'l complaints, except as documented Integumentary Integumentary: Reports systems reviewed and no addt'l complaints, except as documented Neurologic Neurologic: Reports systems reviewed and no addt'l complaints, except as documented Psychiatric Psychiatric: Reports systems reviewed and no addt'l complaints, except as documented Endocrine Endocrinology: Reports systems reviewed and no addt'l complaints, except as documented Hematologic/Lymphatic Hematologic/Lymphatic: Reports systems reviewed and no addt'l complaints, except as documented Physical Exam Const alert and oriented x3 Extremity Extremity Narrative: LLE: shortened, externally rotated. + df/ehl/pf. silt saph/sural/sp/dp/tib. + dp pulse. + logroll. inc c/d/i Radiology Impression Femur X-Ray 12/03/21 11:15 IMPRESSION: Dislocation of a left hip prosthesis. Electronically Signed: Jovon Holland MD at 11:55 EDT , Pelvis X-Ray 12/03/21 11:15 IMPRESSION: Dislocation of a left hip prosthesis. Electronically Signed: Jovon Holland MD at 11:51 EDT ,
== END 2021-12-03 17:37 | disposition home or self-care (01) ==
PROVIDERS: Emergency Provider Emergency Medicine; PCP Internal Medicine; Visit Provider Emergency Medicine
DX: S73.035A Other anterior dislocation of left hip, initial encounter (principal); J44.9 Chronic obstructive pulmonary disease, unspecified; W18.2XXA Fall in (into) shower or empty bathtub, initial encounter; Y93.E1 Activity, personal bathing and showering; K21.9 Gastro-esophageal reflux disease without esophagitis; Z86.16 Personal history of COVID-19; I10 Essential (primary) hypertension; I25.2 Old myocardial infarction; Z79.899 Other long term (current) drug therapy; Z79.82 Long term (current) use of aspirin; N39.0 Urinary tract infection, site not specified
CPT/HCPCS: 27250 ×2; 36415; 72170; 73552; 80053; 80197; 81001; 82570; 83735; 84156; 85025; 96374; 96375; 96376; 99285; J7030; A4216; J2405

== ENCOUNTER 2022-04-18 10:11 | Emergency (ER) | payer MEDICARE, OTHER, MEDICAID, SELFPAY ==
[2022-04-18] VITALS (7 sets, daily range): BP systolic 130–169; BP diastolic 74–135; PULSE 81–99; RESP 17–24; TEMP 36.1; O2SAT 97–99; BMI 28.6
--- NOTE | 2022-04-18 10:24 | EKG12_ITS ---
Test Reason : CP Blood Pressure : / mmHG Vent. Rate : 083 BPM Atrial Rate : 083 BPM P-R Int : 128 ms QRS Dur : 082 ms QT Int : 350 ms P-R-T Axes : 020 029 064 degrees QTc Int : 411 ms Normal sinus rhythm Normal ECG Confirmed by URSZULA ARANDA, STEFF ([id number]), newspaper photo editor JANY LOPEZ ([id number]) on 04/22/2022 9:40:06 AM Referred By: TL Confirmed By:STEFF SEAMAN MD
--- NOTE | 2022-04-18 10:24 | EDS_ITS ---
HPI History of Present Illness Chief Complaint: Chest Pain Informant: patient Onset/Context/Timing Onset: Today and Hours Activity at onset: gradual Timing: Continuous Quality: Positive for Pressure Location: Substernal Current Severity: Moderate Maximum Severity: Moderate Worsened By: Nothing Relieved By: NTG Associated Symptoms: Positive for Diaphoresis and Cough; Negative for Nausea, Vomiting, Dyspnea, Fever, Lightheadedness, Acid Reflux or Palpitations Narrative Narrative: 46-year-old male with extensive past medical history including COPD, reflux, MIs x2 around 2015. No cardiac stents. End-stage renal disease but has had a kidney transplant so is no longer on dialysis. States around 3 AM this morning he developed midsternal chest pain. No radiation to his neck, jaw, left arm or back. Nothing particularly makes it better or worse. He was brought in by squad this morning and was given aspirin by squad and sublingual nitroglycerin which did take his pain from an 8 to a 5. States he still having pain. Denies any recent exertional chest pain. No history of DVT or PE. Prior Similar Symptoms: Yes Recent Illness/Hospitalization: No CVD Risk Factors: Positive for Hypertension PE Risk Factors: Negative for Recent Travel/Surgery, Recent Immobilization, Prior DVT or PE, Cancer or OCP + Smoking + >/=35 TAD Risk Factors: Negative for Marfan's Syndrome PFSH [facility] Medical History Abdominal pain Anemia Arthritis Cardiology follow-up encounter Contact with and (suspected) exposure to other viral communicable diseases COPD (chronic obstructive pulmonary disease) CPAP (continuous positive airway pressure) dependence Dysuria Elevated blood pressure reading Former smoker Gastric reflux History of CHF (congestive heart failure) History of COVID-19 History of hiatal hernia History of pain when walking History of renal dialysis History of renal disease History of steroid therapy History of stress test Hx of Perez's palsy Hx of cardiomyopathy Hypertension Left hip pain Leg cramps Myocardial infarction with cardiac rehabilitation Palpitations Preoperative evaluation to rule out surgical contraindication Right shoulder pain Syncope Home Medications magnesium oxide 400 mg PO BID supplement 09/30/19 [History Last Taken 10/24/21] tacrolimus 1 mg capsule, immediate-release (Prograf) 3 mg PO BID rejection 09/30/19 [History Last Taken 10/24/21] omeprazole 20 mg capsule,delayed release 20 mg PO DAILY 02/26/21 [History Last Taken 10/24/21] prednisone 5 mg tablet 5 mg PO DAILY #30 tabs 03/02/21 [Rx Last Taken 10/24/21] mycophenolate mofetil 250 mg capsule 100 mg PO BID 10/10/21 [History Last Taken 10/24/21] albuterol sulfate 2.5 mg/3 mL (0.083 %) solution for nebulization 2.5 mg (3 mL) inhalation Q6H PRN shortness of breath or wheezing #90 mL 10/16/21 [Rx Last Taken Unknown] albuterol sulfate 90 mcg/actuation aerosol inhaler 2 inh inhalation Q6H PRN shortness of breath or wheezing #8.5 grams 10/16/21 [Rx Last Taken Unknown] budesonide-formoterol HFA 160 mcg-4.5 mcg/actuation aerosol inhaler (Symbicort) 2 puff inhalation BID SOB #10.2 grams 10/16/21 [Rx Last Taken Unknown] nebulizers #1 ea 10/16/21 [Rx Last Taken Unknown] acetaminophen 500 mg tablet 1,000 mg PO Q8 #100 tabs 10/25/21 [Rx Last Taken Unknown] aspirin 81 mg chewable tablet 81 mg PO BIDCM 30 days #60 tabs 10/25/21 [Rx Last Taken Unknown] oxycodone 5 mg tablet 5 - 10 mg PO Q4H PRN PRN Pain Score 4-10 5 days #60 tabs 10/25/21 [Rx Last Taken Unknown] sodium bicarbonate 650 mg tablet 650 mg PO DAILY 12/03/21 [History Last Taken Unknown] sulfamethoxazole 800 mg-trimethoprim 160 mg tablet (Bactrim DS) 1 tab PO BID #20 tabs 12/03/21 [Rx Last Taken Unknown] Allergy/AdvReac Type Severity Reaction Status Date / Time Latex, Natural Rubber Allergy Mild rash Verified 04/18/22 10:16 hydromorphone [From Dilaudid] AdvReac Mild nausea Verified 04/18/22 10:16 Surgical History History of appendectomy History of cardiac catheterization History of cholecystectomy Hx of colonoscopy Hx of esophagogastroduodenoscopy Hx of exploratory laparotomy Hx of hand surgery Hx of myringotomy Hx of oral surgery Hx of parathyroidectomy kidney transplant Social History household members: other details: girlfriend and mother Smoking Status: Never smoker Tobacco: How many years used: 20 alcohol intake: never substance use type: does not use do you feel safe at home: Yes ROS ROS ED ROS Narrative Cough. Review of Systems ROS Unobtainable: Denies due to encephalopathy Constitutional Constitutional ED: Denies chills or fever(s) Eyes Eyes: Reports none ENT ENT ED: Denies ear pain Cardiovascular Cardiovascular: Reports as per HPI and chest pain; Denies palpitations or racing heartbeat Respiratory/Chest Respiratory/Chest: Reports cough; Denies dyspnea Gastrointestinal Gastrointestinal: Denies abdominal pain or constipation Genitourinary Genitourinary ED: Denies dysuria or hematuria Musculoskeletal Musculoskeletal: Denies arthralgias Integumentary Denies abscess Neurologic Neurologic: Denies headache(s) Psychiatric Psychiatric: Denies anxiety Endocrine Endocrinology: Denies cold intolerance Hematologic/Lymphatic Hematologic/Lymphatic: Denies easy bleeding Allergic/Immunologic Allergic/Immunologic ED: Denies mouth swelling EXAM Physical Exam Narrative Exam Narrative: 46-year-old male no acute distress. Vital signs are stable and afebrile. His initial blood pressure is 162/135 however he was coughing at the time and I rechecked is 135/87. Pulse ox 98% on room air no signs hypoxia. H EENT exam unremarkable. Neck nontender. No JVD. Lungs clear to auscultation bilaterally. Heart regular rate and rhythm rate about 80. Chest wall nontender. No reproducible tenderness. Abdomen soft nontender. Moving all 4 extremities. Dialysis fistula in his left arm. Calves are nontender without edema or cords. Neurologically is awake and alert with no focal motor deficits. Const Vital Signs: 04/18/22 10:12 04/18/22 10:16 04/18/22 10:17 Temperature 96.9 F L Temperature Source Oral Pulse Rate 86 Respiratory Rate 24 H Respiratory Effort Short of Breath Respiratory Pattern Tachypnea Tachypnea Blood Pressure 162/135 H Blood Pressure Mean 144 Pulse Ox 98 Oxygen Delivery Method Room Air Room Air 04/18/22 10:25 04/18/22 10:29 04/18/22 11:00 Temperature Temperature Source Pulse Rate 91 81 Respiratory Rate 17 17 Respiratory Effort Respiratory Pattern Blood Pressure 130/74 H 137/95 H Blood Pressure Mean 92 109 Pulse Ox 98 97 99 Oxygen Delivery Method Room Air Room Air Room Air Positive well nourished, well developed and obese; Negative for cachectic, contractures or unkempt General Appearance ED: well developed and NAD; Negative for unkempt, cachectic, contractures or pallor Nutritional Appearance: obese; Negative for cachectic HEENT Reports moist mucous membranes normocephalic and atraumatic; Negative for trauma or tenderness Eyes PERRL and EOMs intact bilaterally General Eye ED: Negative for pale conjunctiva or scleral icterus Neck no lymphadenopathy, supple and no JVD Chest Wall inspection of chest normal and palpation of chest normal Chest: Negative for tenderness Resp normal respiratory effort and clear to auscultation bilaterally Effort and Inspection: Negative for respiratory distress Auscultation: Negative for rales, rhonchi or wheezes Cardio regular rate, regular rhythm, S1 normal heart sound, S2 normal heart sound and no murmurs Rate: Negative for bradycardia Rhythm: Negative for abnormal rhythm GI normal to inspection, nondistended, normoactive bowel sounds, soft to palpation, non-tender, non-distended and no masses Auscultation: Negative for hyperactive bowel sounds Palpation: Negative for splenomegaly Back/Spine no CVA tenderness and no thoracic nor lumbar tenderness General Back: Negative for CVA tenderness Cervical Spine: Negative for cervical spine tenderness Extremity normal to inspection General Extremety ED: Negative for edema General Extremity: Negative for edema Neuro oriented x3 and CN's II-XII intact bilaterally Sensorium / Orientation: awake, alert, oriented to person, oriented to place and oriented to time; Negative for confused, lethargic or stuporous Motor Exam: strength 5/5 throughout Psych mental status grossly normal Appearance: Negative for unkempt Attitude: No agitated Mood & Affect: Negative for depressed, anxious or tearful Skin no rashes or lesions noted and no wounds General Skin Exam: Negative for jaundice or pallor Rashes: No rashes noted Trauma: Negative for abrasion Heart Score History: Slightly/Non-Suspicious ECG: Normal Age: </= 45 years Risk Factors: >/= 3 Risk Factors or History of CAD Troponin: </= Normal Limit Score: 2 MDM MDM MDM Narrative Medical decision making narrative: 46-year-old male with nonexertional midsternal chest pain its been ongoing now for about 7 and half hours. This not reproducible. Exam benign. Will undergo cardiac work-up. He already received aspirin per squad. Multiple repeat exams patient is currently doing well at 1:37 PM. Exam benign. Second troponin and second EKG were unremarkable. He will be discharged home with outpatient follow-up. Lab Data Attestation: I reviewed the patient's lab results. Lab results narrative: CBC shows a white 11.3. H&H of 13.9 and 42. Chemistries unremarkable gap of 7 BUN 25 creatinine 1.51. Glucose 144. Initial troponin 18. Chest x-ray unremarkable. Repeat 2-hour troponin was also 18. Repeat EKG was unchanged. Labs: Laboratory Results - last 24 hr 04/18/22 04/18/22 04/18/22 10:25 10:25 12:40 WBC 11.3 H RBC 4.46 L Hgb 13.9 Hct 42.3 MCV 94.8 H MCH 31.2 MCHC 32.9 RDW Std Deviation 56.0 H RDW Coeff of Tari 16.0 H Plt Count 285 MPV 9.8 Immature Gran % (Auto) 1.400 H Neut % (Auto) 85.0 H Lymph % (Auto) 6.7 L [place] % (Auto) 6.3 Eos % (Auto) 0.3 Baso % (Auto) 0.3 Absolute Neuts (auto) 9.6 H Absolute Lymphs (auto) 0.76 L Nucleated RBC % 0 Sodium 140 Potassium 4.5 Chloride 109 H Carbon Dioxide 24.0 Anion Gap 7 BUN 25 H Creatinine 1.51 H Estim Creat Clear Calc 50.24 Est GFR (MDRD) Af Amer 65 Est GFR (MDRD) Non-Af 54 L BUN/Creatinine Ratio 16.6 Glucose 144 H Calcium 10.8 H Troponin I High Sens 18 18 Radiography Chest X-Ray - ED: 1 View, Read by ED Physician, Read by Radiologist, Mediastinum, Bony Structures, No Acute Disease and Chronic Changes Diagnostic Testing: Clinical Impression(s) from Imaging Studies Chest X-Ray 04/18/22 11:11 IMPRESSION: No acute cardiopulmonary process identified. Electronically Signed: Myra Scott MD at 11:28 EDT , Chest x-ray, portable, single view shows no acute abnormality. Interpreted both by myself and radiologist. Rhythm Strip Rhythm Strip: Sinus Rhythm Rate: 83 Ectopy: None EKG Initial EKG: Attestation: I personally reviewed and interpreted this EKG as follows: Interpretation: Sinus Rhythm and No Acute Injury Pattern Comments: Normal sinus rhythm rate of 83 no acute signs of OR or ischemia. Follow-up EKG: Attestation: I personally reviewed and interpreted this EKG as follows: Interpretation: Sinus Rhythm and No Acute Injury Pattern Comments: Normal sinus rhythm rate of 73 no acute change from the first EKG. Prior EKG tracings: available for review Prior: Unchanged Discharge Plan Triage Chief Complaint: Chest Pain Other Complaint: Shortness of Breath ED Provider: Johny Marquez Dx/Rx/DC Orders Prescriptions: No Action tacrolimus [Prograf] 1 mg capsule 3 mg PO BID Rx Instructions: 3 MG IN AM, 3 MG IN PM magnesium oxide 400 mg magnesium tablet 400 mg PO BID prednisone 5 mg tablet 5 mg PO DAILY Qty: 30 1RF budesonide-formoterol [Symbicort] 160-4.5 mcg/actuation HFA aerosol inhaler 2 puff INHALATION BID Qty: 10.2 2RF albuterol sulfate 90 mcg/actuation HFA aerosol inhaler 2 inh inhalation Q6H PRN (Reason: shortness of breath or wheezing) Qty: 8.5 2RF (DME) nebulizers Misc See Rx Instructions .ROUTE .MEDSUPPLY Qty: 1 0RF Rx Instructions: As directed albuterol sulfate 2.5 mg /3 mL (0.083 %) solution for nebulization 2.5 mg inhalation Q6H PRN (Reason: shortness of breath or wheezing) Qty: 90 2RF omeprazole 20 mg capsule,delayed release(DR/EC) 20 mg PO DAILY mycophenolate mofetil 250 mg Capsule 100 mg PO BID acetaminophen 500 mg Tablet 1,000 mg PO Q8 Qty: 100 0RF Rx Instructions: Do not take more than 3000 mg Tylenol in a 24-hour period. aspirin 81 mg Tablet,Chewable 81 mg PO BIDCM 30 Days Qty: 60 0RF Rx Instructions: Take 81 mg aspirin twice daily for 4 weeks postoperatively for DVT prophylaxis oxycodone 5 mg Tablet 5 - 10 mg PO Q4H PRN PRN (Reason: Pain Score 4-10) 5 Days Qty: 60 0RF sodium bicarbonate 650 mg Tablet 650 mg PO DAILY sulfamethoxazole-trimethoprim [Bactrim DS] 800-160 mg tablet 1 tab PO BID Qty: 20 0RF Primary Care Provider: Wolfgang Reed Referrals: Wolfgang Reed MD [Primary Care Provider] -
[2022-04-18 10:40] LABS: Absolute Lymphocyte Count 0.76 X10^3/uL (0.83-4.51); Absolute Neutrophil Count 9.6 X10^3/uL (2.0-7.7); Basophil# 0.03 X10^3/uL; Basophil% 0.3 % (0-1); Eosinophil# 0.03 X10^3/uL; Eosinophils% 0.3 % (0-5); Hematocrit 42.3 % (40-54); Hemoglobin 13.9 g/dL (13.0-16.5); Lymphocyte # 0.76 X10^3/ul (0.83-4.51); Lymphocyte % 6.7 % (19-41); Mean Corp Hgb Conc 32.9 g/dL (32-36); Mean Corpuscular Hgb 31.2 pg (27.0-32.0); Mean Corpuscular Volume 94.8 fL (80-94); Mean Platelet Vol. 9.8 fl (6.2-12.0); Monocyte# 0.71 X10^3/uL; Monocyte% 6.3 % (0-10); NRBC Flagged by Analyzer 0 % (0-5); Neutrophil # 9.61 X10^3/uL (2.7-7.7); Platelet Count 285 K/mm3 (150-450); Red Blood Count 4.46 M/mm3 (4.6-6.2); White Blood Count 11.3 K/mm3 (4.4-11.0)
[2022-04-18 11:06] LABS: Anion Gap 7 (5-15); BUN 25 mg/dL (7-18); BUN/Creat Ratio 16.6 RATIO (10-20); Calcium,Total 10.8 mg/dL (8.5-10.1); Chloride 109 mmol/L (98-107); Creatinine, Serum 1.51 mg/dL (0.70-1.30); EST Glomerular Filtration Rate 54 mL/min (>60); Est Glom Filt Rate - Afr Amer 65 mL/min (>60); Estimated Creatinine Clearance 50.24 ml/min; Glucose 144 mg/dL (74-106); Potassium 4.5 mmol/L (3.5-5.1); Sodium Level 140 mmol/L (136-145); Troponin-I HS (w/2H Reflex) 18 pg/mL (3.0-78.0)
--- NOTE | 2022-04-18 11:11 | RAD_ITS ---
HISTORY: chest pain. TECHNIQUE: XR Chest 1 View. COMPARISON: 07/10/2021. FINDINGS: CARDIOMEDIASTINAL BORDERS: Cardiac silhouette within normal limits in size. Mediastinal contour unchanged with surgical clips at the left thoracic inlet and paratracheal region. LUNGS: Multiple calcified granulomas again seen in the lung bases. PLEURA: No pleural effusion or pneumothorax seen. OSSEOUS STRUCTURES: Unremarkable. RAD/Chest 1 View (Portable) IMPRESSION: No acute cardiopulmonary process identified. Electronically Signed: Myra Scott MD at 11:28 EDT ,
--- NOTE | 2022-04-18 11:49 | EKG12_ITS ---
Test Reason : RECHECK Blood Pressure : / mmHG Vent. Rate : 073 BPM Atrial Rate : 073 BPM P-R Int : 126 ms QRS Dur : 086 ms QT Int : 358 ms P-R-T Axes : 020 029 086 degrees QTc Int : 394 ms Normal sinus rhythm Normal ECG Confirmed by URSZULA ARANDA, STEFF ([id number]), editorial project manager JANY LOPEZ ([id number]) on 04/22/2022 9:40:21 AM Referred By: STEPHANE Confirmed By:STEFF SEAMAN MD
[2022-04-18 12:36] LABS: Reflex Troponin-HS? (from REC) Y
[2022-04-18 13:06] LABS: Troponin-I HS 18 pg/mL (3.0-78.0)
--- NOTE | 2022-04-22 14:20 | EKG12_ITS ---
Test Reason : CP Blood Pressure : / mmHG Vent. Rate : 082 BPM Atrial Rate : 082 BPM P-R Int : 124 ms QRS Dur : 086 ms QT Int : 358 ms P-R-T Axes : 016 036 082 degrees QTc Int : 418 ms Normal sinus rhythm Nonspecific ST abnormality Abnormal ECG When compared with ECG of 15-OCT-2021 08:16, Nonspecific T wave abnormality no longer evident in Anterolateral leads Confirmed by ALONDRA ARANDA, HYACINTH ([id number]), newspaper or periodical editor JANY LOPEZ ([id number]) on 04/22/2022 2:22:16 PM Referred By: BETH Confirmed By:HYACINTH CANTU MD
== END 2022-04-18 14:05 | disposition home or self-care (01) ==
PROVIDERS: Emergency Provider Emergency Medicine; PCP Internal Medicine; Visit Provider Emergency Medicine
DX: R07.9 Chest pain, unspecified (principal); I13.2 Hypertensive heart and chronic kidney disease with heart failure and with stage 5 chronic kidney disease, or end stage renal disease; J44.9 Chronic obstructive pulmonary disease, unspecified; I50.9 Heart failure, unspecified; N18.6 End stage renal disease; Z94.0 Kidney transplant status; E66.9 Obesity, unspecified
CPT/HCPCS: 71045; 80048; 84484; 85025; 93005; 99285

== ENCOUNTER 2022-04-30 07:05 | Outpatient (RCR) | payer MEDICARE, OTHER, MEDICAID, SELFPAY ==
[2021-12-28 07:50] VITALS: BMI 30.9
[2022-04-30 08:22] LABS: Mucous, Urine 0 SEEN /hpf (<or=2+); Red Blood Cells-Urine 0 SEEN /hpf (0-5); Squamous Epithelial Cells - UA 0 SEEN /hpf (0-5)
[2022-04-30 08:40] LABS: Protein, Urine (Random) 26.6 mg/dL (<11.9); Protein:Creat Ratio 294 mg/g CRE (0-200)
[2022-04-30 08:53] LABS: Absolute Lymphocyte Count 1.37 X10^3/uL (0.83-4.51); Basophil# 0.02 X10^3/uL; Basophil% 0.2 % (0-1); Eosinophil# 0.09 X10^3/uL; Hematocrit 41.5 % (40-54); Hemoglobin 13.8 g/dL (13.0-16.5); Lymphocyte # 1.37 X10^3/ul (0.83-4.51); Lymphocyte % 15.5 % (19-41); Mean Corp Hgb Conc 33.3 g/dL (32-36); Mean Corpuscular Hgb 31.7 pg (27.0-32.0); Mean Corpuscular Volume 95.2 fL (80-94); Mean Platelet Vol. 10.1 fl (6.2-12.0); Monocyte% 14.7 % (0-10); NRBC Flagged by Analyzer 0 % (0-5); Neutrophil # 6.02 X10^3/uL (2.7-7.7); Neutrophil % 67.9 % (47-70); Platelet Count 256 K/mm3 (150-450); RBC Distribution Width CV 15.8 % (11.6-14.6); RBC Distribution Width SD 55.2 fl (35.1-43.9); Red Blood Count 4.36 M/mm3 (4.6-6.2); White Blood Count 8.9 K/mm3 (4.4-11.0)
[2022-04-30 09:01] LABS: AST(SGOT) 9 U/L (15-37); Alanine Aminotransfer ALT/SGPT 20 U/L (16-61); Albumin, Serum 3.8 g/dL (3.2-5.0); Alkaline Phosphatase 91 U/L (45-117); Anion Gap 4 (5-15); BUN 30 mg/dL (7-18); BUN/Creat Ratio 23.1 RATIO (10-20); Chloride 110 mmol/L (98-107); EST Glomerular Filtration Rate 64 mL/min (>60); Est Glom Filt Rate - Afr Amer 77 mL/min (>60); Globulin 3.7 g/dL (2.2-4.2); Glucose 115 mg/dL (74-106); Magnesium 1.9 mg/dL (1.6-2.6); Phosphorus 2.3 mg/dL (2.5-4.9); Potassium 4.7 mmol/L (3.5-5.1); Protein, Total 7.5 g/dL (6.4-8.2); Sodium Level 139 mmol/L (136-145)
[2022-04-30 09:06] LABS: Color, Urine Yellow (Yellow); Glucose, Dipstick Normal (Normal); Ketone-Dipstick Negative (Negative); Leukocyte Esterase-Dipstick 500 /ul (Negative); Nitrite-Dipstick Negative (Negative); Occult Blood-Urine 25 /ul (Negative); Protein-Dipstick 15 mg/dl (Negative); Specific Gravity, Urine 1.015 (1.002-1.030); Urine Bilirubin Dipstick Negative (Negative); Urine Clarity Clear (Clear); Urine Urobilinogen Normal (Normal)
[2022-04-30 09:17] LABS: Bacteria 4+ /hpf (None Seen); White Blood Cells >100 SEEN /hpf (0-5)
[2022-05-04 21:24] LABS: Tacrolimus (FK506) 3.3 ng/mL (2.0-20.0)
== END 2022-05-29 18:00 | disposition home or self-care (01) ==
LOC: LAB 07:05
PROVIDERS: PCP Internal Medicine
DX: T86.10 Unspecified complication of kidney transplant (principal); E83.40 Disorders of magnesium metabolism, unspecified; E83.39 Other disorders of phosphorus metabolism; N18.9 Chronic kidney disease, unspecified; D63.1 Anemia in chronic kidney disease; Z94.0 Kidney transplant status; Z79.899 Other long term (current) drug therapy
CPT/HCPCS: 36415; 80053; 80197; 81001; 82570; 83735; 84100; 84156; 85025

== ENCOUNTER → 2022-05-03 | Outpatient (CLI) | payer MEDICARE, OTHER, MEDICAID, SELFPAY ==
[2022-05-03 14:20] LABS: Mucous, Urine 0 SEEN /hpf (<or=2+); Squamous Epithelial Cells - UA 0 SEEN /hpf (0-5)
[2022-05-03 15:05] LABS: Glucose, Dipstick Normal (Normal); Ketone-Dipstick Negative (Negative); Leukocyte Esterase-Dipstick 500 /ul (Negative); Nitrite-Dipstick Positive (Negative); Occult Blood-Urine 25 /ul (Negative); Protein-Dipstick Negative (Negative); Specific Gravity, Urine 1.015 (1.002-1.030); Urine Bilirubin Dipstick Negative (Negative); Urine Urobilinogen Normal (Normal)
[2022-05-03 15:09] LABS: Color, Urine Yellow (Yellow); Urine Clarity Sl Cldy (Clear)
[2022-05-03 15:14] LABS: Bacteria 4+ /hpf (None Seen); Red Blood Cells-Urine 0-5 SEEN /hpf (0-5); White Blood Cells 25-50 SEEN /hpf (0-5)
== END | disposition home or self-care (01) ==
LOC: LABSPEC 14:18
PROVIDERS: PCP Internal Medicine; Referring Provider Nurse Practitioner Family; Visit Provider Nurse Practitioner Family
DX: R30.0 Dysuria (principal); R10.9 Unspecified abdominal pain
CPT/HCPCS: 81001; 87077; 87086; 87088; 87186

== ENCOUNTER → 2022-08-13 | Outpatient (CLI) | payer MEDICARE, MEDICAID, OTHER, SELFPAY ==
[2022-08-13 15:26] LABS: Bacteria 0 SEEN /hpf (None Seen); Mucous, Urine 0 SEEN /hpf (<or=2+); Red Blood Cells-Urine 0 SEEN /hpf (0-5)
[2022-08-13 16:57] LABS: Color, Urine Yellow (Yellow); Glucose, Dipstick Normal (Normal); Ketone-Dipstick Negative (Negative); Leukocyte Esterase-Dipstick 500 /ul (Negative); Nitrite-Dipstick Negative (Negative); Occult Blood-Urine 10 /ul (Negative); Protein-Dipstick 15 mg/dl (Negative); Urine Bilirubin Dipstick Negative (Negative); Urine Clarity Clear (Clear); Urine Urobilinogen Normal (Normal)
[2022-08-13 17:14] LABS: Squamous Epithelial Cells - UA 0-5 SEEN /hpf (0-5); White Blood Cells 5-10 SEEN /hpf (0-5)
== END | disposition home or self-care (01) ==
LOC: BIMLAB 15:24
PROVIDERS: PCP Internal Medicine; Referring Provider Nurse Practitioner Family; Visit Provider Nurse Practitioner Family
DX: R10.9 Unspecified abdominal pain (principal); R30.0 Dysuria
CPT/HCPCS: 81001; 87086; 87088

== ENCOUNTER 2022-09-05 09:04 | Emergency (ER) | payer MEDICARE, MEDICAID, SELFPAY ==
[2022-09-05 09:05] VITALS: BP 160/80; PULSE 86; RESP 16; TEMP 36.7; O2SAT 99; BMI 26.8
--- NOTE | 2022-09-05 09:37 | RAD_ITS ---
STUDY: X-RAY - PELVIS AND LEFT HIP REASON FOR EXAM: Male, 46 years old. Pain, fall TECHNIQUE: 3 views of the pelvis and hip. COMPARISON: Comparison is made with prior study dated December 03, 2001. FINDINGS: There is a non-specific bowel gas pattern. Calcifications are seen in the central portion of the bowel just above the symphysis pubis. These may represent bladder calculi. Clinical correlation is recommended. There is narrowing with cortical sclerosis and osteophyte formation of the sacroiliac joint consistent with degenerative osteoarthritic changes. Normal bilateral superior and inferior pubic rami. Normal pubic symphysis. Normal bilateral ischial tuberosities. The patient is status post left total hip replacement. RAD/HIP, UNI W/ Pelvis 2-3 Views IMPRESSION: Status post left total hip replacement. No evidence of fracture or dislocation. Calcifications in the inferior central portion of the pelvis suggests possible bladder calculi. Electronically Signed: Pawan Ordaz MD at 10:18 EST ,
--- NOTE | 2022-09-05 09:38 | ED.VIS.LOWEX ---
HPI History of Present Illness Chief Complaint: Lower Extremity Injury Informant: patient Narrative Narrative: Patient is a 46-year-old male with history of renal transplant 5 years ago and left hip arthroplasty presenting with worsening left hip pain. Patient states he had a fall on Friday (4 days ago) when he was walking [place] and his cane got stuck in a hole. He landed on his left side on the cement and also on his girlfriend. He is been having worsening left hip pain since. States that he did physical therapy yesterday which worsened his pain. He is in physical therapy for his hip for prior hip arthroplasty. Patient was recently on a Medrol Dosepak for his hip as well. Patient denies any new numbness or tingling. He states sometimes he has weakness flexing his hip but does not have it today. No other complaints at this time. [facility] Medical History Abdominal pain Anemia Arthritis Cardiology follow-up encounter Contact with and (suspected) exposure to other viral communicable diseases COPD (chronic obstructive pulmonary disease) CPAP (continuous positive airway pressure) dependence Dysuria Elevated blood pressure reading Former smoker Gastric reflux History of CHF (congestive heart failure) History of COVID-19 History of hiatal hernia History of pain when walking History of renal dialysis History of renal disease History of steroid therapy History of stress test Hx of Perez's palsy Hx of cardiomyopathy Hypertension Left flank pain Left hip pain Leg cramps Myocardial infarction with cardiac rehabilitation Palpitations Preoperative evaluation to rule out surgical contraindication Right shoulder pain Syncope Home Medications magnesium oxide 400 mg PO BID supplement 09/30/19 [History Last Taken 10/24/21] tacrolimus 1 mg capsule, immediate-release (Prograf) 3 mg PO BID rejection 09/30/19 [History Last Taken 10/24/21] omeprazole 20 mg capsule,delayed release 20 mg PO DAILY 02/26/21 [History Last Taken 10/24/21] prednisone 5 mg tablet 5 mg PO DAILY #30 tabs 03/02/21 [Rx Last Taken 10/24/21] mycophenolate mofetil 250 mg capsule 100 mg PO BID 10/10/21 [History Last Taken 10/24/21] albuterol sulfate 2.5 mg/3 mL (0.083 %) solution for nebulization 2.5 mg (3 mL) inhalation Q6H PRN shortness of breath or wheezing #90 mL 10/16/21 [Rx Last Taken Unknown] albuterol sulfate 90 mcg/actuation aerosol inhaler 2 inh inhalation Q6H PRN shortness of breath or wheezing #8.5 grams 10/16/21 [Rx Last Taken Unknown] budesonide-formoterol HFA 160 mcg-4.5 mcg/actuation aerosol inhaler (Symbicort) 2 puff inhalation BID SOB #10.2 grams 10/16/21 [Rx Last Taken Unknown] nebulizers #1 ea 10/16/21 [Rx Last Taken Unknown] acetaminophen 500 mg tablet 1,000 mg PO Q8 #100 tabs 10/25/21 [Rx Last Taken Unknown] aspirin 81 mg chewable tablet 81 mg PO BIDCM 30 days #60 tabs 10/25/21 [Rx Last Taken Unknown] sodium bicarbonate 650 mg tablet 650 mg PO DAILY 12/03/21 [History Last Taken Unknown] ondansetron 4 mg disintegrating tablet 4 mg PO Q8H PRN nausea and vomiting #30 tabs 05/03/22 [Rx Last Taken Unknown] sulfamethoxazole 800 mg-trimethoprim 160 mg tablet (Bactrim DS) 1 tab PO BID #20 tabs 08/02/22 [Rx Last Taken Unknown] cyclobenzaprine 10 mg tablet 5 mg PO TID PRN muscle spasm #30 tabs 08/13/22 [Rx Last Taken Unknown] hydrocodone-acetaminophen 5-325mg 5mg-325mg 1 tab PO Q6H PRN pain 3 days #12 tabs 09/05/22 [Rx Last Taken Unknown] Allergy/AdvReac Type Severity Reaction Status Date / Time Latex, Natural Rubber Allergy Mild rash Verified 09/05/22 09:05 hydromorphone [From Dilaudid] AdvReac Mild nausea Verified 09/05/22 09:05 Surgical History History of appendectomy History of cardiac catheterization History of cholecystectomy Hx of colonoscopy Hx of esophagogastroduodenoscopy Hx of exploratory laparotomy Hx of hand surgery Hx of myringotomy Hx of oral surgery Hx of parathyroidectomy kidney transplant Social History household members: other details: girlfriend and mother Smoking Status: Never smoker Tobacco: How many years used: 20 alcohol intake: never substance use type: does not use do you feel safe at home: Yes ROS ROS ED Constitutional Constitutional ED: Denies chills or fever(s) Cardiovascular Cardiovascular: Denies chest pain Respiratory/Chest Respiratory/Chest: Denies cough Gastrointestinal Gastrointestinal: Denies nausea or vomiting Musculoskeletal Musculoskeletal: Reports other Details: left hip pain ; Denies arthralgias or myalgias Integumentary Reports Abrasions; Denies rash Neurologic Neurologic: Denies paresthesias or weakness Hematologic/Lymphatic Hematologic/Lymphatic: Denies easy bleeding or easy bruising EXAM Physical Exam Const Vital Signs: 09/05/22 09:05 Temperature 98.1 F Temperature Source Temporal Pulse Rate 86 Respiratory Rate 16 Blood Pressure 160/80 H Blood Pressure Mean 106 Pulse Ox 99 Oxygen Delivery Method Room Air Positive well developed; Negative for well nourished Constitutional Narrative: Cushingoid body habitus General Appearance ED: well developed and NAD HEENT Reports moist mucous membranes normocephalic Eyes PERRL Neck full ROM and supple Chest Wall inspection of chest normal Resp normal respiratory effort Cardio regular rate, regular rhythm and no murmurs GI non-tender and non-distended Back/Spine no CVA tenderness Extremity normal to inspection and full ROM Extremity Narrative: No deformity of the extremity. Diffuse mild pain of the left hip region. Pelvis is stable. No significant pain with logroll. No pinpoint bony tenderness. 2+ DP pulse of the left lower extremity Neuro oriented x3 Sensorium / Orientation: alert Skin Skin Narrative: Superficial abrasion and ecchymosis of the left knee consistent with fall earlier in the week MDM MDM MDM Narrative Medical decision making narrative: Patient is evaluated for persistent left hip pain after fall. He has a prior arthroplasty. Clinical exam is not significant for a periprosthetic hip dislocation. Given has been walking on it for a week I do not think he has associated fracture however I will obtain hip/pelvic x-ray to rule out a pelvic fracture. X-ray to read by myself as well as radiology which does not show any acute bony process. Patient seems comfortable in the ER. He is given a dose of [place] in the ER and has improvement of his symptoms with that. He is neurovascularly intact. Patient had physical therapy yesterday which likely exacerbated his pain on top of the fall he had earlier in the week. Patient be given a short course of [place] for pain control. He does not have any fever or systemic symptoms/short arc range of motion pain consistent with a septic joint. I do not think lab work is indicated. Patient is comfortable this plan of care. 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 Patient verbalized agreement understand this plan. Discharged home in stable condition Radiography Diagnostic Testing: Clinical Impression(s) from Imaging Studies Hip/Pelvis X-Ray 09/05/22 09:37 IMPRESSION: Status post left total hip replacement. No evidence of fracture or dislocation. Calcifications in the inferior central portion of the pelvis suggests possible bladder calculi. Electronically Signed: Pawan Ordaz MD at 10:18 EST Reading Location ID and State: [address] [place] [address] , Service support , Discharge Plan Triage Chief Complaint: Lower Extremity Injury ED Provider: Radha Benjamin Dx/Rx/DC Orders Clinical Impression: Strain of left hip Instructions: ED Hip Strain Prescriptions: New hydrocodone-acetaminophen 5-325 mg tablet 1 tab PO Q6H PRN (Reason: pain) 3 Days Qty: 12 0RF No Action tacrolimus [Prograf] 1 mg capsule 3 mg PO BID Rx Instructions: 3 MG IN AM, 3 MG IN PM magnesium oxide 400 mg magnesium tablet 400 mg PO BID prednisone 5 mg tablet 5 mg PO DAILY Qty: 30 1RF budesonide-formoterol [Symbicort] 160-4.5 mcg/actuation HFA aerosol inhaler 2 puff INHALATION BID Qty: 10.2 2RF albuterol sulfate 90 mcg/actuation HFA aerosol inhaler 2 inh inhalation Q6H PRN (Reason: shortness of breath or wheezing) Qty: 8.5 2RF (DME) nebulizers Misc See Rx Instructions .ROUTE .MEDSUPPLY Qty: 1 0RF Rx Instructions: As directed albuterol sulfate 2.5 mg /3 mL (0.083 %) solution for nebulization 2.5 mg inhalation Q6H PRN (Reason: shortness of breath or wheezing) Qty: 90 2RF ondansetron 4 mg tablet,disintegrating 4 mg PO Q8H PRN (Reason: nausea and vomiting) Qty: 30 0RF cyclobenzaprine 10 mg tablet 5 mg PO TID PRN (Reason: muscle spasm) Qty: 30 1RF sulfamethoxazole-trimethoprim [Bactrim DS] 800-160 mg tablet 1 tab PO BID Qty: 20 0RF omeprazole 20 mg capsule,delayed release(DR/EC) 20 mg PO DAILY mycophenolate mofetil 250 mg Capsule 100 mg PO BID acetaminophen 500 mg Tablet 1,000 mg PO Q8 Qty: 100 0RF Rx Instructions: Do not take more than 3000 mg Tylenol in a 24-hour period. aspirin 81 mg Tablet,Chewable 81 mg PO BIDCM 30 Days Qty: 60 0RF Rx Instructions: Take 81 mg aspirin twice daily for 4 weeks postoperatively for DVT prophylaxis sodium bicarbonate 650 mg Tablet 650 mg PO DAILY Stand Alone Forms: ED Work / School Excuse Primary Care Provider: Wolfgang Reed Referrals: Wolfgang Reed MD [Primary Care Provider] - Disposition Disposition: Home, Self Care Discharge Date/Time: 09/05/22 11:49
[2022-09-05] MEDS: HYDROcodone Bitartrate/Apap 5/325 Tablet PO (09:51)
== END 2022-09-05 11:49 | disposition home or self-care (01) ==
PROVIDERS: Emergency Provider Emergency Medicine; PCP Internal Medicine; Visit Provider Emergency Medicine
DX: S76.012A Strain of muscle, fascia and tendon of left hip, initial encounter (principal); I50.9 Heart failure, unspecified; Z86.16 Personal history of COVID-19; W19.XXXA Unspecified fall, initial encounter
CPT/HCPCS: 73502; 99283

== ENCOUNTER 2022-10-23 10:18 | Emergency (ER) | payer MEDICARE, MEDICAID, SELFPAY ==
[2022-10-23 10:20] VITALS: BP 134/64; PULSE 78; RESP 16; TEMP 36.4; O2SAT 98; BMI 29.2
--- NOTE | 2022-10-23 10:35 | EDS_ITS ---
HPI History of Present Illness HPI Narrative: Patient presents with right foot pain that began 1 week ago. Patient states he was moving a mattress for his mother in her yard. Patient thinks he stepped in a hole and twisted his foot. Patient states the pain has been getting progressively worse. Patient denies any paresthesias or weakness. Patient states the pain is over the medial aspect of the right ankle and hindfoot. Patient states his pain is worse with ambulation. Patient states it is better with rest. Patient describes the pain as sharp. Patient denies any other injuries. Chief Complaint: Lower Extremity Injury Informant: patient Occured/Mechanism Comment: Patient stepped in a hole and twisted his foot Onset/Context/Timing Onset: Weeks (1) Context: Sudden Onset Timing: Continuous Quality of Pain: Sharp Location: Medial aspect right hindfoot Worsened by: Ambulation, weightbearing Relieved by: Rest Associated Symptoms Associated Symptoms: Negative for Parasthesia, Weakness or Loss of Funtion Narrative Tetanus Immunization: <5 years PFSH PFS Medical History Abdominal pain Anemia Arthritis Cardiology follow-up encounter Contact with and (suspected) exposure to other viral communicable diseases COPD (chronic obstructive pulmonary disease) CPAP (continuous positive airway pressure) dependence Dysuria Elevated blood pressure reading Former smoker Gastric reflux History of CHF (congestive heart failure) History of COVID-19 History of hiatal hernia History of pain when walking History of renal dialysis History of renal disease History of steroid therapy History of stress test Hx of Perez's palsy Hx of cardiomyopathy Hypertension Left flank pain Left hip pain Leg cramps Myocardial infarction with cardiac rehabilitation Palpitations Preoperative evaluation to rule out surgical contraindication Right shoulder pain Syncope Home Medications magnesium oxide 400 mg PO BID supplement 09/30/19 [History Last Taken 10/24/21] tacrolimus 1 mg capsule, immediate-release (Prograf) 3 mg PO BID rejection 09/30/19 [History Last Taken 10/24/21] omeprazole 20 mg capsule,delayed release 20 mg PO DAILY 02/26/21 [History Last Taken 10/24/21] prednisone 5 mg tablet 5 mg PO DAILY #30 tabs 03/02/21 [Rx Last Taken 10/24/21] mycophenolate mofetil 250 mg capsule 100 mg PO BID 10/10/21 [History Last Taken 10/24/21] albuterol sulfate 2.5 mg/3 mL (0.083 %) solution for nebulization 2.5 mg (3 mL) inhalation Q6H PRN shortness of breath or wheezing #90 mL 10/16/21 [Rx Last Taken Unknown] albuterol sulfate 90 mcg/actuation aerosol inhaler 2 inh inhalation Q6H PRN shortness of breath or wheezing #8.5 grams 10/16/21 [Rx Last Taken Unknown] budesonide-formoterol HFA 160 mcg-4.5 mcg/actuation aerosol inhaler (Symbicort) 2 puff inhalation BID SOB #10.2 grams 10/16/21 [Rx Last Taken Unknown] nebulizers #1 ea 10/16/21 [Rx Last Taken Unknown] acetaminophen 500 mg tablet 1,000 mg PO Q8 #100 tabs 10/25/21 [Rx Last Taken Unknown] aspirin 81 mg chewable tablet 81 mg PO BIDCM 30 days #60 tabs 10/25/21 [Rx Last Taken Unknown] sodium bicarbonate 650 mg tablet 650 mg PO DAILY 12/03/21 [History Last Taken Unknown] ondansetron 4 mg disintegrating tablet 4 mg PO Q8H PRN nausea and vomiting #30 tabs 05/03/22 [Rx Last Taken Unknown] sulfamethoxazole 800 mg-trimethoprim 160 mg tablet (Bactrim DS) 1 tab PO BID #20 tabs 08/02/22 [Rx Last Taken Unknown] cyclobenzaprine 10 mg tablet 5 mg PO TID PRN muscle spasm #30 tabs 08/13/22 [Rx Last Taken Unknown] hydrocodone-acetaminophen 5-325mg 5mg-325mg 1 tab PO Q6H PRN pain 3 days #12 tabs 09/05/22 [Rx Last Taken Unknown] hydrocodone-acetaminophen 5-325mg 5mg-325mg 1 tab PO Q6H PRN PRN Pain 3 days #10 TABLETS 10/23/22 [Rx Last Taken Unknown] Allergy/AdvReac Type Severity Reaction Status Date / Time Latex, Natural Rubber Allergy Mild rash Verified 10/23/22 10:19 hydromorphone [From Dilaudid] AdvReac Mild nausea Verified 10/23/22 10:19 Surgical History History of appendectomy History of cardiac catheterization History of cholecystectomy Hx of colonoscopy Hx of esophagogastroduodenoscopy Hx of exploratory laparotomy Hx of hand surgery Hx of myringotomy Hx of oral surgery Hx of parathyroidectomy kidney transplant Social History household members: other details: girlfriend and mother Smoking Status: Never smoker Tobacco: How many years used: 20 alcohol intake: never substance use type: does not use do you feel safe at home: Yes ROS ROS ED Constitutional Constitutional ED: Denies chills or fever(s) Eyes Eyes: Denies blurry vision or change in vision ENT ENT ED: Denies rhinorrhea or sore throat Cardiovascular Cardiovascular: Denies chest pain or palpitations Respiratory/Chest Respiratory/Chest: Denies cough or dyspnea Gastrointestinal Gastrointestinal: Denies nausea or vomiting Genitourinary Genitourinary ED: Denies dysuria or hematuria Musculoskeletal Musculoskeletal: Denies back pain or neck pain Integumentary Denies abscess or rash Neurologic Neurologic: Denies headache(s) or weakness Allergic/Immunologic Allergic/Immunologic ED: Denies mouth swelling or urticaria EXAM Physical Exam Const Vital Signs: 10/23/22 10:20 Temperature 97.6 F L Temperature Source Temporal Pulse Rate 78 Respiratory Rate 16 Blood Pressure 134/64 H Blood Pressure Mean 87 Pulse Ox 98 Oxygen Delivery Method Room Air Positive well nourished and well developed General Appearance ED: well developed and NAD HEENT Reports moist mucous membranes Neck full ROM and supple Extremity Extremity Narrative: There is tenderness and mild edema over the medial aspect of the right hindfoot and ankle area. There is no ecchymosis. There is no bony crepitance or step- off. Range of motion was limited in all motions of the right foot and ankle secondary to pain. There is no tenderness over the fifth metatarsal. There is no tenderness over the proximal fibula. Pedal pulses are equal bilaterally. Sensation was intact to light touch in all digits. Capillary refill was less than 2 seconds in all digits. Neuro oriented x3, CN's II-XII intact bilaterally, moves all extremities and no sensory deficits noted Sensorium / Orientation: alert Motor Exam: strength 5/5 throughout MDM MDM MDM Narrative Medical decision making narrative: Differential diagnosis includes fracture, sprain, and contusion. X-rays of the right ankle will be obtained to assess for fracture. Radiography Diagnostic Testing: Clinical Impression(s) from Imaging Studies Foot X-Ray 10/23/22 10:41 IMPRESSION: There is a small corticated ossicle on the plantar aspect of the calcaneus which appears to represent sequela from an old fracture in this region. No acute fracture is seen. Electronically Signed: Danielito Savage MD at 11:08 EDT Reading Location ID and State: [facility] / [place] , Service support , X-rays of the right ankle were obtained. There are 3 views. On my independent interpretation, there is no acute fracture. There is no dislocation. There is no soft tissue swelling. Radiologist also interpreted the x-rays and agrees. X-rays of the right foot were obtained. There are 3 views. On my independent interpretation, there is no acute fracture. There is a questionable old avulsion fracture over the plantar aspect of the calcaneus. There is no dislocation. There is no soft tissue swelling. Radiologist also interpreted the x-rays and agrees. Treatment and Re-Evaluation Narrative: Patient was advised of his findings. Patient was given a walking boot. Patient was instructed to ice and elevate the right foot. Patient was given a pr escription for a short course of [place]. Patient was instructed to follow-up with his primary care physician in 5 to 7 days. Patient understood and was agreeable with plan. All questions were answered. Discharge Plan Triage Chief Complaint: Lower Extremity Injury ED Provider: Gage Leger Dx/Rx/DC Orders Clinical Impression: Right foot sprain, Transplanted kidney Instructions: ED Foot Sprain Prescriptions: New hydrocodone-acetaminophen [hydrocodone-acetaminophen] 5-325 mg tablet 1 tab PO Q6H PRN PRN (Reason: Pain) 3 Days Qty: 10 0RF No Action tacrolimus [Prograf] 1 mg capsule 3 mg PO BID Rx Instructions: 3 MG IN AM, 3 MG IN PM magnesium oxide 400 mg magnesium tablet 400 mg PO BID prednisone 5 mg tablet 5 mg PO DAILY Qty: 30 1RF budesonide-formoterol [Symbicort] 160-4.5 mcg/actuation HFA aerosol inhaler 2 puff INHALATION BID Qty: 10.2 2RF albuterol sulfate 90 mcg/actuation HFA aerosol inhaler 2 inh inhalation Q6H PRN (Reason: shortness of breath or wheezing) Qty: 8.5 2RF (DME) nebulizers Misc See Rx Instructions .ROUTE .MEDSUPPLY Qty: 1 0RF Rx Instructions: As directed albuterol sulfate 2.5 mg /3 mL (0.083 %) solution for nebulization 2.5 mg inhalation Q6H PRN (Reason: shortness of breath or wheezing) Qty: 90 2RF ondansetron 4 mg tablet,disintegrating 4 mg PO Q8H PRN (Reason: nausea and vomiting) Qty: 30 0RF cyclobenzaprine 10 mg tablet 5 mg PO TID PRN (Reason: muscle spasm) Qty: 30 1RF sulfamethoxazole-trimethoprim [Bactrim DS] 800-160 mg tablet 1 tab PO BID Qty: 20 0RF omeprazole 20 mg capsule,delayed release(DR/EC) 20 mg PO DAILY mycophenolate mofetil 250 mg Capsule 100 mg PO BID acetaminophen 500 mg Tablet 1,000 mg PO Q8 Qty: 100 0RF Rx Instructions: Do not take more than 3000 mg Tylenol in a 24-hour period. aspirin 81 mg Tablet,Chewable 81 mg PO BIDCM 30 Days Qty: 60 0RF Rx Instructions: Take 81 mg aspirin twice daily for 4 weeks postoperatively for DVT prophyl axis sodium bicarbonate 650 mg Tablet 650 mg PO DAILY hydrocodone-acetaminophen 5-325 mg tablet 1 tab PO Q6H PRN (Reason: pain) 3 Days Qty: 12 0RF Primary Care Provider: Wolfgang Reed Referrals: Wolfgang Reed MD [Primary Care Provider] - 5-7 Days Disposition Disposition: Home, Self Care
--- NOTE | 2022-10-23 10:41 | RAD_ITS ---
STUDY: X-RAY - RIGHT FOOT CLINICAL: Male, 47 years old. Injury/Pain TECHNIQUE: 3 view(s) of the foot. COMPARISON: None. FINDINGS: Normal talus, calcaneus, and tarsal bones. Normal visualized subtalar, talonavicular, calcaneocuboid, tarsal and tarsometatarsal articulations. Normal metatarsi. Normal metatarsophalangeal joint of the great toe. Normal tibial and fibular sesamoid bones. Normal interphalangeal joint of the great toe. Normal phalanges of the great toe. Normal second through fifth metatarsophalangeal joints. Normal interphalangeal joints and phalanges of the lesser toes. The soft tissue structures are unremarkable. There is a small corticated ossicle on the plantar aspect of the calcaneus which appears to represent sequela from an old fracture in this region. No acute fracture is seen. RAD/Foot min 3 Views IMPRESSION: There is a small corticated ossicle on the plantar aspect of the calcaneus which appears to represent sequela from an old fracture in this region. No acute fracture is seen. Electronically Signed: Danielito Savage MD at 11:08 EDT ,
--- NOTE | 2022-10-23 10:45 | RAD_ITS ---
HISTORY: Injury/Pain. TECHNIQUE: XR Ankle Min 3 Views. COMPARISON: None. FINDINGS: BONES : Linear well-corticated lucency at the plantar calcaneal spur. Cystic change and sclerosis of the medial talar dome. JOINTS: No dislocation. Joint spaces maintained. SOFT TISSUES: Mild soft tissue swelling. RAD/Ankle min 3 Views IMPRESSION: Cystic change and sclerosis of the medial talar dome, likely chronic osteochondral injury with superimposed degenerative change. Chronic appearing nondisplaced fracture of the plantar calcaneal spur. Soft tissue swelling of the right ankle. Electronically Signed: Myra Scott MD at 11:21 EDT ,
[2022-10-23] MEDS: HYDROcodone Bitartrate/Apap 5/325 Tablet PO (11:28)
== END 2022-10-23 11:34 | disposition home or self-care (01) ==
PROVIDERS: Emergency Provider Emergency Medicine; PCP Internal Medicine; Visit Provider Emergency Medicine
DX: S93.601A Unspecified sprain of right foot, initial encounter (principal); J44.9 Chronic obstructive pulmonary disease, unspecified; I11.0 Hypertensive heart disease with heart failure; I50.9 Heart failure, unspecified; X58.XXXA Exposure to other specified factors, initial encounter; Y93.89 Activity, other specified; Y92.096 Garden or yard of other non-institutional residence as the place of occurrence of the external cause; K21.9 Gastro-esophageal reflux disease without esophagitis; Z79.899 Other long term (current) drug therapy; Z94.0 Kidney transplant status; Z79.51 Long term (current) use of inhaled steroids; Z79.82 Long term (current) use of aspirin
CPT/HCPCS: 73610; 73630; 99283

== ENCOUNTER 2022-12-20 07:13 | Outpatient (RCR) | payer MEDICARE, MEDICAID, OTHER, SELFPAY ==
[2022-05-30 01:33] VITALS: BMI 30.9
[2022-12-20 08:03] LABS: Absolute Lymphocyte Count 1.61 X10^3/uL (0.83-4.51); Absolute Neutrophil Count 5.3 X10^3/uL (2.0-7.7); Basophil# 0.06 X10^3/uL; Basophil% 0.7 % (0-1); Eosinophil# 0.12 X10^3/uL; Eosinophils% 1.5 % (0-5); Hematocrit 45.4 % (40-54); Hemoglobin 14.8 g/dL (13.0-16.5); Lymphocyte # 1.61 X10^3/ul (0.83-4.51); Lymphocyte % 19.6 % (19-41); Mean Corp Hgb Conc 32.6 g/dL (32-36); Mean Corpuscular Hgb 31.3 pg (27.0-32.0); Mean Platelet Vol. 10.3 fl (6.2-12.0); Monocyte# 1.02 X10^3/uL; Monocyte% 12.4 % (0-10); NRBC Flagged by Analyzer 0 % (0-5); Neutrophil # 5.26 X10^3/uL (2.7-7.7); Platelet Count 244 K/mm3 (150-450); RBC Distribution Width CV 13.9 % (11.6-14.6); RBC Distribution Width SD 49.1 fl (35.1-43.9); Red Blood Count 4.73 M/mm3 (4.6-6.2); White Blood Count 8.2 K/mm3 (4.4-11.0)
[2022-12-20 08:12] LABS: Protein, Urine (Random) 22.8 mg/dL (<11.9); Protein:Creat Ratio 256 mg/g CRE (0-200)
[2022-12-20 08:38] LABS: AST(SGOT) 11 U/L (15-37); Alanine Aminotransfer ALT/SGPT 19 U/L (16-61); Albumin, Serum 3.6 g/dL (3.2-5.0); Alkaline Phosphatase 92 U/L (45-117); Anion Gap 8 (5-15); BUN 32 mg/dL (7-18); BUN/Creat Ratio 23.2 RATIO (10-20); Calcium,Total 10.1 mg/dL (8.5-10.1); Chloride 108 mmol/L (98-107); Creatinine, Serum 1.38 mg/dL (0.70-1.30); EST Glomerular Filtration Rate 59 mL/min (>60); Est Glom Filt Rate - Afr Amer 72 mL/min (>60); Globulin 3.5 g/dL (2.2-4.2); Glucose 152 mg/dL (74-106); Magnesium 1.7 mg/dL (1.6-2.6); Protein, Total 7.1 g/dL (6.4-8.2); Sodium Level 141 mmol/L (136-145)
[2022-12-23 11:08] LABS: Tacrolimus (FK506) 3.1 ng/mL (2.0-20.0)
== END 2022-12-20 18:00 | disposition home or self-care (01) ==
LOC: LAB 07:13
PROVIDERS: PCP Internal Medicine
DX: T86.10 Unspecified complication of kidney transplant (principal); E83.40 Disorders of magnesium metabolism, unspecified; Z94.0 Kidney transplant status; Z79.899 Other long term (current) drug therapy; E83.30 Disorder of phosphorus metabolism, unspecified
CPT/HCPCS: 36415; 80053; 80197; 82570; 83735; 84100; 84156; 85025

== ENCOUNTER 2023-01-12 10:46 | Emergency (ER) | payer MEDICARE, MEDICAID, SELFPAY ==
[2023-01-12 10:47] VITALS: BP 119/74; PULSE 85; RESP 18; TEMP 35.9; O2SAT 99; BMI 26.4
--- NOTE | 2023-01-12 11:16 | EX.ED.UPPERE ---
HPI <MITCHELL Valdez - Last Filed: 01/12/23 13:22> History of Present Illness Chief Complaint: Upper Extremity Injury Narrative Narrative: Patient presenting due to concerns for a rash on his right ventral wrist. He reports that it has been there for little over a week and feels like a burn. 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 He went to work today and coworkers were concerned that he could have ringworm and told him he needed to leave work and come to the emergency department to be evaluated. He denies any fever/chills. PFSH <MITCHELL Valdez - Last Filed: 01/12/23 13:22> [facility] Medical History Abdominal pain Anemia Arthritis Cardiology follow-up encounter Contact with and (suspected) exposure to other viral communicable diseases COPD (chronic obstructive pulmonary disease) CPAP (continuous positive airway pressure) dependence Dysuria Elevated blood pressure reading Former smoker Gastric reflux History of CHF (congestive heart failure) History of COVID-19 History of hiatal hernia History of pain when walking History of renal dialysis History of renal disease History of steroid therapy History of stress test Hx of Perez's palsy Hx of cardiomyopathy Hypertension Left flank pain Left hip pain Leg cramps Myocardial infarction with cardiac rehabilitation Pain of right heel Palpitations Preoperative evaluation to rule out surgical contraindication Right shoulder pain Syncope Home Medications magnesium oxide 400 mg PO BID supplement 09/30/19 [History Last Taken 10/24/21] tacrolimus 1 mg capsule, immediate-release (Prograf) 3 mg PO BID rejection 09/30/19 [History Last Taken 10/24/21] omeprazole 20 mg capsule,delayed release 20 mg PO DAILY 02/26/21 [History Last Taken 10/24/21] prednisone 5 mg tablet 5 mg PO DAILY #30 tabs 03/02/21 [Rx Last Taken 10/24/21] mycophenolate mofetil 250 mg capsule 100 mg PO BID 10/10/21 [History Last Taken 10/24/21] albuterol sulfate 2.5 mg/3 mL (0.083 %) solution for nebulization 2.5 mg (3 mL) inhalation Q6H PRN shortness of breath or wheezing #90 mL 10/16/21 [Rx Last Taken Unknown] albuterol sulfate 90 mcg/actuation aerosol inhaler 2 inh inhalation Q6H PRN shortness of breath or wheezing #8.5 grams 10/16/21 [Rx Last Taken Unknown] budesonide-formoterol HFA 160 mcg-4.5 mcg/actuation aerosol inhaler (Symbicort) 2 puff inhalation BID SOB #10.2 grams 10/16/21 [Rx Last Taken Unknown] nebulizers #1 ea 10/16/21 [Rx Last Taken Unknown] acetaminophen 500 mg tablet 1,000 mg (2 x 500 mg) PO Q8 #100 tabs 10/25/21 [Rx Last Taken Unknown] aspirin 81 mg chewable tablet 81 mg PO BIDCM 30 days #60 tabs 10/25/21 [Rx Last Taken Unknown] sodium bicarbonate 650 mg tablet 650 mg PO DAILY 12/03/21 [History Last Taken Unknown] clotrimazole 1 % topical cream 1 applic topical BID 2 weeks #15 grams 01/12/23 [Rx Last Taken Unknown] Allergy/AdvReac Type Severity Reaction Status Date / Time Latex, Natural Rubber Allergy Mild rash Verified 01/12/23 10:49 hydromorphone [From Dilaudid] AdvReac Mild nausea Verified 01/12/23 10:49 Surgical History History of appendectomy History of cardiac catheterization History of cholecystectomy Hx of colonoscopy Hx of esophagogastroduodenoscopy Hx of exploratory laparotomy Hx of hand surgery Hx of myringotomy Hx of oral surgery Hx of parathyroidectomy kidney transplant Social History household members: other details: girlfriend and mother Smoking Status: Former smoker Tobacco: How many years used: 20 alcohol intake: never substance use type: does not use do you feel safe at home: Yes ROS <MITCHELL Valdez - Last Filed: 01/12/23 13:22> ROS ED Constitutional Constitutional ED: Denies chills or fever(s) Cardiovascular Cardiovascular: Denies chest pain Respiratory/Chest Respiratory/Chest: Denies cough or dyspnea Gastrointestinal Gastrointestinal: Denies abdominal pain, nausea or vomiting Musculoskeletal Musculoskeletal: Denies arthralgias or myalgias Integumentary Reports rash; Denies abscess Neurologic Neurologic: Denies weakness EXAM <MITCHELL Valdez - Last Filed: 01/12/23 13:22> Physical Exam Const Vital Signs: 01/12/23 10:47 Temperature 96.7 F L Temperature Source Temporal Pulse Rate 85 Respiratory Rate 18 Blood Pressure 119/74 Blood Pressure Mean 89 Pulse Ox 99 Oxygen Delivery Method Room Air Positive well nourished, well developed and no apparent distress General Appearance ED: well developed HEENT Reports normocephalic and head/scalp atraumatic Mouth ED: Yes moist mucous membranes normal Eyes PERRL and EOMs intact bilaterally Neck full ROM and supple Chest Wall inspection of chest normal Resp normal respiratory effort and clear to auscultation bilaterally Cardio regular rate and regular rhythm GI soft to palpation, non-tender, non-distended and no masses Back/Spine normal ROM and normal to inspection Extremity full ROM Neuro oriented x3, CN's II-XII intact bilaterally, moves all extremities, no focal motor deficits and no sensory deficits noted Sensorium / Orientation: awake and alert Psych mental status grossly normal and thought process normal Skin Skin Narrative: Small area of erythema to the right ventral wrist with a well demarcated border. There are 2 scratch montiel next to the area from patient's cat. MDM <MITCHELL Valdez - Last Filed: 01/12/23 13:22> [facility] Narrative Medical decision making narrative: Patient presenting due to concerns for ringworm to his right ventral wrist. He does have a small area of erythema without well-demarcated border that was suspicious for ringworm. He reports that it feels like a burn and does work with hot water and hot dishes at work. He is well-appearing and in no acute distress. It does not look infected. We will give him treatment for ringworm and he is to follow-up with his PCP. He will be discharged in stable condition and is comfortable with plan. <Dr. Yuan Scott MD - Last Filed: 01/12/23 13:12> [facility] Treatment and Re-Evaluation Narrative: I have personally performed a face to face assessment of the patient and have reviewed the BENITEZ Note. I performed a substantive portion of the visit including all aspects of the following. My jose findings include: History: Patient's had a spot on his right wrist for about a week. He thinks he could have burned it but does not specifically recall. No other complaints. His work was concerned that this might be ringworm. Exam: Patient does have an erythematous area on the volar wrist. There is some abrasions near it but there is no blistering. The edges are slightly red and raised. Although it is certainly possible this is a burn that is healing. It also does look a bit like ringworm. I think the appropriate thing is to treat it with ringworm and keep it covered. He can follow-up with his primary physician. Medical Decision Making: As above. Discharge Plan Triage Chief Complaint: Upper Extremity Injury ED Midlevel Provider: Daniela Espinal ED Provider: Yuan Scott Dx/Rx/DC Orders Clinical Impression: Ringworm Instructions: ED Ringworm, Skin Prescriptions: New clotrimazole 1 % cream 1 applic topical BID 14 Days Qty: 15 0RF No Action tacrolimus [Prograf] 1 mg capsule 3 mg PO BID Rx Instructions: 3 MG IN AM, 3 MG IN PM magnesium oxide 400 mg magnesium tablet 400 mg PO BID prednisone 5 mg tablet 5 mg PO DAILY Qty: 30 1RF budesonide-formoterol [Symbicort] 160-4.5 mcg/actuation HFA aerosol inhaler 2 puff INHALATION BID Qty: 10.2 2RF albuterol sulfate 90 mcg/actuation HFA aerosol inhaler 2 inh inhalation Q6H PRN (Reason: shortness of breath or wheezing) Qty: 8.5 2RF (DME) nebulizers Misc See Rx Instructions .ROUTE .MEDSUPPLY Qty: 1 0RF Rx Instructions: As directed albuterol sulfate 2.5 mg /3 mL (0.083 %) solution for nebulization 2.5 mg inhalation Q6H PRN (Reason: shortness of breath or wheezing) Qty: 90 2RF omeprazole 20 mg capsule,delayed release(DR/EC) 20 mg PO DAILY mycophenolate mofetil 250 mg Capsule 100 mg PO BID acetaminophen 500 mg Tablet 1,000 mg PO Q8 Qty: 100 0RF Rx Instructions: Do not take more than 3000 mg Tylenol in a 24-hour period. aspirin 81 mg Tablet,Chewable 81 mg PO BIDCM 30 Days Qty: 60 0RF Rx Instructions: Take 81 mg aspirin twice daily for 4 weeks postoperatively for DVT prophylaxis sodium bicarbonate 650 mg Tablet 650 mg PO DAILY Stand Alone Forms: Work / School Excuse Primary Care Provider: Wolfgang Reed Referrals: Wolfgang Reed MD [Primary Care Provider] - 5-7 Days Activity Restrictions/Additional Instructions: Please follow-up with your PCP and return for any worsening of symptoms. Disposition Disposition: Home, Self Care Discharge Date/Time: 01/12/23 13:18
[2023-01-12 13:17] VITALS: BP 160/101; RESP 17
== END 2023-01-12 13:18 | disposition home or self-care (01) ==
PROVIDERS: Emergency Provider Emergency Medicine; PCP Internal Medicine; Visit Provider Emergency Medicine
DX: B35.8 Other dermatophytoses (principal); J44.9 Chronic obstructive pulmonary disease, unspecified; I11.0 Hypertensive heart disease with heart failure; I50.9 Heart failure, unspecified; Z87.891 Personal history of nicotine dependence; Z79.899 Other long term (current) drug therapy; K21.9 Gastro-esophageal reflux disease without esophagitis; Z79.51 Long term (current) use of inhaled steroids; Z79.82 Long term (current) use of aspirin; Z90.49 Acquired absence of other specified parts of digestive tract
CPT/HCPCS: 99282

== ENCOUNTER → 2023-01-30 | Outpatient (CLI) | payer MEDICARE, MEDICAID, OTHER, SELFPAY | END | disposition home or self-care (01) | PROVIDERS: PCP Internal Medicine; Visit Provider Internal Medicine Nephrology | DX: Z94.0 Kidney transplant status (principal) | CPT/HCPCS: 87077; 87086; 87088; 87186 ==

== ENCOUNTER 2023-01-31 11:03 | Emergency (ER) | payer MEDICARE, MEDICAID, OTHER, SELFPAY ==
[2023-01-31 11:04] VITALS: BP 150/92; PULSE 67; RESP 14; TEMP 36.1; O2SAT 98; BMI 27.0
--- NOTE | 2023-01-31 11:28 | EX.ED.DYSGE1 ---
HPI <MITCHELL Valdez - Last Filed: 01/31/23 13:22> History of Present Illness Chief Complaint: Lower Extremity Injury Narrative Narrative: Patient presenting today with pain to his right knee that he has had since last night when he was try to get out of his brother's truck and fell onto his right side and onto his right knee. He did not hit his head, there was no loss of consciousness, and he denies any other injury. He is able to walk but it is painful. PFSH <MITCHELL Valdez - Last Filed: 01/31/23 13:22> [facility] Medical History Abdominal pain Anemia Arthritis Cardiology follow-up encounter Contact with and (suspected) exposure to other viral communicable diseases COPD (chronic obstructive pulmonary disease) CPAP (continuous positive airway pressure) dependence Dysuria Elevated blood pressure reading Former smoker Gastric reflux History of CHF (congestive heart failure) History of COVID-19 History of hiatal hernia History of pain when walking History of renal dialysis History of renal disease History of steroid therapy History of stress test Hx of Perez's palsy Hx of cardiomyopathy Hypertension Left flank pain Left hip pain Leg cramps Myocardial infarction with cardiac rehabilitation Pain of right heel Palpitations Preoperative evaluation to rule out surgical contraindication Right shoulder pain Syncope Home Medications magnesium oxide 400 mg PO BID supplement 09/30/19 [History Last Taken 10/24/21] tacrolimus 1 mg capsule, immediate-release (Prograf) 3 mg PO BID rejection 09/30/19 [History Last Taken 10/24/21] omeprazole 20 mg capsule,delayed release 20 mg PO DAILY 02/26/21 [History Last Taken 10/24/21] prednisone 5 mg tablet 5 mg PO DAILY #30 tabs 03/02/21 [Rx Last Taken 10/24/21] mycophenolate mofetil 250 mg capsule 100 mg PO BID 10/10/21 [History Last Taken 10/24/21] albuterol sulfate 2.5 mg/3 mL (0.083 %) solution for nebulization 2.5 mg (3 mL) inhalation Q6H PRN shortness of breath or wheezing #90 mL 10/16/21 [Rx Last Taken Unknown] albuterol sulfate 90 mcg/actuation aerosol inhaler 2 inh inhalation Q6H PRN shortness of breath or wheezing #8.5 grams 10/16/21 [Rx Last Taken Unknown] budesonide-formoterol HFA 160 mcg-4.5 mcg/actuation aerosol inhaler (Symbicort) 2 puff inhalation BID SOB #10.2 grams 10/16/21 [Rx Last Taken Unknown] nebulizers #1 ea 10/16/21 [Rx Last Taken Unknown] acetaminophen 500 mg tablet 1,000 mg (2 x 500 mg) PO Q8 #100 tabs 10/25/21 [Rx Last Taken Unknown] aspirin 81 mg chewable tablet 81 mg PO BIDCM 30 days #60 tabs 10/25/21 [Rx Last Taken Unknown] sodium bicarbonate 650 mg tablet 650 mg PO DAILY 12/03/21 [History Last Taken Unknown] clotrimazole 1 % topical cream 1 applic topical BID 2 weeks #15 grams 01/12/23 [Rx Last Taken Unknown] Allergy/AdvReac Type Severity Reaction Status Date / Time Latex, Natural Rubber Allergy Mild rash Verified 01/31/23 11:13 hydromorphone [From Dilaudid] AdvReac Mild nausea Verified 01/31/23 11:13 Surgical History History of appendectomy History of cardiac catheterization History of cholecystectomy Hx of colonoscopy Hx of esophagogastroduodenoscopy Hx of exploratory laparotomy Hx of hand surgery Hx of myringotomy Hx of oral surgery Hx of parathyroidectomy kidney transplant Social History household members: other details: girlfriend and mother Smoking Status: Former smoker Tobacco: How many years used: 20 alcohol intake: never substance use type: does not use do you feel safe at home: Yes ROS <MITCHELL Valdez - Last Filed: 01/31/23 13:22> ROS ED Constitutional Constitutional ED: Denies chills or fever(s) Cardiovascular Cardiovascular: Denies chest pain or palpitations Respiratory/Chest Respiratory/Chest: Denies cough or dyspnea Gastrointestinal Gastrointestinal: Denies abdominal pain, nausea or vomiting Genitourinary Genitourinary ED: Denies dysuria, hematuria or urinary frequency Musculoskeletal Musculoskeletal: Reports arthralgias; Denies back pain, myalgias or neck pain Integumentary Reports Abrasions; Denies abscess or rash Neurologic Neurologic: Denies paresthesias or weakness Psychiatric Psychiatric: Denies anxiety EXAM <MITCHELL Valdez - Last Filed: 01/31/23 13:22> Physical Exam Const Vital Signs: 01/31/23 11:04 Temperature 97 F L Temperature Source Temporal Pulse Rate 67 Respiratory Rate 14 Blood Pressure 150/92 H Blood Pressure Mean 111 Pulse Ox 98 Oxygen Delivery Method Room Air Positive well nourished, well developed and no apparent distress General Appearance ED: well developed HEENT Reports normocephalic and head/scalp atraumatic Mouth ED: Yes moist mucous membranes normal Eyes PERRL and EOMs intact bilaterally Neck full ROM and supple Chest Wall inspection of chest normal Resp normal respiratory effort and clear to auscultation bilaterally Cardio regular rate and regular rhythm GI soft to palpation, non-tender, non-distended and no masses Back/Spine normal ROM and normal to inspection Extremity normal to inspection and full ROM Extremity Narrative: Small abrasion to the right knee without edema, full range of motion of the right knee, no overlying erythema, no crepitus, sensation intact distally Neuro oriented x3, CN's II-XII intact bilaterally, moves all extremities, no focal motor deficits and no sensory deficits noted Sensorium / Orientation: awake and alert Psych mental status grossly normal and thought process normal Skin Rashes: no rashes <Dr. Larry Mayes DO - Last Filed: 01/31/23 15:57> Physical Exam Const Vital Signs: 01/31/23 11:04 Temperature 97 F L Temperature Source Temporal Pulse Rate 67 Respiratory Rate 14 Blood Pressure 150/92 H Blood Pressure Mean 111 Pulse Ox 98 Oxygen Delivery Method Room Air MDM <MITCHELL Valdez - Last Filed: 01/31/23 13:22> [facility] Narrative Medical decision making narrative: Patient presenting today due to pain in his right knee after he fell out of his brother's truck yesterday evening onto his right side and onto his right knee. Small abrasion to the right knee without any obvious effusion, there is no erythema to suggest septic joint. He is well-appearing and in no acute distress, vitals are unremarkable. He is able to ambulate but it is painful. He reports that he will need a work note. X-ray will be obtained to rule out fracture and is negative for any acute findings. He was given Tylenol here for pain and a work note for today. He is able to ambulate at discharge will be discharged home in stable condition. He has been given RICE instructions and is comfortable with plan. He is to take Tylenol for pain as needed. Radiography X-Ray: Read by ED Physician and Read by Radiologist <Dr. Larry Mayes, DO - Last Filed: 01/31/23 15:57> MDM MDM Narrative Medical decision making narrative: Patient presenting today due to pain in his right knee after he fell out of his brother's truck yesterday evening onto his right side and onto his right knee. Small abrasion to the right knee without any obvious effusion, there is no erythema to suggest septic joint. He is well-appearing and in no acute distress, vitals are unremarkable. He is able to ambulate but it is painful. He reports that he will need a work note. X-ray will be obtained to rule out fracture and is negative for any acute findings. He was given Tylenol here for pain and a work note for today. He is able to ambulate at discharge will be discharged home in stable condition. He has been given RICE instructions and is comfortable with plan. He is to take Tylenol for pain as needed. This patient was seen with a PA/PROTECTIVE SIGNAL REPAIRER HELPER Individually assessed they patient including history and physical. I have reviewed everything on the chart that is available and agree with the documentation provided by the PA/PROTECTIVE SIGNAL REPAIRER HELPER including discussion about the assessment, treatment plan, discussion, and return precautions. Patient with mechanical fall striking his right knee with minimal signs of injury. He was given Tylenol and we obtained x-rays of the right knee which on my interpretation show no acute fracture or subluxation. Radiology has not interpreted this yet but I think that he is safe for discharge home. He will be placed in Maximus wrap. Return precautions discussed. Discharge Plan Triage Chief Complaint: Lower Extremity Injury ED Midlevel Provider: Daniela Espinal ED Provider: Larry Mayes Dx/Rx/DC Orders Clinical Impression: Knee pain, right, Fall Instructions: Knee Pain Prescriptions: No Action tacrolimus [Prograf] 1 mg capsule 3 mg PO BID Rx Instructions: 3 MG IN AM, 3 MG IN PM magnesium oxide 400 mg magnesium tablet 400 mg PO BID prednisone 5 mg tablet 5 mg PO DAILY Qty: 30 1RF budesonide-formoterol [Symbicort] 160-4.5 mcg/actuation HFA aerosol inhaler 2 puff INHALATION BID Qty: 10.2 2RF albuterol sulfate 90 mcg/actuation HFA aerosol inhaler 2 inh inhalation Q6H PRN (Reason: shortness of breath or wheezing) Qty: 8.5 2RF (DME) nebulizers Misc See Rx Instructions .ROUTE .MEDSUPPLY Qty: 1 0RF Rx Instructions: As directed albuterol sulfate 2.5 mg /3 mL (0.083 %) solution for nebulization 2.5 mg inhalation Q6H PRN (Reason: shortness of breath or wheezing) Qty: 90 2RF omeprazole 20 mg capsule,delayed release(DR/EC) 20 mg PO DAILY mycophenolate mofetil 250 mg Capsule 100 mg PO BID acetaminophen 500 mg Tablet 1,000 mg PO Q8 Qty: 100 0RF Rx Instructions: Do not take more than 3000 mg Tylenol in a 24-hour period. aspirin 81 mg Tablet,Chewable 81 mg PO BIDCM 30 Days Qty: 60 0RF Rx Instructions: Take 81 mg aspirin twice daily for 4 weeks postoperatively for DVT prophylaxis sodium bicarbonate 650 mg Tablet 650 mg PO DAILY clotrimazole 1 % cream 1 applic topical BID 14 Days Qty: 15 0RF Stand Alone Forms: ED Work / School Excuse Primary Care Provider: Wolfgang Reed Referrals: Wolfgang Reed MD [Primary Care Provider] - 1 Week if not improving Activity Restrictions/Additional Instructions: Ice your knee several times a day for the next few days, you can take Tylenol for your pain, keep knee elevated. Follow-up with your PCP. Disposition Disposition: Home, Self Care Discharge Date/Time: 01/31/23 13:39
--- NOTE | 2023-01-31 11:45 | RAD_ITS ---
STUDY: X-RAY - RIGHT KNEE REASON FOR EXAM: Male, 47 years old. Knee injury due to a fall. TECHNIQUE: 3 view(s) of the knee. COMPARISON: None. FINDINGS: Normal visualized distal femur. Normal visualized proximal tibia and fibula. Normal proximal tibiofibular articulation. There is mild degenerative arthrosis of the medial femorotibial compartment. Normal lateral femorotibial compartment. Normal patellofemoral articulation. Tiny knee effusion. RAD/Knee 3 Views IMPRESSION: Mild degenerative changes of the medial compartment of the knee joint. Tiny effusion. Electronically Signed: Pawan Ordaz MD at 12:02 EDT ,
[2023-01-31] MEDS: Acetaminophen 325 MG Tablet 650 MG PO (12:39)
== END 2023-01-31 13:39 | disposition home or self-care (01) ==
PROVIDERS: Emergency Provider Student in an Organized Health Care Education/Training Program; PCP Internal Medicine; Visit Provider Student in an Organized Health Care Education/Training Program
DX: M25.561 Pain in right knee (principal); J44.9 Chronic obstructive pulmonary disease, unspecified; I11.0 Hypertensive heart disease with heart failure; I50.9 Heart failure, unspecified; Z87.891 Personal history of nicotine dependence; I25.2 Old myocardial infarction; K21.9 Gastro-esophageal reflux disease without esophagitis; Z79.899 Other long term (current) drug therapy; Z79.51 Long term (current) use of inhaled steroids; Z90.49 Acquired absence of other specified parts of digestive tract; Z96.22 Myringotomy tube(s) status; W17.89XA Other fall from one level to another, initial encounter; Y92.812 Truck as the place of occurrence of the external cause
CPT/HCPCS: 73562; 99283

== ENCOUNTER → 2023-02-03 | Outpatient (CLI) | payer MEDICARE, OTHER, MEDICAID, SELFPAY ==
[2023-02-03 09:06] LABS: PTHIN 236.8 pg/mL (18.4-80.1)
[2023-02-03 09:23] LABS: ALB/GLOB Ratio 0.9 RATIO (0.9-2.4); AST(SGOT) 10 U/L (15-37); Alanine Aminotransfer ALT/SGPT 19 U/L (16-61); Albumin, Serum 3.5 g/dL (3.2-5.0); Alkaline Phosphatase 90 U/L (45-117); Anion Gap 3 (5-15); BUN 39 mg/dL (7-18); BUN/Creat Ratio 23.1 RATIO (10-20); Calcium,Total 10.3 mg/dL (8.5-10.1); Chloride 110 mmol/L (98-107); Creatinine, Serum 1.69 mg/dL (0.70-1.30); EST Glomerular Filtration Rate 47 mL/min (>60); Est Glom Filt Rate - Afr Amer 57 mL/min (>60); Globulin 3.8 g/dL (2.2-4.2); Glucose 138 mg/dL (74-106); Potassium 4.4 mmol/L (3.5-5.1); Protein, Total 7.3 g/dL (6.4-8.2); Sodium Level 139 mmol/L (136-145)
== END | disposition home or self-care (01) ==
LOC: LAB 07:56
PROVIDERS: PCP Internal Medicine; Referring Provider Internal Medicine Nephrology; Visit Provider Internal Medicine Nephrology
DX: E21.2 Other hyperparathyroidism (principal); Z94.0 Kidney transplant status
CPT/HCPCS: 36415; 80053; 80197; 83970

== ENCOUNTER 2023-04-12 12:09 | Emergency (ER) | payer MEDICARE, MEDICAID, SELFPAY ==
[2023-04-12 12:10] VITALS: BP 158/102; PULSE 85; RESP 18; TEMP 36.4; O2SAT 98; BMI 26.0
--- NOTE | 2023-04-12 12:24 | EX.ED.GENINJ ---
HPI <MITCHELL Valdez - Last Filed: 04/12/23 13:14> History of Present Illness Chief Complaint: Laceration Narrative Narrative: Patient presenting today with a laceration to his left thumb that he got last night at work while washing dishes, he cut it on tongs. His tetanus is up-to-date. He denies any other injury. He is not on any blood thinners. PFSH <MITCHELL Valdez - Last Filed: 04/12/23 13:14> [facility] Medical History Abdominal pain Anemia Arthritis Cardiology follow-up encounter Contact with and (suspected) exposure to other viral communicable diseases COPD (chronic obstructive pulmonary disease) CPAP (continuous positive airway pressure) dependence Dysuria Elevated blood pressure reading Former smoker Gastric reflux History of CHF (congestive heart failure) History of COVID-19 History of hiatal hernia History of pain when walking History of renal dialysis History of renal disease History of steroid therapy History of stress test Hx of Perez's palsy Hx of cardiomyopathy Hypertension Left flank pain Left hip pain Leg cramps Myocardial infarction with cardiac rehabilitation Pain of right heel Palpitations Preoperative evaluation to rule out surgical contraindication Right shoulder pain Syncope Home Medications magnesium oxide 400 mg PO BID supplement 09/30/19 [History Last Taken 10/24/21] tacrolimus 1 mg capsule, immediate-release (Prograf) 3 mg PO BID rejection 09/30/19 [History Last Taken 10/24/21] omeprazole 20 mg capsule,delayed release 20 mg PO DAILY 02/26/21 [History Last Taken 10/24/21] prednisone 5 mg tablet 5 mg PO DAILY #30 tabs 03/02/21 [Rx Last Taken 10/24/21] mycophenolate mofetil 250 mg capsule 100 mg PO BID 10/10/21 [History Last Taken 10/24/21] albuterol sulfate 2.5 mg/3 mL (0.083 %) solution for nebulization 2.5 mg (3 mL) inhalation Q6H PRN shortness of breath or wheezing #90 mL 10/16/21 [Rx Last Taken Unknown] albuterol sulfate 90 mcg/actuation aerosol inhaler 2 inh inhalation Q6H PRN shortness of breath or wheezing #8.5 grams 10/16/21 [Rx Last Taken Unknown] budesonide-formoterol HFA 160 mcg-4.5 mcg/actuation aerosol inhaler (Symbicort) 2 puff inhalation BID SOB #10.2 grams 10/16/21 [Rx Last Taken Unknown] nebulizers #1 ea 10/16/21 [Rx Last Taken Unknown] acetaminophen 500 mg tablet 1,000 mg (2 x 500 mg) PO Q8 #100 tabs 10/25/21 [Rx Last Taken Unknown] aspirin 81 mg chewable tablet 81 mg PO BIDCM 30 days #60 tabs 10/25/21 [Rx Last Taken Unknown] sodium bicarbonate 650 mg tablet 650 mg PO DAILY 12/03/21 [History Last Taken Unknown] clotrimazole 1 % topical cream 1 applic topical BID 2 weeks #15 grams 01/12/23 [Rx Last Taken Unknown] cephalexin 500 mg capsule 500 mg PO Q12 4 days #8 CAPSULES 04/12/23 [Rx Last Taken Unknown] Allergy/AdvReac Type Severity Reaction Status Date / Time Latex, Natural Rubber Allergy Mild rash Verified 04/12/23 12:10 hydromorphone [From Dilaudid] AdvReac Mild nausea Verified 04/12/23 12:10 Surgical History History of appendectomy History of cardiac catheterization History of cholecystectomy Hx of colonoscopy Hx of esophagogastroduodenoscopy Hx of exploratory laparotomy Hx of hand surgery Hx of myringotomy Hx of oral surgery Hx of parathyroidectomy kidney transplant Social History household members: other details: girlfriend and mother Smoking Status: Former smoker Tobacco: How many years used: 20 alcohol intake: never substance use type: does not use do you feel safe at home: Yes ROS <MITCHELL Valdez - Last Filed: 04/12/23 13:14> ROS ED Constitutional Constitutional ED: Denies chills or fever(s) Cardiovascular Cardiovascular: Denies chest pain Respiratory/Chest Respiratory/Chest: Denies cough or dyspnea Gastrointestinal Gastrointestinal: Denies abdominal pain, nausea or vomiting Musculoskeletal Musculoskeletal: Denies arthralgias or myalgias Integumentary Reports laceration Neurologic Neurologic: Denies weakness EXAM <MITCHELL Valdez - Last Filed: 04/12/23 13:14> Physical Exam Const Vital Signs: 04/12/23 12:10 Temperature 97.6 F L Temperature Source Temporal Pulse Rate 85 Respiratory Rate 18 Blood Pressure 158/102 H Blood Pressure Mean 120 Pulse Ox 98 Oxygen Delivery Method Room Air Positive well nourished, well developed and no apparent distress General Appearance ED: well developed HEENT Reports normocephalic and head/scalp atraumatic Mouth ED: Yes moist mucous membranes normal Eyes PERRL and EOMs intact bilaterally Neck full ROM and supple Chest Wall inspection of chest normal Resp normal respiratory effort and clear to auscultation bilaterally Cardio regular rate and regular rhythm GI soft to palpation, non-tender, non-distended and no masses Back/Spine normal ROM and normal to inspection Extremity normal to inspection and full ROM Extremity Narrative: Fistula to the left forearm. Small, full-thickness laceration that is about 1.5 cm to the left lateral thumb. Full flexion at the MCP and IP joint of the left thumb. Radial pulse 2+ and equal bilaterally, good capillary refill, sensation intact. Neuro oriented x3, CN's II-XII intact bilaterally, moves all extremities, no focal motor deficits and no sensory deficits noted Sensorium / Orientation: awake and alert Psych mental status grossly normal and thought process normal Skin no rashes or lesions noted and no wounds <Dr. Yakov Dhillon, - Last Filed: 04/12/23 12:42> Physical Exam Const Vital Signs: 04/12/23 12:10 Temperature 97.6 F L Temperature Source Temporal Pulse Rate 85 Respiratory Rate 18 Blood Pressure 158/102 H Blood Pressure Mean 120 Pulse Ox 98 Oxygen Delivery Method Room Air PROC <MITCHELL Valdez - Last Filed: 04/12/23 13:14> Procedures Lacerations Laceration: Length: 1.5 cm Depth: Skin Shape: Linear Laceration repair: Dermabond, Irrigated and Wound explored MDM <MITCHELL Valdez - Last Filed: 04/12/23 13:14> [facility] Narrative Medical decision making narrative: Patient presenting today with a small laceration to his left thumb on the lateral aspect of the IP joint. He got this yesterday at work from a pair of tongs while cleaning dishes. He cleaned it right away with peroxide, it is a superficial laceration. It has been cleaned here with chlorhexidine and irrigated. Dermabond was applied to close the wound and it was wrapped with Coban. He will be put on a few days of antibiotics and will be discharged home in stable condition. He is comfortable with plan. <Dr. Yakov Dhillon, DO - Last Filed: 04/12/23 12:42> [facility] Treatment and Re-Evaluation Narrative: I have personally performed a face to face assessment of the patient and have reviewed the BENITEZ Note. I performed a substantive portion of the visit including all aspects of the following. My jose findings include: History is patient sustained superficial lacerations to the left thumb last night. He attempted home treatment with glue but it continued to bleed and be open. 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 He is got as a fistula in the left forearm. Exam is superficial full-thickness cut to the left thumb over the lateral volar aspect. No active bleeding. No evidence of secondary infection Medical Decison Making wound was washed cleansed and Dermabond applied. Dressing including Coban applied to limit flexion as the wound is at the interphalangeal joint. Placed on antibiotics for a few days. Return if worsening or concerns follow-up as needed Discharge Plan Triage Chief Complaint: Laceration ED Midlevel Provider: Daniela Espinal ED Provider: Yakov Dhillon Dx/Rx/DC Orders Clinical Impression: Laceration of thumb Instructions: ED Laceration: Skin Adhesive Prescriptions: New cephalexin 500 mg capsule 500 mg PO Q12 4 Days Qty: 8 0RF No Action tacrolimus [Prograf] 1 mg capsule 3 mg PO BID Rx Instructions: 3 MG IN AM, 3 MG IN PM magnesium oxide 400 mg magnesium tablet 400 mg PO BID prednisone 5 mg tablet 5 mg PO DAILY Qty: 30 1RF budesonide-formoterol [Symbicort] 160-4.5 mcg/actuation HFA aerosol inhaler 2 puff INHALATION BID Qty: 10.2 2RF albuterol sulfate 90 mcg/actuation HFA aerosol inhaler 2 inh inhalation Q6H PRN (Reason: shortness of breath or wheezing) Qty: 8.5 2RF (DME) nebulizers Misc See Rx Instructions .ROUTE .MEDSUPPLY Qty: 1 0RF Rx Instructions: As directed albuterol sulfate 2.5 mg /3 mL (0.083 %) solution for nebulization 2.5 mg inhalation Q6H PRN (Reason: shortness of breath or wheezing) Qty: 90 2RF omeprazole 20 mg capsule,delayed release(DR/EC) 20 mg PO DAILY mycophenolate mofetil 250 mg Capsule 100 mg PO BID acetaminophen 500 mg Tablet 1,000 mg PO Q8 Qty: 100 0RF Rx Instructions: Do not take more than 3000 mg Tylenol in a 24-hour period. aspirin 81 mg Tablet,Chewable 81 mg PO BIDCM 30 Days Qty: 60 0RF Rx Instructions: Take 81 mg aspirin twice daily for 4 weeks postoperatively for DVT prophylaxis sodium bicarbonate 650 mg Tablet 650 mg PO DAILY clotrimazole 1 % cream 1 applic topical BID 14 Days Qty: 15 0RF Stand Alone Forms: ED Work / School Excuse Primary Care Provider: Wolfgang Reed Referrals: Wolfgang Reed MD [Primary Care Provider] - 5-7 Days Activity Restrictions/Additional Instructions: Keep area covered while at work. Return for any signs of infection. Take antibiotics as directed. Disposition Disposition: Home, Self Care Discharge Date/Time: 04/12/23 12:45
== END 2023-04-12 12:45 | disposition home or self-care (01) ==
PROVIDERS: Emergency Provider Emergency Medicine; PCP Internal Medicine; Visit Provider Emergency Medicine
DX: S61.012A Laceration without foreign body of left thumb without damage to nail, initial encounter (principal); J44.9 Chronic obstructive pulmonary disease, unspecified; I11.0 Hypertensive heart disease with heart failure; I50.9 Heart failure, unspecified; Z87.891 Personal history of nicotine dependence; W27.4XXA Contact with kitchen utensil, initial encounter; Y93.G1 Activity, food preparation and clean up; Y92.89 Other specified places as the place of occurrence of the external cause; I25.2 Old myocardial infarction; K21.9 Gastro-esophageal reflux disease without esophagitis; Z79.899 Other long term (current) drug therapy; Z79.51 Long term (current) use of inhaled steroids; Z79.82 Long term (current) use of aspirin
CPT/HCPCS: 12001; 99282

== ENCOUNTER 2023-05-10 11:46 | Emergency (ER) | payer MEDICARE, MEDICAID, SELFPAY ==
[2023-05-10 11:48] VITALS: BP 144/80; PULSE 86; RESP 14; TEMP 36.6; O2SAT 98; BMI 26.9
--- NOTE | 2023-05-10 11:59 | RAD_ITS ---
STUDY: X-RAY - LEFT KNEE REASON FOR EXAM: Male, 47 years old. Injury TECHNIQUE: 4 view(s) of the knee. COMPARISON: None. FINDINGS: Normal visualized distal femur. Normal visualized proximal tibia and fibula. Normal proximal tibiofibular articulation. There is mild degenerative arthrosis of the medial femorotibial compartment. Normal lateral femorotibial compartment. There is moderate degenerative arthrosis of the patellofemoral articulation. The soft tissue structures are unremarkable. RAD/Knee 4 or More Views IMPRESSION: Degenerative arthrosis. Electronically Signed: Jeancarlos Marsh MD at 12:53 EST ,
--- NOTE | 2023-05-10 12:00 | EDS_ITS ---
HPI History of Present Illness Chief Complaint: Lower Extremity Injury Informant: patient Narrative Narrative: Patient presents to the due to left knee pain. He states he was walking to work yesterday when he felt a popping sensation in his left knee. He states he will have this happen frequently and he can usually get the sensation to go away with ice and rest. He had to work until 8:00 last night on it and after icing last night still has symptoms today. [facility] Medical History Abdominal pain Anemia Arthritis Cardiology follow-up encounter Contact with and (suspected) exposure to other viral communicable diseases COPD (chronic obstructive pulmonary disease) CPAP (continuous positive airway pressure) dependence Dysuria Elevated blood pressure reading Former smoker Gastric reflux History of CHF (congestive heart failure) History of COVID-19 History of hiatal hernia History of pain when walking History of renal dialysis History of renal disease History of steroid therapy History of stress test Hx of Perez's palsy Hx of cardiomyopathy Hypertension Left flank pain Left hip pain Leg cramps Myocardial infarction with cardiac rehabilitation Pain of right heel Palpitations Preoperative evaluation to rule out surgical contraindication Right shoulder pain Syncope Home Medications magnesium oxide 400 mg PO BID supplement 09/30/19 [History Last Taken 10/24/21] tacrolimus 1 mg capsule, immediate-release (Prograf) 3 mg PO BID rejection 09/30/19 [History Last Taken 10/24/21] omeprazole 20 mg capsule,delayed release 20 mg PO DAILY 02/26/21 [History Last Taken 10/24/21] prednisone 5 mg tablet 5 mg PO DAILY #30 tabs 03/02/21 [Rx Last Taken 10/24/21] mycophenolate mofetil 250 mg capsule 100 mg PO BID 10/10/21 [History Last Taken 10/24/21] albuterol sulfate 2.5 mg/3 mL (0.083 %) solution for nebulization 2.5 mg (3 mL) inhalation Q6H PRN shortness of breath or wheezing #90 mL 10/16/21 [Rx Last Taken Unknown] albuterol sulfate 90 mcg/actuation aerosol inhaler 2 inh inhalation Q6H PRN shortness of breath or wheezing #8.5 grams 10/16/21 [Rx Last Taken Unknown] budesonide-formoterol HFA 160 mcg-4.5 mcg/actuation aerosol inhaler (Symbicort) 2 puff inhalation BID SOB #10.2 grams 10/16/21 [Rx Last Taken Unknown] nebulizers #1 ea 10/16/21 [Rx Last Taken Unknown] acetaminophen 500 mg tablet 1,000 mg (2 x 500 mg) PO Q8 #100 tabs 10/25/21 [Rx Last Taken Unknown] aspirin 81 mg chewable tablet 81 mg PO BIDCM 30 days #60 tabs 10/25/21 [Rx Last Taken Unknown] sodium bicarbonate 650 mg tablet 650 mg PO DAILY 12/03/21 [History Last Taken Unknown] clotrimazole 1 % topical cream 1 applic topical BID 2 weeks #15 grams 01/12/23 [Rx Last Taken Unknown] cephalexin 500 mg capsule 500 mg PO Q12 4 days #8 CAPSULES 04/12/23 [Rx Last Taken Unknown] tramadol 50 mg tablet 50 mg PO Q8H PRN pain #14 tabs 05/10/23 [Rx Last Taken Unknown] Allergy/AdvReac Type Severity Reaction Status Date / Time Latex, Natural Rubber Allergy Mild rash Verified 05/10/23 11:47 hydromorphone [From Dilaudid] AdvReac Mild nausea Verified 05/10/23 11:47 Surgical History History of appendectomy History of cardiac catheterization History of cholecystectomy Hx of colonoscopy Hx of esophagogastroduodenoscopy Hx of exploratory laparotomy Hx of hand surgery Hx of myringotomy Hx of oral surgery Hx of parathyroidectomy kidney transplant Social History household members: other details: girlfriend and mother Smoking Status: Former smoker Tobacco: How many years used: 20 alcohol intake: never substance use type: does not use do you feel safe at home: Yes ROS ROS ED Constitutional Constitutional ED: Denies chills or fever(s) ENT ENT ED: Denies rhinorrhea or sore throat Cardiovascular Cardiovascular: Denies chest pain Respiratory/Chest Respiratory/Chest: Denies cough or dyspnea Gastrointestinal Gastrointestinal: Denies abdominal pain, nausea or vomiting Musculoskeletal Musculoskeletal: Reports extremity pain; Denies back pain Integumentary Denies Abrasions or rash Neurologic Neurologic: Denies headache(s), paresthesias or weakness Allergic/Immunologic Allergic/Immunologic ED: Denies lip swelling or urticaria EXAM Physical Exam Const Vital Signs: 05/10/23 11:48 Temperature 98 F Temperature Source Oral Pulse Rate 86 Respiratory Rate 14 Blood Pressure 144/80 H Blood Pressure Mean 101 Pulse Ox 98 Oxygen Delivery Method Room Air Positive well nourished and well developed General Appearance ED: well developed HEENT Reports moist mucous membranes Eyes PERRL Chest Wall inspection of chest normal and palpation of chest normal Resp normal respiratory effort and clear to auscultation bilaterally Cardio regular rate and regular rhythm GI non-tender Extremity Extremity Narrative: Mild tenderness over the posterior aspect of the left knee. Mild edema noted to the joint. No erythema. No evidence of dislocation. Good range of motion with strong distal pulses. Neuro oriented x3 and no sensory deficits noted Motor Exam: strength 5/5 throughout Psych mental status grossly normal Skin no wounds MDM MDM MDM Narrative Medical decision making narrative: Left knee x-ray obtained to evaluate for fracture, joint effusion. Differential diagnosis includes sprain, strain, fracture, dislocation. Radiography Diagnostic Testing: Clinical Impression(s) from Imaging Studies Knee X-Ray 05/10/23 11:59 IMPRESSION: Degenerative arthrosis. Electronically Signed: Jeancarlos Marsh MD at 12:53 EST Reading Location ID and State: [facility] / [place] , Service support , Treatment and Re-Evaluation Narrative: Left knee x-rays per my interpretation reveal arthritic changes but no evidence of fracture or dislocation. Radiology interpretation reviewed and agrees. Test results discussed with the patient. He will be given an Maximus wrap and off work today. I will write him a short course of tramadol. I will avoid anti-infl ammatories as he has had a renal transplant. He has seen [facility] in the past and be referred to them for follow-up as needed. Discharge Plan Triage Chief Complaint: Lower Extremity Injury ED Provider: Marsha Booth Dx/Rx/DC Orders Clinical Impression: Left knee sprain Instructions: ED Knee Sprain Prescriptions: New tramadol 50 mg tablet 50 mg PO Q8H PRN (Reason: pain) Qty: 14 0RF No Action tacrolimus [Prograf] 1 mg capsule 3 mg PO BID Rx Instructions: 3 MG IN AM, 3 MG IN PM magnesium oxide 400 mg magnesium tablet 400 mg PO BID prednisone 5 mg tablet 5 mg PO DAILY Qty: 30 1RF budesonide-formoterol [Symbicort] 160-4.5 mcg/actuation HFA aerosol inhaler 2 puff INHALATION BID Qty: 10.2 2RF albuterol sulfate 90 mcg/actuation HFA aerosol inhaler 2 inh inhalation Q6H PRN (Reason: shortness of breath or wheezing) Qty: 8.5 2RF (DME) nebulizers Misc See Rx Instructions .ROUTE .MEDSUPPLY Qty: 1 0RF Rx Instructions: As directed albuterol sulfate 2.5 mg /3 mL (0.083 %) solution for nebulization 2.5 mg inhalation Q6H PRN (Reason: shortness of breath or wheezing) Qty: 90 2RF omeprazole 20 mg capsule,delayed release(DR/EC) 20 mg PO DAILY mycophenolate mofetil 250 mg Capsule 100 mg PO BID acetaminophen 500 mg Tablet 1,000 mg PO Q8 Qty: 100 0RF Rx Instructions: Do not take more than 3000 mg Tylenol in a 24-hour period. aspirin 81 mg Tablet,Chewable 81 mg PO BIDCM 30 Days Qty: 60 0RF Rx Instructions: Take 81 mg aspirin twice daily for 4 weeks postoperatively for DVT prophylaxis sodium bicarbonate 650 mg Tablet 650 mg PO DAILY cephalexin 500 mg capsule 500 mg PO Q12 4 Days Qty: 8 0RF clotrimazole 1 % cream 1 applic topical BID 14 Days Qty: 15 0RF Stand Alone Forms: ED Work / School Excuse Primary Care Provider: Wolfgang Reed Referrals: Wolfgang Reed MD [Primary Care Provider] - Yuan Marroquin DO [Med Staff - Active Staff] - 1 Week if not improving Disposition Disposition: Home, Self Care
== END 2023-05-10 13:17 | disposition home or self-care (01) ==
PROVIDERS: Emergency Provider Emergency Medicine; PCP Internal Medicine; Visit Provider Emergency Medicine
DX: S83.92XA Sprain of unspecified site of left knee, initial encounter (principal); J44.9 Chronic obstructive pulmonary disease, unspecified; I11.0 Hypertensive heart disease with heart failure; I50.9 Heart failure, unspecified; Z87.891 Personal history of nicotine dependence; I25.2 Old myocardial infarction; K21.9 Gastro-esophageal reflux disease without esophagitis; Z79.899 Other long term (current) drug therapy; Z79.51 Long term (current) use of inhaled steroids; Z79.82 Long term (current) use of aspirin; Z90.49 Acquired absence of other specified parts of digestive tract; Z94.0 Kidney transplant status; X58.XXXA Exposure to other specified factors, initial encounter; Y93.01 Activity, walking, marching and hiking; Y92.89 Other specified places as the place of occurrence of the external cause
CPT/HCPCS: 73564; 99282

== ENCOUNTER → 2023-05-16 | Outpatient (CLI) | payer MEDICARE, MEDICAID, SELFPAY ==
[2023-05-16 08:21] LABS: Mucous, Urine 0 SEEN /hpf (<or=2+); Red Blood Cells-Urine 0 SEEN /hpf (0-5)
[2023-05-16 08:40] LABS: Hematocrit 44.4 % (40-54); Hemoglobin 14.1 g/dL (13.0-16.5); Mean Corp Hgb Conc 31.8 g/dL (32-36); Mean Corpuscular Hgb 30.9 pg (27.0-32.0); Mean Corpuscular Volume 97.4 fL (80-94); Mean Platelet Vol. 10.1 fl (6.2-12.0); Platelet Count 246 K/mm3 (150-450); RBC Distribution Width CV 14.1 % (11.6-14.6); RBC Distribution Width SD 50.9 fl (35.1-43.9); Red Blood Count 4.56 M/mm3 (4.6-6.2); White Blood Count 9.7 K/mm3 (4.4-11.0)
[2023-05-16 08:46] LABS: Color, Urine Yellow (Yellow); Glucose, Dipstick Normal (Normal); Ketone-Dipstick Negative (Negative); Leukocyte Esterase-Dipstick 500 /ul (Negative); Nitrite-Dipstick Positive (Negative); Occult Blood-Urine 25 /ul (Negative); Protein-Dipstick 30 mg/dl (Negative); Specific Gravity, Urine 1.015 (1.002-1.030); Urine Bilirubin Dipstick Negative (Negative); Urine Clarity Cloudy (Clear); Urine Urobilinogen Normal (Normal)
[2023-05-16 09:10] LABS: Bacteria 3+ /hpf (None Seen); Squamous Epithelial Cells - UA 0-5 SEEN /hpf (0-5); White Blood Cells >100 SEEN /hpf (0-5)
[2023-05-16 09:18] LABS: ALB/GLOB Ratio 0.9 RATIO (0.9-2.4); AST(SGOT) 11 U/L (15-37); Alanine Aminotransfer ALT/SGPT 18 U/L (16-61); Albumin, Serum 3.5 g/dL (3.2-5.0); Alkaline Phosphatase 103 U/L (45-117); Anion Gap 3 (5-15); BUN 33 mg/dL (7-18); BUN/Creat Ratio 20.6 RATIO (10-20); Calcium,Total 10.4 mg/dL (8.5-10.1); Chloride 110 mmol/L (98-107); EST Glomerular Filtration Rate 50 mL/min (>60); Est Glom Filt Rate - Afr Amer 60 mL/min (>60); Ferritin 407 ng/mL (26-388); Globulin 3.7 g/dL (2.2-4.2); Glucose 103 mg/dL (74-106); Iron 59 ug/dL (65-175); Iron Binding Capacity,Total 253 ug/dL (250-450); PERCENT IRON SATURATION 23.3 % (15.0-55.0); Potassium 4.7 mmol/L (3.5-5.1); Protein, Total 7.2 g/dL (6.4-8.2); Sodium Level 141 mmol/L (136-145)
[2023-05-16 09:29] LABS: PTHIN 229.7 pg/mL (18.4-80.1)
[2023-05-20 03:07] LABS: Tacrolimus (FK506) 3.8 ng/mL (2.0-20.0)
== END | disposition home or self-care (01) ==
PROVIDERS: PCP Internal Medicine; Referring Provider Internal Medicine Nephrology; Visit Provider Internal Medicine Nephrology
DX: N18.2 Chronic kidney disease, stage 2 (mild) (principal); E21.2 Other hyperparathyroidism; Z94.0 Kidney transplant status; D64.9 Anemia, unspecified
CPT/HCPCS: 36415; 80053; 80197; 81001; 82728; 83540; 83550; 83970; 85027

== ENCOUNTER → 2023-05-21 | Outpatient (CLI) | payer MEDICARE, MEDICAID, SELFPAY | END | disposition home or self-care (01) | PROVIDERS: PCP Internal Medicine; Visit Provider Internal Medicine Nephrology | DX: N39.0 Urinary tract infection, site not specified (principal) | CPT/HCPCS: 87077; 87086; 87088; 87186 ==

== ENCOUNTER 2023-06-16 14:29 | Emergency (ER) | payer MEDICARE, MEDICAID, SELFPAY ==
[2023-06-16 14:30] VITALS: BP 146/78; PULSE 89; RESP 14; TEMP 36.6; O2SAT 100; BMI 26.3
--- NOTE | 2023-06-16 14:39 | EX.ED.DYSGE1 ---
HPI <MITCHELL Juan - Last Filed: 06/16/23 14:47> History of Present Illness Chief Complaint: Back Narrative Narrative: 47-year-old male woke up with a left mid and lower back ache 2 days ago. 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 He took the later part of his shift off work and rested yesterday using heat and ice and taking Tylenol but it seems about the same. It still hurts with movement. He wants to go back to work tomorrow but states his employer needs a note to return. He had no fall or direct trauma. He has no pain radiating to his buttocks or lower extremities. No weakness or paresthesias. No saddle anesthesia or bladder or bowel incontinence. He is a renal transplant patient so has to avoid certain pain medications PFS <MITCHELL Juan - Last Filed: 06/16/23 14:47> [facility] Medical History Abdominal pain Anemia Arthritis Cardiology follow-up encounter Contact with and (suspected) exposure to other viral communicable diseases COPD (chronic obstructive pulmonary disease) CPAP (continuous positive airway pressure) dependence Dysuria Elevated blood pressure reading Former smoker Gastric reflux History of CHF (congestive heart failure) History of COVID-19 History of hiatal hernia History of pain when walking History of renal dialysis History of renal disease History of steroid therapy History of stress test Hx of Perez's palsy Hx of cardiomyopathy Hypertension Left flank pain Left hip pain Leg cramps Myocardial infarction with cardiac rehabilitation Pain of right heel Palpitations Preoperative evaluation to rule out surgical contraindication Right shoulder pain Syncope Home Medications magnesium oxide 400 mg PO BID supplement 09/30/19 [History Last Taken 10/24/21] tacrolimus 1 mg capsule, immediate-release (Prograf) 3 mg PO BID rejection 09/30/19 [History Last Taken 10/24/21] omeprazole 20 mg capsule,delayed release 20 mg PO DAILY 02/26/21 [History Last Taken 10/24/21] prednisone 5 mg tablet 5 mg PO DAILY #30 tabs 03/02/21 [Rx Last Taken 10/24/21] mycophenolate mofetil 250 mg capsule 100 mg PO BID 10/10/21 [History Last Taken 10/24/21] albuterol sulfate 2.5 mg/3 mL (0.083 %) solution for nebulization 2.5 mg (3 mL) inhalation Q6H PRN shortness of breath or wheezing #90 mL 10/16/21 [Rx Last Taken Unknown] albuterol sulfate 90 mcg/actuation aerosol inhaler 2 inh inhalation Q6H PRN shortness of breath or wheezing #8.5 grams 10/16/21 [Rx Last Taken Unknown] budesonide-formoterol HFA 160 mcg-4.5 mcg/actuation aerosol inhaler (Symbicort) 2 puff inhalation BID SOB #10.2 grams 10/16/21 [Rx Last Taken Unknown] nebulizers #1 ea 10/16/21 [Rx Last Taken Unknown] acetaminophen 500 mg tablet 1,000 mg (2 x 500 mg) PO Q8 #100 tabs 10/25/21 [Rx Last Taken Unknown] aspirin 81 mg chewable tablet 81 mg PO BIDCM 30 days #60 tabs 10/25/21 [Rx Last Taken Unknown] sodium bicarbonate 650 mg tablet 650 mg PO DAILY 12/03/21 [History Last Taken Unknown] clotrimazole 1 % topical cream 1 applic topical BID 2 weeks #15 grams 01/12/23 [Rx Last Taken Unknown] cephalexin 500 mg capsule 500 mg PO Q12 4 days #8 CAPSULES 04/12/23 [Rx Last Taken Unknown] tramadol 50 mg tablet 50 mg PO Q8H PRN pain #14 tabs 05/10/23 [Rx Last Taken Unknown] metaxalone 800 mg tablet 800 mg PO TID PRN muscle pain 3 days #12 tabs 06/16/23 [Rx Last Taken Unknown] Allergy/AdvReac Type Severity Reaction Status Date / Time Latex, Natural Rubber Allergy Mild rash Verified 06/16/23 14:38 hydromorphone [From Dilaudid] AdvReac Mild nausea Verified 06/16/23 14:38 Surgical History History of appendectomy History of cardiac catheterization History of cholecystectomy Hx of colonoscopy Hx of esophagogastroduodenoscopy Hx of exploratory laparotomy Hx of hand surgery Hx of myringotomy Hx of oral surgery Hx of parathyroidectomy kidney transplant Social History household members: other details: girlfriend and mother Smoking Status: Former smoker Tobacco: How many years used: 20 alcohol intake: never substance use type: does not use do you feel safe at home: Yes ROS <MITCHELL Juan - Last Filed: 06/16/23 14:47> ROS ED ROS Narrative GI: Negative for abdominal pain, nausea, vomiting, diarrhea, constipation, melena, hematochezia. : Negative for dysuria, hematuria or frequency. Neuro: Negative for motor/sensory dysfunction. Musc: Negative for joint pain, swelling, trauma. EXAM <MITCHELL Juan - Last Filed: 06/16/23 14:47> Physical Exam Narrative Exam Narrative: CONST: Patient sitting in no acute distress. EYES: Normal inspection. NECK: Normal inspection. RESP: No respiratory distress, CTAB. CVS: Regular rate and rhythm, no murmur, no gallop. ABD: Soft and nontender, no guarding or rebound, nondistended. Back: Normal inspection, no midline tenderness or step-offs. Reproducible tenderness over small area of the left lateral lower thoracic/upper lumbar muscles and reproducible pain with movement. SKIN: Color normal, no rash, warm, dry, intact. EXTREMITIES: Normal appearance, no pedal edema. 5/5 strength in bilateral hip flexion, knee flexion/extension, DF/PF. Normal sensation, 2+ DP pulses. 2+ patellar and ankle reflexes. NEURO: Oriented x4. PSYCH: Normal affect. Const Vital Signs: 06/16/23 14:30 Temperature 98 F Temperature Source Temporal Pulse Rate 89 Respiratory Rate 14 Blood Pressure 146/78 H Blood Pressure Mean 100 Pulse Ox 100 Oxygen Delivery Method Room Air <Dr. Johny Marquez MD - Last Filed: 06/16/23 14:57> Physical Exam Const Vital Signs: 06/16/23 14:30 Temperature 98 F Temperature Source Temporal Pulse Rate 89 Respiratory Rate 14 Blood Pressure 146/78 H Blood Pressure Mean 100 Pulse Ox 100 Oxygen Delivery Method Room Air MDM <MITCHELL Juan - Last Filed: 06/16/23 14:47> MDM MDM Narrative Medical decision making narrative: Patient has 2 days of atraumatic left sided mid to low back pain. He has no midline tenderness. There is a very focal area of reproducible tenderness in the left lumbar muscles so I suspect this is muscular. He has no radicular symptoms. No red flags concerning for cauda equina syndrome. MSPs and reflexes are intact. With no trauma no midline tenderness there is no indication for x-rays. Patient is a renal transplant patient so I recommended continue use of Tylenol and [id number] lidocaine patches. He was given a note to return to work tomorrow per his request and was discharged in stable condition. <Dr. Johny Marquez MD - Last Filed: 06/16/23 14:57> [facility] Narrative Medical decision making narrative: Patient has 2 days of atraumatic left sided mid to low back pain. He has no midline tenderness. There is a very focal area of reproducible tenderness in the left lumbar muscles so I suspect this is muscular. He has no radicular symptoms. No red flags concerning for cauda equina syndrome. MSPs and reflexes are intact. With no trauma no midline tenderness there is no indication for x-rays. Patient is a renal transplant patient so I recommended continue use of Tylenol and uemv-zio-[id number] lidocaine patches. He was given a note to return to work tomorrow per his request and was discharged in stable condition. I have personally performed a face to face assessment of the patient and have reviewed the BENITEZ Note. I performed a substantive portion of the visit including all aspects of the following. My jose findings include: History is [ 47-year-old male history of a single donated kidney complaining of atraumatic mid and lower back pain. 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 denies any fever. No abdominal or chest pain. No fever. No leg pain or weakness. No prior back history or surgery. ] Exam is [ well-appearing middle-age male. Vital signs stable afebrile. H EENT exam unremarkable. neck nontender. Lungs clear. Heart regular rhythm no murmur. Chest wall nontender. Abdomen soft and nontender. Normal bowel sounds no peritoneal signs. Moving all 4 extremities. Nontender no edema. Negative straight leg raise. No cauda equina. No saddle anesthesia. Normal dorsi and plantarflexion. Back he has parathoracic and paralumbar soft tissue tenderness consistent with myofascial strain and spasm. Neurologically is awake and alert with no focal motor or sensory deficits. ] Medical Decision Making [ middle-age male with parathoracic and paralumbar muscle strain of his back. Skelaxin muscle relaxant. Due to his renal transplant he cannot be on ibuprofen. Also Lidoderm patches. ] Other additions or changes: [None] Discharge Plan Triage Chief Complaint: Back ED Midlevel Provider: Sally Perez ED Provider: Johny Marquez Dx/Rx/DC Orders Clinical Impression: Acute lumbar myofascial strain Instructions: ED Back Sprain/Strain Prescriptions: New metaxalone 800 mg tablet 800 mg PO TID PRN (Reason: muscle pain) 3 Days Qty: 12 0RF No Action tacrolimus [Prograf] 1 mg capsule 3 mg PO BID Rx Instructions: 3 MG IN AM, 3 MG IN PM magnesium oxide 400 mg magnesium tablet 400 mg PO BID prednisone 5 mg tablet 5 mg PO DAILY Qty: 30 1RF budesonide-formoterol [Symbicort] 160-4.5 mcg/actuation HFA aerosol inhaler 2 puff INHALATION BID Qty: 10.2 2RF albuterol sulfate 90 mcg/actuation HFA aerosol inhaler 2 inh inhalation Q6H PRN (Reason: shortness of breath or wheezing) Qty: 8.5 2RF (DME) nebulizers Misc See Rx Instructions .ROUTE .MEDSUPPLY Qty: 1 0RF Rx Instructions: As directed albuterol sulfate 2.5 mg /3 mL (0.083 %) solution for nebulization 2.5 mg inhalation Q6H PRN (Reason: shortness of breath or wheezing) Qty: 90 2RF omeprazole 20 mg capsule,delayed release(DR/EC) 20 mg PO DAILY mycophenolate mofetil 250 mg Capsule 100 mg PO BID acetaminophen 500 mg Tablet 1,000 mg PO Q8 Qty: 100 0RF Rx Instructions: Do not take more than 3000 mg Tylenol in a 24-hour period. aspirin 81 mg Tablet,Chewable 81 mg PO BIDCM 30 Days Qty: 60 0RF Rx Instructions: Take 81 mg aspirin twice daily for 4 weeks postoperatively for DVT prophylaxis sodium bicarbonate 650 mg Tablet 650 mg PO DAILY cephalexin 500 mg capsule 500 mg PO Q12 4 Days Qty: 8 0RF clotrimazole 1 % cream 1 applic topical BID 14 Days Qty: 15 0RF tramadol 50 mg tablet 50 mg PO Q8H PRN (Reason: pain) Qty: 14 0RF Primary Care Provider: Wolfgang Reed Referrals: Wolfgang Reed MD [Primary Care Provider] - Activity Restrictions/Additional Instructions: Buy over the counter lidocaine patches called Andre Quach and put directly on the area where your back pain is located. Disposition Disposition: Home, Self Care
== END 2023-06-16 14:59 | disposition home or self-care (01) ==
LOC: ED 14:56
PROVIDERS: Emergency Provider Emergency Medicine; PCP Internal Medicine; Visit Provider Emergency Medicine
DX: S39.012A Strain of muscle, fascia and tendon of lower back, initial encounter (principal); J44.9 Chronic obstructive pulmonary disease, unspecified; I11.0 Hypertensive heart disease with heart failure; I50.9 Heart failure, unspecified; Z87.891 Personal history of nicotine dependence; I25.2 Old myocardial infarction; Z99.89 Dependence on other enabling machines and devices; K21.9 Gastro-esophageal reflux disease without esophagitis; Z79.899 Other long term (current) drug therapy; Z79.51 Long term (current) use of inhaled steroids; Z79.82 Long term (current) use of aspirin; Z90.49 Acquired absence of other specified parts of digestive tract; Z96.22 Myringotomy tube(s) status
CPT/HCPCS: 99282

== ENCOUNTER 2023-07-19 17:06 | Emergency (ER) | payer MEDICARE, MEDICAID, SELFPAY ==
[2023-07-19 17:06] VITALS: BP 145/92; PULSE 68; RESP 18; TEMP 35.6; O2SAT 99; BMI 26.2
--- OUTSIDE RECORDS SUMMARY | 2023-07-19 17:41 | XMS RPT_ITS | CCD ---
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 Role Phone Unavailable Primary Care Provider Wolfgang Valdez Primary Care Provider Problems Problem Classification Problem Date Documented Da te Episodic/Chronic Chronic kidney disease (2 sources) End-stage renal disease; Translations: [Chronic kidney disease] Chronic Other circulatory disease (1 source) Acquired arteriovenous fistula; Translations: [Arteriovenous fistula, acquired (HCC)] Encounters Encounter Date Encounter Type Care Provider Facility Start: 04-20-2020 End: 04-20-2020 Patient encounter procedure External Provider [facility] Start: 04-20-2020 Results Only External Provider [facility] Start: 04-19-2020 End: 04-19-2020 Orders Only Andres Harris Work Phone: Vascular Surg Dept Procedures Date Procedure Procedure Detail Performing Clinician Start: 04-20-2020 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 Provider Start: 04-19-2020 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 Provider Plan of Treatment Date Care Activity Detail Author Start: 02-29-2020 Influenza vaccination INFLUENZA (#1) [facility] Start: 2012 LIPID SCREEN LIPID SCREEN [facility] Start: 1996 Urine microalbumin profile DTAP,TDAP,TD (1 - Tdap) [facility] Start: 09-29-1995 HEPATITIS C SCREENING HEPATITIS C SC ALEXA [facility] Start: 09-29-1995 HIV SCREENING HIV SCREENING [facility] End: 04-19-2021 US A/V F[facility]A [facility]FT [facility] US A/V FISTULA GRAFT [facility] Vascular Lab Routine Arteriovenous fistula, acquired (HCC) Chronic kidney disease, unspecified CKD stage 1 Occurrences starting 04/19/2020 until 04/19/2021 [facility] Payers Date Payer Category Payer Unknown [facility] [id number] 2019-Present Indemnity [id number] 2009 Medicare MEDICARE MEDICAR E A AND B [id number] 2009-Present [place], [place] Medicare [id number] Social History Date Type Detail Facility Tobacco smoking status NHIS Unknown if ev er smoked [facility] Sex Assigned At Not on file [facility] Clinical Note 09-08-2020 Note Date & Type Note Facility 09-08-2020 Note Patient Outreach ([facility]) NURIA CORCORAN ([id number]) 1975 M Date Time Provider Department 09/08/20 MAYNOR GARCIA During your visit today, we recorded the following information about you: Allergies As of Date: 09/08/2020 Noted Allergy Reaction DILAUDID (HYDROMORPHONE) 04/21/2020 11 - Vomiting LATEX 04/21/2020 2 - Rash Date Reviewed: 05/19/2020 Reviewed by: Jackelyn Montiel - Fully Assessed Order(s):SARS-COVID VACCINE 1ST DOSE APPT [[id number]] Order #: [id number] FUTURE Prescriptions as of 09/08/2020 Sig: CINACALCET 30 MG TABLET Take 30 mg by mouth every mor* NORTRIPTYLINE 25 MG CAPSULE Take one(1) cap at bedtime x * NORTRIPTYLINE 10 MG CAPSULE Take one(1) cap at bedtime x * ERGOCALCIFEROL (VITAMIN D2) 1* Take 50,000 Units by mouth on* MAGNESIUM OXIDE 400 MG (241.3* Take 400 mg by mouth twice da* MYCOPHENOLATE MOFETIL 250 MG * Take by mouth twice daily. PREDNISONE 5 MG TABLET Take 5 mg by mouth once daily. TACROLIMUS 1 MG CAPSULE Take 3 mg by mouth twice elsa* OMEPRAZOLE 20 MG CAPSULE,CHERRIE* Take 20 mg by mouth once elsa* ASPIRIN 81 MG TABLET,DELAYED * Take 81 mg by mouth once elsa* Problem List As Of Date 09/08/2020 Noted Resolved Pain in left forearm [M79.632] 05/19/2020 Left hand pain [M79.642] 05/19/2020 Disturbance of skin sensation [R20.9] 05/19/2020 Pain from A/V fistula (HCC) [T82.848A] 05/19/2020 Encounter Status:Closed by KAM, PRODUSER on 09/11/20 [facility] Assessments Diagnosis ESRD (end stage renal disease) (HCC)- Primary End stage renal disease Chronic kidney disease, unspecified CKD stage Arteriovenous fistula, acquired (HCC) Arteriovenous fistula, acquired Summary Purpose Family History No Family History Records Found Advance Directives No Advanced Directives Records Found Additional Source Comments Source Comments (unrecognize d section and content) In the event this informatio n is protected by the Federal Confidentiality of Alcohol and Drug Abuse Patient Records regulations: The Federal rules restrict any use of the information to criminally investigate or prosecute any alcohol or drug abuse patient.[facility] the event this information is protected by the Federal Confidentiality of Alcohol and Drug Abuse Patient Records regulations: The Federal rules restrict any use of the information to criminally investigate or prosecute any alcohol or drug abuse patient.[facility] the event this information is protected by the Federal Confidentiality of Alcohol and Drug Abuse Patient Records regulations: The Federal rules restrict any use of the information to criminally investigate or prosecute any alcohol or drug abuse patient.[facility] (unrecognized sect ion and content) No Status Records Found INFORMATION SOURCE (unrecogn ized section and content) FOR RECORDS PERTAINING TO PATIENTS WHO ARE OR HAVE BEEN ENROLLED IN A CHEMICAL DEPENDENCY/SUBSTANCEABUSE PROGRAM, SOME INFORMATION MAY BE OMITTED. This clinical summary was aggregated from multiple sources. Caution should be exercised in using it in the provision of clinical care. This summary normalizes information from multiple sources, and as a consequence, information in this document may materially change the coding, format and clinical context of patient data. In addition, data may be omitted in some cases. CLINICAL DECISIONS SHOULD BE BASED ON THE PRIMARY CLINICAL RECORDS. [facility] [employer] provides no warranty or guarantee of the accuracy or completeness of information in this document.
[2023-07-19] MEDS: Carbamide Peroxide 15 ML Bottle 5 DRP OTIC (17:56)
--- NOTE | 2023-07-19 17:57 | EDS_ITS ---
<Statement entered by Marsha Booth MD - 07/20/23 00:47> I have personally performed a face to face assessment of the patient and have reviewed the BENITEZ Note. Patient present secondary to right ear pain. He also complains of a discoloration to his ear for the past several weeks. Patient sitting upright in bed no acute distress. Head and neck examination reveals cerumen in the bilateral ear canals, but right side is completely impacted and we cannot visualize the TM. He does have a dark discoloration along the ear where the pinna transitions to the ear canal. No e dung. Heart is regular rate and rhythm. Lung sounds are clear. Abdomen is soft and nontender. Debrox was placed in the right ear and ear is irrigated. On repeat examination TM is visualized with no evidence of infection. Patient will be discharged to home. HPI History of Present Illness Chief Complaint: Ear Problem Narrative Narrative: Patient presenting today with pain to his right ear that he has had for the past few days. He reports that the pain is worse when he goes outside. He does report slightly muffled hearing on the right side. He also reports a dark rash to his external ear that he has had for the past month. [facility] Medical History Abdominal pain Anemia Arthritis Cardiology follow-up encounter Contact with and (suspected) exposure to other viral communicable diseases COPD (chronic obstructive pulmonary disease) CPAP (continuous positive airway pressure) dependence Dysuria Elevated blood pressure reading Former smoker Gastric reflux History of CHF (congestive heart failure) History of COVID-19 History of hiatal hernia History of pain when walking History of renal dialysis History of renal disease History of steroid therapy History of stress test Hx of Perez's palsy Hx of cardiomyopathy Hypertension Left flank pain Left hip pain Leg cramps Myocardial infarction with cardiac rehabilitation Pain of right heel Palpitations Preoperative evaluation to rule out surgical contraindication Right shoulder pain Syncope Home Medications magnesium oxide 400 mg PO BID supplement 09/30/19 [History Last Taken 10/24/21] tacrolimus 1 mg capsule, immediate-release (Prograf) 3 mg PO BID rejection 09/30/19 [History Last Taken 10/24/21] omeprazole 20 mg capsule,delayed release 20 mg PO DAILY 02/26/21 [History Last Taken 10/24/21] prednisone 5 mg tablet 5 mg PO DAILY #30 tabs 03/02/21 [Rx Last Taken 10/24/21] mycophenolate mofetil 250 mg capsule 100 mg PO BID 10/10/21 [History Last Taken 10/24/21] albuterol sulfate 90 mcg/actuation aerosol inhaler 2 inh inhalation Q6H PRN shortness of breath or wheezing #8.5 grams 10/16/21 [Rx Last Taken Unknown] budesonide-formoterol HFA 160 mcg-4.5 mcg/actuation aerosol inhaler (Symbicort) 2 puff inhalation BID SOB #10.2 grams 10/16/21 [Rx Last Taken Unknown] nebulizers #1 ea 10/16/21 [Rx Last Taken Unknown] acetaminophen 500 mg tablet 1,000 mg (2 x 500 mg) PO Q8 #100 tabs 10/25/21 [Rx Last Taken Unknown] aspirin 81 mg chewable tablet 81 mg PO BIDCM 30 days #60 tabs 10/25/21 [Rx Last Taken Unknown] sodium bicarbonate 650 mg tablet 650 mg PO DAILY 12/03/21 [History Last Taken Unknown] clotrimazole 1 % topical cream 1 applic topical BID 2 weeks #15 grams 01/12/23 [Rx Last Taken Unknown] tramadol 50 mg tablet 50 mg PO Q8H PRN pain #14 tabs 05/10/23 [Rx Last Taken Unknown] Allergy/AdvReac Type Severity Reaction Status Date / Time Latex, Natural Rubber Allergy Mild rash Verified 07/19/23 17:06 hydromorphone [From Dilaudid] AdvReac Mild nausea Verified 07/19/23 17:06 Surgical History History of appendectomy History of cardiac catheterization History of cholecystectomy Hx of colonoscopy Hx of esophagogastroduodenoscopy Hx of exploratory laparotomy Hx of hand surgery Hx of myringotomy Hx of oral surgery Hx of parathyroidectomy kidney transplant Social History household members: other details: girlfriend and mother Smoking Status: Former smoker Tobacco: How many years used: 20 alcohol intake: never substance use type: does not use do you feel safe at home: Yes ROS ROS ED Constitutional Constitutional ED: Denies chills or fever(s) ENT ENT ED: Reports ear pain right Cardiovascular Cardiovascular: Denies chest pain or palpitations Respiratory/Chest Respiratory/Chest: Denies cough or dyspnea Gastrointestinal Gastrointestinal: Denies abdominal pain, nausea or vomiting Musculoskeletal Musculoskeletal: Denies arthralgias or myalgias Integumentary Denies rash Neurologic Neurologic: Denies weakness EXAM Physical Exam Const Vital Signs: 07/19/23 17:06 Temperature 96.1 F L Temperature Source Temporal Pulse Rate 68 Respiratory Rate 18 Blood Pressure 145/92 H Blood Pressure Mean 109 Pulse Ox 99 Oxygen Delivery Method Room Air Positive well nourished, well developed and no apparent distress General Appearance ED: well developed HEENT Reports normocephalic and head/scalp atraumatic HEENT Narrative: Left TM clear, right TM obstructed by cerumen, dark skin changes to the external ear to the naima. No mastoid tenderness bilaterally. Mouth ED: Yes moist mucous membranes normal Eyes PERRL and EOMs intact bilaterally Neck full ROM and supple Chest Wall inspection of chest normal Resp normal respiratory effort and clear to auscultation bilaterally Cardio regular rate and regular rhythm GI soft to palpation, non-tender, non-distended and no masses Back/Spine normal ROM and normal to inspection Extremity normal to inspection and full ROM Neuro oriented x3, CN's II-XII intact bilaterally, moves all extremities, no focal motor deficits and no sensory deficits noted Sensorium / Orientation: awake and alert Psych mental status grossly normal and thought process normal Skin no rashes or lesions noted and no wounds MDM MDM MDM Narrative Medical decision making narrative: Patient presenting today with pain to his right ear that he has had over the past few days. He does have a right-sided cerumen impaction. Debrox drops will be placed and this will be irrigated. He also does have dark skin changes to the naima of the right ear, he has had this for the past month. I will give him a referral for dermatology. Right ear was irrigated, large amount of cerumen did come out, TM was then visualized and no signs of otitis media. Patient reports improvement of his symptoms. He will be discharged home in stable condition and is comfortable with plan. Discharge Plan Triage Chief Complaint: Ear Problem ED Midlevel Provider: Daniela Espinal ED Provider: Marsha Booth Dx/Rx/DC Orders Clinical Impression: Lesion of skin of ear, Impacted cerumen, right ear Instructions: Impacted Earwax Prescriptions: No Action tacrolimus [Prograf] 1 mg capsule 3 mg PO BID Rx Instructions: 3 MG IN AM, 3 MG IN PM magnesium oxide 400 mg magnesium tablet 400 mg PO BID prednisone 5 mg tablet 5 mg PO DAILY Qty: 30 1RF budesonide-formoterol [Symbicort] 160-4.5 mcg/actuation HFA aerosol inhaler 2 puff INHALATION BID Qty: 10.2 2RF albuterol sulfate 90 mcg/actuation HFA aerosol inhaler 2 inh inhalation Q6H PRN (Reason: shortness of breath or wheezing) Qty: 8.5 2RF (DME) nebulizers Misc See Rx Instructions .ROUTE .MEDSUPPLY Qty: 1 0RF Rx Instructions: As directed omeprazole 20 mg capsule,delayed release(DR/EC) 20 mg PO DAILY mycophenolate mofetil 250 mg Capsule 100 mg PO BID acetaminophen 500 mg Tablet 1,000 mg PO Q8 Qty: 100 0RF Rx Instructions: Do not take more than 3000 mg Tylenol in a 24-hour period. aspirin 81 mg Tablet,Chewable 81 mg PO BIDCM 30 Days Qty: 60 0RF Rx Instructions: Take 81 mg aspirin twice daily for 4 weeks postoperatively for DVT prophylaxis sodium bicarbonate 650 mg Tablet 650 mg PO DAILY clotrimazole 1 % cream 1 applic topical BID 14 Days Qty: 15 0RF tramadol 50 mg tablet 50 mg PO Q8H PRN (Reason: pain) Qty: 14 0RF Stand Alone Forms: ED Work / School Excuse Primary Care Provider: Wolfgang Reed Referrals: Wolfgang Reed MD [Primary Care Provider] - Chasidy South MD [Non-Staff] - 5-7 Days Activity Restrictions/Additional Instructions: Follow-up with dermatology. Return for any worsening of your symptoms. Disposition Disposition: Home, Self Care Discharge Date/Time: 07/19/23 19:13
== END 2023-07-19 19:13 | disposition home or self-care (01) ==
PROVIDERS: Emergency Provider Emergency Medicine; PCP Internal Medicine; Visit Provider Emergency Medicine
DX: H61.21 Impacted cerumen, right ear (principal); J44.9 Chronic obstructive pulmonary disease, unspecified; Z87.891 Personal history of nicotine dependence; L98.9 Disorder of the skin and subcutaneous tissue, unspecified; I10 Essential (primary) hypertension; I25.2 Old myocardial infarction; K21.9 Gastro-esophageal reflux disease without esophagitis; Z79.899 Other long term (current) drug therapy; Z79.51 Long term (current) use of inhaled steroids; Z98.2 Presence of cerebrospinal fluid drainage device; Z90.49 Acquired absence of other specified parts of digestive tract; Z96.22 Myringotomy tube(s) status; Z94.0 Kidney transplant status
CPT/HCPCS: 69209; 99283

== ENCOUNTER 2023-10-05 10:41 | Emergency (ER) | payer MEDICAID, SELFPAY ==
[2023-10-05 10:41] VITALS: BP 162/102; PULSE 84; RESP 16; TEMP 36.6; O2SAT 98; BMI 27.3
[2023-10-05 10:44] VITALS: BP 131/95; PULSE 83; RESP 16; TEMP 36.6; O2SAT 98
--- NOTE | 2023-10-05 11:09 | EKG12_ITS ---
Test Reason : Blood Pressure : / mmHG Vent. Rate : 076 BPM Atrial Rate : 076 BPM P-R Int : 132 ms QRS Dur : 088 ms QT Int : 386 ms P-R-T Axes : 035 018 086 degrees QTc Int : 434 ms Normal sinus rhythm Normal ECG Confirmed by Jesus Vaca ([id number]), advertising editor JANY LOPEZ ([id number]) on 10/06/2023 11:07:35 AM Referred By: Confirmed By:Jesus Vaca
--- NOTE | 2023-10-05 11:10 | ED.VIS.DYS ---
HPI History of Present Illness Chief Complaint: Shortness of Breath Detail of Chief Complaint: More lightheadedness. Informant: patient Onset/Context/Timing Onset: Today and Yesterday Context: gradual Timing: Intermittent Current Severity: Mild Maximum Severity: Mild Associated Symptoms Negative for cough or white sputum Chest Pain: Positive for None Narrative Narrative: 48-year-old male says he has discomfort in his right lower back. Denies any fall injury or trauma. He says it feels a little short of breath but he states more lightheaded. Denies any chest pain. No recent travel, surgery or immobilization. No leg pain or swelling. No history of DVT or PE. He does have a history of COPD and asthma. He has used his inhaler. He is also done hot shower and he said nothing really changed or discomfort in his lower back. Denies any fall injury or trauma. No fever. No dysuria. Denies any recent illness. PE Risk Factors: Negative for Cancer, OCP + Smoking + > 35, Prior DVT or PE, Recent immobilization, Recent surgery or Recent travel Prior similar symptoms: No Recent Illness/Hospitalization: No PFSH PFSH Medical History Abdominal pain Anemia Arthritis Cardiology follow-up encounter Contact with and (suspected) exposure to other viral communicable diseases COPD (chronic obstructive pulmonary disease) CPAP (continuous positive airway pressure) dependence Dysuria Elevated blood pressure reading Former smoker Gastric reflux History of CHF (congestive heart failure) History of COVID-19 History of hiatal hernia History of pain when walking History of renal dialysis History of renal disease History of steroid therapy History of stress test Hx of Perez's palsy Hx of cardiomyopathy Hypertension Left flank pain Left hip pain Leg cramps Myocardial infarction with cardiac rehabilitation Pain of right heel Palpitations Preoperative evaluation to rule out surgical contraindication Right shoulder pain Syncope Home Medications magnesium oxide 400 mg PO BID supplement 09/30/19 [History Last Taken 10/24/21] tacrolimus 1 mg capsule, immediate-release (Prograf) 4 mg PO DAILY rejection 09/30/19 [History Last Taken 10/24/21] omeprazole 20 mg capsule,delayed release 20 mg PO DAILY 02/26/21 [History Last Taken 10/24/21] prednisone 5 mg tablet 5 mg PO DAILY #30 tabs 03/02/21 [Rx Last Taken 10/24/21] mycophenolate mofetil 250 mg capsule 100 mg PO BID 10/10/21 [History Last Taken 10/24/21] budesonide-formoterol HFA 160 mcg-4.5 mcg/actuation aerosol inhaler (Symbicort) 2 puff inhalation BID SOB #10.2 grams 10/16/21 [Rx Last Taken Unknown] nebulizers #1 ea 10/16/21 [Rx Last Taken Unknown] sodium bicarbonate 650 mg tablet 650 mg PO DAILY 12/03/21 [History Last Taken Unknown] aspirin 81 mg chewable tablet 81 mg PO DAILY 10/05/23 [History Last Taken Unknown] cinacalcet 30 mg tablet 30 mg PO DAILY 10/05/23 [History Last Taken Unknown] tacrolimus 1 mg capsule,extended release 24 hr (Astagraf XL) 3 mg PO QHS 10/05/23 [History Last Taken Unknown] Allergy/AdvReac Type Severity Reaction Status Date / Time Latex, Natural Rubber Allergy Mild rash Verified 10/05/23 10:42 hydromorphone [From Dilaudid] AdvReac Mild nausea Verified 10/05/23 10:42 Surgical History History of appendectomy History of cardiac catheterization History of cholecystectomy Hx of colonoscopy Hx of esophagogastroduodenoscopy Hx of exploratory laparotomy Hx of hand surgery Hx of myringotomy Hx of oral surgery Hx of parathyroidectomy kidney transplant Social History household members: other details: girlfriend and mother Smoking Status: Former smoker Tobacco: How many years used: 20 alcohol intake: never substance use type: does not use do you feel safe at home: Yes ROS ROS ED ROS Narrative Or area denies recent illness. Review of Systems ROS Unobtainable: Denies due to encephalopathy Constitutional Constitutional ED: Denies chills or fever(s) Eyes Eyes: Denies blurry vision ENT ENT ED: Denies ear pain Cardiovascular Cardiovascular: Denies chest pain, orthopnea or paroxysmal nocturnal dyspnea Respiratory/Chest Respiratory/Chest: Reports dyspnea; Denies cough, dyspnea on exertion, orthopnea, paroxysmal nocturnal dyspnea or sputum Gastrointestinal Gastrointestinal: Denies abdominal pain Genitourinary Genitourinary ED: Denies dysuria or hematuria Musculoskeletal Musculoskeletal: Denies arthralgias or back pain Integumentary Denies abscess or Abrasions Neurologic Neurologic: Denies headache(s) Psychiatric Psychiatric: Denies anxiety or depression Endocrine Endocrinology: Denies cold intolerance or heat intolerance Hematologic/Lymphatic Hematologic/Lymphatic: Denies easy bleeding, easy bruising or lymphadenopathy Allergic/Immunologic Allergic/Immunologic ED: Denies mouth swelling, tongue swelling or urticaria EXAM Physical Exam Narrative Exam Narrative: Well-appearing 48-year-old male. Vital signs stable afebrile. Pulse ox 98% on room air no signs hypoxia. H EENT exam unremarkable. Neck nontender no JVD. Lungs clear to auscultation bilaterally. Heart regular rhythm no murmur. Rate about 80. Chest wall and ribs nontender. Abdomen soft nontender. Moving all 4 extremities. He is a prior left arm fistula. Patient used to get dialysis but had a renal transplant. 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 Normal dorsi plantarflexion. There is no calf tenderness nor cords nor edema. Neurologically is awake and alert with no focal motor deficits. Back is reproducible tenderness over his posterior rib cage is bilaterally of the lower third. There is no ecchymosis or bruising or signs of trauma. Neurologically is awake and alert with no focal motor deficits. Const Vital Signs: 10/05/23 10:41 10/05/23 10:44 10/05/23 10:54 Temperature 98 F 98 F Temperature Source Temporal Temporal Pulse Rate 84 83 Respiratory Rate 16 16 Respiratory Effort Normal Non-Labored Respiratory Depth Normal Respiratory Pattern Normal Blood Pressure 162/102 H 131/95 H Blood Pressure Mean 122 107 Pulse Ox 98 98 Oxygen Delivery Method Room Air Room Air Room Air 10/05/23 11:24 10/05/23 11:44 Temperature 97.5 F L Temperature Source Temporal Pulse Rate 63 Respiratory Rate 17 Respiratory Effort Respiratory Depth Respiratory Pattern Blood Pressure 163/84 H Blood Pressure Mean 110 Pulse Ox 97 Oxygen Delivery Method Room Air Room Air Positive well nourished and well developed; Negative for cachectic, contractures or unkempt General Appearance ED: well developed and NAD; Negative for unkempt, cachectic, contractures or pallor Nutritional Appearance: Negative for cachectic HEENT Reports moist mucous membranes; Denies dry mucous membranes atraumatic; Negative for trauma or tenderness Mouth ED: No dry mucous membranes Mouth: No dry mucous membranes Eyes PERRL and EOMs intact bilaterally General Eye ED: Negative for pale conjunctiva or scleral icterus Neck no lymphadenopathy, supple, no meningeal signs and no JVD General: Negative for tenderness or other Lymph Lymphatic: Negative for other Resp normal respiratory effort and clear to auscultation bilaterally Effort and Inspection: Negative for pain with movement Auscultation: Negative for rales, rhonchi, wheezes or diminished lung sounds Cardio regular rate, regular rhythm, S1 normal heart sound, S2 normal heart sound and no murmurs Rate: Negative for bradycardia or tachycardic Rhythm: Negative for abnormal rhythm GI non-tender, non-distended and no masses Inspection: Negative for other Auscultation: normoactive bowel sounds Palpation: soft; Negative for tender, guarding or rebound tenderness present Back/Spine no CVA tenderness and normal to inspection Back/Spine Narrative: Mildly tender bilateral posterior ribs lower third. No signs of trauma. No crepitance or subcu air. No bruising. Extremity normal to inspection Extremity Narrative: Prior left forearm dialysis fistula. No thrill. General Extremety ED: Negative for edema or tenderness General Extremity: Negative for edema Neuro oriented x3 and CN's II-XII intact bilaterally Sensorium / Orientation: alert, oriented to person, oriented to place and oriented to time; Negative for orientation impaired, confused, lethargic or stuporous Speech: speech normal Motor Exam: strength 5/5 throughout Psych mental status grossly normal Appearance: Negative for unkempt Attitude: No agitated and No other Mood & Affect: Negative for depressed, anxious or tearful Thought Process: normal thought process Skin no wounds General Skin Exam: Negative for jaundice or pallor Lesions: no lesions Rashes: no rashes Trauma: Negative for abrasion or laceration Image ED - Body Diagram Man: 1. Mild reproducible tenderness. MDM MDM MDM Narrative Medical decision making narrative: 48-year-old gentleman with known COPD, asthma, cardiomyopathy with prior SD and renal transplant presents with atraumatic bilateral posterior rib cage discomfort. No history of DVT or PE risk factors. He has some lightheadedness and mild shortness of breath associated with it. Vital signs are unremarkable and the only exam finding is reproducible posterior rib cage pain. He will undergo workup. Repeat exam patient is doing well at 11:57 AM. Exam unchanged. He and I went over his test results. He is comfortable being discharged home. Tylenol for pain. I think this is musculoskeletal. Outpatient follow-up as needed. Return if worse. History & Record Review Discussion w/independent historian: Patient Additional record(s) reviewed:: Prior inpatient record, Prior outpatient record, Prior ED visit and Prior labs Lab Data Attestation: I reviewed the patient's lab results. Lab results narrative: CBC shows a white count of 10. H&H of 13.8 and 41. Platelets 230. Electrolytes show a gap of 5. BUN is 30 and creatinine 1.58 Labs: Laboratory Results - last 24 hr 10/05/23 11:22 WBC 10.7 RBC 4.43 L Hgb 13.8 Hct 41.6 MCV 93.9 MCH 31.2 MCHC 33.2 RDW Std Deviation 49.8 H RDW Coeff of Tari 14.2 Plt Count 230 MPV 9.9 Immature Gran % (Auto) 0.700 Neut % (Auto) 79.7 H Lymph % (Auto) 8.0 L [place] % (Auto) 11.1 H Eos % (Auto) 0.2 Baso % (Auto) 0.3 Absolute Neuts (auto) 8.5 H Absolute Lymphs (auto) 0.85 Nucleated RBC % 0 Sodium 138 Potassium 4.3 Chloride 109 H Carbon Dioxide 24.0 Anion Gap 5 BUN 30 H Creatinine 1.58 H Estim Creat Clear Calc 51.41 Est GFR (MDRD) Af Amer 61 Est GFR (MDRD) Non-Af 50 L BUN/Creatinine Ratio 19.0 Glucose 135 H Calcium 9.0 Troponin I High Sens 21 Radiography Chest X-Ray - ED: 1 View, Read by ED Physician, Heart, Lungs, Mediastinum, Bony Structures, No Acute Disease and Chronic Changes Diagnostic Testing: Chest x-ray, portable, single view interpreted by myself shows no acute abnormality. Normal cardiac silhouette. Chronic lung changes. No effusions. No pneumonia. Rhythm Strip Rhythm Strip: Sinus Rhythm Rate: 76 Ectopy: None EKG Initial EKG: Attestation: I personally reviewed and interpreted this EKG as follows: Interpretation: Sinus Rhythm and No Acute Injury Pattern Comments: Normal sinus rhythm rate of 76 no acute signs of SD no ischemia. No dysrhythmia. Discharge Plan Triage Chief Complaint: Shortness of Breath ED Provider: Johny Marquez Dx/Rx/DC Orders Clinical Impression: History of COPD, Back pain, History of renal transplant Instructions: ED Back Pain (Acute or Chronic) Prescriptions: No Action tacrolimus [Prograf] 1 mg capsule 4 mg PO DAILY Rx Instructions: 3 MG IN AM, 3 MG IN PM magnesium oxide 400 mg magnesium tablet 400 mg PO BID prednisone 5 mg tablet 5 mg PO DAILY Qty: 30 1RF budesonide-formoterol [Symbicort] 160-4.5 mcg/actuation HFA aerosol inhaler 2 puff INHALATION BID Qty: 10.2 2RF (DME) nebulizers [facility] See Rx Instructions .ROUTE .MEDSUPPLY Qty: 1 0RF Rx Instructions: As directed omeprazole 20 mg capsule,delayed release(DR/EC) 20 mg PO DAILY mycophenolate mofetil 250 mg Capsule 100 mg PO BID sodium bicarbonate 650 mg Tablet 650 mg PO DAILY Astagraf XL 1 mg capsule,extended release 24hr 3 mg PO QHS aspirin 81 mg Tablet,Chewable 81 mg PO DAILY Rx Instructions: Take 81 mg aspirin twice daily for 4 weeks postoperatively for DVT prophylaxis cinacalcet 30 mg tablet 30 mg PO DAILY Primary Care Provider: Wolfgang Reed Referrals: Wolfgang Reed MD [Primary Care Provider] - 3-5 Days if not improving Activity Restrictions/Additional Instructions: Tylenol for pain. Hot shower, warm bath and massage. I think this is musculoskeletal back pain. Should improve. If not follow-up with your doctor. Disposition Disposition: Home, Self Care
--- NOTE | 2023-10-05 11:25 | RAD_ITS ---
EXAM: XR CHEST, 1 VIEW CLINICAL INDICATION: chest pain TECHNIQUE: Frontal view of the chest. COMPARISON: No relevant prior studies available. FINDINGS: LUNGS AND PLEURAL SPACES: Unremarkable. No consolidation or edema. No pneumothorax. No effusion. HEART: Unremarkable. Cardiac silhouette not enlarged. MEDIASTINUM: Central airways and mediastinal contour are unremarkable. BONES/JOINTS: Unremarkable. No acute fracture. SOFT TISSUES: Unremarkable. RAD/Chest 1 View (Portable) IMPRESSION: No suspicious acute cardiopulmonary pathology. Electronically Signed: Mekhi Neumann MD at 12:43 EDT ,
[2023-10-05 11:26] LABS: Absolute Lymphocyte Count 0.85 X10^3/uL (0.83-4.51); Absolute Neutrophil Count 8.5 X10^3/uL (2.0-7.7); Basophil# 0.03 X10^3/uL; Basophil% 0.3 % (0-1); Eosinophil# 0.02 X10^3/uL; Eosinophils% 0.2 % (0-5); Hematocrit 41.6 % (40-54); Hemoglobin 13.8 g/dL (13.0-16.5); Lymphocyte # 0.85 X10^3/ul (0.83-4.51); Mean Corp Hgb Conc 33.2 g/dL (32-36); Mean Corpuscular Hgb 31.2 pg (27.0-32.0); Mean Corpuscular Volume 93.9 fL (80-94); Mean Platelet Vol. 9.9 fl (6.2-12.0); Monocyte# 1.18 X10^3/uL; Monocyte% 11.1 % (0-10); NRBC Flagged by Analyzer 0 % (0-5); Neutrophil # 8.52 X10^3/uL (2.7-7.7); Neutrophil % 79.7 % (47-70); Platelet Count 230 K/mm3 (150-450); RBC Distribution Width CV 14.2 % (11.6-14.6); RBC Distribution Width SD 49.8 fl (35.1-43.9); Red Blood Count 4.43 M/mm3 (4.6-6.2); White Blood Count 10.7 K/mm3 (4.4-11.0)
[2023-10-05 11:44] VITALS: BP 163/84; PULSE 63; RESP 17; TEMP 36.4; O2SAT 97
[2023-10-05 11:44] LABS: Anion Gap 5 (5-15); BUN 30 mg/dL (7-18); Chloride 109 mmol/L (98-107); Creatinine, Serum 1.58 mg/dL (0.70-1.30); EST Glomerular Filtration Rate 50 mL/min (>60); Est Glom Filt Rate - Afr Amer 61 mL/min (>60); Estimated Creatinine Clearance 51.41 ml/min; Glucose 135 mg/dL (74-106); Potassium 4.3 mmol/L (3.5-5.1); Sodium Level 138 mmol/L (136-145); Troponin-I HS 21 pg/mL (3.0-78.0)
[2023-10-05 12:00] VITALS: BP 158/91; PULSE 88; RESP 16; TEMP 36.1; O2SAT 98
== END 2023-10-05 12:13 | disposition home or self-care (01) ==
PROVIDERS: Emergency Provider Emergency Medicine; PCP Internal Medicine; Visit Provider Emergency Medicine
DX: R42 Dizziness and giddiness (principal); J44.9 Chronic obstructive pulmonary disease, unspecified; Z87.891 Personal history of nicotine dependence; I10 Essential (primary) hypertension; I25.2 Old myocardial infarction; K21.9 Gastro-esophageal reflux disease without esophagitis; Z79.899 Other long term (current) drug therapy; Z79.51 Long term (current) use of inhaled steroids; Z79.82 Long term (current) use of aspirin; Z90.49 Acquired absence of other specified parts of digestive tract; M54.9 Dorsalgia, unspecified; Z94.89 Other transplanted organ and tissue status
CPT/HCPCS: 71045; 80048; 84484; 85025; 93005; 99284; A4216

== ENCOUNTER → 2023-11-14 | Outpatient (CLI) | payer MEDICAID, SELFPAY ==
[2023-11-14 09:27] LABS: Albumin, Serum 3.5 g/dL (3.2-5.0); BUN 35 mg/dL (7-18); BUN/Creat Ratio 23.5 RATIO (10-20); Chloride 111 mmol/L (98-107); Creatinine, Serum 1.49 mg/dL (0.70-1.30); EST Glomerular Filtration Rate 54 mL/min (>60); Est Glom Filt Rate - Afr Amer 65 mL/min (>60); Glucose 92 mg/dL (74-106); Phosphorus 2.9 mg/dL (2.5-4.9); Potassium 3.8 mmol/L (3.5-5.1); Sodium Level 140 mmol/L (136-145)
== END | disposition home or self-care (01) ==
LOC: LAB 07:13
PROVIDERS: PCP Internal Medicine
DX: Z94.0 Kidney transplant status (principal)
CPT/HCPCS: 36415; 80069

== ENCOUNTER 2023-12-16 08:28 | Outpatient (RCR) | payer MEDICAID, SELFPAY | END 2023-12-16 18:00 | disposition home or self-care (01) | LOC: LAB 08:28 | PROVIDERS: PCP Internal Medicine | DX: Z94.0 Kidney transplant status (principal); E83.42 Hypomagnesemia; D84.9 Immunodeficiency, unspecified; E21.1 Secondary hyperparathyroidism, not elsewhere classified; Z13.0 Encounter for screening for diseases of the blood and blood-forming organs and certain disorders involving the immune mechanism ==

== ENCOUNTER → 2023-12-16 | Outpatient (CLI) | payer MEDICAID, SELFPAY ==
[2023-12-16 09:07] LABS: Absolute Lymphocyte Count 1.74 X10^3/uL (0.83-4.51); Basophil# 0.06 X10^3/uL; Basophil% 0.6 % (0-1); Hematocrit 43.8 % (40-54); Hemoglobin 13.9 g/dL (13.0-16.5); Lymphocyte # 1.74 X10^3/ul (0.83-4.51); Lymphocyte % 17.1 % (19-41); Mean Corp Hgb Conc 31.7 g/dL (32-36); Mean Corpuscular Hgb 30.4 pg (27.0-32.0); Mean Corpuscular Volume 95.8 fL (80-94); Mean Platelet Vol. 10.4 fl (6.2-12.0); Monocyte# 1.18 X10^3/uL; Monocyte% 11.6 % (0-10); NRBC Flagged by Analyzer 0 % (0-5); Neutrophil # 6.96 X10^3/uL (2.7-7.7); Neutrophil % 68.5 % (47-70); Platelet Count 258 K/mm3 (150-450); RBC Distribution Width CV 14.6 % (11.6-14.6); RBC Distribution Width SD 51.2 fl (35.1-43.9); Red Blood Count 4.57 M/mm3 (4.6-6.2); White Blood Count 10.2 K/mm3 (4.4-11.0)
[2023-12-16 09:56] LABS: Albumin, Serum 3.9 g/dL (3.2-5.0); BUN 39 mg/dL (7-18); BUN/Creat Ratio 26.2 RATIO (10-20); Calcium,Total 9.7 mg/dL (8.5-10.1); Chloride 109 mmol/L (98-107); Creatinine, Serum 1.49 mg/dL (0.70-1.30); EST Glomerular Filtration Rate 54 mL/min (>60); Est Glom Filt Rate - Afr Amer 65 mL/min (>60); Glucose 122 mg/dL (74-106); Magnesium 1.8 mg/dL (1.6-2.6); Potassium 3.7 mmol/L (3.5-5.1); Sodium Level 140 mmol/L (136-145)
[2023-12-16 10:23] LABS: Protein:Creat Ratio 343 mg/g CRE (0-200)
[2023-12-16 14:41] LABS: PTHIN 123.3 pg/mL (18.4-80.1)
[2023-12-18 18:08] LABS: Tacrolimus (FK506) 3.6 ng/mL (2.0-20.0)
== END | disposition home or self-care (01) ==
LOC: LAB 08:15
PROVIDERS: PCP Internal Medicine
DX: D84.9 Immunodeficiency, unspecified (principal); E21.1 Secondary hyperparathyroidism, not elsewhere classified; Z13.0 Encounter for screening for diseases of the blood and blood-forming organs and certain disorders involving the immune mechanism; Z94.0 Kidney transplant status
CPT/HCPCS: 36415; 80069; 80197; 82306; 82570; 83735; 83970; 84156; 85025

== ENCOUNTER 2023-12-19 09:18 | Observation (INO) | payer MEDICAID, SELFPAY ==
[2023-12-19] VITALS (7 sets, daily range): BP systolic 153–166; BP diastolic 82–94; PULSE 62–74; RESP 15–20; TEMP 36.1–36.5; O2SAT 96–100; BMI 27.1; BMI 24.6
--- NOTE | 2023-12-19 09:31 | EKG12_ITS ---
Test Reason : CP Blood Pressure : / mmHG Vent. Rate : 066 BPM Atrial Rate : 066 BPM P-R Int : 122 ms QRS Dur : 090 ms QT Int : 388 ms P-R-T Axes : 019 013 092 degrees QTc Int : 406 ms Normal sinus rhythm Abnormal QRS-T angle, consider primary T wave abnormality Abnormal ECG Confirmed by Jesus Vaca ([id number]), market editor JANY LOPEZ ([id number]) on 12/23/2023 6:00:22 AM Referred By: Confirmed By:Jesus Vaca
--- NOTE | 2023-12-19 09:31 | RAD_ITS ---
STUDY: X-RAY CHEST REASON FOR EXAM: Male, 48 years old. Chest pain TECHNIQUE: Single AP portable view of the chest. COMPARISON: Comparison is made with prior examination October 05, 2023. FINDINGS: EKG electrodes are seen. The lungs are clear and expanded. Scattered calcified granulomas. There is no demonstrated pleural abnormality. Normal size heart. There is fullness of the left aortopulmonary window. Adenopathy should be ruled out. Correlation with CT recommended. Normal visualized pulmonary arteries. Normal visualized aortic arch and descending thoracic aorta. Normal visualized thoracic spine. Normal visualized ribs, clavicles, and shoulders. There is no demonstrated abnormality of the visualized soft tissue structures of the upper abdomen. RAD/Chest 1 View (Portable) IMPRESSION: Fullness of the left aortopulmonary window. Correlation with the CT scan of the chest is recommended for further evaluation. Electronically Signed: Pawan Ordaz MD at 10:09 EDT ,
[2023-12-19] MEDS: Aspirin 81 MG TAB.CHEW 324 MG PO (09:36)
--- NOTE | 2023-12-19 09:41 | ED.VIS.CHEST ---
HPI History of Present Illness Chief Complaint: Chest Pain Informant: patient Onset/Context/Timing Onset: Today Activity at onset: gradual Timing: Continuous Quality: Positive for Tightness Location: Substernal Maximum Severity: Mild Worsened By: Nothing Relieved By: Nothing Associated Symptoms: Positive for Dyspnea; Negative for Nausea, Vomiting, Diaphoresis, Cough, Fever, Lightheadedness, Acid Reflux or Palpitations Narrative Narrative: 48-year-old male reportedly history of 2 prior MIs and 2 prior heart cath studies were done years ago more than 5 years ago in [place]. He has never needed stents or CABG. He is also history of a kidney transplant 5 years ago. Said he awoke 530 this morning with midsternal chest tightness. No radiation to his neck, jaw, back or left arm. He is also had some recent exertional dyspnea. No vomiting or fever. No cough. He quit smoking 5 years ago. Prior Similar Symptoms: Yes Recent Illness/Hospitalization: No PE Risk Factors: Negative for Recent Travel/Surgery, Recent Immobilization, Prior DVT or PE, Cancer or OCP + Smoking + >/=35 TAD Risk Factors: Negative for Marfan's Syndrome PFSH PFSH Medical History Pain of right heel Left flank pain Contact with and (suspected) exposure to other viral communicable diseases History of COVID-19 History of steroid therapy Arthritis History of renal disease History of renal dialysis Anemia History of hiatal hernia Gastric reflux Former smoker CPAP (continuous positive airway pressure) dependence Leg cramps History of pain when walking History of stress test Hx of cardiomyopathy Hx of Perez's palsy Hypertension Cardiology follow-up encounter History of CHF (congestive heart failure) Left hip pain Preoperative evaluation to rule out surgical contraindication Abdominal pain Dysuria Elevated blood pressure reading Right shoulder pain Syncope Palpitations Myocardial infarction with cardiac rehabilitation COPD (chronic obstructive pulmonary disease) Home Medications ?Medication ?Instructions ?Recorded ?Last Taken ?Type tacrolimus 1 mg capsule, 4 mg PO DAILY rejection 09/30/19 12/19/23 History immediate-release (Prograf) omeprazole 20 mg capsule,delayed 20 mg PO DAILY 02/26/21 12/19/23 History release prednisone 5 mg tablet 5 mg PO DAILY #30 tabs 03/02/21 12/19/23 Rx mycophenolate mofetil 250 mg 100 mg PO BID 10/10/21 12/19/23 History capsule budesonide-formoterol HFA 160 2 puff inhalation BID SOB #10.2 10/16/21 12/19/23 Rx mcg-4.5 mcg/actuation aerosol grams inhaler (Symbicort) nebulizers #1 ea 10/16/21 Unknown Rx sodium bicarbonate 650 mg tablet 650 mg PO DAILY 12/03/21 12/19/23 History aspirin 81 mg chewable tablet 81 mg PO DAILY 10/05/23 12/19/23 History cinacalcet 30 mg tablet 30 mg PO DAILY 10/05/23 12/19/23 History magnesium oxide 400 mg (241.3 mg 400 mg PO BID 12/19/23 12/19/23 History magnesium) tablet Allergy/AdvReac Type Severity Reaction Status Date / Time Latex, Natural Rubber Allergy Mild rash Verified 10/09/23 14:03 hydromorphone (From Dilaudid) AdvReac Mild nausea Verified 10/09/23 14:03 Surgical History History of cardiac catheterization Hx of oral surgery Hx of esophagogastroduodenoscopy Hx of colonoscopy Hx of hand surgery Hx of myringotomy Hx of exploratory laparotomy Hx of parathyroidectomy History of cholecystectomy History of appendectomy kidney transplant Social History household members: other details: girlfriend and mother Smoking Status: Former smoker Tobacco: How many years used: 20 alcohol intake: never substance use type: does not use do you feel safe at home: Yes ROS ROS ED ROS Narrative Midsternal chest pain similar to his prior cardiac chest pain. Recent exertional dyspnea. No leg pain or swelling. No hemoptysis. No pleuritic pain. Review of Systems ROS Unobtainable: Denies due to encephalopathy Constitutional Constitutional ED: Denies chills or fever(s) Eyes Eyes: Reports none ENT ENT ED: Denies ear pain Cardiovascular Cardiovascular: Reports as per HPI and chest pain; Denies palpitations or racing heartbeat Respiratory/Chest Respiratory/Chest: Reports dyspnea on exertion; Denies cough or dyspnea Gastrointestinal Gastrointestinal: Denies abdominal pain, constipation, diarrhea, melena or nausea Genitourinary Genitourinary ED: Denies dysuria or hematuria Musculoskeletal Musculoskeletal: Denies arthralgias Integumentary Denies abscess Neurologic Neurologic: Denies headache(s) Psychiatric Psychiatric: Denies anxiety or depression Endocrine Endocrinology: Denies cold intolerance Hematologic/Lymphatic Hematologic/Lymphatic: Denies easy bleeding, easy bruising or lymphadenopathy Allergic/Immunologic Allergic/Immunologic ED: Denies mouth swelling, tongue swelling or urticaria EXAM Physical Exam Narrative Exam Narrative: Well-appearing 48-year-old male. Vital signs stable afebrile. Pulse ox 98% on room air no signs hypoxia. H EENT exam unremarkable. Neck nontender no JVD. Lungs clear to auscultation bilaterally. Heart regular rate and rhythm no murmur rate about 65. Chest wall and ribs nontender. No reproducible pain. Abdomen is soft and nontender. Nondistended no peritoneal signs. Moving all 4 extremities. Calves are nontender without edema or cords. Radial pulses are equal and symmetrical. He has an old Vas-Cath in his left arm is clotted. There is no thrill. Neurologically is awake and alert no focal motor deficits. Back nontender. Const Vital Signs: 12/19/23 09:18 12/19/23 09:26 12/19/23 09:33 Temperature 97.6 F L Temperature Source Temporal Pulse Rate 74 Respiratory Rate 15 Respiratory Effort Normal Non-Labored Blood Pressure 153/86 H Blood Pressure Mean 108 Pulse Ox 98 98 Oxygen Delivery Method Room Air Room Air Positive well nourished and well developed; Negative for cachectic, contractures or unkempt General Appearance ED: well developed and NAD; Negative for unkempt, cachectic, contractures or pallor Nutritional Appearance: Negative for cachectic HEENT Reports moist mucous membranes normocephalic and atraumatic; Negative for trauma or tenderness Eyes PERRL and EOMs intact bilaterally General Eye ED: Negative for pale conjunctiva or scleral icterus Neck supple and no JVD General: Negative for tenderness Chest Wall inspection of chest normal and palpation of chest normal Chest: Negative for tenderness Resp normal respiratory effort and clear to auscultation bilaterally Effort and Inspection: Negative for respiratory distress Auscultation: Negative for rales, rhonchi or wheezes Cardio regular rate, regular rhythm, S1 normal heart sound, S2 normal heart sound and no murmurs Rate: Negative for bradycardia or tachycardic Rhythm: Negative for abnormal rhythm Peripheral Pulses: pulses 2+ throughout GI normal to inspection, nondistended, normoactive bowel sounds, soft to palpation, non-tender, non-distended and no masses Auscultation: Negative for hyperactive bowel sounds Palpation: Negative for splenomegaly Back/Spine no CVA tenderness and no thoracic nor lumbar tenderness General Back: Negative for CVA tenderness Cervical Spine: Negative for cervical spine tenderness Extremity normal to inspection General Extremety ED: Negative for edema, pulses abnormal or tenderness General Extremity: Negative for edema or pulses abnormal Neuro oriented x3 and CN's II-XII intact bilaterally Sensorium / Orientation: awake, alert, oriented to person, oriented to place and oriented to time; Negative for confused, lethargic or stuporous Motor Exam: strength 5/5 throughout Psych mental status grossly normal Appearance: Negative for unkempt Attitude: No agitated Mood & Affect: Negative for depressed, anxious or tearful Skin no rashes or lesions noted and no wounds General Skin Exam: Negative for jaundice or pallor Rashes: No rashes noted Trauma: Negative for abrasion or laceration Heart Score History: Moderately Suspicious ECG: Normal Age: >45 - <65 years Risk Factors: >/= 3 Risk Factors or History of CAD Score: 4 MDM MDM MDM Narrative Medical decision making narrative: 48-year-old male reportedly 2 prior MIs. Last heart cath was more than 5 years ago. He quit smoking years ago. Having midsternal chest discomfort today that was like his prior cardiac chest pain. He is also had recent exertional dyspnea. He will undergo cardiac workup. Most likely will need to be admitted for further cardiac testing. He will receive aspirin. He has no history of DVT or PE nor risk factors. Reviewing the patient's chart he had a negative stress echocardiogram done here 3-1/2 years ago in 2020. Repeat exam at 1023 unchanged. We went over his test results. Patient is comfortable being admitted. I have the hospitalist on page. History & Record Review Discussion w/independent historian: Patient Additional record(s) reviewed:: Prior inpatient record, Prior outpatient record, Prior ED visit and Prior labs Lab Data Attestation: I reviewed the patient's lab results. Lab results narrative: CBC shows white count 1.5. H&H of 13 and 40. Platelets 237. Chemistries unremarkable gap of 9. BUN of 37 and creatinine elevated at 1.61. Glucose 155. Troponin normal at 19. Labs: Laboratory Results - last 24 hr 06/21/24 09:35 WBC 11.5 H RBC 4.33 L Hgb 13.4 Hct 40.2 MCV 92.8 MCH 30.9 MCHC 33.3 D RDW Std Deviation 48.5 H RDW Coeff of Tari 14.3 Plt Count 237 MPV 10.2 Immature Gran % (Auto) 0.700 Neut % (Auto) 81.1 H Lymph % (Auto) 7.2 L [place] % (Auto) 10.4 H Eos % (Auto) 0.3 Baso % (Auto) 0.3 Absolute Neuts (auto) 9.3 H Absolute Lymphs (auto) 0.83 Nucleated RBC % 0 Sodium 136 Potassium 3.9 Chloride 108 H Carbon Dioxide 19.0 L Anion Gap 9 BUN 37 H Creatinine 1.61 H Estim Creat Clear Calc 52.05 Est GFR (MDRD) Af Amer 60 Est GFR (MDRD) Non-Af 49 L BUN/Creatinine Ratio 23.0 H Glucose 155 H Calcium 9.4 Troponin I High Sens 19 Radiography Chest X-Ray - ED: 1 View, Read by ED Physician, Heart, Lungs, Mediastinum, Bony Structures, No Acute Disease and Chronic Changes Diagnostic Testing: Clinical Impression(s) from Imaging Studies Chest X-Ray 12/19/23 09:31 IMPRESSION: Fullness of the left aortopulmonary window. Correlation with the CT scan of the chest is recommended for further evaluation. Electronically Signed: Pawan Ordaz MD at 10:09 EDT , Chest x-ray, portable, single view interpreted by myself shows normal cardiac silhouette. Normal lung mccray. There is a linear density in the in the lower neck region of uncertain etiology. Compared to prior no significant change. Rhythm Strip Rhythm Strip: Sinus Rhythm Rate: 66 Ectopy: None EKG Initial EKG: Attestation: I personally reviewed and interpreted this EKG as follows: Interpretation: No Acute Injury Pattern Comments: Normal sinus rhythm rate of 66 no acute signs of WA or ischemia. Discharge Plan Dx/Rx/DC Orders Clinical Impression: Chest pain, History of WA (myocardial infarction), Exertional dyspnea, History of kidney transplant Disposition Disposition: Acute Care Hospital [facility]
[2023-12-19 09:45] LABS: Absolute Lymphocyte Count 0.83 X10^3/uL (0.83-4.51); Absolute Neutrophil Count 9.3 X10^3/uL (2.0-7.7); Basophil# 0.03 X10^3/uL; Basophil% 0.3 % (0-1); Eosinophil# 0.04 X10^3/uL; Eosinophils% 0.3 % (0-5); Hematocrit 40.2 % (40-54); Hemoglobin 13.4 g/dL (13.0-16.5); Lymphocyte # 0.83 X10^3/ul (0.83-4.51); Lymphocyte % 7.2 % (19-41); Mean Corp Hgb Conc 33.3 g/dL (32-36); Mean Corpuscular Hgb 30.9 pg (27.0-32.0); Mean Corpuscular Volume 92.8 fL (80-94); Mean Platelet Vol. 10.2 fl (6.2-12.0); Monocyte% 10.4 % (0-10); NRBC Flagged by Analyzer 0 % (0-5); Neutrophil # 9.34 X10^3/uL (2.7-7.7); Neutrophil % 81.1 % (47-70); Platelet Count 237 K/mm3 (150-450); RBC Distribution Width CV 14.3 % (11.6-14.6); RBC Distribution Width SD 48.5 fl (35.1-43.9); Red Blood Count 4.33 M/mm3 (4.6-6.2); White Blood Count 11.5 K/mm3 (4.4-11.0)
[2023-12-19 10:00] LABS: Anion Gap 9 (5-15); BUN 37 mg/dL (7-18); Calcium,Total 9.4 mg/dL (8.5-10.1); Chloride 108 mmol/L (98-107); Creatinine, Serum 1.61 mg/dL (0.70-1.30); EST Glomerular Filtration Rate 49 mL/min (>60); Est Glom Filt Rate - Afr Amer 60 mL/min (>60); Estimated Creatinine Clearance 52.05 ml/min; Glucose 155 mg/dL (74-106); Potassium 3.9 mmol/L (3.5-5.1); Sodium Level 136 mmol/L (136-145); Troponin-I HS (w/2H Reflex) 19 pg/mL (3.0-78.0)
--- NOTE | 2023-12-19 10:39 | PCM.HP.STD ---
HPI - General General Date of Admission: 12/19/23 Date of Service: 12/19/23 Chief Complaint: Chest pain HPI Narrative NURIA CORCORAN, is a 48 M who presented to [facility] ED on 12/19/2023 with chest pain. Saw patient at bedside in the ED. Patient was sitting up comfortably in bed, conversing normally, in no acute distress. He was hemodynamically stable and breathing comfortably on room air. He did appear somewhat older than stated age. Patient has history of kidney transplant x 2, first back in 1992 and second in 2017. Both were done at [facility] in [place]. Patient's medical records in our hospital start in 2019. Patient notes that he has a history of an AL with stent placement done back in [place] around 2015; I do find in notes from 2019- here that there is mention of CAD with stent placement but I am not able to find a full cath report. Notably did have an admission for chest pain back in July 2020 and had a stress echo done that showed EF 55%, no wall motion abnormalities. Patient states today that he woke up this morning with chest pain. He describes this as a chest tightness in the center of his chest. Does not radiate to his arms or into the neck. Notably, when he had his AL he states that he had left arm numbness and tingling associated with his chest pain. He states that he continues to have mild chest tightness currently but this is improved from earlier today. He has a history of acid reflux but states his symptoms have been well-controlled on medication. 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 Lives alone and states he does things around the house for himself without issue. He denies any fevers or chills. Denies any recent sick contacts. No other acute concerns currently. Vitals in ED notable for mild hypertension, otherwise unremarkable. Labs notable for WBC count 11.5, creatinine 1.61 (baseline around 1.5), Bicarb 19, otherwise unremarkable. Troponin trend 19 > 17. EKG showed normal sinus rhythm with no acute ST changes. Chest x-ray showed fullness of the left aortopulmonary window with recommendation for correlation with CT chest. CT chest without contrast showed dilatation of the main pulmonary artery and central right and left pulmonary arteries of unclear significance. [facility] Medical History Pain of right heel Left flank pain Contact with and (suspected) exposure to other viral communicable diseases History of COVID-19 History of steroid therapy Arthritis History of renal disease History of renal dialysis Anemia History of hiatal hernia Gastric reflux Former smoker CPAP (continuous positive airway pressure) dependence Leg cramps History of pain when walking History of stress test Hx of cardiomyopathy Hx of Perez's palsy Hypertension Cardiology follow-up encounter History of CHF (congestive heart failure) Left hip pain Preoperative evaluation to rule out surgical contraindication Abdominal pain Dysuria Elevated blood pressure reading Right shoulder pain Syncope Palpitations Myocardial infarction with cardiac rehabilitation COPD (chronic obstructive pulmonary disease) Home Medications ?Medication ?Instructions ?Recorded ?Last Taken ?Type tacrolimus 1 mg capsule, 4 mg PO DAILY rejection 09/30/19 12/19/23 History immediate-release (Prograf) omeprazole 20 mg capsule,delayed 20 mg PO DAILY 02/26/21 12/19/23 History release prednisone 5 mg tablet 5 mg PO DAILY #30 tabs 03/02/21 12/19/23 Rx mycophenolate mofetil 250 mg 100 mg PO BID 10/10/21 12/19/23 History capsule budesonide-formoterol HFA 160 2 puff inhalation BID SOB #10.2 10/16/21 12/19/23 Rx mcg-4.5 mcg/actuation aerosol grams inhaler (Symbicort) nebulizers #1 ea 10/16/21 Unknown Rx sodium bicarbonate 650 mg tablet 650 mg PO DAILY 12/03/21 12/19/23 History aspirin 81 mg chewable tablet 81 mg PO DAILY 10/05/23 12/19/23 History cinacalcet 30 mg tablet 30 mg PO DAILY 10/05/23 12/19/23 History magnesium oxide 400 mg (241.3 mg 400 mg PO BID 12/19/23 12/19/23 History magnesium) tablet Allergy/AdvReac Type Severity Reaction Status Date / Time Latex, Natural Rubber Allergy Mild rash Verified 10/09/23 14:03 hydromorphone (From Dilaudid) AdvReac Mild nausea Verified 10/09/23 14:03 Surgical History History of cardiac catheterization Hx of oral surgery Hx of esophagogastroduodenoscopy Hx of colonoscopy Hx of hand surgery Hx of myringotomy Hx of exploratory laparotomy Hx of parathyroidectomy History of cholecystectomy History of appendectomy kidney transplant Social History household members: other details: girlfriend and mother Smoking Status: Former smoker Tobacco: How many years used: 20 alcohol intake: never substance use type: does not use do you feel safe at home: Yes ROS Constitutional Constitutional: Denies chills, fatigue, fever(s) or weakness Eyes Eyes: Denies change in vision Cardiovascular Cardiovascular: Reports chest pain; Denies dyspnea on exertion, edema, lightheadedness, orthopnea, palpitations, rapid heart rate or syncope Respiratory/Chest Respiratory/Chest: Reports cough; Denies productive cough, shortness of breath at rest, shortness of breath with exertion or wheezing Gastrointestinal Gastrointestinal: Denies abdominal pain, constipation, diarrhea, nausea or vomiting Genitourinary Genitourinary: Denies dysuria Musculoskeletal Musculoskeletal: Denies arthralgias, back pain or myalgias Neurologic Neurologic: Denies dizziness, focal weakness or headache(s) Vital Signs Vital Signs Vital Signs: 12/19/23 09:18 12/19/23 09:26 12/19/23 09:33 Temperature 97.6 F L Temperature Source Temporal Pulse Rate 74 Respiratory Rate 15 Respiratory Effort Normal Non-Labored Blood Pressure 153/86 H Blood Pressure Mean 108 Pulse Ox 98 98 Oxygen Delivery Method Room Air Room Air 12/19/23 10:18 Temperature Temperature Source Pulse Rate 62 Respiratory Rate 20 H Respiratory Effort Blood Pressure 156/82 H Blood Pressure Mean 106 Pulse Ox 96 Oxygen Delivery Method Room Air Weight Weight: 71.668 kg Body Mass Index (BMI) 27.1 Physical Exam Const alert, oriented x3 and no apparent distress Constitutional Narrative: Middle-age male, appears somewhat older than stated age, somewhat unkempt appearing, otherwise sitting up comfortably in bed, conversing normally, in no acute distress. General Appearance: cooperative and comfortable HEENT normocephalic, head/scalp atraumatic, hearing grossly normal bilaterally, nasal mucous membranes and turbinates normal and moist oral mucous membranes Eyes PERRL, EOMs intact bilaterally and conjunctivae normal Neck full ROM Chest inspection of chest normal Resp normal respiratory effort and no use of accessory muscles Resp Narrative: Mild crackles noted in mid to upper airways bilaterally. No wheezing noted. Otherwise good breath sounds bilaterally throughout. Breathing comfortably on room air at rest. Cardio regular rate, regular rhythm, no murmurs and peripheral pulses 2+ throughout GI normal to inspection, nondistended, normoactive bowel sounds, soft to palpation, non-tender and non-distended Back/Spine normal ROM Extremity normal to inspection, full ROM and no pedal edema Skin no rashes or lesions noted Neuro moves all extremities and no focal motor deficits Speech: speech normal Psych mental status grossly normal Results Lab / Micro Data 12/19/23 09:35 12/19/23 09:35 Labs: Laboratory Results - last 24 hr 12/19/23 09:35: WBC 11.5 H, RBC 4.33 L, Hgb 13.4, Hct 40.2, MCV 92.8, MCH 30.9, MCHC 33.3 D, RDW Std Deviation 48.5 H, RDW Coeff of Tari 14.3, Plt Count 237, MPV 10.2, Immature Gran % (Auto) 0.700, Neut % (Auto) 81.1 H, Lymph % (Auto) 7.2 L, [place] % (Auto) 10.4 H, Eos % (Auto) 0.3, Baso % (Auto) 0.3, Absolute Neuts (auto) 9.3 H, Absolute Lymphs (auto) 0.83, Nucleated RBC % 0, Sodium 136, Potassium 3.9, Chloride 108 H, Carbon Dioxide 19.0 L, Anion Gap 9, BUN 37 H, Creatinine 1.61 H, Estim Creat Clear Calc 52.05, Est GFR (MDRD) Af Amer 60, Est GFR (MDRD) Non-Af 49 L, BUN/Creatinine Ratio 23.0 H, Glucose 155 H, Calcium 9.4, Troponin I High Sens 19 Rhythm Strip Rhythm Strip: Sinus Rhythm Rate: 66 Ectopy: None Imaging Radiology Impression Chest X-Ray 12/19/23 09:31 IMPRESSION: Fullness of the left aortopulmonary window. Correlation with the CT scan of the chest is recommended for further evaluation. Electronically Signed: Pawan Ordaz MD at 10:09 EDT , Assessment & Plan Assessment/Plan (1) Chest pain: (2) CAD (coronary artery disease): (3) History of kidney transplant: (4) CKD (chronic kidney disease) stage 3, GFR 30-59 ml/min: PLAN: Plan Patient is a 48-year-old male who presented [facility] ED on 12/19/2023 with chest pain. 1. Chest pain; reported history of AL and CAD with stenting Presented with atypical chest pain at rest. Unclear etiology at this time. Has reported history of AL with stenting around 2015, unable to find records. Did have normal stress test in 2020. EKG on admit with normal sinus rhythm and no acute ST changes. Troponin trend 19 > 17. Chest x-ray and CT chest without contrast as noted below. Respiratory PCR panel and COVID testing negative. ? Admit under observation status to PCU. Given 1 dose of aspirin 325 mg in the ED. Stress test ordered. Echo ordered. Lipid profile, A1c and TSH ordered. Continue cardiac monitoring. Continue home baby aspirin. Will hold on starting any other new medications until test results are back. 2. Abnormal CT chest findings ? CT chest on admit showed dilatation of the main pulmonary artery and central right and left pulmonary arteries of unclear significance. Echo ordered as above. Hemodynamically stable and satting well on room air. Follow-up echo results. 3. CKD stage III with chronic metabolic acidosis; history of renal transplant x 2 (1992 and 2017) ? Creatinine 1.61 on admit, baseline creatinine around 1.5-1.6. Follow-up a.m. BMP and urine output. Continue home low-dose prednisone, mycophenolate mofetil, cinacalcet, tacrolimus and sodium bicarbonate. Chronic medical conditions: ? COPD not on home oxygen: Stable, not in acute exacerbation. Continue home inhalers. ? GERD: Continue home PPI. ? Former tobacco abuse: Encouraged continued cessation. DVT prophylaxis: Lovenox CODE STATUS: Full code, verified Expected disposition: Home, 1 to 2 days Total clinical time spent by myself addressing the patient's medical issues, reviewing all the data, and collaborating with patient's care team: 55 minutes. Charges/Coding Visit Charges Inpatient E&M: 13504 Init Hosp L2
--- NOTE | 2023-12-19 10:45 | CT_ITS ---
STUDY: CT CHEST WITHOUT CONTRAST REASON FOR EXAM: Male, 48 years old. L hilar fullness on CXR, further eval w/ CT RADIATION DOSAGE (If Supplied By Facility): CTDIvol = ( 12.10 ) mGy, DLP = ( 426.37 ) mGycm TECHNIQUE: Transaxial imaging was performed without the administration of intravenous contrast material. Multiplanar coronal and sagittal images were reformatted. Individualized dose optimization techniques were used for this CT. COMPARISON: Comparison is made with prior chest radiograph done earlier today. FINDINGS: CHEST Scattered calcified granulomas. There is no demonstrated pleural abnormality. There are calcifications of the coronary arteries. Normal mediastinum. Normal hilar regions. There is prominence of the pulmonary hilar arteries without peripheral pulmonary vascular congestion, suggesting pulmonary hypertension. The main pulmonary measures 4.3 cm in transverse dimension. Normal aorta arch and descending thoracic aorta. Normal osseous structures. There is no demonstrated abnormality of the visualized upper abdomen. CT/Chest without Contrast IMPRESSION: Dilatation of the main pulmonary artery and the central right and left pulmonary arteries. Electronically Signed: Pawan Ordaz MD at 12:13 EDT ,
[2023-12-19 11:40] LABS: Reflex Troponin-HS? (from REC) Y
--- NOTE | 2023-12-19 11:46 | ECHOD_ITS ---
Reason For Study: CHEST PAIN Procedure This was a 2D Doppler, Color Flow transthoracic echocardiogram. Exam performed in department. Left Ventricle Normal LV size. Moderate concentric left ventricular hypertrophy. Left ventricular systolic function is normal. The estimated ejection fraction is 60 %. No evidence for diastolic dysfunction. No regional wall motion abnormalities noted. Right Ventricle Normal RV size. Normal systolic function. Atria Normal left atrium. Normal right atrium. Mitral Valve The mitral valve is structurally normal. No prolapse or stenosis seen. Tricuspid Valve Normal tricuspid valve. Trivial tricuspid valve insufficiency. Pulmonary artery systolic pressure is 21 mmHg. Aortic Valve Moderate focal aortic valve calcification. Aortic sclerosis, no stenosis. Trivial aortic valve insufficiency. Pulmonic Valve Normal pulmonic valve. Great Vessels Normal aortic root. Mild pulmonary artery dilation. Cannot rule out PDA. Would recommend MRI to evaulate pulmonary artery dilatation. Pericardium/Pleural No pericardial effusion. MMode/2D Measurements & Calculations LVIDd: 4.2 cm IVSd: 1.5 cm Ao root diam: 3.3 cm LVIDs: 3.2 cm LVPWd: 1.2 cm RVDd: 3.9 cm FS: 23.2 % LAV(MOD-bp): 29.3 ml LVAd ap4: 22.0 cm2 SV(MOD-sp4): 30.2 ml LAV(MOD-bp) Indexed: 16.6 ml/m2 LVLd ap4: 7.4 cm LAV(MOD-sp2): 34.2 ml EDV(MOD-sp4): 57.0 ml LAV(MOD-sp4): 25.0 ml EDV(sp4-el): 55.2 ml LVAs ap4: 13.0 cm2 LVLs ap4: 6.3 cm ESV(MOD-sp4): 26.8 ml ESV(sp4-el): 22.9 ml EF(MOD-sp4): 53.0 % EF(sp4-el): 58.6 % SV(sp4-el): 32.3 ml LA A4 area: 11.7 cm2 RA A4 area: 12.5 cm2 TAPSE: 1.9 cm Time Measurements MV dec time: 0.36 sec Doppler Measurements & Calculations MV E max maulik: 59.8 cm/sec Lat Peak E' Maulik: 8.2 cm/sec Med Peak E' Maulik: 6.4 cm/sec MV A max maulik: 103.3 cm/sec E/E' lat: 7.3 E/E' med: 9.3 MV E/A: 0.58 MV V2 max: 113.8 cm/sec MV dec slope: 168.2 cm/sec2 Ao V2 max: 191.9 cm/sec MV max P.2 mmHg Ao max P.7 mmHg MV V2 mean: 64.7 cm/sec Ao V2 mean: 143.6 cm/sec MV mean P.9 mmHg Ao mean P.1 mmHg MV V2 VTI: 35.0 cm Ao V2 VTI: 39.9 cm AV (velocity ratio): 0.68 LV V1 max: 115.6 cm/sec PA V2 max: 108.6 cm/sec TR max maulik: 212.0 cm/sec LV V1 max P.4 mmHg PA max PG (full): 1.9 mmHg TR max P.0 mmHg LV V1 mean P.8 mmHg PA V2 mean: 87.0 cm/sec LV V1 mean: 77.9 cm/sec PA mean PG (full): 1.5 mmHg LV V1 VTI: 27.0 cm ECHO/Echo Complete Interpretation Summary The estimated ejection fraction is 60 %. No evidence for diastolic dysfunction. Moderate concentric left ventricular hypertrophy. Aortic sclerosis, no stenosis. Mild pulmonary artery dilation. Cannot rule out PDA. Would recommend MRI to evaulate pulmonary artery dilatatio n. Ordering Physician: Hussein Trujillo Referring Physician: Wolfgang Reed Performed By: Laura Donovan and Student
--- NOTE | 2023-12-19 11:56 | EKG12_ITS ---
Test Reason : CP Blood Pressure : / mmHG Vent. Rate : 064 BPM Atrial Rate : 064 BPM P-R Int : 120 ms QRS Dur : 096 ms QT Int : 402 ms P-R-T Axes : 017 026 108 degrees QTc Int : 414 ms Normal sinus rhythm ST & T wave abnormality, consider lateral ischemia Abnormal ECG When compared with ECG of 19-DEC-2023 09:25, MANUAL COMPARISON REQUIRED, DATA IS UNCONFIRMED Confirmed by Jesus Vaca [id number]), business editor JANY LOPEZ ([id number]) on 12/23/2023 11:16:46 AM Referred By: CECI Confirmed By:Jesus Vaca
[2023-12-19] MEDS: Ipratropium/Albuterol Sulfate 3 ML AMPUL.NEB INHALATION (12:06)
[2023-12-19 12:43] LABS: Troponin-I HS 17 pg/mL (3.0-78.0)
[2023-12-19 13:30] LABS: Cholesterol 190 mg/dL (200); High Density Lipoprotein 69 mg/dL; Triglycerides 97 mg/dL; Very Low Density Lipoprotein 19 mg/dL (5-40)
--- NOTE | 2023-12-19 16:06 | STRESSREP_ITS ---
Stress Test Report Treadmill sestamibi myocardial perfusion stress test. Indication; Indication; 48-year-old patient With symptoms of exertional dyspnea history of myocardial infarction and symptoms of chest pain Has a history of renal transplant. Patient underwent treadmill sestamibi myocardial fusion study Stress protocol: Resting EKG demonstrates. Normal sinus rhythm. 0.4 mg of regadenoson was infused per usual protocol followed by rapid intravenous saline flush injection continuous EKG monitoring was performed. The maximum heart rate attained was [] bpm which was []% of maximum predicted heart . Stress EKG showed[, no significant change from the resting EKG, with maximum heart rate of 107bpm. Arrhythmia: No arrhythmia demonstrated Symptoms: Patient had no symptoms of chest pain Blood pressure at rest: [132/62 blood pressure at the end of stress: 124/62] Myocardial perfusion protocol. [12 mCi ]of Technetium 99m Sestamibi was injected at rest. [ 0.4 mg ]of Regadenoson was infused per usual protocol peak infusion[34 mCi ]of Technetium 99m sestamibi was injected. Stress images were obtained stress and rest images were reconstructed and compared in the short axis vertical and horizontal long axis. Gated images were also obtained Perfusion SPECT analysis: Review of the images demonstrate normal uptake of sestamibi at rest, post stress images demonstrate similar uptake of sestamibi to the resting images, homogeneous tracer uptake With no evidence of reversible myocardial ischemia. Reduced tracer uptake in the inferior myocardium consistent with prior inferior AR. Gated SPECT analysis: The gated ejection fraction is [ 88 %]. Wall motion showed hyperdynamic left ventricle. Conclusion: Negative Lexiscan sestamibi myocardial perfusion study for reversible myocardial ischemia Hyperdynamic left ventricle. Patient has no symptoms to report, in particular no chest pain Patient will be evaluated further with event monitor as an outpatient. Sony Hansen MD,FACC,[facility]
--- NOTE | 2023-12-19 16:06 | STRESSREP ---
Stress Test Report Treadmill sestamibi myocardial perfusion stress test. Indication; 48-year-old patient With symptoms of exertional dyspnea history of myocardial infarction and symptoms of chest pain Has a history of renal transplant. Patient underwent treadmill sestamibi myocardial fusion study Stress protocol: Resting EKG demonstrates. Normal sinus rhythm. With ST depression noted in the inferolateral leads/2?3?aVF and V4- V6 Stress EKG and during recovery showed more prominent ST depression in the inferolateral leads. Arrhythmia: No arrhythmia demonstrated Symptoms: symptoms of chest pain with shortness of breath reported with rest as well as on maximal stress and during recovery. Blood pressure at rest: 140/88 mmHg. Blood pressure at the end of stress: 180/78 mmHg Myocardial perfusion protocol. 11 mCi ]of Technetium 99m Sestamibi was injected at rest. Patient exercised according to standard Abdias protocol for a total of 6 minutes and 16 seconds. Achieving a work level of maximum 7.5 METS. Resting heart rate of 80/bpm mile to a maximum heart rate of 137 bpm. This value represented 78% of the maximal age-predicted heart rate. Stress images were obtained stress and rest images were reconstructed and compared in the short axis vertical and horizontal long axis. Gated images were also obtained Perfusion SPECT analysis: Review of the images demonstrate normal uptake of sestamibi at rest, post stress images demonstrate similar uptake of sestamibi to the resting images, homogeneous tracer uptake With no evidence of reversible myocardial ischemia. Gated SPECT analysis: The gated ejection fraction is 69%. Normal LV wall motion. Conclusion: Negative Lexiscan sestamibi myocardial perfusion study for reversible myocardial ischemia Normal EKGs at rest and with maximal stress and recovery And patient reporting symptoms of chest pain Sony Hansen MD,FACC,[facility]
[2023-12-19] MEDS: Magnesium Chloride 64 MG Delay Rel.Tablet 128 MG PO (20:11)
[2023-12-19] MEDS: Tacrolimus Anhydrous 1 MG Capsule 3 MG PO (20:12)
[2023-12-19] MEDS: Mycophenolate Mofetil 250 MG Capsule 500 MG PO (20:12)
[2023-12-19] MEDS: Acetaminophen 325 MG Tablet 650 MG PO (20:16)
[2023-12-19] MEDS: HYDROcodone Bitartrate/Apap 5/325 Tablet PO (22:29)
[2023-12-20 03:30] VITALS: BP 156/88; PULSE 80; RESP 16; TEMP 35.8; O2SAT 99
[2023-12-20 06:55] LABS: Hematocrit 39.3 % (40-54); Hemoglobin 13.1 g/dL (13.0-16.5); Mean Corp Hgb Conc 33.3 g/dL (32-36); Mean Corpuscular Hgb 31.2 pg (27.0-32.0); Mean Corpuscular Volume 93.6 fL (80-94); Mean Platelet Vol. 10.3 fl (6.2-12.0); Platelet Count 238 K/mm3 (150-450); RBC Distribution Width CV 14.5 % (11.6-14.6); RBC Distribution Width SD 49.8 fl (35.1-43.9)
[2023-12-20 07:29] LABS: Anion Gap 6 (5-15); BUN 36 mg/dL (7-18); BUN/Creat Ratio 23.7 RATIO (10-20); Calcium,Total 9.2 mg/dL (8.5-10.1); Chloride 112 mmol/L (98-107); Creatinine, Serum 1.52 mg/dL (0.70-1.30); EST Glomerular Filtration Rate 53 mL/min (>60); Est Glom Filt Rate - Afr Amer 64 mL/min (>60); Estimated Creatinine Clearance 50.85 ml/min; Glucose 110 mg/dL (74-106); Potassium 3.9 mmol/L (3.5-5.1); Sodium Level 139 mmol/L (136-145)
[2023-12-20 08:09] VITALS: O2SAT 98
[2023-12-20 09:20] VITALS: BP 150/90; PULSE 64; RESP 18; TEMP 36.6; O2SAT 99
[2023-12-20] MEDS: Cinacalcet HCl 30 MG Tablet PO (09:21)
[2023-12-20] MEDS: Aspirin 81 MG TAB.CHEW PO (09:21)
[2023-12-20] MEDS: Magnesium Chloride 64 MG Delay Rel.Tablet 128 MG PO (09:21)
[2023-12-20] MEDS: Mycophenolate Mofetil 250 MG Capsule 500 MG PO (09:22)
[2023-12-20] MEDS: Tacrolimus Anhydrous 1 MG Capsule 4 MG PO (09:23)
[2023-12-20] MEDS: predniSONE 5 MG Tablet PO (09:24)
[2023-12-20] MEDS: Sodium Bicarbonate 650 MG Tablet PO (10:47)
--- NOTE | 2023-12-20 11:24 | DCINST_ITS ---
Discharge Instructions Diet Discharge Diet: No restrictions Activity Discharge Activity: No Restrictions Follow Up Care Test Results: Test results from this visit will be discussed in further detail at your follow-up appointment, if applicable. Discharge Plan Admission Admit Date/Time: 12/19/23 10:39 Primary Reason for Your Visit: Chest pain Attending Provider: Hussein Trujillo Primary Care Provider: Wolfgang Reed Instructions Additional Instructions / Restrictions: Our senior budget analyst recommended that you have a cardiac MRI done to further evaluate your pulmonary artery dilatation. Your PCP can place this order and assist in getting this set up for you. Discharge Orders/Prescriptions Prescriptions: Continued tacrolimus [Prograf] 1 mg capsule 4 mg PO DAILY Rx Instructions: 4MG IN AM, 3 MG IN PM prednisone 5 mg tablet 5 mg PO DAILY Qty: 30 1RF (DME) nebulizers Misc See Rx Instructions .ROUTE .MEDSUPPLY Qty: 1 0RF Rx Instructions: As directed omeprazole 20 mg capsule,delayed release(DR/EC) 20 mg PO DAILY mycophenolate mofetil 250 mg Capsule 500 mg PO BID sodium bicarbonate 650 mg Tablet 650 mg PO DAILY aspirin 81 mg Tablet,Chewable 81 mg PO DAILY cinacalcet 30 mg tablet 30 mg PO DAILY magnesium oxide 400 mg (241.3 mg magnesium) tablet 400 mg PO BID budesonide-formoterol [Symbicort] 160-4.5 mcg/actuation HFA aerosol inhaler 2 puff INHALATION BID PRN (Reason: SOB) Referrals / Follow Up: Wolfgang Reed MD [Primary Care Provider] - Disposition Disposition (needs filled in before D/C Order can be placed): Home, Self Care
--- NOTE | 2023-12-20 11:27 | DS.PCM_ITS ---
Providers Date of Admission: 12/19/23 Date of Discharge: 12/20/23 Primary Care Physician: Dr. Wolfgang Reed MD Reason For Visit: CHEST PAIN Diagnosis Discharge Diagnosis (1) Chest pain: Status: Acute Code(s): R07.9 - Chest pain, unspecified (2) CAD (coronary artery disease): Status: Acute Code(s): I25.10 - Atherosclerotic heart disease of [place] coronary artery without angina pectoris (3) History of kidney transplant: Status: Acute Code(s): Z94.0 - Kidney transplant status (4) CKD (chronic kidney disease) stage 3, GFR 30-59 ml/min: Status: Chronic Code(s): N18.30 - Chronic kidney disease, stage 3 unspecified Medications at Discharge Home Medications tacrolimus 1 mg capsule, immediate-release (Prograf) 4 mg PO DAILY rejection 09/30/19 omeprazole 20 mg capsule,delayed release 20 mg PO DAILY 02/26/21 prednisone 5 mg tablet 5 mg PO DAILY #30 tabs 03/02/21 mycophenolate mofetil 250 mg capsule 500 mg PO BID 10/10/21 nebulizers #1 ea 10/16/21 sodium bicarbonate 650 mg tablet 650 mg PO DAILY 12/03/21 aspirin 81 mg chewable tablet 81 mg PO DAILY health maintance 10/05/23 cinacalcet 30 mg tablet 30 mg PO DAILY 10/05/23 budesonide-formoterol HFA 160 mcg-4.5 mcg/actuation aerosol inhaler (Symbicort) 2 puff inhalation BID PRN SOB 12/19/23 magnesium oxide 400 mg (241.3 mg magnesium) tablet 400 mg PO BID 12/19/23 Hospital Course Operations None Procedures EKG, Nuclear stress test, Transthoracic echo and - (Chest x-ray, CT chest without contrast) Summary of Care Provided Minutes Spent on Discharge: 35 Hospital Course: Patient is a 48-year-old male who presented [facility] ED on 12/19/2023 with chest pain. Short hospital course as noted below. Discharged home in stable condition on 12/19. 1. Chest pain; reported history of NC and CAD with stenting Presented with atypical chest pain at rest of unclear etiology. Had reported history of NC with stenting around 2015, records unavailable. Did have normal stress test in 2020. EKG on admit with normal sinus rhythm and no acute ST changes. Troponin trend 19 > 17. Chest x-ray and CT chest without contrast as noted below. Respiratory PCR panel and COVID testing negative. TSH normal. Lipid panel with total cholesterol 190, LDL 102, HDL 69. A1c 6.0%. ? Nuclear stress test was unremarkable. Echo showed EF 60%, moderate concentric LV hypertrophy, no diastolic dysfunction, mild pulmonary artery dilation as noted below. Cardiac monitoring unremarkable during hospitalization. Unclear etiology of atypical chest pain but ACS ruled out and patient reported improvement in pain on hospital day 2. Does have a degree of hyperlipidemia, recommend outpatient PCP follow-up and can discuss need for starting statin medication at that time. Continue home baby aspirin. 2. Pulmonary artery dilatation ? CT chest on admit showed dilatation of the main pulmonary artery and central right and left pulmonary arteries of unclear significance. Echo showed pulmonary artery dilation concerning for a possible patent ductus arteriosus. Recommendation from mixed livestock farmer was for cardiac MRI for further evaluation. Unfortunately, we cannot do cardiac MRI here; recommended that patient have PCP order cardiac MRI to be done at tertiary care center shortly after discharge. 3. CKD stage III with chronic metabolic acidosis; history of renal transplant x 2 (1992 and 2017) ? Creatinine 1.61 on admit, baseline creatinine around 1.5-1.6. Creatinine stable on hospital day 2, patient with good urine output. Continue home low- dose prednisone, mycophenolate mofetil, cinacalcet, tacrolimus and sodium bicarbonate. 4. Hypertension ? Blood pressure consistently in the 150s to 160s systolic during hospitalization. Notably with moderate LV hypertrophy on echo as noted above. However, patient notes that he had significant decreases in blood pressure on antihypertensive medications so nephrology took him off all antihypertensives a few years ago. Will hold on starting any new antihypertensives and defer to his outpatient security police officer. Chronic medical conditions: ? COPD not on home oxygen: Stable, not in acute exacerbation. Continue home inhalers. ? GERD: Continue home PPI. ? Former tobacco abuse: Encouraged continued cessation. Total clinical time spent by myself addressing the patient's medical issues, reviewing all the data, and collaborating with patient's care team: 35 minutes. Physical Exam Const alert, oriented x3 and no apparent distress Constitutional Narrative: Middle-age male, appears somewhat older than stated age, somewhat unkempt appearing, otherwise sitting up comfortably in bed, conversing normally, in no acute distress. General Appearance: cooperative and comfortable HEENT normocephalic, head/scalp atraumatic, hearing grossly normal bilaterally, nasal mucous membranes and turbinates normal and moist oral mucous membranes Eyes PERRL, EOMs intact bilaterally and conjunctivae normal Neck full ROM Chest inspection of chest normal Resp normal respiratory effort and no use of accessory muscles Resp Narrative: Mild crackles noted in mid to upper airways bilaterally. No wheezing noted. Otherwise good breath sounds bilaterally throughout. Breathing comfortably on room air at rest. Stable. Cardio regular rate, regular rhythm, no murmurs and peripheral pulses 2+ throughout GI normal to inspection, nondistended, normoactive bowel sounds, soft to palpation, non-tender and non-distended Back/Spine normal ROM Extremity normal to inspection, full ROM and no pedal edema Skin no rashes or lesions noted Neuro moves all extremities and no focal motor deficits Speech: speech normal Psych mental status grossly normal Weight / BMI Weight Weight: 65.1 kg Body Mass Index (BMI) 24.6 ABG / Lab / Microbiology Data 12/20/23 06:34 12/20/23 06:34 Laboratory: Laboratory Results - last 24 hr 12/19/23 09:35: Hemoglobin A1c 6.0 H, Triglycerides 97, Cholesterol 190, LDL Cholesterol 102, VLDL Cholesterol 19, HDL Cholesterol 69 12/19/23 12:12: Troponin I High Sens 17 12/20/23 06:34: WBC 8.0, RBC 4.20 L, Hgb 13.1, Hct 39.3 L, MCV 93.6, MCH 31.2, MCHC 33.3, RDW Std Deviation 49.8 H, RDW Coeff of Tari 14.5, Plt Count 238, MPV 10.3, Sodium 139, Potassium 3.9, Chloride 112 H, Carbon Dioxide 21.0, Anion Gap 6, BUN 36 H, Creatinine 1.52 H, Estim Creat Clear Calc 50.85, Est GFR (MDRD) Af Amer 64, Est GFR (MDRD) Non-Af 53 L, BUN/Creatinine Ratio 23.7 H, Glucose 110 H, Calcium 9.2, TSH 1.30 Microbiology: Microbiology 12/19/23 12:00 Mucosa - Nasopharyngeal Coronavirus COVID-19 PCR - Final 12/19/23 12:00 Mucosa - Nose Respiratory Panel (PCR) - Final Radiography Diagnostic Testing: Radiology Impression Chest CT 12/19/23 10:45 IMPRESSION: Dilatation of the main pulmonary artery and the central right and left pulmonary arteries. Electronically Signed: Pawan Ordaz MD at 12:13 EDT , Echocardiogram 12/19/23 11:46 Interpretation Summary The estimated ejection fraction is 60 %. No evidence for diastolic dysfunction. Moderate concentric left ventricular hypertrophy. Aortic sclerosis, no stenosis. Mild pulmonary artery dilation. Cannot rule out PDA. Would recommend MRI to evaulate pulmonary artery dilatation. Ordering Physician: Hussein Trujillo Referring Physician: Wolfgang Reed Performed By: Laura Donovan and Student D/C Instructions Discharge Diet: No restrictions Meaningful Use Info Meaningful Use Meaningful Use Diagnoses (Choose all that apply): None applicable Ischemic Stroke Statin Dosing Therapy Reference: STATIN DOSE THERAPY REFERENCE: * Patients > 75 years receive moderate or high dose statin therapy. * Patients 75 years or YOUNGER should receive HIGH intensity statin dose unless contraindicated. You will be required to document reason for non-treatment if statin daily dose does not meet guidelines. HIGH DOSE STATIN THERAPY DAILY Atorvastatin > than or = to 40 mg Rosuvastatin > than or = to 20 mg Amlodipine + Atorvastatin > than or = to 2.5/40 mg Ezetimibe + Simvastatin 10/80 mg Simvastatin 80mg Discharge Plan Admission Admit Date/Time: 12/19/23 10:39 Primary Reason for Your Visit: Chest pain Attending Provider: uHssein Trujillo Primary Care Provider: Wolfgang Reed Instructions Additional Instructions / Restrictions: Our mixed livestock farmer recommended that you have a cardiac MRI done to further evaluate your pulmonary artery dilatation. Your PCP can place this order and assist in getting this set up for you. Discharge Orders/Prescriptions Prescriptions: Continued tacrolimus [Prograf] 1 mg capsule 4 mg PO DAILY Rx Instructions: 4MG IN AM, 3 MG IN PM prednisone 5 mg tablet 5 mg PO DAILY Qty: 30 1RF (DME) nebulizers [facility] See Rx Instructions .ROUTE .MEDSUPPLY Qty: 1 0RF Rx Instructions: As directed omeprazole 20 mg capsule,delayed release(DR/EC) 20 mg PO DAILY mycophenolate mofetil 250 mg Capsule 500 mg PO BID sodium bicarbonate 650 mg Tablet 650 mg PO DAILY aspirin 81 mg Tablet,Chewable 81 mg PO DAILY cinacalcet 30 mg tablet 30 mg PO DAILY magnesium oxide 400 mg (241.3 mg magnesium) tablet 400 mg PO BID budesonide-formoterol [Symbicort] 160-4.5 mcg/actuation HFA aerosol inhaler 2 puff INHALATION BID PRN (Reason: SOB) Referrals / Follow Up: Wolfgang Reed MD [Primary Care Provider] - Disposition Disposition (needs filled in before D/C Order can be placed): Home, Self Care Charges/Coding Visit Charges Inpatient E&M: 95928 Disch Hosp >30min
[2023-12-20 11:36] VITALS: BP 150/90; PULSE 64; RESP 18; TEMP 36.7; O2SAT 99
== END 2023-12-20 11:27 | disposition home or self-care (01) ==
LOC: ED 10:23 → PCU 11:03
PROVIDERS: Admitting Provider Hospitalist; Emergency Provider Emergency Medicine; PCP Internal Medicine; Visit Provider Hospitalist
DX: R07.89 Other chest pain (principal); I28.8 Other diseases of pulmonary vessels; J44.9 Chronic obstructive pulmonary disease, unspecified; I42.9 Cardiomyopathy, unspecified; N18.30 Chronic kidney disease, stage 3 unspecified; I25.10 Atherosclerotic heart disease of native coronary artery without angina pectoris; I12.9 Hypertensive chronic kidney disease with stage 1 through stage 4 chronic kidney disease, or unspecified chronic kidney disease; Z79.52 Long term (current) use of systemic steroids; Z87.891 Personal history of nicotine dependence; E78.5 Hyperlipidemia, unspecified; K21.9 Gastro-esophageal reflux disease without esophagitis; Z11.52 Encounter for screening for COVID-19; Z79.51 Long term (current) use of inhaled steroids; E87.22 Chronic metabolic acidosis; Z79.82 Long term (current) use of aspirin; Z94.0 Kidney transplant status; I25.2 Old myocardial infarction; R06.09 Other forms of dyspnea; Z79.899 Other long term (current) drug therapy
CPT/HCPCS: 36415; 71045; 71250; 78452; 80048; 80061; 83036; 84443; 84484; 85025; 85027; 87633; 87635; 93005; 93017; 93306; 94640; 94668; 99221; 99252; 99285; A9500; A4216; G0378; G0463

== ENCOUNTER 2024-02-07 11:18 | Emergency (ER) | payer MEDICAID, SELFPAY ==
[2024-02-07 11:21] VITALS: BP 156/96; PULSE 77; RESP 16; TEMP 36.4; O2SAT 98; BMI 25.2
--- NOTE | 2024-02-07 11:35 | EX.ED.DYSGE1 ---
HPI History of Present Illness Chief Complaint: Dental Informant: patient Narrative Narrative: Patient is a 48-year-old male with history of renal transplant and (on chronic suppression therapy), COPD, dental disease, coronary artery disease and tobacco use presenting with right facial swelling. Patient states he woke up with it this morning. 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 He denies any trauma to the area. Denies any ear pain or hearing changes. Notes 2 to 3 weeks ago he was having sinus congestion was a blowing out some blood from his sinuses. Denies any painful swallowing or change in his voice. Denies any dental pain. Denies any new medications. Denies any vision changes. Denies any headache. Did call off work to have this evaluated. Took Tylenol this morning which he normally takes. No other complaints or concerns reported at this time. Patient does report a rash to his bilateral feet. Is worried it might be his eczema coming back. [facility] Medical History CKD (chronic kidney disease) stage 3, GFR 30-59 ml/min CAD (coronary artery disease) History of DC (myocardial infarction) Pain of right heel Left flank pain Contact with and (suspected) exposure to other viral communicable diseases History of COVID-19 History of steroid therapy Arthritis History of renal disease History of renal dialysis Anemia History of hiatal hernia Gastric reflux Former smoker CPAP (continuous positive airway pressure) dependence Leg cramps History of pain when walking History of stress test Hx of cardiomyopathy Hx of Perez's palsy Hypertension Cardiology follow-up encounter History of CHF (congestive heart failure) Left hip pain Preoperative evaluation to rule out surgical contraindication Abdominal pain Dysuria Elevated blood pressure reading Right shoulder pain Syncope Palpitations Myocardial infarction with cardiac rehabilitation COPD (chronic obstructive pulmonary disease) Home Medications ?Medication ?Instructions ?Recorded ?Last Taken ?Type tacrolimus 1 mg capsule, 4 mg PO DAILY rejection 09/30/19 12/19/23 History immediate-release (Prograf) omeprazole 20 mg capsule,delayed 20 mg PO DAILY 02/26/21 12/19/23 History release prednisone 5 mg tablet 5 mg PO DAILY #30 tabs 03/02/21 12/19/23 Rx mycophenolate mofetil 250 mg 500 mg PO BID 10/10/21 12/19/23 History capsule nebulizers #1 ea 10/16/21 Unknown Rx sodium bicarbonate 650 mg tablet 650 mg PO DAILY 12/03/21 12/19/23 History aspirin 81 mg chewable tablet 81 mg PO DAILY health maintance 10/05/23 12/19/23 History cinacalcet 30 mg tablet 30 mg PO DAILY 10/05/23 12/19/23 History budesonide-formoterol HFA 160 2 puff inhalation BID PRN SOB 12/19/23 12/19/23 History mcg-4.5 mcg/actuation aerosol inhaler (Symbicort) magnesium oxide 400 mg (241.3 mg 400 mg PO BID 12/19/23 12/19/23 History magnesium) tablet amoxicillin 875 mg-potassium 1 tab PO BID #14 tabs 02/07/24 Unknown Rx clavulanate 125 mg tablet hydrocortisone 2 % lotion 1 applic topical BID apply to 02/07/24 Unknown Rx affected area 2 weeks #29.6 mL Allergy/AdvReac Type Severity Reaction Status Date / Time Latex, Natural Rubber Allergy Mild rash Verified 02/07/24 11:21 hydromorphone (From Dilaudid) AdvReac Mild nausea Verified 02/07/24 11:21 Surgical History History of kidney transplant History of cardiac catheterization Hx of oral surgery Hx of esophagogastroduodenoscopy Hx of colonoscopy Hx of hand surgery Hx of myringotomy Hx of exploratory laparotomy Hx of parathyroidectomy History of cholecystectomy History of appendectomy kidney transplant Social History household members: other details: girlfriend and mother Smoking Status: Former smoker Tobacco: How many years used: 20 alcohol intake: never substance use type: does not use do you feel safe at home: Yes ROS ROS ED Constitutional Constitutional ED: Denies chills or fever(s) Eyes Eyes: Denies blurry vision, change in vision or diplopia ENT ENT ED: Reports other Details: Right cheek swelling ; Denies rhinorrhea or sore throat Cardiovascular Cardiovascular: Denies chest pain Respiratory/Chest Respiratory/Chest: Denies cough or dyspnea Gastrointestinal Gastrointestinal: Denies nausea or vomiting Integumentary Reports rash Neurologic Neurologic: Denies headache(s) EXAM Physical Exam Const Vital Signs: 02/07/24 11:21 Temperature 97.5 F L Temperature Source Temporal Pulse Rate 77 Respiratory Rate 16 Blood Pressure 156/96 H Blood Pressure Mean 116 Pulse Ox 98 Oxygen Delivery Method Room Air Positive well nourished and well developed General Appearance ED: well developed and NAD HEENT Reports moist mucous membranes HEENT Narrative: Widespread dental decay. No pinpoint dental tenderness. No gingival swelling. Patient has some mild tenderness over the right frontal sinus. No associate skin changes there. There is some soft tissue swelling over the right cheek diffusely. No palpable abscess appreciated. No swelling of the submandibular area. Normal oropharynx. Mild retraction of the right tympanic membrane but no obvious effusion or erythema/injection. Normal visualized left tympanic membrane but there is a partial cerumen impaction obstructing the remainder of his view. Eyes PERRL and EOMs intact bilaterally Neck no lymphadenopathy and supple Chest Wall inspection of chest normal Resp normal respiratory effort and clear to auscultation bilaterally Cardio regular rate and regular rhythm Extremity normal to inspection General Extremety ED: Negative for edema General Extremity: Negative for edema Psych mental status grossly normal Skin Skin Narrative: Scattered area of mildly raised erythema on the bilateral feet. The largest areas on the right anterior foot approximately 4 cm in diameter with a another satellite lesion that is approximately 1 cm diameter. On the left lower extremity there are 2 subcentimeter areas 1 on the left foot and 1 on the left ankle. Patient denies any associated pain. No associated lymphangitic streak. He states he has intermittent burning and itching with MDM MDM MDM Narrative Medical decision making narrative: Patient is evaluated for atraumatic right facial swelling. Overall well-appearing. Vital signs are normal and he is afebrile. No obvious involvement of extraocular eye muscles. I do not see an obvious dental abscess. Suspect this is a sinusitis. Given that he is immunosuppressed we will start him on antibiotic (Augmentin) and given first dose in the emergency room. In addition he has developing rash on his feet. Differential on my exam includes atopic dermatitis/eczema versus tinea. Given that patient has a history of eczema and states it feels like his eczema will put him on hydrocortisone ointment for this. Patient instructed to follow-up with his primary care doctor. Counseled that if the rash gets worse with steroid ointment he might require antifungal at that point. He verbalizes agreement nursing of this. Is given a work note for today per his request. Given return precautions. Discharged home in stable condition. Discharge Plan Triage Chief Complaint: Dental ED Provider: Radha Benjamin Dx/Rx/DC Orders Clinical Impression: Right maxillary sinusitis, Foot dermatitis Instructions: ED Atopic Dermatitis (Adult), ED Sinusitis (Antibiotic Treatment) Prescriptions: New amoxicillin-pot clavulanate 875-125 mg tablet 1 tab PO BID Qty: 14 0RF hydrocortisone 2 % lotion 1 applic topical BID 14 Days Qty: 29.6 0RF No Action tacrolimus [Prograf] 1 mg capsule 4 mg PO DAILY Rx Instructions: 4MG IN AM, 3 MG IN PM prednisone 5 mg tablet 5 mg PO DAILY Qty: 30 1RF [facility] See [facility] Instructions .ROUTE .MEDSUPPLY Qty: 1 0RF Rx Instructions: As directed omeprazole 20 mg capsule,delayed release(DR/EC) 20 mg PO DAILY mycophenolate mofetil 250 mg Capsule 500 mg PO BID sodium bicarbonate 650 mg Tablet 650 mg PO DAILY aspirin 81 mg Tablet,Chewable 81 mg PO DAILY cinacalcet 30 mg tablet 30 mg PO DAILY magnesium oxide 400 mg (241.3 mg magnesium) tablet 400 mg PO BID budesonide-formoterol [Symbicort] 160-4.5 mcg/actuation HFA aerosol inhaler 2 puff INHALATION BID PRN (Reason: SOB) Stand Alone Forms: ED Work / School Excuse Primary Care Provider: Wolfgang Reed Referrals: Wolfgang Reed MD [Primary Care Provider] - Print Language: Tamazight Disposition Disposition: Home, Self Care
[2024-02-07] MEDS: Amox/Clavulanate 875 MG Tablet PO (11:42)
[2024-02-07 11:49] VITALS: BP 161/72; PULSE 81; RESP 14; TEMP 36.6; O2SAT 98
== END 2024-02-07 11:56 | disposition home or self-care (01) ==
PROVIDERS: Emergency Provider Emergency Medicine; PCP Internal Medicine; Visit Provider Emergency Medicine
DX: J32.0 Chronic maxillary sinusitis (principal); I50.9 Heart failure, unspecified; I13.0 Hypertensive heart and chronic kidney disease with heart failure and stage 1 through stage 4 chronic kidney disease, or unspecified chronic kidney disease; J44.9 Chronic obstructive pulmonary disease, unspecified; N18.30 Chronic kidney disease, stage 3 unspecified; I25.10 Atherosclerotic heart disease of native coronary artery without angina pectoris; D84.9 Immunodeficiency, unspecified; Z87.891 Personal history of nicotine dependence; Z94.0 Kidney transplant status; L30.9 Dermatitis, unspecified
CPT/HCPCS: 99282

== ENCOUNTER 2024-04-14 07:05 | Outpatient (RCR) | payer MEDICAID, SELFPAY ==
[2024-04-14 08:23] LABS: Albumin, Serum 3.8 g/dL (3.2-5.0); BUN 38 mg/dL (7-18); BUN/Creat Ratio 22.5 RATIO (10-20); Calcium,Total 9.5 mg/dL (8.5-10.1); Chloride 112 mmol/L (98-107); Creatinine, Serum 1.69 mg/dL (0.70-1.30); EST Glomerular Filtration Rate 47 mL/min (>60); Est Glom Filt Rate - Afr Amer 56 mL/min (>60); Glucose 100 mg/dL (74-106); Phosphorus 2.6 mg/dL (2.5-4.9); Potassium 4.1 mmol/L (3.5-5.1); Sodium Level 142 mmol/L (136-145)
== END 2024-04-14 18:00 | disposition home or self-care (01) ==
LOC: LAB 07:05
PROVIDERS: PCP Internal Medicine
DX: Z94.0 Kidney transplant status (principal)
CPT/HCPCS: 36415; 80069

== ENCOUNTER 2024-04-15 09:40 | Emergency (ER) | payer MEDICAID, SELFPAY ==
[2024-04-15 09:41] VITALS: BP 161/109; PULSE 102; RESP 18; TEMP 36.4; O2SAT 100; BMI 31.7
--- NOTE | 2024-04-15 10:20 | EX.ED.DYSGE1 ---
HPI History of Present Illness Chief Complaint: Edema Informant: patient Onset/Context/Timing Onset: Days (3) Context: Gradual Onset Timing: Continuous Quality: Sharp, burning Location: Left lower ribs Worsened by: Walking, movement Relieved by: Nothing Narrative Narrative: Patient presents with pain and swelling to his left posterior rib area that has gradually gotten worse over the last 3 days. Patient describes the pain as sharp and burning. Patient states it is mainly over the left posterior ribs. Patient states it is worse with walking and movement. Patient noted some bruising over the area. Patient states nothing seems to help with the pain. Patient denies any fevers or chills. Patient admits to some nausea but denies any vomiting. Patient also admits to a mild headache. [facility] Medical History CKD (chronic kidney disease) stage 3, GFR 30-59 ml/min CAD (coronary artery disease) History of ND (myocardial infarction) Pain of right heel Left flank pain Contact with and (suspected) exposure to other viral communicable diseases History of COVID-19 History of steroid therapy Arthritis History of renal disease History of renal dialysis Anemia History of hiatal hernia Gastric reflux Former smoker CPAP (continuous positive airway pressure) dependence Leg cramps History of pain when walking History of stress test Hx of cardiomyopathy Hx of Perez's palsy Hypertension Cardiology follow-up encounter History of CHF (congestive heart failure) Left hip pain Preoperative evaluation to rule out surgical contraindication Abdominal pain Dysuria Elevated blood pressure reading Right shoulder pain Syncope Palpitations Myocardial infarction with cardiac rehabilitation COPD (chronic obstructive pulmonary disease) Home Medications ?Medication ?Instructions ?Recorded ?Last Taken ?Type tacrolimus 1 mg capsule, 4 mg PO DAILY rejection 09/30/19 12/19/23 History immediate-release (Prograf) omeprazole 20 mg capsule,delayed 20 mg PO DAILY 02/26/21 12/19/23 History release prednisone 5 mg tablet 5 mg PO DAILY #30 tabs 03/02/21 12/19/23 Rx mycophenolate mofetil 250 mg 500 mg PO BID 10/10/21 12/19/23 History capsule nebulizers #1 ea 10/16/21 Unknown Rx sodium bicarbonate 650 mg tablet 650 mg PO DAILY 12/03/21 12/19/23 History aspirin 81 mg chewable tablet 81 mg PO DAILY health maintance 10/05/23 12/19/23 History cinacalcet 30 mg tablet 30 mg PO DAILY 10/05/23 12/19/23 History budesonide-formoterol HFA 160 2 puff inhalation BID PRN SOB 12/19/23 12/19/23 History mcg-4.5 mcg/actuation aerosol inhaler (Symbicort) magnesium oxide 400 mg (241.3 mg 400 mg PO BID 12/19/23 12/19/23 History magnesium) tablet amoxicillin 875 mg-potassium 1 tab PO BID #14 tabs 02/07/24 Unknown Rx clavulanate 125 mg tablet hydrocortisone 2 % lotion 1 applic topical BID apply to 02/07/24 Unknown Rx affected area 2 weeks #29.6 mL hydrocodone-acetaminophen 5-325mg 1 tab PO Q6H PRN PRN Pain 3 days 04/15/24 Unknown Rx 5mg-325mg #10 TABLETS Allergy/AdvReac Type Severity Reaction Status Date / Time Latex, Natural Rubber Allergy Mild rash Verified 04/15/24 09:41 hydromorphone (From Dilaudid) AdvReac Mild nausea Verified 04/15/24 09:41 Surgical History History of kidney transplant History of cardiac catheterization Hx of oral surgery Hx of esophagogastroduodenoscopy Hx of colonoscopy Hx of hand surgery Hx of myringotomy Hx of exploratory laparotomy Hx of parathyroidectomy History of cholecystectomy History of appendectomy kidney transplant Social History household members: other details: girlfriend and mother Smoking Status: Former smoker Tobacco: How many years used: 20 alcohol intake: never substance use type: does not use do you feel safe at home: Yes ROS ROS ED Constitutional Constitutional ED: Denies chills or fever(s) Eyes Eyes: Denies blurry vision or change in vision ENT ENT ED: Denies rhinorrhea or sore throat Cardiovascular Cardiovascular: Denies chest pain or palpitations Respiratory/Chest Respiratory/Chest: Denies cough or dyspnea Gastrointestinal Gastrointestinal: Reports nausea; Denies vomiting Genitourinary Genitourinary ED: Denies dysuria or hematuria Musculoskeletal Musculoskeletal: Reports back pain; Denies neck pain Integumentary Denies abscess or rash Neurologic Neurologic: Reports headache(s); Denies weakness Allergic/Immunologic Allergic/Immunologic ED: Denies mouth swelling or urticaria EXAM Physical Exam Const Vital Signs: 04/15/24 09:41 Temperature 97.6 F L Temperature Source Oral Pulse Rate 102 H Respiratory Rate 18 Blood Pressure 161/109 H Blood Pressure Mean 126 Pulse Ox 100 Oxygen Delivery Method Room Air Positive well nourished and well developed General Appearance ED: well developed and NAD HEENT Reports moist mucous membranes Neck supple and no JVD Chest Wall Chest Narrative: There is tenderness over the left lower ribs posteriorly. There is no bony crepitance or step-off. There is no subcutaneous emphysema. There is some mild ecchymosis. Resp normal respiratory effort and clear to auscultation bilaterally Cardio regular rate and regular rhythm GI non-tender and non-distended Palpation: soft Neuro oriented x3, CN's II-XII intact bilaterally and no sensory deficits noted Sensorium / Orientation: alert Motor Exam: strength 5/5 throughout Psych mental status grossly normal MDM MDM MDM Narrative Medical decision making narrative: Differential diagnosis includes rib fracture, intercostal strain, thoracic strain, pneumonia, and pleurisy. X-rays of the left ribs and chest will be obtained to assess for rib fracture and pneumonia. Radiography Diagnostic Testing: X-rays of the left ribs and chest were obtained. There are 5 views. On my independent interpretation, there is no acute infiltrate. There is no acute rib fracture. There is no pneumothorax. Radiologist also interpreted the x-rays and agrees. Treatment and Re-Evaluation :: Patient was advised of his findings. Patient was advised that this is most likely intercostal muscle strain. Patient was instructed to take 10-15 deep breaths every hour while awake to prevent atelectasis and pneumonia. Patient was given a prescription for a short course of [place]. Patient was instructed to return if worse in any way. Patient was instructed to follow-up with his primary care physician in 5 to 7 days. Patient understood and was agreeable with the plan. All questions were answered. Discharge Plan Triage Chief Complaint: Edema ED Provider: Gage Leger Dx/Rx/DC Orders Clinical Impression: Chest wall muscle strain, Transplanted kidney Instructions: ED Chest Wall Strain Prescriptions: New hydrocodone-acetaminophen 5-325 mg tablet 1 tab PO Q6H PRN PRN (Reason: Pain) 3 Days Qty: 10 0RF No Action tacrolimus [Prograf] 1 mg capsule 4 mg PO DAILY Rx Instructions: 4MG IN AM, 3 MG IN PM prednisone 5 mg tablet 5 mg PO DAILY Qty: 30 1RF (D[facility] Instructions .ROUTE .MEDSUPPLY Qty: 1 0RF Rx Instructions: As directed omeprazole 20 mg capsule,delayed release(DR/EC) 20 mg PO DAILY mycophenolate mofetil 250 mg Capsule 500 mg PO BID sodium bicarbonate 650 mg Tablet 650 mg PO DAILY aspirin 81 mg Tablet,Chewable 81 mg PO DAILY cinacalcet 30 mg tablet 30 mg PO DAILY magnesium oxide 400 mg (241.3 mg magnesium) tablet 400 mg PO BID budesonide-formoterol [Symbicort] 160-4.5 mcg/actuation HFA aerosol inhaler 2 puff INHALATION BID PRN (Reason: SOB) amoxicillin-pot clavulanate 875-125 mg tablet 1 tab PO BID Qty: 14 0RF hydrocortisone 2 % lotion 1 applic topical BID 14 Days Qty: 29.6 0RF Primary Care Provider: Wolfgang Reed Referrals: Wolfgang Reed MD [Primary Care Provider] - 3-5 Days Print Language: Slovenian Disposition Disposition: Home, Self Care
--- NOTE | 2024-04-15 10:50 | RAD_ITS ---
STUDY: X-RAY - UNILATERAL RIBS ( LEFT ) WITH CHEST REASON FOR EXAM: Male, 48 years old. Pain. TECHNIQUE - RIBS: 4 views of the left ribs. TECHNIQUE - CHEST: Single PA view of the chest. COMPARISON: Chest radiograph dated 12/19/2023. FINDINGS - RIBS: Normal visualized left ribs without a demonstrated fracture. FINDINGS - CHEST: There are unchanged scattered calcified granulomas throughout the lungs bilaterally. The lungs are otherwise clear and expanded. There is no demonstrated pleural abnormality. Normal size heart. There is unchanged prominence of the left aortopulmonary window. Normal visualized aortic arch and descending thoracic aorta. Normal visualized thoracic spine. Normal visualized ribs, clavicles, and shoulders. There are surgical clips in the right upper quadrant. RAD/Ribs Uni Min 3V w/PA Chest IMPRESSION: RIBS: Normal x-ray examination of the left ribs. CHEST: Unchanged scattered calcified granulomas throughout the lungs bilaterally. Electronically Signed: Juan Moore MD at 11:10 EDT ,
== END 2024-04-15 12:19 | disposition home or self-care (01) ==
PROVIDERS: Emergency Provider Emergency Medicine; PCP Internal Medicine; Visit Provider Emergency Medicine
DX: S29.011A Strain of muscle and tendon of front wall of thorax, initial encounter (principal); I13.0 Hypertensive heart and chronic kidney disease with heart failure and stage 1 through stage 4 chronic kidney disease, or unspecified chronic kidney disease; I50.9 Heart failure, unspecified; J44.9 Chronic obstructive pulmonary disease, unspecified; N18.30 Chronic kidney disease, stage 3 unspecified; Z87.891 Personal history of nicotine dependence; I25.10 Atherosclerotic heart disease of native coronary artery without angina pectoris; I25.2 Old myocardial infarction; K21.9 Gastro-esophageal reflux disease without esophagitis; Z79.899 Other long term (current) drug therapy; Z79.82 Long term (current) use of aspirin; Z79.51 Long term (current) use of inhaled steroids; Z94.0 Kidney transplant status; Z90.49 Acquired absence of other specified parts of digestive tract
CPT/HCPCS: 71101; 99282

== ENCOUNTER 2024-05-07 15:59 | Emergency (ER) | payer MEDICAID, SELFPAY ==
[2024-05-07 16:00] VITALS: BP 160/109; PULSE 108; RESP 16; TEMP 36.6; O2SAT 100; BMI 26.2
[2024-05-07] MEDS: HYDROcodone Bitartrate/Apap 5/325 Tablet PO (16:46)
== END 2024-05-07 17:29 | disposition home or self-care (01) ==
PROVIDERS: Emergency Provider Emergency Medicine; PCP Internal Medicine; Visit Provider Emergency Medicine
DX: S76.911A Strain of unspecified muscles, fascia and tendons at thigh level, right thigh, initial encounter (principal); I13.0 Hypertensive heart and chronic kidney disease with heart failure and stage 1 through stage 4 chronic kidney disease, or unspecified chronic kidney disease; I50.9 Heart failure, unspecified; J44.9 Chronic obstructive pulmonary disease, unspecified; N18.30 Chronic kidney disease, stage 3 unspecified; I25.10 Atherosclerotic heart disease of native coronary artery without angina pectoris; Z87.891 Personal history of nicotine dependence; Z94.89 Other transplanted organ and tissue status; W18.40XA Slipping, tripping and stumbling without falling, unspecified, initial encounter; Y93.01 Activity, walking, marching and hiking; Y92.89 Other specified places as the place of occurrence of the external cause; I25.2 Old myocardial infarction; Z99.2 Dependence on renal dialysis; K21.9 Gastro-esophageal reflux disease without esophagitis; Z79.899 Other long term (current) drug therapy; Z79.82 Long term (current) use of aspirin; Z79.51 Long term (current) use of inhaled steroids; Z90.49 Acquired absence of other specified parts of digestive tract
CPT/HCPCS: 73552; 99282

== ENCOUNTER 2025-03-14 18:56 | Emergency (ER) | payer SELFPAY ==
[2025-03-14 18:58] VITALS: BP 168/91; PULSE 76; RESP 18; TEMP 36; O2SAT 94; BMI 24.7
--- NOTE | 2025-03-14 20:40 | RAD_ITS ---
PROCEDURE: LEFT FEMUR MIN 2 VIEWS 03/14/2025 REASON FOR EXAM: PAIN/FALL TECHNIQUE: Procedure Code: RADFEM Modality: DX Procedure: FEMUR MIN 2 VIEWS Laterality: Left COMPARISON: 12/03/2021 FINDINGS: No acute fracture or dislocation. Status post left total hip arthroplasty with short femoral stem, no evidence for hardware loosening or failure. Visualized joint spaces are preserved. No left knee joint effusion. Grossly unremarkable soft tissues. Atherosclerotic vascular calcifications. RAD/Femur Min 2 Views IMPRESSION: No acute fracture or dislocation. Left hip arthroplasty with intact hardware. Reading Location: [facility]
--- NOTE | 2025-03-14 20:40 | RAD_ITS ---
PROCEDURE: PELVIS 1 OR 2 VIEWS 03/14/2025 REASON FOR EXAM: PAIN LEFT, FALL TECHNIQUE: Procedure Code: RADPEL Modality: DX Procedure: PELVIS 1 OR 2 VIEWS COMPARISON: none FINDINGS: Status post total left hip arthroplasty without hardware complications. No acute fracture or dislocations. Mild degenerative changes of the right hip. No acute soft tissue abnormalities. RAD/Pelvis 1 or 2 Views IMPRESSION: Status post total left hip arthroplasty without hardware complications. No acu te fracture or dislocations. Mild degenerative changes of the right hip. No acute soft tissue abnormalities. Reading Location: [id number]
--- NOTE | 2025-03-14 21:18 | ED.VIS.LOWEX ---
HPI History of Present Illness Chief Complaint: Lower Extremity Injury Informant: patient Narrative Narrative: 49-year-old gentleman was walking on the sidewalk to work 3 days ago, he went to step over a branch that was across the sidewalk and his left leg did not lift as high as he expected it to cause him to trip over it and land injuring his right hip and buttock, he is not exactly sure how he landed, he states he laid there for 10 seconds or so because he was surprised by all of this but then was able to get up and walk to work, work and then actually go bowling that night after work without any significant issues. He still able to walk without major problems, but he has noticed a lot of bruising to his left thigh down to his knee. He denies any numbness or weakness, or other injuries. He states it feels like I am sitting on my wallet in my left butt. [facility] Medical History Right hamstring muscle strain CKD (chronic kidney disease) stage 3, GFR 30-59 ml/min CAD (coronary artery disease) History of NC (myocardial infarction) Pain of right heel Left flank pain Contact with and (suspected) exposure to other viral communicable diseases History of COVID-19 History of steroid therapy Arthritis History of renal disease History of renal dialysis Anemia History of hiatal hernia Gastric reflux Former smoker CPAP (continuous positive airway pressure) dependence Leg cramps History of pain when walking History of stress test Hx of cardiomyopathy Hx of Perez's palsy Hypertension Cardiology follow-up encounter History of CHF (congestive heart failure) Left hip pain Preoperative evaluation to rule out surgical contraindication Abdominal pain Dysuria Elevated blood pressure reading Right shoulder pain Syncope Palpitations Myocardial infarction with cardiac rehabilitation COPD (chronic obstructive pulmonary disease) Home Medications ?Medication ?Instructions ?Recorded ?Last Taken ?Type tacrolimus 1 mg capsule, 4 mg PO DAILY rejection 09/30/19 12/19/23 History immediate-release (Prograf) omeprazole 20 mg capsule,delayed 20 mg PO DAILY 02/26/21 12/19/23 History release prednisone 5 mg tablet 5 mg PO DAILY #30 tabs 03/02/21 12/19/23 Rx mycophenolate mofetil 250 mg 500 mg PO BID 10/10/21 12/19/23 History capsule nebulizers #1 ea 10/16/21 Unknown Rx sodium bicarbonate 650 mg tablet 650 mg PO DAILY 12/03/21 12/19/23 History aspirin 81 mg chewable tablet 81 mg PO DAILY health maintance 10/05/23 12/19/23 History cinacalcet 30 mg tablet 30 mg PO DAILY 10/05/23 12/19/23 History budesonide-formoterol HFA 160 2 puff inhalation BID PRN SOB 12/19/23 12/19/23 History mcg-4.5 mcg/actuation aerosol inhaler (Symbicort) magnesium oxide 400 mg (241.3 mg 400 mg PO BID 12/19/23 12/19/23 History magnesium) tablet amoxicillin 875 mg-potassium 1 tab PO BID #14 tabs 02/07/24 Unknown Rx clavulanate 125 mg tablet hydrocortisone 2 % lotion 1 applic topical BID apply to 02/07/24 Unknown Rx affected area 2 weeks #29.6 mL Allergy/AdvReac Type Severity Reaction Status Date / Time Latex, Natural Rubber Allergy Mild rash Verified 03/14/25 18:58 hydromorphone (From Dilaudid) AdvReac Mild nausea Verified 03/14/25 18:58 Surgical History History of kidney transplant History of cardiac catheterization Hx of oral surgery Hx of esophagogastroduodenoscopy Hx of colonoscopy Hx of hand surgery Hx of myringotomy Hx of exploratory laparotomy Hx of parathyroidectomy History of cholecystectomy History of appendectomy kidney transplant Social History household members: other details: girlfriend and mother Smoking Status: Former smoker Tobacco: How many years used: 20 alcohol intake: never substance use type: does not use do you feel safe at home: Yes ROS ROS ED Constitutional Constitutional ED: Denies chills or fever(s) Cardiovascular Cardiovascular: Denies chest pain Respiratory/Chest Respiratory/Chest: Denies dyspnea Gastrointestinal Gastrointestinal: Denies abdominal pain, nausea or vomiting Musculoskeletal Musculoskeletal: Reports back pain and extremity pain; Denies neck pain Integumentary Denies Abrasions, rash or wounds Neurologic Neurologic: Denies headache(s), paresthesias or weakness EXAM Physical Exam Const Vital Signs: 03/14/25 18:58 Temperature 96.8 F L Temperature Source Temporal Pulse Rate 76 Respiratory Rate 18 Blood Pressure 168/91 H Blood Pressure Mean 116 Pulse Ox 94 Oxygen Delivery Method Room Air Positive well nourished and well developed General Appearance ED: well developed and NAD Neck full ROM and supple Back/Spine normal ROM and normal to inspection Back/Spine Narrative: There is some left paraspinal muscular tenderness including at the level of the pelvic brim and in the buttock. Ischial tuberosity is nontender. No midline tenderness. Extremity Extremity Narrative: Full range of motion of the left lower extremity including hip and knee without difficulty or limitation. Mild tenderness at the greater trochanter on the left. There is significant ecchymosis in the distal half of the medial left thigh progressing down to the popliteal fossa and into the proximal calf. None of this area is tender but he does have some tenderness more proximal in the medial thigh, it is mild. All compartments are soft and nondistended. No deformities. Mild tenderness at the left ASIS, but no instability of the pelvis. Tender all the way around the pelvic brim to the left. The other 3 extremities move fully without limitation or tenderness. Neuro oriented x3, no focal motor deficits and no sensory deficits noted Sensorium / Orientation: alert Psych mental status grossly normal and thought process normal Skin no wounds Rashes: no rashes MDM MDM MDM Narrative Medical decision making narrative: 4 view x-ray series of the left femur and 1 view x-ray of the pelvis all are negative for acute fracture or dislocation on my interpretation. He has a total hip arthroplasty on the left which is intact and normal-appearing as confirmed radiology. Patient was reassured, probably has a buttock hematoma and some of the blood is draining down fascial planes with gravity and is now seen in the thigh and knee area. He has a good PT pulse, is neurovascular intact, there is no evidence of compartment syndrome he is not having a lot of pain, and I think he is stable for supportive care discharge close outpatient follow-up as needed. Radiography Diagnostic Testing: Clinical Impression(s) from Imaging Studies Femur X-Ray 03/14/25 20:40 IMPRESSION: No acute fracture or dislocation. Left hip arthroplasty with intact hardware. Reading Location: [facility] Pelvis X-Ray 03/14/25 20:40 IMPRESSION: Status post total left hip arthroplasty without hardware complications. No acute fracture or dislocations. Mild degenerative changes of the right hip. No acute soft tissue abnormalities. Reading Location: [facility] Discharge Plan Triage Chief Complaint: Lower Extremity Injury ED Provider: Jeancarlos Green Dx/Rx/DC Orders Clinical Impression: Hematoma of left buttock, Contusion of left hip and thigh, Fall from slip, trip, or stumble Instructions: ED Hip Contusion Prescriptions: No Action tacrolimus [Prograf] 1 mg capsule 4 mg PO DAILY Rx Instructions: 4MG IN AM, 3 MG IN PM prednisone 5 mg tablet 5 mg PO DAILY Qty: 30 1RF (DME) nebulizers Misc See Rx Instructions .ROUTE .MEDSUPPLY Qty: 1 0RF Rx Instructions: As directed omeprazole 20 mg capsule,delayed release(DR/EC) 20 mg PO DAILY mycophenolate mofetil 250 mg Capsule 500 mg PO BID sodium bicarbonate 650 mg Tablet 650 mg PO DAILY aspirin 81 mg Tablet,Chewable 81 mg PO DAILY cinacalcet 30 mg tablet 30 mg PO DAILY magnesium oxide 400 mg (241.3 mg magnesium) tablet 400 mg PO BID budesonide-formoterol [Symbicort] 160-4.5 mcg/actuation HFA aerosol inhaler 2 puff INHALATION BID PRN (Reason: SOB) amoxicillin-pot clavulanate 875-125 mg tablet 1 tab PO BID Qty: 14 0RF hydrocortisone 2 % lotion 1 applic topical BID 14 Days Qty: 29.6 0RF Primary Care Provider: Wolfgang Reed Referrals: Wolfgang Reed MD [Primary Care Provider] - 10-14 Days if not better Print Language: Serbian Disposition Disposition: Home, Self Care
[2025-03-14 21:34] VITALS: BP 162/87; PULSE 60; RESP 16; TEMP 37.1; O2SAT 99
== END 2025-03-14 21:35 | disposition home or self-care (01) ==
PROVIDERS: Emergency Provider Emergency Medicine; PCP Internal Medicine; Visit Provider Emergency Medicine
DX: S30.0XXA Contusion of lower back and pelvis, initial encounter (principal); I13.0 Hypertensive heart and chronic kidney disease with heart failure and stage 1 through stage 4 chronic kidney disease, or unspecified chronic kidney disease; I50.9 Heart failure, unspecified; J44.9 Chronic obstructive pulmonary disease, unspecified; Z79.4 Long term (current) use of insulin; N18.30 Chronic kidney disease, stage 3 unspecified; Z87.891 Personal history of nicotine dependence; Z96.642 Presence of left artificial hip joint; I25.10 Atherosclerotic heart disease of native coronary artery without angina pectoris; W01.10XA Fall on same level from slipping, tripping and stumbling with subsequent striking against unspecified object, initial encounter; Y93.01 Activity, walking, marching and hiking; Y92.480 Sidewalk as the place of occurrence of the external cause; I25.2 Old myocardial infarction; K21.9 Gastro-esophageal reflux disease without esophagitis; Z79.899 Other long term (current) drug therapy; Z94.0 Kidney transplant status; Z90.49 Acquired absence of other specified parts of digestive tract; S70.02XA Contusion of left hip, initial encounter; S70.12XA Contusion of left thigh, initial encounter
CPT/HCPCS: 72170; 73552; 99282